=== PATIENT | female | born 1935 | race African-American/Black ===

== ENCOUNTER 2017-06-12 00:05 | Inpatient (IN) | payer OTHER ==
[2017-06-12] MEDS ORDERED: ALBUTEROL SO4 2.5/IPRATROPIUM 0.5 INH SOL 3 ML VIAL.NEB. NEB STA ×2 (00:13→00:42)
[2017-06-12] MEDS ORDERED: NITROGLYCERIN 2% OINTMENT - 1GM PACKET TD ONE ×2 (00:15→00:27)
[2017-06-12] MEDS ORDERED: morphine CARPU-JECT 2 MG/1 ML DISP.SYRIN IVPUSH ONE ×2 (00:15→00:33)
--- NOTE | 2017-06-12 00:16 | PDOC ---
History of Present Illness - General History Source: Patient, Family Exam Limitations: No Limitations - History of Present Illness Initial Comments: 06/12/17 00:42 The patient is an 82 year old female, with history of hypertension and CKD on HD MWF, RUE AV fistula, who presents to the ED with difficulty breathing today. As per patients grandson, she was lying in bed and awoke suddenly feeling short of breath. He does state that she experiences episodes of shortness of breath often but this one is worse than her previous episodes. The patient denies any fever, chills, nausea, vomiting, diarrhea, abdominal pain , or chest pain. <Kanwal Eddy - Last Filed: 06/12/17 00:41> - General History Source: Patient, Family <Feliz Nj - Last Filed: 06/12/17 02:37> - General Stated Complaint: DIFF BREATHING Time Seen by Provider: 06/12/17 00:13 Past History <Kanwal Eddy - Last Filed: 06/12/17 00:41> - Past Medical History Anemia: Yes Asthma: No Cancer: No Cardiac Disorders: No CVA: No COPD: No CHF: No Dementia: No Diabetes: No GI Disorders: No Disorders: Yes (CKD) HTN: Yes Hypercholesterolemia: No Liver Disease: No Seizures: No Thyroid Disease: No - Surgical History Abdominal Surgery: No Appendectomy: No Cardiac Surgery: No Cholecystectomy: No Lung Surgery: No Neurologic Surgery: No Orthopedic Surgery: No - Psycho/Social/Smoking Cessation Hx Suicidal Ideation: No Smoking History: Never smoked Have you smoked in the past 12 months: No Substance Use Type: None Hx Substance Use Treatment: No <Feliz Nj - Last Filed: 06/12/17 02:37> - Past Medical History Allergies/Adverse Reactions: Allergies Allergy/AdvReac Type Severity Reaction Status Date / Time No Known Allergies Allergy Verified 06/12/17 01:12 Home Medications: Ambulatory Orders Cinacalcet HCl [Sensipar] 60 mg PO DAILY 09/27/15 Sevelamer Carbonate [Renvela -] 800 mg PO CM 09/27/15 Lisinopril [Prinivil] 10 mg PO DAILY #30 tablet 10/01/15 Pantoprazole Sodium [Protonix -] 40 mg PO BID #60 tablet.ec 10/01/15 Review of Systems - Review of Systems Comments:: 06/12/17 00:43 CONSTITUTIONAL: Present: diaphoresis Absent: fever, chills, generalized weakness, malaise, loss of appetite HEENT: Absent: rhinorrhea, nasal congestion, throat pain, throat swelling, difficulty swallowing, mouth swelling, ear pain, eye pain, visual Changes CARDIOVASCULAR: Absent: chest pain, syncope, palpitations, irregular heart rate, lightheadedness , peripheral edema RESPIRATORY: Present: shortness of breath Absent: cough, dyspnea with exertion, orthopnea, wheezing, stridor, hemoptysis GASTROINTESTINAL: Absent: abdominal pain, abdominal distension, nausea, vomiting, diarrhea, constipation, melena, hematochezia GENITOURINARY: Absent: dysuria, frequency, urgency, hesitancy, hematuria, flank pain, genital pain MUSCULOSKELETAL: Absent: myalgia, arthralgia, joint swelling SKIN: Absent: rash, itching, pallor HEMATOLOGIC/IMMUNOLOGIC: Absent: easy bleeding, easy bruising, lymphadenopathy, frequent infections ENDOCRINE: Absent: unexplained weight gain, unexplained weight loss, heat intolerance, cold intolerance NEUROLOGIC: Absent: headache, focal weakness or paresthesias, dizziness, unsteady gait, seizure, mental status changes, bladder or bowel incontinence PSYCHIATRIC: Absent: anxiety, depression, suicidal or homicidal ideation, hallucinations. <Kanwal Eddy - Last Filed: 06/12/17 00:41> *Physical Exam - Physical Exam Comments: 06/12/17 00:45 GENERAL: Well developed, well nourished. Awake and alert. +Moderate distress. Appears diaphoretic HEENT: Normocephalic, atraumatic. PERRLA, EOMI. No conjunctival pallor. Sclera are non- icteric. Moist mucous membranes. Oropharynx is clear. NECK: Supple. Full ROM. No JVD. Carotid pulses 2+ and symmetric, without bruits. No thyromegaly. No lymphadenopathy. CARDIOVASCULAR: No murmurs, rubs, or gallops. Distal pulses are 2+ and symmetric. +Tachycardic PULMONARY: +Decreased breath sounds, crackles heard throughout. Tachypneic ABDOMINAL: Soft. Non-tender. Non-distended. No rebound or guarding. No organomegaly. Normoactive bowel sounds. MUSCULOSKELETAL Normal range of motion at all joints. No bony deformities or tenderness. No CVA tenderness. EXTREMITIES: No cyanosis. No clubbing. No edema. No calf tenderness. AV fistula in right upper arm. SKIN: Warm and dry. Normal capillary refill. No rashes. No jaundice. NEUROLOGICAL: Alert, awake, appropriate. PSYCHIATRIC: Cooperative. Good eye contact. Appropriate mood and affect. <Kanwal Eddy - Last Filed: 06/12/17 00:41> Heart Score/ECG Review - ECG Intrepretation Comment:: 06/12/17 00:25 EKG was reviewed by Dr. Nj at 0:15:06 Impression: Sinus tachycardia. Possible Left atrial enlargement. Nonspecific T wave abnormality. Vent. rate: 117 bpm AR interval: 168 ms QTc: 454 ms <Kanwal Eddy - Last Filed: 06/12/17 00:41> ED Treatment Course - LABORATORY CBC & Chemistry Diagram: 06/12/17 00:13 06/12/17 01:54 - RADIOLOGY Radiology Studies Ordered: Category Date Time Status CHEST X-RAY PORTABLE* [RAD] Stat Radiology 06/12/17 00:14 Ordered <Feliz Nj - Last Filed: 06/12/17 02:37> Medical Decision Making - Medical Decision Making 06/12/17 02:17 Dr. Nj: The scribe's documentation has been prepared under my direction and personally reviewed by me in its entirery. I confirm that the note above accurately reflects all work, treatment, procedures, and medical decision making performed by me. 06/12/17 02:36 Pt found ot be in pulmonary edema. Placed on a Nitro drip. Pt to be admitted to ICU. <Feliz Nj - Last Filed: 06/12/17 02:37> *DC/Admit/Observation/Transfer - Attestations Scribe Attestion: 06/12/17 00:27 Documentation prepared by Kanwal Eddy, acting as center medical director for Feliz Nj MD. <Kanwal Eddy - Last Filed: 06/12/17 00:41> - Discharge Dispostion Admit: Yes <Feliz Nj - Last Filed: 06/12/17 02:37> Diagnosis at time of Disposition: ESRD on hemodialysis Pulmonary edema Qualifiers: Chronicity: acute Qualified Code(s): J81.0 - Acute pulmonary edema - Discharge Dispostion Condition at time of disposition: Critical - Referrals Referrals: Yovany Bustamante MD [Primary Care Provider] -
[2017-06-12] MEDS ORDERED: FUROSEMIDE 40 MG/4 ML INJECTABLE VIAL IVPUSH ONE (00:33)
[2017-06-12] MEDS ORDERED: NITROGLYCERIN 25MG/D5W 250ML 250 ML IVPB ONE (00:34)
[2017-06-12] MEDS ORDERED: morphine CARPU-JECT 2 MG/1 ML DISP.SYRIN ONE (00:34)
[2017-06-12] MEDS ORDERED: FUROSEMIDE 40 MG/4 ML INJECTABLE VIAL ONE (00:34)
[2017-06-12 00:43] LABS: BASOPHIL 1.2 % (0-2.0); EOSINOPHIL 3.4 % (0-4.5); MCH 26.7 pg (25.7-33.7); MCHC 31.9 g/dl (32.0-36.0); MEAN CELL VOLUME 83.7 fl (80-96); MEAN PLT VOLUME 8.4 fl (7.5-11.1); NEUTROPHILS 64.5 % (42.8-82.8); PLATELET COUNT 229 K/MM3 (134-434); RDW 19.6 % (11.6-15.6); WHITE BLOOD COUNT 8.7 K/mm3 (4.0-10.0)
[2017-06-12] MEDS: NITROGLYCERIN 25MG/D5W 250ML 250 ML IVPB SCH ×2 (00:53→03:40)
[2017-06-12 01:09] LABS: INR 1.04 (0.82-1.09); PROTHROMBIN TIME (PATIENT) 11.4 SEC (9.98-11.88)
[2017-06-12] MEDS ORDERED: METOCLOPRAMIDE HCL INJECTION 10 MG/2 ML VIAL IVPUSH ONE (01:37)
[2017-06-12 01:55] LABS: URINE APPEARANCE CLEAR; URINE BILIRUBIN NEGATIVE (NEGATIVE); URINE BLOOD NEGATIVE (NEGATIVE); URINE COLOR STRAW; URINE GLUCOSE (UA) 2+ (NEGATIVE); URINE KETONE NEGATIVE (NEGATIVE); URINE LEUK ESTERASE NEGATIVE (NEGATIVE); URINE NITRITE NEGATIVE (NEGATIVE); URINE UROBILINOGEN NEGATIVE mg/dL (0.2-1.0)
[2017-06-12 01:56] LABS: URINE PROTEIN 3+ (NEGATIVE)
[2017-06-12 02:05] LABS: URINE BACTERIA RARE /hpf (NONE SEEN); URINE HYALINE CAST 1 /lpf; URINE RBC 1 /hpf (0-3); URINE WBC 3 /hpf (3-5)
[2017-06-12 02:26] LABS: ALBUMIN 3.4 g/dl (3.4-5.0); ANION GAP 10 (8-16); BILIRUBIN,TOTAL 0.5 mg/dL (0.2-1.0); CALCIUM 8.2 mg/dL (8.5-10.1); CO2 28 mmol/L (21-32); CREATININE 5.9 mg/dL (0.55-1.02); GLUCOSE,RANDOM 153 mg/dL (74-106); SGOT/AST 68 U/L (15-37); SGPT/ALT 54 U/L (12-78); TOT PROT 6.1 g/dl (6.4-8.2)
[2017-06-12 02:28] LABS: ALK PHOS 156 U/L (45-117); TROPONIN I 0.14 ng/ml (0.00-0.05)
--- NOTE | 2017-06-12 02:54 | HP ---
CHIEF COMPLAINT: SOB PCP: Dr. Jayme Hoskins HISTORY OF PRESENT ILLNESS: This is a 82 y/o female with a past medical history of ESRD. Who presents to the ED with her grandson for SOB. Per ED record: As per patients grandson, she was lying in bed and awoke suddenly feeling short of breath. He does state that she experiences episodes of shortness of breath often but this one is worse than her previous episodes. Patient reports having chest pain which is now resolved since being started on the Nitro Drip. Patient reports having lower extremity edema. Patient reports being dialyzed last Thursday. Patient denies fever, chills, cough, dizziness, WEIR, CP, AP, N/V/D, constipation. ER course was notable for: (1) Chest Xray- Acute Pulmonary Edema (2) EKG- Sinus Tachycardia, Nonspecific T wave abnormality (3) Bun 28, Cr 5.9 Recent Travel: None PAST MEDICAL HISTORY: ESRD- HD (MWF) HTN DM2 Anemia GI Bleed PAST SURGICAL HISTORY: AV- Fistula/Graft: Right Arm Social History: Smoking: Former 25 years ago Alcohol: None Drugs: None Lives with family Family History: Non-contributory Allergies No Known Allergies Allergy (Verified 06/12/17 01:12) HOME MEDICATIONS: Home Medications Medication Instructions Recorded Cinacalcet HCl [Sensipar] 60 mg PO DAILY 09/27/15 Sevelamer Carbonate [Renvela -] 800 mg PO CM 09/27/15 Lisinopril [Prinivil] 10 mg PO DAILY #30 tablet 10/01/15 Pantoprazole Sodium [Protonix -] 40 mg PO BID #60 tablet.ec 10/01/15 REVIEW OF SYSTEMS CONSTITUTIONAL: Absent: fever, chills, diaphoresis, generalized weakness, malaise, loss of appetite, weight change HEENT: Absent: rhinorrhea, nasal congestion, throat pain, throat swelling, difficulty swallowing, mouth swelling, ear pain, eye pain, visual changes CARDIOVASCULAR: chest pain, peripheral edema Absent: syncope, palpitations, irregular heart rate, lightheadedness RESPIRATORY: shortness of breath Absent: cough, dyspnea on exertion, orthopnea, wheezing, stridor, hemoptysis GASTROINTESTINAL: Absent: abdominal pain, abdominal distension, nausea, vomiting, diarrhea, constipation, melena, hematochezia GENITOURINARY: Absent: dysuria, frequency, urgency, hesitancy, hematuria, flank pain, genital pain MUSCULOSKELETAL: Absent: myalgia, arthralgia, joint swelling, back pain, neck pain SKIN: Absent: rash, itching, pallor HEMATOLOGIC/IMMUNOLOGIC: Absent: easy bleeding, easy bruising, lymphadenopathy, frequent infections ENDOCRINE: Absent: unexplained weight gain, unexplained weight loss, heat intolerance, cold intolerance NEUROLOGIC: Absent: headache, focal weakness or paresthesias, dizziness, unsteady gait, seizure, mental status changes, bladder or bowel incontinence PSYCHIATRIC: Absent: anxiety, depression, suicidal or homicidal ideation, hallucinations. PHYSICAL EXAMINATION Vital Signs - 24 hr 06/12/17 06/12/17 00:10 02:41 Temperature 96.1 F L Pulse Rate 121 H Pulse Rate [ 68 Right Apical] Respiratory 32 H 14 Rate Blood Pressure 225/103 Blood Pressure 159/58 [Left Arm] O2 Sat by Pulse 86 L 100 Oximetry (%) GENERAL: Asleep, but easily arousable and oriented to name, in no acute distress. HEAD: Normal with no signs of trauma. EYES: Pupils equal, round and reactive to light, extraocular movements intact, sclera anicteric, conjunctiva clear. No lid lag. EARS, NOSE, THROAT: Ears normal, nares patent, oropharynx clear without exudates. Dry mucous membranes. NECK: Normal range of motion, supple without lymphadenopathy, JVD, or masses. LUNGS: Lung dorantes diminished to bases, +crackles. No wheezes. No accessory muscle use. HEART: Regular rate and rhythm, normal S1 and S2, rub or gallop. grade 3/6 murmur over left chest border ABDOMEN: Soft, nontender, not distended, normoactive bowel sounds, no guarding, no rebound, no masses. No hepatomegaly or splenomegaly. MUSCULOSKELETAL: Normal range of motion at all joints. No bony deformities or tenderness. No CVA tenderness. UPPER EXTREMITIES: 2+ pulses, warm, well-perfused. No cyanosis. No clubbing. No peripheral edema. + Right AV Fistula +Bruit/Thrill LOWER EXTREMITIES: 2+ pulses, warm, well-perfused. No calf tenderness. +1 bilateral pitting peripheral edema. NEUROLOGICAL: Cranial nerves II-XII intact. Normal speech. Gait not observed. PSYCHIATRIC: Cooperative. Good eye contact. Appropriate mood and affect. SKIN: Warm, dry, normal turgor, no rashes or lesions noted, normal capillary refill. Laboratory Results - last 24 hr 06/12/17 06/12/17 06/12/17 00:13 00:13 00:33 WBC 8.7 D RBC 4.11 D Hgb 11.0 D Hct 34.3 D MCV 83.7 MCH 26.7 D MCHC 31.9 L RDW 19.6 H Plt Count 229 D MPV 8.4 Neutrophils % 64.5 Lymphocytes % 23.5 D Monocytes % 7.4 Eosinophils % 3.4 Basophils % 1.2 INR 1.04 Sodium Cancelled Potassium Cancelled Chloride Cancelled Carbon Dioxide Cancelled Anion Gap Cancelled BUN Cancelled Creatinine Cancelled Creat Clearance w eGFR Cancelled Random Glucose Cancelled Lactic Acid Calcium Cancelled Magnesium Cancelled Total Bilirubin Cancelled AST Cancelled ALT Cancelled Alkaline Phosphatase Cancelled Creatine Kinase Cancelled Troponin I Cancelled B-Natriuretic Peptide Cancelled Total Protein Cancelled Albumin Cancelled Urine Color Urine Appearance Urine pH Urine Protein Urine Glucose (UA) Urine Ketones Urine Blood Urine Nitrite Urine Bilirubin Urine Urobilinogen Ur Leukocyte Esterase Urine RBC Urine WBC Urine Bacteria Hyaline Casts 06/12/17 06/12/17 06/12/17 00:47 01:40 01:54 WBC RBC Hgb Hct MCV MCH MCHC RDW Plt Count MPV Neutrophils % Lymphocytes % Monocytes % Eosinophils % Basophils % INR Sodium 138 Potassium 4.7 Chloride 100 Carbon Dioxide 28 Anion Gap 10 BUN 28 H D Creatinine 5.9 H D Creat Clearance w eGFR 6.83 Random Glucose 153 H D Lactic Acid 1.1 Calcium 8.2 L Magnesium Total Bilirubin 0.5 AST 68 H D ALT 54 D Alkaline Phosphatase 156 H D Creatine Kinase 98 Troponin I 0.14 H B-Natriuretic Peptide Total Protein 6.1 L D Albumin 3.4 D Urine Color Straw Urine Appearance Clear Urine pH 8.0 Urine Protein 3+ H Urine Glucose (UA) 2+ H Urine Ketones Negative Urine Blood Negative Urine Nitrite Negative Urine Bilirubin Negative Urine Urobilinogen Negative Ur Leukocyte Esterase Negative Urine RBC 1 Urine WBC 3 Urine Bacteria Rare Hyaline Casts 1 ASSESSMENT/PLAN: This is a 82 y/o female with a PMHx of: ESRD- HD (M,W,F), HTN, DM2. Admitted for Acute Pulmonary Edema for further evaluation of their emergent condition. Problems: 1. Acute Pulmonary Edema 2. Uncontrolled HTN 3. ESRD 4. Chest Pain 4. DM2 5. Anemia 6. GI Bleed Plan: 1. Pulm: Acute Pulmonary Edema - Likely secondary to volume overload - ICU- CC monitoring - Chest Xray- image Pulmonary Edema, no focal infiltrates - Started on Nitro Drip, Lasix, Morphine given in ED - Will Continue Nitro Drip Protocol to titrate sys BP 170s - Appreciate Loader Machine Consult - Appreciate Nephrology Consult - Monitor CBC, BMP - INOs - O2 2. Card: Uncontrolled HTN - Likely secondary to volume overload ?missed HD - Continue Nitro Drip titrate to maintain sys BP 170's - Hold home meds for now, review in am - HD today - Monitor BP Chest pain - Patient denies active CP - HEART Score 4 - Serial Enzymes - EKG reviewed - Continue Nitro Drip titrate - Appreciate Cardiology Consult - Hold Asa 2/2 Acute Pulmonary Edema, ESRD, (risks outweigh benefits) will await recommendations per Cardiology 3. Neph: End Stage Renal Disease - Continue HD- Mon, Wed, Fri - Appreciate Nephrology Consult - Continue home meds 4. Endo:Diabetes Mellitus - BGMs - No current meds listed, verify with grandson today - ISS, when meals resumed - HgbA1C in am 5.Heme: Anemia - Stable - Hgb 11, baseline - Will transfuse if Hb < 7.0 6 GI: Gastrointestinal Bleed - Not active - Hgb 11.0 7. FEN - Fluid Restriction - Replete lytes prn - Renal, Low Na Diet 8. DVT Prophylaxis - SCDs - Heparin SQ, monitor closely Code Status: Full Code Dispo: Requires Inpatient Care Problem List - Problem (1) Pulmonary edema Code(s): J81.1 - CHRONIC PULMONARY EDEMA Qualifiers: Chronicity: acute Qualified Code(s): J81.0 - Acute pulmonary edema (2) ESRD on hemodialysis Code(s): N18.6 - END STAGE RENAL DISEASE Z99.2 - DEPENDENCE ON RENAL DIALYSIS (3) Chest pain Code(s): R07.9 - CHEST PAIN, UNSPECIFIED (4) HTN (hypertension) Code(s): I10 - ESSENTIAL (PRIMARY) HYPERTENSION (5) DM (diabetes mellitus) type II controlled with renal manifestation Code(s): E11.29 - TYPE 2 DIABETES MELLITUS W OTH DIABETIC KIDNEY COMPLICATION (6) Anemia Code(s): D64.9 - ANEMIA, UNSPECIFIED (7) Aortic stenosis Code(s): Q25.3 - SUPRAVALVULAR AORTIC STENOSIS (8) DVT prophylaxis Code(s): [id number] - Visit type - Emergency Visit Emergency Visit: Yes ED Registration Date: 06/12/17 Care time: The patient presented to the Emergency Department on the above date and was hospitalized for further evaluation of their emergent condition. - New Patient This patient is new to me today: Yes Date on this admission: 06/12/17 - Critical Care Critical Care patient: Yes Total Critical Care Time (in minutes): 35 Critical Care Statement: The care of this patient involved high complexity decision making to prevent further life threatening deterioration of the patient 's condition and/or to evalute & treat vital organ system(s) failure or risk of failure.
[2017-06-12 03:27] VITALS: BMI 21.3
--- NOTE | 2017-06-12 04:27 | CONSULT ---
Consult - text type - Consultation Consultation Note: Pulm/CCM Pt seen and examined in ICU CC: Shortness of Breath HPI: Briefly Ms Ng is a 82 y/o woman with HTN, ESRD on TIW HD via RUE AVF who now presents to ED with Hypertension and pulmonary edema in setting of missed HD session. Pt apparently missed her HD session on Thu, though she is currently unable to indicate why. She awoke suddenly this evening with dyspnea. Brought to ED by son. Denies Sick prodrome, chest pain, fever/chills, N/V/D. In ED pt was afebrile, hypertensive 225/140, tachycardic, spo2 80s, improved on supplemental o2. Give IV lasix with small amount of output, placed on Nitroglycerin gtt with SPB down to 160-170. CXR showed pulm edema pattern without clear focal infiltrate. Cr 5.9 but K only 4.7. WBC of 8 and UA negative. EKG without ischemic changes. Fio2 was able to be down titrated. Admitted to ICU for further care. In ICU pt sleeping comfortably, BP 170/60, HR 64, without dyspnea, saturating well on nasal cannula 3LPM. Past Medical History Cardio/Vascular HTN Renal/ Renal Failure,Hemodialysis Heme/Onc Anemia Endocrine Diabetes Mellitus Past Surgical History Past Surgical History AV Fistula/Graft Smoking History Smoking history Never smoked Alcohol/Substance Use Hx Alcohol Use No ROS: 10 point review unrevealing except as per HPI> Ambulatory Orders Cinacalcet HCl [Sensipar] 60 mg PO DAILY 09/27/15 Sevelamer Carbonate [Renvela -] 800 mg PO CM 09/27/15 Lisinopril [Prinivil] 10 mg PO DAILY #30 tablet 10/01/15 Pantoprazole Sodium [Protonix -] 40 mg PO BID #60 tablet.ec 10/01/15 Current Medications Chlorhexidine Gluconate (Hibiclens For Decolonization -) 1 applic TP HS DAVID Nitroglycerin/Dextrose (Nitroglycerin 25mg/D5w 250ml) 250 mls @ 6 mls/hr IVPB TITR DAVID PRN Reason: 10 MCG/MIN Last Admin: 06/12/17 03:40 Dose: 15 mls/hr Mupirocin (Bactroban Ointment (For Decolonization) -) 1 applic NS BID DAVID Stop: 06/17/17 09:59 Vital Signs Temp 97.6 F 06/12/17 02:09 Pulse 65 06/12/17 02:55 Resp 11 L 06/12/17 02:55 BP 159/61 06/12/17 02:55 Pulse Ox 100 06/12/17 02:41 Intake & Output 06/11/17 06/11/17 06/12/17 11:59 23:59 11:59 Weight 54.573 kg Other: Voiding Method Indwelling Catheter Height 5 ft 3 in Body Mass Index (BMI) 21.3 Weight Measurement Method Built in [facility] Weight Measurement Method Estimated by Staff CBC, BMP 06/12/17 00:13 06/12/17 01:54 Urine Test Results Urine Color Straw 06/12/17 01:40 Urine Appearance Clear 06/12/17 01:40 Urine pH 8.0 (5.0-8.0) 06/12/17 01:40 Urine Protein 3+ (NEGATIVE) H 06/12/17 01:40 Urine Glucose (UA) 2+ (NEGATIVE) H 06/12/17 01:40 Urine Ketones Negative (NEGATIVE) 06/12/17 01:40 Urine Blood Negative (NEGATIVE) 06/12/17 01:40 Urine Nitrite Negative (NEGATIVE) 06/12/17 01:40 Urine Bilirubin Negative (NEGATIVE) 06/12/17 01:40 Ur Leukocyte Esterase Negative (NEGATIVE) 06/12/17 01:40 Urine RBC 1 /hpf (0-3) 06/12/17 01:40 Urine WBC 3 /hpf (3-5) 06/12/17 01:40 Urine Bacteria Rare /hpf (NONE SEEN) 06/12/17 01:40 PE: Gen: eld woman, sleeping, no distress HEENT: NCAT PULM: diffuse rales, no wheezes, no accessory muscle use CV: RRR, no m/r/g appreciated Abd; soft, NT, +BS ext: RUE AVF with + thrill Neuro: non-focal CXR: reviewed, pulm edema, no pneumothorax EKG: ST, non specific ST changes, normal intervals, no widening or significant spike T A/82y/o woman ESRD on HD p/w pulm edema and hypertensive emergency, improved on NTG gtt P/ -cont ntg gtt with goal SPB 170s -no indication for abx -HD in Am as per Nephrology -restart home meds in am -SQH -no indication for GI alon -kaitlin younger for floor post HD Amadou Hopper ACN [id number] Critical Care Total Critical Care Time (in minutes): 35 Critical Care Statement: The care of this patient involved high complexity decision making to prevent further life threatening deterioration of the patient 's condition and/or to evalute & treat vital organ system(s) failure or risk of failure.
--- NOTE | 2017-06-12 07:48 | CON.NEP ---
Consult Consult Specialty:: nephrology Reason for Consultation:: esrd - History of Present Illness Chief Complaint: sob History of Present Illness: This is a 82 y/o female with a past medical history of ESRD. Who presents to the ED with her grandson for SOB. Per ED record: As per patients grandson, she was lying in bed and awoke suddenly feeling short of breath. He does state that she experiences episodes of shortness of breath often but this one is worse than her previous episodes. Patient reports having chest pain which is now resolved since being started on the Nitro Drip. Patient reports having lower extremity edema. Patient reports being dialyzed last Thursday. Patient denies fever, chills, cough, dizziness, WEIR, CP, AP, N/V/D, constipation. She has been on hemodialysis for about 4 years using a left avg initially and now a right avg. She feels better today. Today is her regular HD day. Says she goes to [place] for hd but does not remember who her asset liability analyst is. - History Source History Provided By: Patient, Medical Record - Past Medical History Cardio/Vascular: Yes: HTN Renal/: Yes: Renal Failure, Hemodialysis Endocrine: Yes: Diabetes Mellitus - Past Surgical History Past Surgical History: Yes: AV Fistula/Graft (rue) - Alcohol/Substance Use Hx Alcohol Use: No - Smoking History Smoking history: Never smoked Have you smoked in the past 12 months: No Home Medications - Allergies Allergies/Adverse Reactions: Allergies Allergy/AdvReac Type Severity Reaction Status Date / Time No Known Allergies Allergy Verified 06/12/17 01:12 - Home Medications Home Medications: Ambulatory Orders Cinacalcet HCl [Sensipar] 60 mg PO DAILY 09/27/15 Sevelamer Carbonate [Renvela -] 800 mg PO CM 09/27/15 Lisinopril [Prinivil] 10 mg PO DAILY #30 tablet 10/01/15 Pantoprazole Sodium [Protonix -] 40 mg PO BID #60 tablet.ec 10/01/15 Family Disease History - Family Disease History Family Disease History: Other: Father (gallstones) Review of Systems - Review of Systems Constitutional: reports: No Symptoms Eyes: reports: No Symptoms HENT: reports: No Symptoms Neck: reports: No Symptoms Cardiovascular: reports: Chest Pain, Shortness of Breath Respiratory: reports: SOB Gastrointestinal: reports: No Symptoms Genitourinary: reports: No Symptoms Breasts: reports: No Symptoms Reported Musculoskeletal: reports: No Symptoms Integumentary: reports: No Symptoms Neurological: reports: No Symptoms Endocrine: reports: No Symptoms Hematology/Lymphatic: reports: No Symptoms Psychiatric: reports: No Symptoms Nephrology Consult - Height Height: 5 ft 3 in - Weight Weight: 120 lb 5 oz - BMI Body Mass Index (BMI): 21.3 - Lab Results Anion Gap: Anion Gap Anion Gap 10 (8-16) 06/12/17 01:54 - Imaging Chest X-ray: Image Reviewed (cardiomegaly, chf) - Physical Examination Vital Signs: Vital Signs Temperature 97.8 F 06/12/17 04:55 Pulse Rate 59 L 06/12/17 06:55 Respiratory Rate 13 06/12/17 06:55 Blood Pressure 156/65 06/12/17 06:55 O2 Sat by Pulse Oximetry (%) 100 06/12/17 02:41 Constitutional: Yes: Well Nourished, No Distress, Thin Eyes: Yes: Conjunctiva Clear HENT: Yes: Atraumatic, Normocephalic Neck: Yes: Supple, Trachea Midline Cardiovascular: Yes: Regular Rate and Rhythm, Murmur (high pitched in apex) Respiratory: Yes: Regular (clear anteriorly) Gastrointestinal: Yes: Normal Bowel Sounds Renal/: Yes: WNL Access for Hemodialysis: AV Graft (rue) Musculoskeletal: Yes: WNL Extremities: Yes: WNL Edema: Yes Edema: LLE: 1+, RLE: 1+ Integumentary: Yes: WNL Neurological: Yes: Alert, Oriented Psychiatric: Yes: Alert, Oriented Assessment/Plan IMPRESSION esrd- s/p missed treatment htn diabetes chf PLAN will make arrangements for hd today. Usually gets 3 hours no RAFI given hgb above 10 can attempt some fluid removal cardiology eval MV
[2017-06-12 08:24] LABS: MAGNESIUM 2.4 mg/dL (1.8-2.4)
[2017-06-12 08:34] LABS: PHOSPHOROUS 5.5 mg/dL (2.5-4.9); TROPONIN I 0.21 ng/ml (0.00-0.05)
--- NOTE | 2017-06-12 09:13 | EKG ---
Test Reason : Blood Pressure : / mmHG Vent. Rate : 117 BPM Atrial Rate : 117 BPM P-R Int : 168 ms QRS Dur : 092 ms QT Int : 326 ms P-R-T Axes : 068 030 088 degrees QTc Int : 454 ms POOR DATA QUALITY, INTERPRETATION MAY BE ADVERSELY AFFECTED SINUS TACHYCARDIA POSSIBLE LEFT ATRIAL ENLARGEMENT NONSPECIFIC T WAVE ABNORMALITY ABNORMAL ECG WHEN COMPARED WITH ECG OF 27-SEP-2015 05:36, NO SIGNIFICANT CHANGE WAS FOUND Confirmed by MARIO ALBERTO ARTIS MD ([id number]) on 06/12/2017 9:13:16 AM Referred By: Confirmed By:MARIO ALBERTO ARTIS MD
--- NOTE | 2017-06-12 10:18 | PN ---
Physical Exam: SUBJECTIVE: Patient seen and examined. Feels better; no longer short of breath. No chest pain. Wants to eat. OBJECTIVE: Vital Signs Period Temp Pulse Resp BP Sys/Bullock Pulse Ox Last 24 Hr 97.8 F 59-68 11-16 155-165/58-77 100-100 GENERAL: The patient is awake, alert, and fully oriented, in no acute distress. HEAD: Normal with no signs of trauma. EYES: PERRL, extraocular movements intact, sclera anicteric, conjunctiva clear. No ptosis. ENT: Ears normal, nares patent, oropharynx clear without exudates, moist mucous membranes. NECK: Trachea midline, full range of motion, supple. LUNGS: Breath sounds equal, clear to auscultation bilaterally, no wheezes, no crackles, no accessory muscle use. HEART: Regular rate and rhythm, S1, S2. 3/6 systolic murmur. ABDOMEN: Soft, nontender, nondistended, normoactive bowel sounds, no guarding, no rebound, no hepatosplenomegaly, no masses. EXTREMITIES: 2+ pulses, warm, well-perfused. 1+ pitting edema bilaterally. NEUROLOGICAL: Cranial nerves II through XII grossly intact. Normal speech, gait not observed. PSYCH: Normal mood, normal affect. SKIN: Warm, dry, normal turgor, no rashes or lesions noted Laboratory Results - last 24 hr 06/12/17 07:40 Phosphorus 5.5 H D Magnesium 2.4 D Creatine Kinase 73 Troponin I 0.21 H Active Medications Generic Name Dose Route Start Last Admin Trade Name Freq PRN Reason Stop Dose Admin Chlorhexidine Gluconate 1 applic 06/12/17 22:00 Hibiclens For Decolonization - TP HS DAVID Heparin Sodium (Porcine) 5,000 unit 06/12/17 10:00 Heparin - SQ BID DAVID Heparin Sodium (Porcine) 1,000 unit 06/12/17 11:00 Heparin - IVPUSH 06/12/17 11:01 ONCE ONE Nitroglycerin/Dextrose 250 mls @ 6 mls/hr 06/12/17 00:30 06/12/17 03:40 Nitroglycerin 25mg/D5w 250ml IVPB 15 mls/hr TITR ADVID Administration 10 MCG/MIN Mupirocin 1 applic 06/12/17 10:00 Bactroban Ointment (For Decolonization) - NS 07/19/17 09:59 BID [facility] ASSESSMENT/PLAN: 82 year old female with a history of ESRD- HD (M,W,F), HTN, DM2 admitted with acute pulmonary edema. 1. Pulm: Acute Pulmonary Edema - Likely secondary to volume overload from missed HD - Improving; satting well, normal work of breathing, no longer feels short of breath - BP in 150s systolic - Wean nitro gtt - For HD today 2. HTN - Resume home Lisinopril - Follow 3. Chest pain (resolved) -Troponin slightly elevated and uptrending (0.21 from 0.14) -Trend trops -Start ASA 81mg daily -Start Metoprolol 12.5mg daily (HRS 50s-60s) -Cardiology evaluation -No AC for now as may be secondary to APE and missed HD rather than true ACS 3. ESRD -For HD today -Resume Renvela/Sensipar 4. DM -FSACHS -ISS -Check A1C -No home meds listed; need to verify with family 5. Heme: Anemia -Likely of chronic disease -Follow 6. F/E/N -Replete lytes as needed -Renal diet 7. DVT Prophylaxis -Sqh -Early ambulation Code Status: Full Code Dispo: Requires inpatient care. Likely can transfer to telemetry. Visit type - Emergency Visit Emergency Visit: Yes ED Registration Date: 06/12/17 Care time: The patient presented to the Emergency Department on the above date and was hospitalized for further evaluation of their emergent condition. - New Patient This patient is new to me today: Yes Date on this admission: 06/14/17 - Critical Care Critical Care patient: Yes Total Critical Care Time (in minutes): 35 Critical Care Statement: The care of this patient involved high complexity decision making to prevent further life threatening deterioration of the patient 's condition and/or to evalute & treat vital organ system(s) failure or risk of failure. - Discharge Referral Referred to [facility] Med P.C.: No
[2017-06-12] MEDS ORDERED: HEPARIN NA (PORCINE) 5,000 UNITS/ML 1ML VIAL IVPUSH ONE (11:00)
--- NOTE | 2017-06-12 12:02 | PN ---
Teaching Attending Note Name of Resident: Jah Bensno ATTENDING PHYSICIAN STATEMENT I saw and evaluated the patient. I reviewed the resident's note and discussed the case with the resident. I agree with the resident's findings and plan as documented. SUBJECTIVE: Patient seen and examined in the ICU. Awake and alert. Remains on IV NTG @ 15 mcg/min. No CP or SOB. No abdominal pain. Currently on HD. Intake & Output 06/09/17 06/10/17 06/11/17 06/12/17 23:59 23:59 23:59 23:59 Intake Total 36 Output Total 50 Balance -14 Weight 120 lb 5 oz Last Vital Signs Temp Pulse Resp BP Pulse Ox 98.2 F 63 18 185/55 97 06/12/17 10:00 06/12/17 11:28 06/12/17 10:50 06/12/17 10:50 06/12/17 11:28 Active Medications Aspirin (Asa -) 81 mg PO DAILY [facility] Chlorhexidine Gluconate (Hibiclens For Decolonization -) 1 applic TP HS [facility] Cinacalcet (Sensipar -) 60 mg PO DAILY [facility] Heparin Sodium (Porcine) (Heparin -) 5,000 unit SQ BID [facility] Nitroglycerin/Dextrose (Nitroglycerin 25mg/D5w 250ml) 250 mls @ 6 mls/hr IVPB TITR DAVID PRN Reason: 10 MCG/MIN Last Admin: 06/12/17 03:40 Dose: 15 mls/hr Lisinopril (Prinivil) 10 mg PO DAILY [facility] Metoprolol Tartrate (Lopressor -) 12.5 mg PO DAILY [facility] Mupirocin (Bactroban Ointment (For Decolonization) -) 1 applic NS BID [facility] Stop: 06/17/17 09:59 Pantoprazole Sodium (Protonix -) 40 mg PO BID [facility] Sevelamer Carbonate (Renvela -) 800 mg PO [facility] OBJECTIVE: GENERAL: The patient is awake, alert, and fully oriented, NAD HEAD: Normal with no signs of trauma. EYES: sclera anicteric, conjunctiva clear. No ptosis. ENT: oropharynx clear without exudates, moist mucous membranes. NECK: Trachea midline, full range of motion, supple. LUNGS: Breath sounds equal, clear to auscultation bilaterally, no wheezes, no crackles, no accessory muscle use. HEART: Regular rate and rhythm, S1, S2. 3/6 systolic murmur. ABDOMEN: Soft, nontender, nondistended, normoactive bowel sounds, no guarding, no rebound, no hepatosplenomegaly, no masses. EXTREMITIES: 2+ pulses, warm, well-perfused. 1+ pitting edema bilaterally. NEUROLOGICAL: Non-focal, normal speech PSYCH: Normal mood, normal affect. SKIN: Warm, dry, normal turgor, no rashes or lesions noted Laboratory Results - last 24 hr 06/12/17 06/12/17 06/12/17 00:13 00:13 00:33 WBC 8.7 D RBC 4.11 D Hgb 11.0 D Hct 34.3 D MCV 83.7 MCH 26.7 D MCHC 31.9 L RDW 19.6 H Plt Count 229 D MPV 8.4 Neutrophils % 64.5 Lymphocytes % 23.5 D Monocytes % 7.4 Eosinophils % 3.4 Basophils % 1.2 INR 1.04 Sodium Cancelled Potassium Cancelled Chloride Cancelled Carbon Dioxide Cancelled Anion Gap Cancelled BUN Cancelled Creatinine Cancelled Creat Clearance w eGFR Cancelled Random Glucose Cancelled Hemoglobin A1c % Lactic Acid Calcium Cancelled Phosphorus Magnesium Cancelled Total Bilirubin Cancelled AST Cancelled ALT Cancelled Alkaline Phosphatase Cancelled Creatine Kinase Cancelled Troponin I Cancelled B-Natriuretic Peptide Cancelled Total Protein Cancelled Albumin Cancelled Urine Color Urine Appearance Urine pH Urine Protein Urine Glucose (UA) Urine Ketones Urine Blood Urine Nitrite Urine Bilirubin Urine Urobilinogen Ur Leukocyte Esterase Urine RBC Urine WBC Urine Bacteria Hyaline Casts 06/12/17 06/12/17 06/12/17 00:47 01:40 01:54 WBC RBC Hgb Hct MCV MCH MCHC RDW Plt Count MPV Neutrophils % Lymphocytes % Monocytes % Eosinophils % Basophils % INR Sodium 138 Potassium 4.7 Chloride 100 Carbon Dioxide 28 Anion Gap 10 BUN 28 H D Creatinine 5.9 H D Creat Clearance w eGFR 6.83 Random Glucose 153 H D Hemoglobin A1c % Lactic Acid 1.1 Calcium 8.2 L Phosphorus Magnesium Total Bilirubin 0.5 AST 68 H D ALT 54 D Alkaline Phosphatase 156 H D Creatine Kinase 98 Troponin I 0.14 H B-Natriuretic Peptide Total Protein 6.1 L D Albumin 3.4 D Urine Color Straw Urine Appearance Clear Urine pH 8.0 Urine Protein 3+ H Urine Glucose (UA) 2+ H Urine Ketones Negative Urine Blood Negative Urine Nitrite Negative Urine Bilirubin Negative Urine Urobilinogen Negative Ur Leukocyte Esterase Negative Urine RBC 1 Urine WBC 3 Urine Bacteria Rare Hyaline Casts 1 06/12/17 06/12/17 07:40 07:40 WBC RBC Hgb Hct MCV MCH MCHC RDW Plt Count MPV Neutrophils % Lymphocytes % Monocytes % Eosinophils % Basophils % INR Sodium Potassium Chloride Carbon Dioxide Anion Gap BUN Creatinine Creat Clearance w eGFR Random Glucose Hemoglobin A1c % 4.0 L Lactic Acid Calcium Phosphorus 5.5 H D Magnesium 2.4 D Total Bilirubin AST ALT Alkaline Phosphatase Creatine Kinase 73 Troponin I 0.21 H B-Natriuretic Peptide Total Protein Albumin Urine Color Urine Appearance Urine pH Urine Protein Urine Glucose (UA) Urine Ketones Urine Blood Urine Nitrite Urine Bilirubin Urine Urobilinogen Ur Leukocyte Esterase Urine RBC Urine WBC Urine Bacteria Hyaline Casts ASSESSMENT/PLAN: Acute Pulmonary Edema ESRD- HD (M,W,F) HTN DM2 Do not suspect PNA Chest pain (+) Troponin Wean and eventually D/C IV NTG O2 as needed HD with volume removal per Renal EKG May need to titrate oral BP meds ASA 81mg daily Metoprolol 12.5mg daily Cardiology evaluation VTE prophylaxis Dr Robbins Critical care time spent in reviewing chart, evaluating patient and formulating plan 35 min
--- NOTE | 2017-06-12 13:15 | PN ---
Physical Exam: SUBJECTIVE: Patient seen and examined at bedside in ICU. Pt feels better today. No longer has SOB and does not c/o chest pain. Pt states she is hungry but otherwise has no other complaints at this time. OBJECTIVE: Vital Signs Temperature 98.2 F 06/12/17 10:00 Pulse Rate 61 06/12/17 12:00 Respiratory Rate 18 06/12/17 12:00 Blood Pressure 142/72 06/12/17 12:00 O2 Sat by Pulse Oximetry (%) 97 06/12/17 11:28 GENERAL: The patient is awake, alert, and fully oriented ENT: Ears normal, nares patent NECK: Trachea midline LUNGS: b/l crackles HEART: Regular rate and rhythm, S1, S2 ABDOMEN: Soft, nontender, normoactive bowel sounds EXTREMITIES: warm, well-perfused, no edema. NEUROLOGICAL: Normal speech, gait not observed. SKIN: Warm, dry CBC, BMP 06/12/17 00:13 06/12/17 01:54 Laboratory Results - last 24 hr 06/12/17 06/12/17 07:40 07:40 Hemoglobin A1c % 4.0 L Phosphorus 5.5 H D Magnesium 2.4 D Creatine Kinase 73 Troponin I 0.21 H Imaging: CXR: Appears to have increased vascular congestion. Active Medications Generic Name Dose Route Start Last Admin Trade Name Foreignq PRN Reason Stop Dose Admin Aspirin 81 mg 06/12/17 11:30 Asa - PO DAILY [facility] Chlorhexidine Gluconate 1 applic 06/12/17 22:00 Hibiclens For Decolonization - TP HS DAVID Cinacalcet 60 mg 06/13/17 10:00 Sensipar - PO DAILY DAVID Heparin Sodium (Porcine) 5,000 unit 06/12/17 10:00 Heparin - SQ BID DAVID Nitroglycerin/Dextrose 250 mls @ 6 mls/hr 06/12/17 00:30 06/12/17 03:40 Nitroglycerin 25mg/D5w 250ml IVPB 15 mls/hr TITR DAVID Administration 10 MCG/MIN Lisinopril 10 mg 06/13/17 10:00 Prinivil PO DAILY DAVID Metoprolol Tartrate 12.5 mg 06/12/17 11:30 Lopressor - PO DAILY DAVID Mupirocin 1 applic 06/12/17 10:00 Bactroban Ointment (For Decolonization) - NS 06/17/17 09:59 BID DAVID Pantoprazole Sodium 40 mg 06/12/17 22:00 Protonix - PO BID DAVID Sevelamer Carbonate 800 mg 06/12/17 12:00 Renvela - PO CM [facility] ASSESSMENT/PLAN: 82 y/o F w/PMH of ESRD presents to ER with SOB and chest pain. Found to have pulm edema likely secondary to hypertensive emergency. Admitted to ICU. -Pulmonary edema secondary to likely hypertensive emergency. -On nitro drip, will give PO HTN meds after dialysis -on lopressor 12.5 mg po qd, lisinopril 10mg po qd -taper nitro drip and wean off -may need change in anti-htnsives to help keep BP under control -may have been due to missed dialysis session -f/u cxr in am -Chest pain -monitor trops, initial trop elevated but pt has ESRD and has hx of elevated trops -no ST segment changes on EKG noted -chest pain is now resolved -ESRD -HD as per nephrology -nephrology on board -CAD -c/w asa 81 mg po qd -DVT ppx -heparin 5000 units sq bid -GI ppx -protonix 40 mg po bid -FEN -no fluids at this time -monitor electrolytes, replete as necessary, on HD -renal diet -Dispo: -If stable after HD can be transferred to tele. Problem List - Problems (1) Chest pain Code(s): R07.9 - CHEST PAIN, UNSPECIFIED (2) DVT prophylaxis Code(s): IPA0341 - (3) ESRD on hemodialysis Code(s): N18.6 - END STAGE RENAL DISEASE Z99.2 - DEPENDENCE ON RENAL DIALYSIS (4) HTN (hypertension) Code(s): I10 - ESSENTIAL (PRIMARY) HYPERTENSION (5) CAD (coronary artery disease) Code(s): I25.10 - ATHSCL HEART DISEASE OF [place] CORONARY ARTERY W/O ANG PCTRS (6) Hypertensive emergency Code(s): I16.1 - HYPERTENSIVE EMERGENCY Visit type - Emergency Visit Emergency Visit: Yes ED Registration Date: 06/12/17 Care time: The patient presented to the Emergency Department on the above date and was hospitalized for further evaluation of their emergent condition. - New Patient This patient is new to me today: Yes Date on this admission: 06/12/17 - Critical Care Critical Care patient: Yes Total Critical Care Time (in minutes): 35 Critical Care Statement: The care of this patient involved high complexity decision making to prevent further life threatening deterioration of the patient 's condition and/or to evalute & treat vital organ system(s) failure or risk of failure.
[2017-06-12 13:29] LABS: TROPONIN I 0.23 ng/ml (0.00-0.05)
[2017-06-12] MEDS: ASPIRIN 81 MG CHEWABLE TABLETS PO SCH (16:11)
[2017-06-12] MEDS: MUPIROCIN 2% TOPICAL OINTMENT FOR DECOLONIZATION NS SCH ×2 (16:12→21:40)
[2017-06-12] MEDS: HEPARIN NA (PORCINE) 5,000 UNITS/ML 1ML VIAL SQ SCH ×2 (16:12→21:40)
[2017-06-12] MEDS: METOPROLOL TARTRATE 25 MG TABLET (FP) PO SCH (16:13)
[2017-06-12] MEDS: SEVELAMER CARBONATE 800 MG TAB (FP) PO SCH ×2 (16:14→18:39)
[2017-06-12 19:56] LABS: TROPONIN I 0.18 ng/ml (0.00-0.05)
[2017-06-12] MEDS: PANTOPRAZOLE 40 MG TABLET (FP) PO SCH (21:43)
[2017-06-12] MEDS ORDERED: CHLORHEXIDINE GLUCONATE 4% CLEANSER FOR DECOLONIZATION TP SCH (22:00)
[2017-06-12] MEDS: INSULIN SLIDING SCALE (NOVOLOG) 1 VIAL SQ SCH (22:14)
[2017-06-13] MEDS: NITROGLYCERIN 25MG/D5W 250ML 250 ML IVPB SCH ×2 (02:53→17:04)
[2017-06-13] MEDS ORDERED: HEMOQUE TEST 1 EACH EACH ONE (05:08)
[2017-06-13 05:56] LABS: EOSINOPHIL 5.1 % (0-4.5); MCH 26.8 pg (25.7-33.7); MCHC 32.1 g/dl (32.0-36.0); MEAN CELL VOLUME 83.7 fl (80-96); MEAN PLT VOLUME 7.9 fl (7.5-11.1); NEUTROPHILS 61.7 % (42.8-82.8); PLATELET COUNT 164 K/MM3 (134-434); RDW 19.9 % (11.6-15.6); WHITE BLOOD COUNT 4.3 K/mm3 (4.0-10.0)
[2017-06-13 06:18] LABS: ALK PHOS 116 U/L (45-117); ANION GAP 6 (8-16); BILIRUBIN,TOTAL 0.5 mg/dL (0.2-1.0); CALCIUM 8.6 mg/dL (8.5-10.1); CO2 36 mmol/L (21-32); CREATININE 4.4 mg/dL (0.55-1.02); GLUCOSE,RANDOM 76 mg/dL (74-106); SGOT/AST 25 U/L (15-37); SGPT/ALT 32 U/L (12-78); TOT PROT 5.4 g/dl (6.4-8.2)
[2017-06-13] MEDS: INSULIN SLIDING SCALE (NOVOLOG) 1 VIAL SQ SCH ×4 (06:30→21:58)
[2017-06-13 06:35] LABS: TROPONIN I 0.16 ng/ml (0.00-0.05)
--- NOTE | 2017-06-13 08:45 | CONSULT ---
Consult - text type - Consultation Consultation Note: Cardiology 82 y/o female with a past medical history of ESRD. Who presents to the ED with her grandson for SOB. Per ED record: As per patients grandson, she was lying in bed and awoke suddenly feeling short of breath. He does state that she experiences episodes of shortness of breath often but this one is worse than her previous episodes. Patient reports having chest pain which is now resolved since being started on the Nitro Drip. Patient reports having lower extremity edema. Patient reports being dialyzed last Thursday. 160/70 NSR JORDAN /6 decreased breath sounds abdomen soft trace leg edema Impression: missed HD CHF borderline troponins very loud murmur Rec: euvolemic Echocardiogram Nuclear stress test if allowed by medical-nephro team Cardiac eval to continue Optimize BP
[2017-06-13] MEDS: SEVELAMER CARBONATE 800 MG TAB (FP) PO SCH ×4 (08:56→17:04)
[2017-06-13] MEDS: PANTOPRAZOLE 40 MG TABLET (FP) PO SCH ×2 (09:10→21:57)
[2017-06-13] MEDS: HEPARIN NA (PORCINE) 5,000 UNITS/ML 1ML VIAL SQ SCH ×2 (09:10→21:57)
[2017-06-13] MEDS: METOPROLOL TARTRATE 25 MG TABLET (FP) PO SCH (09:10)
[2017-06-13] MEDS: ASPIRIN 81 MG CHEWABLE TABLETS PO SCH (09:10)
[2017-06-13] MEDS: MUPIROCIN 2% TOPICAL OINTMENT FOR DECOLONIZATION NS SCH ×2 (09:30→21:57)
[2017-06-13] MEDS ORDERED: LISINOPRIL 10 MG TABLET (FP) PO SCH (10:00)
[2017-06-13] MEDS ORDERED: amLODIPine BESYLATE 5 MG TABLET (FP) PO SCH (10:00)
[2017-06-13] MEDS ORDERED: CINACALCET HCL 30 MG TAB (FP) PO SCH (10:00)
--- NOTE | 2017-06-13 11:06 | PN ---
Progress Note, Physician History of Present Illness: Renal f/u Patient in no distress Had HD yesterday No c/o dyspnea Had some "heart burn" earlier today that was relieved by eating - Current Medication List Current Medications: Active Medications Amlodipine Besylate (Norvasc -) 5 mg PO DAILY [facility] Last Admin: 06/13/17 09:35 Dose: 5 mg Aspirin (Asa -) 81 mg PO DAILY [facility] Last Admin: 06/13/17 09:10 Dose: 81 mg Chlorhexidine Gluconate (Hibiclens For Decolonization -) 1 applic TP HS [facility] Last Admin: 06/12/17 21:40 Dose: 1 applic Cinacalcet (Sensipar -) 60 mg PO DAILY [facility] Last Admin: 06/13/17 09:10 Dose: 60 mg Heparin Sodium (Porcine) (Heparin -) 5,000 unit SQ BID [facility] Last Admin: 06/13/17 09:10 Dose: 5,000 unit Nitroglycerin/Dextrose (Nitroglycerin 25mg/D5w 250ml) 250 mls @ 6 mls/hr IVPB TITR [facility] PRN Reason: 10 MCG/MIN Last Admin: 06/13/17 02:53 Dose: 9 mls/hr Insulin Aspart (Novolog Vial Sliding Scale -) 1 vial SQ ACHS [facility] PRN Reason: Protocol Last Admin: 06/13/17 06:30 Dose: Not Given Lisinopril (Prinivil) 10 mg PO DAILY [facility] Last Admin: 06/13/17 09:10 Dose: 10 mg Metoprolol Tartrate (Lopressor -) 12.5 mg PO DAILY [facility] Last Admin: 06/13/17 09:10 Dose: 25 mg Mupirocin (Bactroban Ointment (For Decolonization) -) 1 applic NS BID [facility] Stop: 06/17/17 09:59 Last Admin: 06/13/17 09:30 Dose: 1 applic Pantoprazole Sodium (Protonix -) 40 mg PO BID [facility] Last Admin: 06/13/17 09:10 Dose: 40 mg Sevelamer Carbonate (Renvela -) 800 mg PO CM [facility] Last Admin: 06/13/17 08:56 Dose: 800 mg - Objective Vital Signs: Vital Signs Temperature 98.4 F 06/13/17 06:00 Pulse Rate 71 06/13/17 06:00 Respiratory Rate 24 06/13/17 06:00 Blood Pressure 177/69 06/13/17 06:00 O2 Sat by Pulse Oximetry (%) 99 06/12/17 21:00 Constitutional: Yes: No Distress Cardiovascular: Yes: Murmur, S1, S2. No: JVD Respiratory: Yes: CTA Bilaterally Gastrointestinal: Yes: Soft. No: Tenderness, Rebound Extremities: Yes: Other (AV Access in RUE with thrill) Edema: No Neurological: Yes: Alert, Oriented Labs: CBC, BMP 06/13/17 05:10 06/13/17 05:10 INR, PTT INR 1.04 (0.82-1.09) 06/12/17 00:13 Laboratory Tests 06/12/17 06/13/17 19:00 05:10 Creatine Kinase 70 68 Troponin I 0.18 H 0.16 H - ....Imaging Chest X-ray: Report Reviewed EKG: Report Reviewed Assessment/Plan IMPRESSION ESRD with fluid overload after missing HD now improved HTN DM CHF with congestion on CXR though pt clinically compensated- Xray lagging behind pt's clinical findings PLAN May need to increase the Amlodipine if systolic BP remains elevated Renal Diet No BP or IV in the RUE Next HD 06/15/17 Discussed with the [facility] Plans Intelligence Officer Chief Dr Torres
[2017-06-13] MEDS ORDERED: amLODIPine BESYLATE 10 MG TABLET (FP) PO SCH (12:43)
--- NOTE | 2017-06-13 12:48 | PN ---
Physical Exam: SUBJECTIVE: Patient seen and examined. No complaints. OBJECTIVE: Vital Signs Period Temp Pulse Resp BP Sys/Bullock Pulse Ox Last 24 Hr 97.8 F-98.6 F 57-76 16-24 146-178/53-81 99-99 GENERAL: The patient is awake, alert, and fully oriented, in no acute distress. HEAD: Normal with no signs of trauma. EYES: PERRL, extraocular movements intact, sclera anicteric, conjunctiva clear. No ptosis. ENT: Ears normal, nares patent, oropharynx clear without exudates, moist mucous membranes. NECK: Trachea midline, full range of motion, supple. LUNGS: Breath sounds equal, clear to auscultation bilaterally, no wheezes, no crackles, no accessory muscle use. HEART: Regular rate and rhythm, S1, S2. 3/6 systolic murmur. ABDOMEN: Soft, nontender, nondistended, normoactive bowel sounds, no guarding, no rebound, no hepatosplenomegaly, no masses. EXTREMITIES: 2+ pulses, warm, well-perfused. RUE AVF. 1+ pitting LE edema bilaterally. NEUROLOGICAL: Cranial nerves II through XII grossly intact. Normal speech, gait not observed. PSYCH: Normal mood, normal affect. SKIN: Warm, dry, normal turgor, no rashes or lesions noted Laboratory Results - last 24 hr 06/12/17 06/12/17 06/12/17 12:20 19:00 22:02 WBC RBC Hgb Hct MCV MCH MCHC RDW Plt Count MPV Neutrophils % Lymphocytes % Monocytes % Eosinophils % Basophils % Sodium Potassium Chloride Carbon Dioxide Anion Gap BUN Creatinine Creat Clearance w eGFR POC Glucometer 157.72875 Random Glucose Calcium Total Bilirubin AST ALT Alkaline Phosphatase Creatine Kinase 69 70 Troponin I 0.23 H 0.18 H Total Protein Albumin 06/13/17 06/13/17 06/13/17 05:10 05:10 05:10 WBC 4.3 D RBC 3.57 L Hgb 9.6 L D Hct 29.9 L MCV 83.7 MCH 26.8 MCHC 32.1 RDW 19.9 H Plt Count 164 D MPV 7.9 Neutrophils % 61.7 Lymphocytes % 23.5 Monocytes % 8.7 Eosinophils % 5.1 H Basophils % 1.0 Sodium 140 Potassium 4.3 Chloride 98 Carbon Dioxide 36 H D Anion Gap 6 L BUN 19 H D Creatinine 4.4 H D Creat Clearance w eGFR 9.58 POC Glucometer Random Glucose 76 D Calcium 8.6 Total Bilirubin 0.5 AST 25 D ALT 32 D Alkaline Phosphatase 116 D Creatine Kinase Troponin I Cancelled Total Protein 5.4 L Albumin 3.0 L 06/13/17 06/13/17 06/13/17 05:10 05:32 11:47 WBC RBC Hgb Hct MCV MCH MCHC RDW Plt Count MPV Neutrophils % Lymphocytes % Monocytes % Eosinophils % Basophils % Sodium Potassium Chloride Carbon Dioxide Anion Gap BUN Creatinine Creat Clearance w eGFR POC Glucometer 88.24437 101.37254 Random Glucose Calcium Total Bilirubin AST ALT Alkaline Phosphatase Creatine Kinase 68 Troponin I 0.16 H Total Protein Albumin Active Medications Generic Name Dose Route Start Last Admin Trade Name Freq PRN Reason Stop Dose Admin Amlodipine Besylate 10 mg 06/14/17 10:00 Norvasc - PO DAILY DAVID Aspirin 81 mg 06/12/17 11:30 06/13/17 09:10 Asa - PO 81 mg DAILY DAVID Administration Chlorhexidine Gluconate 1 applic 06/12/17 22:00 06/12/17 21:40 Hibiclens For Decolonization - TP 1 applic HS DAVID Administration Cinacalcet 60 mg 06/13/17 10:00 06/13/17 09:10 Sensipar - PO 60 mg DAILY DAVID Administration Heparin Sodium (Porcine) 5,000 unit 06/12/17 10:00 06/13/17 09:10 Heparin - SQ 5,000 unit BID DAVID Administration Nitroglycerin/Dextrose 250 mls @ 6 mls/hr 06/12/17 00:30 06/13/17 02:53 Nitroglycerin 25mg/D5w 250ml IVPB 9 mls/hr TITR DAVID Administration 10 MCG/MIN Insulin Aspart 1 vial 06/12/17 22:00 06/13/17 11:50 Novolog Vial Sliding Scale - SQ Not Given ACHS [facility] Protocol Lisinopril 10 mg 06/13/17 10:00 06/13/17 09:10 Prinivil PO 10 mg DAILY DAVID Administration Metoprolol Tartrate 12.5 mg 06/12/17 11:30 06/13/17 09:10 Lopressor - PO 25 mg DAILY DAVID Administration Mupirocin 1 applic 06/12/17 10:00 06/13/17 09:30 Bactroban Ointment (For Decolonization) - NS 06/17/17 09:59 1 applic BID DAVID Administration Pantoprazole Sodium 40 mg 06/12/17 22:00 06/13/17 09:10 Protonix - PO 40 mg BID DAVID Administration Sevelamer Carbonate 800 mg 06/12/17 12:00 06/13/17 12:24 Renvela - PO 800 mg CM DAVID Administration ASSESSMENT/PLAN: 82 year old female with a history of ESRD- HD (M,W,F), HTN, DM2 admitted with acute pulmonary edema. 1. Pulm: Acute Pulmonary Edema - Likely secondary to volume overload from missed HD - Improving; satting well, normal work of breathing, no longer feels short of breath - BP remains elevated 2. HTN - Increase Norvasc to 10mg daily; also room to increase Lisinopril and Metoprolol (introduced yesterday) if needed - Wean nitro gtt as able 3. Chest pain (resolved) -Troponin downtrending; follow -ASA 81mg daily (introduced yesterday) -Continue BB -Stress testing when stable -No AC for now as symptoms and elevated troponin likely secondary to APE and missed HD rather than true ACS -Cardiology following 3. ESRD -Next HD Thursday -Continue Renvela/Sensipar -Nephrology following 4. DM -FSACHS -ISS -Check A1C -No home meds listed; need to verify with family 5. Heme: Anemia -Likely of chronic disease -Follow 6. F/E/N -Replete lytes as needed -Renal diet 7. DVT Prophylaxis -Sqh -Early ambulation - needs to get out of bed today Code Status: Full Code Dispo: Requires inpatient care. Patient is classified as telemetry but boarding in ICU. Visit type - Emergency Visit Emergency Visit: Yes ED Registration Date: 06/12/17 Care time: The patient presented to the Emergency Department on the above date and was hospitalized for further evaluation of their emergent condition. - New Patient This patient is new to me today: No - Critical Care Critical Care patient: No - Discharge Referral Referred to [facility] Med P.C.: No
[2017-06-13] MEDS ORDERED: amLODIPine BESYLATE 5 MG TABLET (FP) PO ONE (13:00)
[2017-06-13] MEDS: CHLORHEXIDINE GLUCONATE 4% CLEANSER FOR DECOLONIZATION TP SCH (21:58)
[2017-06-14] MEDS ORDERED: LISINOPRIL 10 MG TABLET (FP) PO ONE (04:56)
[2017-06-14] MEDS ORDERED: LABETALOL HCL 5 MG/1 ML (100MG/20 ML VIAL) IVPUSH ONE (04:56)
[2017-06-14 06:20] LABS: BASOPHIL 1.1 % (0-2.0); EOSINOPHIL 6.7 % (0-4.5); MCH 26.9 pg (25.7-33.7); MCHC 32.5 g/dl (32.0-36.0); MEAN PLT VOLUME 7.8 fl (7.5-11.1); NEUTROPHILS 60.6 % (42.8-82.8); PLATELET COUNT 193 K/MM3 (134-434); RDW 19.2 % (11.6-15.6)
[2017-06-14] MEDS: INSULIN SLIDING SCALE (NOVOLOG) 1 VIAL SQ SCH ×4 (06:22→21:29)
[2017-06-14 06:40] LABS: ALBUMIN 2.9 g/dl (3.4-5.0); ALK PHOS 109 U/L (45-117); ANION GAP 8 (8-16); BILIRUBIN,TOTAL 0.6 mg/dL (0.2-1.0); CALCIUM 8.6 mg/dL (8.5-10.1); CO2 33 mmol/L (21-32); GLUCOSE,RANDOM 85 mg/dL (74-106); MAGNESIUM 2.4 mg/dL (1.8-2.4); PHOSPHOROUS 4.8 mg/dL (2.5-4.9); SGOT/AST 15 U/L (15-37); SGPT/ALT 25 U/L (12-78); TOT PROT 5.3 g/dl (6.4-8.2)
--- NOTE | 2017-06-14 08:00 | CONSULT ---
Consult - text type - Consultation Consultation Note: Cardiology 160/80 NSR JORDAN 4/6 decreased breath sounds abdomen soft trace leg edema Impression: missed HD CHF borderline troponins very loud murmur Optimize BP Rec: euvolemic Echocardiogram Nuclear stress test if allowed by medical-nephro team Hydralazine 50 mg TID, taper off IV NTG Cardiac eval to continue
[2017-06-14] MEDS: SEVELAMER CARBONATE 800 MG TAB (FP) PO SCH ×3 (08:51→17:08)
[2017-06-14] MEDS ORDERED: hydrALAZINE HCL 50 MG TABLET (FP) PO ONE (09:15)
--- NOTE | 2017-06-14 09:29 | PN ---
Physical Exam: SUBJECTIVE: Patient seen and examined in ICU. Remains SOB but states ease of breathing. She denies bloating. Tolerating breakfast well. OBJECTIVE: Vital Signs 3 Period Temp Pulse Resp BP Sys/Bullock Pulse Ox Last 24 Hr 97.8 F-98.5 F 66-74 16-22 166-205/56-84 99 GENERAL: The patient is awake, alert, and fully oriented, in no acute distress. HEAD: Normal with no signs of trauma. NECK: No JVD present. LUNGS: Breath sounds equal, clear, but diminished to auscultation bilaterally, no wheezes, no crackles, no accessory muscle use. Conversational dyspnea. HEART: Regular rate and rhythm, S1, S2 with 4/6 murmur across precordium. ABDOMEN: Soft, nontender, nondistended, normoactive bowel sounds. EXTREMITIES: 2+ pulses, warm, well-perfused, no edema. NEUROLOGICAL: Cranial nerves II through XII grossly intact. Normal speech, gait not observed. PSYCH: Normal mood, normal affect. SKIN: Warm, dry, normal turgor, no rashes or lesions noted Laboratory Results - last 24 hr 3 06/12/17 06/12/17 06/13/17 08:00 11:00 11:47 WBC RBC Hgb Hct MCV MCH MCHC RDW Plt Count MPV Neutrophils % Lymphocytes % Monocytes % Eosinophils % Basophils % Sodium Potassium Chloride Carbon Dioxide Anion Gap BUN Creatinine Creat Clearance w eGFR POC Glucometer [phone] Random Glucose Calcium Phosphorus Magnesium Total Bilirubin AST ALT Alkaline Phosphatase Total Protein Albumin Hep Bs Antigen Negative Hepatitis C Antibody <0.1 3 06/13/17 06/13/17 06/14/17 17:03 21:48 05:20 WBC 4.0 RBC 3.44 L Hgb 9.3 L Hct 28.5 L MCV 83.0 MCH 26.9 MCHC 32.5 RDW 19.2 H Plt Count 193 MPV 7.8 Neutrophils % 60.6 Lymphocytes % 22.5 Monocytes % 9.1 Eosinophils % 6.7 H Basophils % 1.1 Sodium Potassium Chloride Carbon Dioxide Anion Gap BUN Creatinine Creat Clearance w eGFR POC Glucometer [phone] Random Glucose Calcium Phosphorus Magnesium Total Bilirubin AST ALT Alkaline Phosphatase Total Protein Albumin Hep Bs Antigen Hepatitis C Antibody 3 06/14/17 06/14/17 05:20 05:37 WBC RBC Hgb Hct MCV MCH MCHC RDW Plt Count MPV Neutrophils % Lymphocytes % Monocytes % Eosinophils % Basophils % Sodium 137 Potassium 4.5 Chloride 96 L Carbon Dioxide 33 H Anion Gap 8 BUN 29 H D Creatinine 6.0 H D Creat Clearance w eGFR 6.70 POC Glucometer [phone] Random Glucose 85 Calcium 8.6 Phosphorus 4.8 Magnesium 2.4 Total Bilirubin 0.6 AST 15 D ALT 25 D Alkaline Phosphatase 109 Total Protein 5.3 L Albumin 2.9 L Hep Bs Antigen Hepatitis C Antibody Active Medications 3 Generic Name Dose Route Start Last Admin Trade Name Freq PRN Reason Stop Dose Admin Amlodipine Besylate 10 mg 06/14/17 10:00 Norvasc - PO DAILY [facility] Aspirin 81 mg 06/14/17 10:00 Asa - PO DAILY [facility] Chlorhexidine Gluconate 1 applic 06/13/17 22:00 06/13/17 21:58 Hibiclens For Decolonization - TP 1 applic HS [facility] Administration Cinacalcet 60 mg 06/14/17 10:00 Sensipar - PO DAILY [facility] Heparin Sodium (Porcine) 5,000 unit 06/13/17 22:00 06/13/17 21:57 Heparin - SQ 5,000 unit BID [facility] Administration Hydralazine HCl 50 mg 06/14/17 14:00 Apresoline - PO TID [facility] Nitroglycerin/Dextrose 250 mls @ 6 mls/hr 06/13/17 12:49 06/13/17 17:04 Nitroglycerin 25mg/D5w 250ml IVPB Not Given TITR [facility] 10 MCG/MIN Insulin Aspart 1 vial 06/13/17 16:30 06/14/17 06:22 Novolog Vial Sliding Scale - SQ Not Given ACHS [facility] Protocol Lisinopril 10 mg 06/14/17 10:00 Prinivil PO DAILY [facility] Metoprolol Tartrate 12.5 mg 06/14/17 10:00 Lopressor - PO DAILY [facility] Mupirocin 1 applic 06/13/17 22:00 06/13/17 21:57 Bactroban Ointment (For Decolonization) - NS 06/17/17 09:59 1 applic BID [facility] Administration Pantoprazole Sodium 40 mg 06/13/17 22:00 06/13/17 21:57 Protonix - PO 40 mg BID [facility] Administration Sevelamer Carbonate 800 mg 06/13/17 12:49 06/14/17 08:51 Renvela - PO 800 mg CM [facility] Administration ASSESSMENT/PLAN: A: 82 year old female with a history of ESRD- HD (M,W,F), HTN, DM2 admitted with acute pulmonary edema. P: 1. Acute Pulmonary Edema - Likely secondary to volume overload from missed HD - Maintaining SpO2>94% on 4L, normal work of breathing - BP remains elevated - echo - wean NTG gtt 2. HTN - Increase Norvasc to 10mg daily; - Will increase Lisinopril - Metoprolol increased to 25mg bid - metoprolol 5mg IVP x1 - Wean NTG gtt 3. Chest pain - resolved presently - Troponin downtrending; will follow, likely demand ischemia - ASA 81mg daily (introduced 06/12) - Increased metoprolol to 25 bid - echo - Stress when stable - No AC for now as symptoms not likely ACS - Cardiology following 3. ESRD - Next HD tomorrow 06/15 - Continue Renvela/Sensipar - Nephrology following 4. DM - FSACHS - ISS - Check A1C - No home meds listed; need to verify with family 5. Anemia - Likely of chronic disease - trend cbc 6. F/E/N - Replete lytes as needed - Renal diet 7. DVT Prophylaxis - Sqh - OOB Code Status: Full Code Dispo: Requires inpatient care. Patient is classified as telemetry but boarding in ICU. Visit type - Emergency Visit Emergency Visit: Yes ED Registration Date: 06/12/17 Care time: The patient presented to the Emergency Department on the above date and was hospitalized for further evaluation of their emergent condition. - New Patient This patient is new to me today: Yes Date on this admission: 06/14/17 - Critical Care Critical Care patient: Yes Total Critical Care Time (in minutes): 25
[2017-06-14] MEDS: HEPARIN NA (PORCINE) 5,000 UNITS/ML 1ML VIAL SQ SCH ×2 (09:31→21:34)
[2017-06-14] MEDS: PANTOPRAZOLE 40 MG TABLET (FP) PO SCH ×2 (09:32→21:32)
[2017-06-14] MEDS: MUPIROCIN 2% TOPICAL OINTMENT FOR DECOLONIZATION NS SCH ×2 (09:32→21:28)
--- NOTE | 2017-06-14 09:54 | PN ---
Progress Note, Physician History of Present Illness: Renal f/u Patient in no distress while OOB in chair NTG at 50 mcg/min Having Chest pain on and off She denies any Chest pain or dyspnea at this time Seen by cardiology and stress recommended - Current Medication List Current Medications: Active Medications Amlodipine Besylate (Norvasc -) 10 mg PO DAILY [facility] Last Admin: 06/14/17 09:32 Dose: 10 mg Aspirin (Asa -) 81 mg PO DAILY [facility] Last Admin: 06/14/17 09:32 Dose: 81 mg Chlorhexidine Gluconate (Hibiclens For Decolonization -) 1 applic TP HS [facility] Last Admin: 06/13/17 21:58 Dose: 1 applic Cinacalcet (Sensipar -) 60 mg PO DAILY [facility] Last Admin: 06/14/17 09:31 Dose: 60 mg Heparin Sodium (Porcine) (Heparin -) 5,000 unit SQ BID [facility] Last Admin: 06/14/17 09:31 Dose: 5,000 unit Hydralazine HCl (Apresoline -) 50 mg PO TID [facility] Nitroglycerin/Dextrose (Nitroglycerin 25mg/D5w 250ml) 250 mls @ 6 mls/hr IVPB TITR [facility] PRN Reason: 10 MCG/MIN Last Admin: 06/13/17 17:04 Dose: Not Given Insulin Aspart (Novolog Vial Sliding Scale -) 1 vial SQ ACHS [facility] PRN Reason: Protocol Last Admin: 06/14/17 06:22 Dose: Not Given Lisinopril (Prinivil) 10 mg PO DAILY [facility] Last Admin: 06/14/17 09:32 Dose: 10 mg Metoprolol Tartrate (Lopressor -) 12.5 mg PO DAILY [facility] Last Admin: 06/14/17 09:31 Dose: 12.5 mg Mupirocin (Bactroban Ointment (For Decolonization) -) 1 applic NS BID [facility] Stop: 06/17/17 09:59 Last Admin: 06/14/17 09:32 Dose: 1 applic Pantoprazole Sodium (Protonix -) 40 mg PO BID [facility] Last Admin: 06/14/17 09:32 Dose: 40 mg Sevelamer Carbonate (Renvela -) 800 mg PO CM [facility] Last Admin: 06/14/17 08:51 Dose: 800 mg - Objective Vital Signs: Vital Signs Temperature 98.3 F 06/14/17 05:00 Pulse Rate 66 06/14/17 05:00 Respiratory Rate 19 06/14/17 05:00 Blood Pressure 167/63 06/14/17 05:00 O2 Sat by Pulse Oximetry (%) 99 06/13/17 20:03 Constitutional: Yes: No Distress Cardiovascular: Yes: Murmur, S1, S2 Respiratory: Yes: CTA Bilaterally, Other (Slightly decreased BS at bases) Gastrointestinal: Yes: Soft, Tenderness, Epigastrium. No: Tenderness, Rebound Extremities: Yes: Other (AVG in RUE with thrill) Edema: No Labs: CBC, BMP 06/14/17 05:20 06/14/17 05:20 INR, PTT INR 1.04 (0.82-1.09) 06/12/17 00:13 Laboratory Tests 06/14/17 05:20 Calcium 8.6 Phosphorus 4.8 Magnesium 2.4 Total Bilirubin 0.6 AST 15 D ALT 25 D Alkaline Phosphatase 109 Total Protein 5.3 L Albumin 2.9 L Assessment/Plan IMPRESSION ESRD with fluid overload improved Left sided chest pains on and off HTN that needs better control DM CHF PLAN Repeat EKG Naorvasc was increased and hydralazine started for t e BP Taper off NTG as tolerated Next HD tomorrow if pt remains stable Discussed with the Chemistry Faculty Member Dr Torres
[2017-06-14] MEDS ORDERED: amLODIPine BESYLATE 10 MG TABLET (FP) PO SCH (10:00)
[2017-06-14] MEDS ORDERED: CINACALCET HCL 30 MG TAB (FP) PO SCH (10:00)
[2017-06-14] MEDS ORDERED: LISINOPRIL 10 MG TABLET (FP) PO SCH (10:00)
[2017-06-14] MEDS ORDERED: ASPIRIN 81 MG CHEWABLE TABLETS PO SCH (10:00)
[2017-06-14] MEDS ORDERED: METOPROLOL TARTRATE 25 MG TABLET (FP) PO SCH ×2 (10:00→12:30)
[2017-06-14] MEDS ORDERED: EPOETIN ALFA 2,000 UNITS/1 ML VIAL IVPUSH ONE (10:45)
[2017-06-14] MEDS ORDERED: METOPROLOL TARTRATE 5 MG/5 ML VIAL IVPUSH ONE (12:29)
[2017-06-14] MEDS: NITROGLYCERIN 25MG/D5W 250ML 250 ML IVPB SCH (12:54)
--- NOTE | 2017-06-14 13:30 | EKG ---
Test Reason : Blood Pressure : / mmHG Vent. Rate : 063 BPM Atrial Rate : 063 BPM P-R Int : 180 ms QRS Dur : 092 ms QT Int : 444 ms P-R-T Axes : 056 001 250 degrees QTc Int : 454 ms NORMAL SINUS RHYTHM POSSIBLE LEFT ATRIAL ENLARGEMENT T WAVE ABNORMALITY, CONSIDER ANTEROLATERAL ISCHEMIA ABNORMAL ECG WHEN COMPARED WITH ECG OF 12-JUN-2017 00:15, VENT. RATE HAS DECREASED BY 54 BPM NON-SPECIFIC CHANGE IN ST SEGMENT IN ANTERIOR LEADS NONSPECIFIC T WAVE ABNORMALITY NOW EVIDENT IN INFERIOR LEADS T WAVE INVERSION NOW EVIDENT IN ANTEROLATERAL LEADS Confirmed by GOLDY ROLON, ONEIDA ([id number]) on 06/14/2017 1:30:27 PM Referred By: GALEN AMADO Confirmed By:ONEIDA WINSLOW MD
[2017-06-14] MEDS: hydrALAZINE HCL 50 MG TABLET (FP) PO SCH ×2 (15:19→21:32)
[2017-06-14] MEDS: CHLORHEXIDINE GLUCONATE 4% CLEANSER FOR DECOLONIZATION TP SCH (21:29)
[2017-06-15] MEDS ORDERED: NITROGLYCERIN SUBLINGUAL 1/150 0.4 MG TAB ONE (03:58)
[2017-06-15] MEDS ORDERED: FUROSEMIDE 100 MG/10 ML INJECTABLE VIAL ONE (04:00)
[2017-06-15] MEDS ORDERED: morphine CARPU-JECT 2 MG/1 ML DISP.SYRIN IVPUSH ONE (04:12)
[2017-06-15] MEDS ORDERED: hydrALAZINE HCL 20 MG/ML VIAL IVPUSH ONE (04:19)
[2017-06-15] MEDS ORDERED: LORAZEPAM CARPU-JECT 2 MG/ML DISP.SYRIN IVPUSH ONE (04:26)
[2017-06-15 04:34] LABS: VENOUS BLOOD GAS HCO3 29.6 meq/L (19-25); VENOUS PH 7.26 (7.32-7.42)
--- NOTE | 2017-06-15 05:09 | HOSP ---
Physical Examination Vital Signs: Vital Signs Temperature 97.2 F L 06/15/17 02:00 Pulse Rate 72 06/15/17 02:00 Respiratory Rate 18 06/15/17 02:00 Blood Pressure 180/70 06/15/17 02:00 O2 Sat by Pulse Oximetry (%) 99 06/14/17 20:48 Labs: CBC, BMP 06/14/17 05:20 06/14/17 05:20 Hospitalist Encounter Assessment: Patient is an 82 y/o female with a PMHx of: ESRD- HD (M,W,F), HTN, DMII who presented for Dyspnea and was admitted for Acute Pulmonary Edema. Notified by RN that patient was short of breath and diaphoretic. Patient was found to be saturating in the 80's and on exam was found to have crackles throughout lung bases bilaterally. Patient was using accessory muscles and in severe respiratory distress. Patient was also found to have HTN urgency with a SBP reading 216. PHYSICAL EXAM GENERAL: Dyspneic, unable to speak and in severe respiratory distress HEART: Tachycardic LUNGS: Crackles throughout lung bases bilaterally, accessory muscle use ASSESSMENT AND PLAN Pulmonary Edema Hypertensive Urgency -SL Nitroglycerin x3 given and on Nitroglycerin drip -Lasix 100mg IV given -Hydralazine 10mg IV given -Morphine 2mg and Ativan 1mg -VBC -EKG -TROPONIN -Transder to ICU Visit type - Emergency Visit Emergency Visit: Yes ED Registration Date: 06/12/17 Care time: The patient presented to the Emergency Department on the above date and was hospitalized for further evaluation of their emergent condition. - New Patient This patient is new to me today: Yes Date on this admission: 06/16/17 - Critical Care Critical Care patient: Yes Total Critical Care Time (in minutes): 45 Critical Care Statement: The care of this patient involved high complexity decision making to prevent further life threatening deterioration of the patient 's condition and/or to evalute & treat vital organ system(s) failure or risk of failure.
--- NOTE | 2017-06-15 05:27 | PN ---
Progress Note (short form) - Note Progress Note: PULM/CCM Pt seen and examined in ICU Event Note: called to bedside for Ms Ng recently transferred from ICU to tele unit. RN found her to be acutely SOB, diaphoretic. On exam pt in severe flash pulm edema. Has rales to clavicles, accessory muscle use with BP 220/110. Given SL Ntg x 3, 100 lasix, increase ntg gtt, hydralazine 20 and NIVPPV with significant improvement. VBG from REJ with clear mixing from AVF ( ) after above interventions. Is to be dialyzed in AM. Active Medications Amlodipine Besylate (Norvasc -) 10 mg PO DAILY [facility] Last Admin: 06/14/17 09:32 Dose: 10 mg Aspirin (Asa -) 81 mg PO DAILY [facility] Last Admin: 06/14/17 09:32 Dose: 81 mg Chlorhexidine Gluconate (Hibiclens For Decolonization -) 1 applic TP HS [facility] Last Admin: 06/14/17 21:29 Dose: 1 applic Chlorhexidine Gluconate (Hibiclens For Decolonization -) 1 applic TP HS [facility] Cinacalcet (Sensipar -) 60 mg PO DAILY [facility] Last Admin: 06/14/17 09:31 Dose: 60 mg Epoetin Dheeraj (Epogen -) 2,000 units IVPUSH ONCE ONE Stop: 06/14/17 10:46 Heparin Sodium (Porcine) (Heparin -) 5,000 unit SQ BID [facility] Last Admin: 06/14/17 21:34 Dose: 5,000 unit Heparin Sodium (Porcine) (Heparin -) 1,000 unit IVPUSH ONCE ONE Stop: 06/15/17 06:01 Hydralazine HCl (Apresoline -) 50 mg PO TID [facility] Last Admin: 06/14/17 21:32 Dose: 50 mg Hydralazine HCl (Apresoline Injection -) 10 mg IVPUSH ONCE ONE Stop: 06/15/17 04:20 Last Admin: 06/15/17 04:56 Dose: 10 mg Nitroglycerin/Dextrose (Nitroglycerin 25mg/D5w 250ml) 250 mls @ 6 mls/hr IVPB TITR [facility] PRN Reason: 10 MCG/MIN Last Admin: 06/14/17 12:54 Dose: 30 mls/hr Insulin Aspart (Novolog Vial Sliding Scale -) 1 vial SQ ACHS [facility] PRN Reason: Protocol Last Admin: 06/14/17 21:29 Dose: Not Given Lisinopril (Prinivil) 10 mg PO DAILY [facility] Last Admin: 06/14/17 09:32 Dose: 10 mg Lorazepam (Ativan Injection -) 1 mg IVPUSH ONCE ONE Stop: 06/15/17 04:27 Last Admin: 06/15/17 04:56 Dose: 1 mg Metoprolol Tartrate (Lopressor -) 25 mg PO DAILY [facility] Last Admin: 06/14/17 12:53 Dose: 25 mg Morphine Sulfate (Morphine Injection -) 2 mg IVPUSH ONCE ONE Stop: 06/15/17 04:13 Last Admin: 06/15/17 04:55 Dose: 2 mg Mupirocin (Bactroban Ointment (For Decolonization) -) 1 applic NS BID [facility] Stop: 06/17/17 09:59 Last Admin: 06/14/17 21:28 Dose: 1 applic Mupirocin (Bactroban Ointment (For Decolonization) -) 1 applic NS BID [facility] Stop: 06/20/17 09:59 Pantoprazole Sodium (Protonix -) 40 mg PO BID [facility] Last Admin: 06/14/17 21:32 Dose: 40 mg Sevelamer Carbonate (Renvela -) 800 mg PO CM [facility] Last Admin: 06/14/17 17:08 Dose: 800 mg CBC, BMP 06/14/17 05:20 06/14/17 05:20 Microbiology 06/12/17 00:42 Blood - Peripheral Venous Blood Culture - Preliminary NO GROWTH OBTAINED AFTER 72 HOURS, INCUBATION TO CONTINUE FOR 2 DAYS. 06/12/17 00:42 Blood - Peripheral Venous Blood Culture - Preliminary NO GROWTH OBTAINED AFTER 72 HOURS, INCUBATION TO CONTINUE FOR 2 DAYS. 06/12/17 01:40 Urine - Urine Osorio Urine Culture - Final NO GROWTH OBTAINED CXR with pulm vasc conjestion, no focal infiltrate GENERAL: Awake, severe---> moderate resp distress HEAD:NCAT EYES: sclera anicteric, conjunctiva clear. No ptosis. ENT: oropharynx clear without exudates, moist mucous membranes NECK: Trachea midline, full range of motion, supple, JVD LUNGS: rales bilaterally HEART: Regular rate and rhythm, S1, S2. 3/6 systolic murmur. ABDOMEN: Soft, nontender, nondistended, normoactive bowel sounds, no guarding, no rebound, no hepatosplenomegaly, no masses. EXTREMITIES: 2+ pulses, warm, well-perfused. 1+ pitting edema bilaterally., RAVF with thrill NEUROLOGICAL: Non-focal, normal speech PSYCH: Normal mood, normal affect. SKIN: grossly intact ASSESSMENT/PLAN: Acute Pulmonary Edema ESRD- HD (M,W,F) HTN DM2 Do not suspect PNA Chest pain (+) Troponin transfer to ICU service HD sachi with volume removal NIV until HD this morning cont to up titrate meds, has tachyphylaxis to NTG gtt ASA 81mg daily Cards following VTE prophylaxis Amadou Pike ACNP [id number] 35min CCT
[2017-06-15] MEDS ORDERED: HEPARIN NA (PORCINE) 5,000 UNITS/ML 1ML VIAL IVPUSH ONE ×2 (06:00→16:00)
[2017-06-15] MEDS ORDERED: EPOETIN ALFA 2,000 UNITS/1 ML VIAL IVPUSH ONE ×3 (06:00→16:30)
[2017-06-15 06:31] LABS: BASOPHIL 0.7 % (0-2.0); EOSINOPHIL 2.2 % (0-4.5); MCH 26.8 pg (25.7-33.7); MCHC 32.4 g/dl (32.0-36.0); MEAN CELL VOLUME 82.8 fl (80-96); MEAN PLT VOLUME 7.7 fl (7.5-11.1); NEUTROPHILS 82.9 % (42.8-82.8); PLATELET COUNT 194 K/MM3 (134-434); RDW 19.2 % (11.6-15.6); WHITE BLOOD COUNT 7.6 K/mm3 (4.0-10.0)
[2017-06-15] MEDS: INSULIN SLIDING SCALE (NOVOLOG) 1 VIAL SQ SCH ×3 (06:40→18:18)
[2017-06-15 06:55] LABS: ALBUMIN 2.9 g/dl (3.4-5.0); ANION GAP 6 (8-16); CALCIUM 8.2 mg/dL (8.5-10.1); CO2 32 mmol/L (21-32); GLUCOSE,RANDOM 90 mg/dL (74-106); SGOT/AST 21 U/L (15-37); SGPT/ALT 26 U/L (12-78)
[2017-06-15] MEDS: NITROGLYCERIN 25MG/D5W 250ML 250 ML IVPB SCH ×2 (06:57→11:00)
[2017-06-15 06:59] LABS: ALK PHOS 118 U/L (45-117); BILIRUBIN,TOTAL 0.4 mg/dL (0.2-1.0); CREATININE 7.3 mg/dL (0.55-1.02); TOT PROT 5.5 g/dl (6.4-8.2); TROPONIN I 0.06 ng/ml (0.00-0.05)
--- NOTE | 2017-06-15 08:24 | PN ---
Progress Note (short form) - Note Progress Note: RENAL Pt went into pulmonary edema and is on non invasive ventilation also on nitroglycerin drip she is unable to give a history Last Vital Signs Temp Pulse Resp BP Pulse Ox 97 F L 65 13 117/36 100 06/15/17 06:00 06/15/17 06:00 06/15/17 06:00 06/15/17 06:00 06/15/17 06:41 lungs clear anteriorly cvs s1s2 rr loud murmur abd soft ext no edema neuro appears sedated Current Medications Generic Name Dose Route Start Last Admin Trade Name Freq PRN Reason Stop Dose Admin Amlodipine Besylate 10 mg 06/15/17 10:00 Norvasc - PO DAILY [facility] Aspirin 81 mg 06/15/17 10:00 Asa - PO DAILY [facility] Chlorhexidine Gluconate 1 applic 06/15/17 22:00 Hibiclens For Decolonization - TP HS [facility] Cinacalcet 60 mg 06/15/17 10:00 Sensipar - PO DAILY [facility] Epoetin Dheeraj 2,000 units 06/15/17 06:41 Epogen - IVPUSH 06/15/17 06:42 ONCE ONE Heparin Sodium (Porcine) 1,000 unit 06/15/17 06:41 Heparin - IVPUSH 06/15/17 06:42 ONCE ONE Heparin Sodium (Porcine) 5,000 unit 06/15/17 10:00 Heparin - SQ BID [facility] Hydralazine HCl 50 mg 06/15/17 14:00 Apresoline - PO TID [facility] Nitroglycerin/Dextrose 250 mls @ 6 mls/hr 06/15/17 06:41 06/15/17 06:57 Nitroglycerin 25mg/D5w 250ml IVPB Not Given TITR [facility] 10 MCG/MIN Insulin Aspart 1 vial 06/15/17 07:00 06/15/17 06:57 Novolog Vial Sliding Scale - SQ Not Given ACHS [facility] Protocol Lisinopril 10 mg 06/15/17 10:00 Prinivil PO DAILY [facility] Metoprolol Tartrate 25 mg 06/15/17 10:00 Lopressor - PO DAILY [facility] Mupirocin 1 applic 06/15/17 10:00 Bactroban Ointment (For Decolonization) - NS 06/20/17 09:59 BID [facility] Pantoprazole Sodium 40 mg 07/17/17 10:00 Protonix - PO BID [facility] Sevelamer Carbonate 800 mg 06/15/17 08:00 Renvela - PO CM [facility] CBC, BMP 06/15/17 05:15 06/15/17 05:15 IMPRESSION esrd htn dementia pulmonary edema PLAN pt will be dialyzed this morning would not give epogen given pulmonary edema would maximize medical therapy prefer to use carvedilol over metoprolol due to the lower dialyzability of carvedilol If she urinates, lasix daily would be helpful MV
[2017-06-15] MEDS: SEVELAMER CARBONATE 800 MG TAB (FP) PO SCH ×3 (08:26→18:17)
[2017-06-15] MEDS ORDERED: MUPIROCIN 2% TOPICAL OINTMENT FOR DECOLONIZATION NS SCH (10:00)
[2017-06-15] MEDS ORDERED: METOPROLOL TARTRATE 25 MG TABLET (FP) PO SCH (10:00)
[2017-06-15] MEDS: MUPIROCIN 2% TOPICAL OINTMENT FOR DECOLONIZATION NS SCH ×2 (10:00→21:30)
[2017-06-15] MEDS: ASPIRIN 81 MG CHEWABLE TABLETS PO SCH (11:00)
[2017-06-15] MEDS: CINACALCET HCL 30 MG TAB (FP) PO SCH (11:00)
[2017-06-15] MEDS: amLODIPine BESYLATE 10 MG TABLET (FP) PO SCH (11:00)
[2017-06-15] MEDS: HEPARIN NA (PORCINE) 5,000 UNITS/ML 1ML VIAL SQ SCH ×2 (11:00→21:30)
[2017-06-15] MEDS: LISINOPRIL 10 MG TABLET (FP) PO SCH (11:00)
[2017-06-15] MEDS: PANTOPRAZOLE 40 MG TABLET (FP) PO SCH ×2 (12:00→21:28)
--- NOTE | 2017-06-15 12:39 | PN ---
Teaching Attending Note Name of Resident: Mark Joiner ATTENDING PHYSICIAN STATEMENT I saw and evaluated the patient. I reviewed the resident's note and discussed the case with the resident. I agree with the resident's findings and plan as documented. SUBJECTIVE: Patient seen and examined in the ICU. Events noted. Currently on NIPPV, 60% FiO2. VBG noted. Awake and responsive. Currently off IV NTG (? reaction) CXR: Some mild improvement in APE GENERAL: Awake, Mildly tachypneic on NIPPV HEAD:NCAT EYES: sclera anicteric, conjunctiva clear. No ptosis. ENT: oropharynx clear without exudates, moist mucous membranes NECK: Trachea midline, full range of motion, supple, JVD LUNGS: rales bilaterally HEART: Regular rate and rhythm, S1, S2. 3/6 systolic murmur. ABDOMEN: Soft, nontender, nondistended, normoactive bowel sounds, no guarding, no rebound, no hepatosplenomegaly, no masses. EXTREMITIES: 2+ pulses, warm, well-perfused. 1+ pitting edema bilaterally., RAVF with thrill NEUROLOGICAL: Non-focal, normal speech PSYCH: Normal mood, normal affect. SKIN: grossly intact Laboratory Results - last 24 hr 06/15/17 06/15/17 06/15/17 03:47 04:25 05:15 WBC 7.6 D RBC 3.61 Hgb 9.7 L Hct 29.9 L MCV 82.8 MCH 26.8 MCHC 32.4 RDW 19.2 H Plt Count 194 MPV 7.7 Neutrophils % 82.9 H D Lymphocytes % 7.5 L D Monocytes % 6.7 Eosinophils % 2.2 Basophils % 0.7 VBG pH 7.26 L POC VBG pCO2 68.5 H* POC VBG pO2 119.0 H Mixed VBG HCO3 29.6 H Sodium Potassium Chloride Carbon Dioxide Anion Gap BUN Creatinine Creat Clearance w eGFR POC Glucometer 141.81048 Random Glucose Calcium Total Bilirubin AST ALT Alkaline Phosphatase Troponin I Total Protein Albumin 06/15/17 05:15 WBC RBC Hgb Hct MCV MCH MCHC RDW Plt Count MPV Neutrophils % Lymphocytes % Monocytes % Eosinophils % Basophils % VBG pH POC VBG pCO2 POC VBG pO2 Mixed VBG HCO3 Sodium 134 L Potassium 5.1 Chloride 96 L Carbon Dioxide 32 Anion Gap 6 L BUN 36 H D Creatinine 7.3 H D Creat Clearance w eGFR 5.34 POC Glucometer Random Glucose 90 Calcium 8.2 L Total Bilirubin 0.4 D AST 21 D ALT 26 Alkaline Phosphatase 118 H Troponin I 0.06 H Total Protein 5.5 L Albumin 2.9 L ASSESSMENT/PLAN: Acute Pulmonary Edema ESRD- HD (M,W,F) HTN DM2 Do not suspect PNA Chest pain (+) Troponin Trial of VM O2. NIPPV as needed Daily weight Titrate BP Meds HD per Renal ASA 81mg daily VTE prophylaxis ICU Monitoring Dr Robbins CCTime 40"
[2017-06-15 14:11] LABS: HEP B SURFACE AB Reactive (.)
--- NOTE | 2017-06-15 14:30 | PN ---
Physical Exam: SUBJECTIVE: 82 year old female with a pmh of ESRD HD (MWF), HTN, DM in ICU for acute pulmonary edema. Pt feels better today, scheduled for HD in ICU. OBJECTIVE: Vital Signs Period Temp Pulse Resp BP Sys/Bullock Pulse Ox Last 24 Hr 97 F-98.3 F 64-108 13-21 117-210/36-98 98-100 GENERAL: The patient is awake, alert, and fully oriented, in no acute distress. HEAD: Normal with no signs of trauma. EYES: PERRL, extraocular movements intact, sclera anicteric, conjunctiva clear. No ptosis. ENT: Ears normal, nares patent, oropharynx clear without exudates, moist mucous membranes. NECK: Trachea midline, full range of motion, supple. LUNGS: Breath sounds equal, clear to auscultation bilaterally, no wheezes, no crackles, no accessory muscle use. HEART: Regular rate and rhythm, S1, S2 without murmur, rub or gallop. ABDOMEN: Soft, nontender, nondistended, normoactive bowel sounds, no guarding, no rebound, no hepatosplenomegaly, no masses. EXTREMITIES: 2+ pulses, warm, well-perfused, no edema. NEUROLOGICAL: Cranial nerves II through XII grossly intact. Normal speech, gait not observed. PSYCH: Normal mood, normal affect. SKIN: Warm, dry, normal turgor, no rashes or lesions noted CBC, BMP 06/15/17 05:15 06/15/17 05:15 Active Medications Generic Name Dose Route Start Last Admin Trade Name Freq PRN Reason Stop Dose Admin Amlodipine Besylate 10 mg 06/15/17 10:00 06/15/17 11:00 Norvasc - PO 10 mg DAILY DAVID Administration Aspirin 81 mg 06/15/17 10:00 06/15/17 11:00 Asa - PO 81 mg DAILY DAVID Administration Chlorhexidine Gluconate 1 applic 06/15/17 22:00 Hibiclens For Decolonization - TP HS DAVID Cinacalcet 60 mg 06/15/17 10:00 06/15/17 11:00 Sensipar - PO 60 mg DAILY DAVID Administration Heparin Sodium (Porcine) 1,000 unit 06/15/17 06:41 Heparin - IVPUSH 06/15/17 06:42 ONCE ONE Heparin Sodium (Porcine) 5,000 unit 06/15/17 10:00 06/15/17 11:00 Heparin - SQ 5,000 unit BID DAVID Administration Hydralazine HCl 50 mg 06/15/17 14:00 Apresoline - PO TID DAVID Nitroglycerin/Dextrose 250 mls @ 6 mls/hr 06/15/17 06:41 06/15/17 06:57 Nitroglycerin 25mg/D5w 250ml IVPB Not Given TITR DAVID 10 MCG/MIN Insulin Aspart 1 vial 06/15/17 07:00 06/15/17 06:57 Novolog Vial Sliding Scale - SQ Not Given ACHS [facility] Protocol Lisinopril 10 mg 06/15/17 10:00 06/15/17 11:00 Prinivil PO 10 mg DAILY DAVID Administration Metoprolol Tartrate 25 mg 06/15/17 10:00 06/15/17 11:00 Lopressor - PO 25 mg DAILY DAVID Administration Mupirocin 1 applic 06/15/17 10:00 06/15/17 10:00 Bactroban Ointment (For Decolonization) - NS 06/20/17 09:59 1 applic BID DAVID Administration Pantoprazole Sodium 40 mg 06/15/17 10:00 06/15/17 12:00 Protonix - PO 40 mg BID DAVID Administration Sevelamer Carbonate 800 mg 06/15/17 08:00 06/15/17 12:35 Renvela - PO 800 mg CM DAVID Administration Imaging: CXR(06/15): no pneumothorax seen -resolving vascular congestion -cardiomegaly -L retrocardiac consolidation -possible pericardial effusion ASSESSMENT/PLAN: 82 year old female w/ pmh of ESRD HD (MWF), HTN, DM in ICU for acute pulmonary edema, improving clinically. Pulmonary: pulmonary edema improving -place on ventimask for O2 -monitor O2 sats -non-invasive positive pressure ventilation as needed -AM CXR Cardiac: pt still hypertensive -titrate BP meds -begin aspirin 81mg QD -pt placed on nitro drip before HD -monitor BP, HR Renal: requires HD MWF -cont scheduled HD -monitor BUN/Cre -diabetes meds as scheduled FEN: -Daily weight Proph: -VTE prophylaxis Dispo: Continue ICU Monitoring Problem List - Problems (1) CAD (coronary artery disease) Code(s): I25.10 - ATHSCL HEART DISEASE OF [place] CORONARY ARTERY W/O ANG PCTRS (2) DM (diabetes mellitus) type II controlled with renal manifestation Code(s): E11.29 - TYPE 2 DIABETES MELLITUS W OTH DIABETIC KIDNEY COMPLICATION (3) Pulmonary edema Code(s): J81.1 - CHRONIC PULMONARY EDEMA Qualifiers: Chronicity: acute Qualified Code(s): J81.0 - Acute pulmonary edema Visit type - Emergency Visit Emergency Visit: No - New Patient This patient is new to me today: Yes Date on this admission: 06/15/17 - Critical Care Critical Care patient: Yes Total Critical Care Time (in minutes): 45 Critical Care Statement: The care of this patient involved high complexity decision making to prevent further life threatening deterioration of the patient 's condition and/or to evalute & treat vital organ system(s) failure or risk of failure.
--- NOTE | 2017-06-15 16:55 | PN ---
Physical Exam: SUBJECTIVE: Patient seen and examined in ICU. Bipap restarted, pt very lethargic , received ativan this AM and morphine OBJECTIVE: Vital Signs Period Temp Pulse Resp BP Sys/Bullock Pulse Ox Last 24 Hr 97 F-98.4 F 62-108 13-21 117-210/36-98 98-100 PE Neuro: arousable, cn 2-12intact Pulm: diminished, + bipap CV: s1 s2 rrr no mrg Abd: s nt nd +bs Ext: RUE fistula + thrill CBCD WBC 7.6 K/mm3 (4.0-10.0) D 06/15/17 05:15 RBC 3.61 M/mm3 (3.60-5.2) 06/15/17 05:15 Hgb 9.7 GM/dL (10.7-15.3) L 06/15/17 05:15 Hct 29.9 % (32.4-45.2) L 06/15/17 05:15 MCV 82.8 fl (80-96) 06/15/17 05:15 MCHC 32.4 g/dl (32.0-36.0) 06/15/17 05:15 RDW 19.2 % (11.6-15.6) H 06/15/17 05:15 Plt Count 194 K/MM3 (134-434) 06/15/17 05:15 MPV 7.7 fl (7.5-11.1) 06/15/17 05:15 CMP Sodium 134 mmol/L (136-145) L 06/15/17 05:15 Potassium 5.1 mmol/L (3.5-5.1) 06/15/17 05:15 Chloride 96 mmol/L (98-107) L 06/15/17 05:15 Carbon Dioxide 32 mmol/L (21-32) 06/15/17 05:15 Anion Gap 6 (8-16) L 06/15/17 05:15 BUN 36 mg/dL (7-18) H D 06/15/17 05:15 Creatinine 7.3 mg/dL (0.55-1.02) H D 06/15/17 05:15 Creat Clearance w eGFR 5.34 (>60) 06/15/17 05:15 Calcium 8.2 mg/dL (8.5-10.1) L 06/15/17 05:15 Total Bilirubin 0.4 mg/dL (0.2-1.0) D 06/15/17 05:15 AST 21 U/L (15-37) D 06/15/17 05:15 ALT 26 U/L (12-78) 06/15/17 05:15 Alkaline Phosphatase 118 U/L (45-117) H 06/15/17 05:15 Total Protein 5.5 g/dl (6.4-8.2) L 06/15/17 05:15 Albumin 2.9 g/dl (3.4-5.0) L 06/15/17 05:15 09/27/15 09/27/15 06/12/17 03:14 12:05 11:00 Stool Occult Blood Positive Hepatitis A IgM Ab Negative Hep A IgM Ab Confirm Negative Hepatitis A Ab Total Positive H Hep Bs Antigen Negative Hep Bs Antibody Reactive Hep B Core Total Ab Negative Hepatitis C Antibody <0.1 Active Medications Generic Name Dose Route Start Last Admin Trade Name Fernando PRN Reason Stop Dose Admin Amlodipine Besylate 10 mg 06/15/17 10:00 06/15/17 11:00 Norvasc - PO 10 mg DAILY DAVID Administration Aspirin 81 mg 06/15/17 10:00 06/15/17 11:00 Asa - PO 81 mg DAILY DAVID Administration Chlorhexidine Gluconate 1 applic 06/15/17 22:00 Hibiclens For Decolonization - TP HS COUNT INCLUDES [facility] Cinacalcet 60 mg 06/15/17 10:00 06/15/17 11:00 Sensipar - PO 60 mg DAILY DAVID Administration Heparin Sodium (Porcine) 5,000 unit 06/15/17 10:00 06/15/17 11:00 Heparin - SQ 5,000 unit BID DAVID Administration Hydralazine HCl 50 mg 06/15/17 14:00 Apresoline - PO TID COUNT INCLUDES [facility] Nitroglycerin/Dextrose 250 mls @ 6 mls/hr 06/15/17 06:41 06/15/17 06:57 Nitroglycerin 25mg/D5w 250ml IVPB Not Given TITR DAVID 10 MCG/MIN Insulin Aspart 1 vial 06/15/17 07:00 06/15/17 06:57 Novolog Vial Sliding Scale - SQ Not Given ACHS COUNT INCLUDES [facility] Protocol Lisinopril 10 mg 06/15/17 10:00 07/17/17 11:00 Prinivil PO 10 mg DAILY DAVID Administration Metoprolol Tartrate 25 mg 06/15/17 10:00 06/15/17 11:00 Lopressor - PO 25 mg DAILY DAVID Administration Mupirocin 1 applic 06/15/17 10:00 06/15/17 10:00 Bactroban Ointment (For Decolonization) - NS 06/20/17 09:59 1 applic BID DAVID Administration Pantoprazole Sodium 40 mg 06/15/17 10:00 06/15/17 12:00 Protonix - PO 40 mg BID DAVID Administration Sevelamer Carbonate 800 mg 06/15/17 08:00 06/15/17 12:35 Renvela - PO 800 mg CM DAVID Administration Assessment: 82 year old female with a history of ESRD- HD (M,W,F), HTN, anemia, admitted with acute pulmonary edema and resp failure. Plan: 1. Acute Respiratory failure d/t pulmonary edema - Requiring Bipap today, decreased fio2 100->40% - HD today to remove excess volume - Wean to VM as tolerated 2. HTN Urgency - Elevated today - Change lopressor to coreg 6.25mg BID - Norvasc to 10mg daily - Lisinopril 10mg daily - Hydralazine 50mg TID - Nitro gtt re started, will wean off gtt tonight pending BP 3. Chest pain - Resolved, less likely ACS - Stress when stable - ECHO 06/15: Normal LVSF,size, severe LV concentric hypertrophy, RVSP 40-50mmjg , mod pul HTN, Severe aortic stenosis - ASA 81mg qd - Will likely need valve replacement 3. ESRD - HD today - Continue Renvela/Sensipar - Hold Epogen - D/w Renal 4. DM II - Does not have diabetes, a1c 4 - Stop BMG Visit type - Emergency Visit Emergency Visit: Yes ED Registration Date: 06/12/17 Care time: The patient presented to the Emergency Department on the above date and was hospitalized for further evaluation of their emergent condition. - New Patient This patient is new to me today: Yes Date on this admission: 06/15/17 - Critical Care Critical Care patient: No
[2017-06-15] MEDS: hydrALAZINE HCL 50 MG TABLET (FP) PO SCH ×2 (18:17→21:28)
[2017-06-15] MEDS ORDERED: CHLORHEXIDINE GLUCONATE 4% CLEANSER FOR DECOLONIZATION TP SCH ×2 (22:00)
[2017-06-16 05:59] LABS: MCH 26.8 pg (25.7-33.7); MCHC 32.3 g/dl (32.0-36.0); MEAN CELL VOLUME 82.8 fl (80-96); MEAN PLT VOLUME 7.4 fl (7.5-11.1); PLATELET COUNT 149 K/MM3 (134-434); WHITE BLOOD COUNT 3.8 K/mm3 (4.0-10.0)
[2017-06-16 06:16] LABS: ANION GAP 5 (8-16); CALCIUM 8.4 mg/dL (8.5-10.1); CO2 34 mmol/L (21-32); CREATININE 4.5 mg/dL (0.55-1.02); GLUCOSE,RANDOM 87 mg/dL (74-106)
[2017-06-16] MEDS: hydrALAZINE HCL 50 MG TABLET (FP) PO SCH ×3 (06:48→21:46)
[2017-06-16] MEDS: NITROGLYCERIN 25MG/D5W 250ML 250 ML IVPB SCH (06:49)
--- NOTE | 2017-06-16 08:02 | PN ---
Progress Note (short form) - Note Progress Note: RENAL Awake and alert feels better Last Vital Signs Temp Pulse Resp BP Pulse Ox 98 F 72 18 173/76 98 06/16/17 06:00 06/16/17 06:00 06/16/17 06:00 06/16/17 06:00 06/15/17 16:00 lungs clear anteriorly cvs s1s2 rr loud murmur abd soft ext no edema neuro awake and alert Current Medications Generic Name Dose Route Start Last Admin Trade Name Fernando PRN Reason Stop Dose Admin Amlodipine Besylate 10 mg 06/15/17 10:00 06/15/17 11:00 Norvasc - PO 10 mg DAILY DAVID Administration Aspirin 81 mg 06/15/17 10:00 06/15/17 11:00 Asa - PO 81 mg DAILY DAVID Administration Carvedilol 6.25 mg 06/16/17 10:00 Coreg - PO BID DAVID Chlorhexidine Gluconate 1 applic 06/15/17 22:00 06/15/17 21:30 Hibiclens For Decolonization - TP 1 applic HS DAVID Administration Cinacalcet 60 mg 06/15/17 10:00 06/15/17 11:00 Sensipar - PO 60 mg DAILY DAVID Administration Heparin Sodium (Porcine) 5,000 unit 06/15/17 10:00 06/15/17 21:30 Heparin - SQ 5,000 unit BID DAVID Administration Hydralazine HCl 50 mg 06/15/17 14:00 06/16/17 06:48 Apresoline - PO 50 mg TID DAVID Administration Nitroglycerin/Dextrose 250 mls @ 6 mls/hr 06/15/17 06:41 06/16/17 06:49 Nitroglycerin 25mg/D5w 250ml IVPB Not Given TITR DAVID 10 MCG/MIN Lisinopril 10 mg 06/15/17 10:00 06/15/17 11:00 Prinivil PO 10 mg DAILY DAVID Administration Mupirocin 1 applic 06/15/17 10:00 06/15/17 21:30 Bactroban Ointment (For Decolonization) - NS 06/20/17 09:59 1 applic BID DAVID Administration Pantoprazole Sodium 40 mg 06/15/17 10:00 06/15/17 21:28 Protonix - PO 40 mg BID DAVID Administration Sevelamer Carbonate 800 mg 06/15/17 08:00 06/15/17 18:17 Renvela - PO 800 mg CM DAVID Administration CBC, BMP 06/16/17 05:10 06/16/17 05:10 IMPRESSION esrd htn dementia pulmonary edema severe aortic stenosis with area of 0.7 cm PLAN redialyze tomorrow would not give epogen given pulmonary edema would maximize medical therapy prefer to use carvedilol over metoprolol due to the lower dialyzability of carvedilol If she urinates, lasix daily would be helpful cardiology follow up, will need surgery MV
[2017-06-16] MEDS: SEVELAMER CARBONATE 800 MG TAB (FP) PO SCH ×3 (08:32→17:56)
[2017-06-16] MEDS ORDERED: CARVEDILOL 6.25 MG TABLET (FP) PO SCH (10:00)
[2017-06-16] MEDS: amLODIPine BESYLATE 10 MG TABLET (FP) PO SCH (10:55)
[2017-06-16] MEDS: ASPIRIN 81 MG CHEWABLE TABLETS PO SCH (10:55)
[2017-06-16] MEDS: LISINOPRIL 10 MG TABLET (FP) PO SCH (10:55)
[2017-06-16] MEDS: PANTOPRAZOLE 40 MG TABLET (FP) PO SCH ×2 (10:56→21:47)
[2017-06-16] MEDS: HEPARIN NA (PORCINE) 5,000 UNITS/ML 1ML VIAL SQ SCH ×2 (10:57→21:47)
[2017-06-16] MEDS: MUPIROCIN 2% TOPICAL OINTMENT FOR DECOLONIZATION NS SCH ×2 (10:58→21:48)
[2017-06-16] MEDS: CINACALCET HCL 30 MG TAB (FP) PO SCH (11:01)
--- NOTE | 2017-06-16 13:16 | PN ---
Teaching Attending Note Name of Resident: Mark Joiner ATTENDING PHYSICIAN STATEMENT I saw and evaluated the patient. I reviewed the resident's note and discussed the case with the resident. I agree with the resident's findings and plan as documented. SUBJECTIVE: Patient seen and examined in the ICU. Currently on NC O2. Awake and responsive. Remains on IV NTG for hypertension. Denies CP. SOB is improving. Intake & Output 06/13/17 06/14/17 06/15/17 06/16/17 23:59 23:59 23:59 23:59 Intake Total 426 1270 907 320 Output Total 100 400 Balance 326 870 907 320 Weight 117 lb 1.6 oz 116 lb 11.2 oz 118 lb 9 oz 111 lb 1.6 oz Last Vital Signs Temp Pulse Resp BP Pulse Ox 98.2 F 68 16 177/80 94 L 06/16/17 08:00 06/16/17 12:00 06/16/17 12:00 06/16/17 12:00 06/16/17 11:44 Active Medications Amlodipine Besylate (Norvasc -) 10 mg PO DAILY [facility] Last Admin: 06/16/17 10:55 Dose: 10 mg Aspirin (Asa -) 81 mg PO DAILY [facility] Last Admin: 06/16/17 10:55 Dose: 81 mg Carvedilol (Coreg -) 6.25 mg PO BID [facility] Last Admin: 06/16/17 10:55 Dose: 6.25 mg Chlorhexidine Gluconate (Hibiclens For Decolonization -) 1 applic TP HS [facility] Last Admin: 06/15/17 21:30 Dose: 1 applic Cinacalcet (Sensipar -) 60 mg PO DAILY [facility] Last Admin: 06/16/17 11:01 Dose: 60 mg Heparin Sodium (Porcine) (Heparin -) 5,000 unit SQ BID [facility] Last Admin: 06/16/17 10:57 Dose: 5,000 unit Hydralazine HCl (Apresoline -) 50 mg PO TID [facility] Last Admin: 06/16/17 06:48 Dose: 50 mg Lisinopril (Prinivil) 10 mg PO DAILY [facility] Last Admin: 06/16/17 10:55 Dose: 10 mg Mupirocin (Bactroban Ointment (For Decolonization) -) 1 applic NS BID [facility] Stop: 06/20/17 09:59 Last Admin: 06/16/17 10:58 Dose: 1 applic Pantoprazole Sodium (Protonix -) 40 mg PO BID [facility] Last Admin: 06/16/17 10:56 Dose: 40 mg Sevelamer Carbonate (Renvela -) 800 mg PO CM [facility] Last Admin: 06/16/17 08:32 Dose: 800 mg GENERAL: Awake and alert, NAD HEAD:NCAT EYES: sclera anicteric, conjunctiva clear. No ptosis. ENT: oropharynx clear without exudates, moist mucous membranes NECK: Trachea midline, full range of motion, supple, JVD LUNGS: Bibasilar rales HEART: Regular rate and rhythm, S1, S2. 3/6 systolic murmur. ABDOMEN: Soft, nontender, nondistended, normoactive bowel sounds, no guarding, no rebound, no hepatosplenomegaly, no masses. EXTREMITIES: 2+ pulses, warm, well-perfused. 1+ pitting edema bilaterally., RAVF with thrill NEUROLOGICAL: Non-focal, normal speech PSYCH: Normal mood, normal affect. SKIN: grossly intact Laboratory Results - last 24 hr 06/12/17 06/15/17 06/15/17 11:00 06:36 16:28 WBC RBC Hgb Hct MCV MCH MCHC RDW Plt Count MPV Sodium Potassium Chloride Carbon Dioxide Anion Gap BUN Creatinine POC Glucometer 109.37601 172.36039 Random Glucose Calcium Hep A IgM Ab Confirm Negative Hepatitis A Ab Total Positive H Hep Bs Antigen Negative Hep Bs Antibody Reactive Hep B Core Total Ab Negative Hepatitis C Antibody <0.1 06/15/17 06/16/17 06/16/17 21:25 05:10 05:10 WBC 3.8 L D RBC 3.39 L Hgb 9.1 L Hct 28.1 L MCV 82.8 MCH 26.8 MCHC 32.3 RDW 19.0 H Plt Count 149 D MPV 7.4 L Sodium 138 Potassium 4.3 Chloride 99 Carbon Dioxide 34 H Anion Gap 5 L BUN 23 H D Creatinine 4.5 H D POC Glucometer 133.92005 Random Glucose 87 Calcium 8.4 L Hep A IgM Ab Confirm Hepatitis A Ab Total Hep Bs Antigen Hep Bs Antibody Hep B Core Total Ab Hepatitis C Antibody 06/16/17 06:14 WBC RBC Hgb Hct MCV MCH MCHC RDW Plt Count MPV Sodium Potassium Chloride Carbon Dioxide Anion Gap BUN Creatinine POC Glucometer 110.49578 Random Glucose Calcium Hep A IgM Ab Confirm Hepatitis A Ab Total Hep Bs Antigen Hep Bs Antibody Hep B Core Total Ab Hepatitis C Antibody ASSESSMENT/PLAN: Acute Pulmonary Edema ESRD- HD (M,W,F) HTN DM2 Do not suspect PNA Chest pain (+) Troponin O2 as needed NIPPV as needed Daily weight Titrate BP Meds HD per Renal ASA 81mg daily VTE prophylaxis Taper and D/C IV NTG Dr Robbins CCTime 40"
--- NOTE | 2017-06-16 13:32 | PN ---
Physical Exam: SUBJECTIVE: 82 year old female with a pmh of ESRD HD (MWF), HTN, DM in ICU for acute pulmonary edema. Pt feels better today, denies any chest pain, SOB, fever, chills. OBJECTIVE: Vital Signs Period Temp Pulse Resp BP Sys/Bullock Pulse Ox Last 24 Hr 97.8 F-98.4 F 59-80 14-23 119-188/49-86 94-98 GENERAL: The patient is awake, alert, and fully oriented, in no acute distress. HEAD: Normal with no signs of trauma. EYES: PERRL, extraocular movements intact, sclera anicteric, conjunctiva clear. No ptosis. ENT: Ears normal, nares patent, oropharynx clear without exudates, moist mucous membranes. NECK: Trachea midline, full range of motion, supple. LUNGS: Breath sounds equal, clear to auscultation bilaterally, no wheezes, no crackles, no accessory muscle use. HEART: Regular rate and rhythm, S1, S2 w/ harsh, blowing systolic murmur, no rubs or gallops. ABDOMEN: Soft, nontender, nondistended, normoactive bowel sounds, no guarding, no rebound, no hepatosplenomegaly, no masses. EXTREMITIES: 2+ pulses, warm, well-perfused, no edema. NEUROLOGICAL: Cranial nerves II through XII grossly intact. Normal speech, gait not observed. PSYCH: Normal mood, normal affect. SKIN: Warm, dry, normal turgor, no rashes or lesions noted Laboratory Results - last 24 hr 06/12/17 06/15/17 06/15/17 11:00 06:36 16:28 WBC RBC Hgb Hct MCV MCH MCHC RDW Plt Count MPV Sodium Potassium Chloride Carbon Dioxide Anion Gap BUN Creatinine POC Glucometer 109.89873 172.72127 Random Glucose Calcium Hep A IgM Ab Confirm Negative Hepatitis A Ab Total Positive H Hep Bs Antigen Negative Hep Bs Antibody Reactive Hep B Core Total Ab Negative Hepatitis C Antibody <0.1 06/15/17 06/16/17 06/16/17 21:25 05:10 05:10 WBC 3.8 L D RBC 3.39 L Hgb 9.1 L Hct 28.1 L MCV 82.8 MCH 26.8 MCHC 32.3 RDW 19.0 H Plt Count 149 D MPV 7.4 L Sodium 138 Potassium 4.3 Chloride 99 Carbon Dioxide 34 H Anion Gap 5 L BUN 23 H D Creatinine 4.5 H D POC Glucometer 133.90693 Random Glucose 87 Calcium 8.4 L Hep A IgM Ab Confirm Hepatitis A Ab Total Hep Bs Antigen Hep Bs Antibody Hep B Core Total Ab Hepatitis C Antibody 06/16/17 06:14 WBC RBC Hgb Hct MCV MCH MCHC RDW Plt Count MPV Sodium Potassium Chloride Carbon Dioxide Anion Gap BUN Creatinine POC Glucometer 110.19022 Random Glucose Calcium Hep A IgM Ab Confirm Hepatitis A Ab Total Hep Bs Antigen Hep Bs Antibody Hep B Core Total Ab Hepatitis C Antibody Active Medications Generic Name Dose Route Start Last Admin Trade Name Freq PRN Reason Stop Dose Admin Amlodipine Besylate 10 mg 06/15/17 10:00 06/16/17 10:55 Norvasc - PO 10 mg DAILY DAVID Administration Aspirin 81 mg 06/15/17 10:00 06/16/17 10:55 Asa - PO 81 mg DAILY DAVID Administration Carvedilol 6.25 mg 06/16/17 10:00 06/16/17 10:55 Coreg - PO 6.25 mg BID DAVID Administration Chlorhexidine Gluconate 1 applic 06/15/17 22:00 06/15/17 21:30 Hibiclens For Decolonization - TP 1 applic HS DAVID Administration Cinacalcet 60 mg 06/15/17 10:00 06/16/17 11:01 Sensipar - PO 60 mg DAILY DAVID Administration Heparin Sodium (Porcine) 5,000 unit 06/15/17 10:00 06/16/17 10:57 Heparin - SQ 5,000 unit BID DAVID Administration Hydralazine HCl 50 mg 06/15/17 14:00 06/16/17 06:48 Apresoline - PO 50 mg TID DAVID Administration Lisinopril 10 mg 06/15/17 10:00 06/16/17 10:55 Prinivil PO 10 mg DAILY DAVID Administration Mupirocin 1 applic 06/15/17 10:00 06/16/17 10:58 Bactroban Ointment (For Decolonization) - NS 06/20/17 09:59 1 applic BID DAVID Administration Pantoprazole Sodium 40 mg 06/15/17 10:00 06/16/17 10:56 Protonix - PO 40 mg BID DAVID Administration Sevelamer Carbonate 800 mg 06/15/17 08:00 06/16/17 13:18 Renvela - PO 800 mg CM DAVID Administration Imaging: CXR(06/15): no pneumothorax seen -resolving vascular congestion -cardiomegaly -L retrocardiac consolidation -possible pericardial effusion Echo (06/15)L ASSESSMENT/PLAN: 82 year old female w/ pmh of ESRD HD (MWF), HTN, DM in ICU for acute pulmonary edema, improving clinically. Pulmonary: pulmonary edema resolving -patient satting >90% on NC -monitor O2 sats -non-invasive positive pressure ventilation as needed -AM CXR Cardiac: pt still hypertensive -titrate BP meds -continue aspirin 81mg QD -d/c nitro -monitor BP, HR Renal: requires HD MWF -cont scheduled HD -monitor BUN/Cre -diabetes meds as scheduled FEN: -Daily weight Proph: -VTE prophylaxis Dispo: -transfer to tele Problem List - Problems (1) CAD (coronary artery disease) Code(s): I25.10 - ATHSCL HEART DISEASE OF [place] CORONARY ARTERY W/O ANG PCTRS (2) DM (diabetes mellitus) type II controlled with renal manifestation Code(s): E11.29 - TYPE 2 DIABETES MELLITUS W OTH DIABETIC KIDNEY COMPLICATION (3) Pulmonary edema Code(s): J81.1 - CHRONIC PULMONARY EDEMA Qualifiers: Chronicity: acute Qualified Code(s): J81.0 - Acute pulmonary edema Visit type - Emergency Visit Emergency Visit: No - New Patient This patient is new to me today: No - Critical Care Critical Care patient: Yes Total Critical Care Time (in minutes): 45 Critical Care Statement: The care of this patient involved high complexity decision making to prevent further life threatening deterioration of the patient 's condition and/or to evalute & treat vital organ system(s) failure or risk of failure.
--- NOTE | 2017-06-16 16:40 | PN ---
Physical Exam: SUBJECTIVE: Patient seen and examined in ICU. She feels better today, she sat in chair yesterday OBJECTIVE: Vital Signs Period Temp Pulse Resp BP Sys/Bullock Pulse Ox Last 24 Hr 97.8 F-98.2 F 59-80 14-23 119-191/49-86 94-94 PE Neuro: alert, awake, cn 2-12intact HEENT: R EJ Pulm: scattered basilar crackles CV: s1 s2 rrr + loud holi systolic murmur Abd: s nt nd +bs Ext: RUE fistula + thrill Laboratory Results - last 24 hr 06/16/17 06/16/17 06/16/17 05:10 05:10 06:14 WBC 3.8 L D RBC 3.39 L Hgb 9.1 L Hct 28.1 L MCV 82.8 MCH 26.8 MCHC 32.3 RDW 19.0 H Plt Count 149 D MPV 7.4 L Sodium 138 Potassium 4.3 Chloride 99 Carbon Dioxide 34 H Anion Gap 5 L BUN 23 H D Creatinine 4.5 H D POC Glucometer 110.37967 Random Glucose 87 Calcium 8.4 L Active Medications Generic Name Dose Route Start Last Admin Trade Name Freq PRN Reason Stop Dose Admin Amlodipine Besylate 10 mg 06/15/17 10:00 06/16/17 10:55 Norvasc - PO 10 mg DAILY DAVID Administration Aspirin 81 mg 06/15/17 10:00 06/16/17 10:55 Asa - PO 81 mg DAILY DAVID Administration Carvedilol 6.25 mg 06/16/17 10:00 06/16/17 10:55 Coreg - PO 6.25 mg BID DAVID Administration Chlorhexidine Gluconate 1 applic 06/15/17 22:00 06/15/17 21:30 Hibiclens For Decolonization - TP 1 applic HS DAVID Administration Cinacalcet 60 mg 06/15/17 10:00 06/16/17 11:01 Sensipar - PO 60 mg DAILY DAVID Administration Heparin Sodium (Porcine) 5,000 unit 06/15/17 10:00 06/16/17 10:57 Heparin - SQ 5,000 unit BID DAVID Administration Hydralazine HCl 50 mg 06/15/17 14:00 06/16/17 15:44 Apresoline - PO 50 mg TID DAVID Administration Lisinopril 10 mg 06/15/17 10:00 06/16/17 10:55 Prinivil PO 10 mg DAILY DAVID Administration Mupirocin 1 applic 06/15/17 10:00 06/16/17 10:58 Bactroban Ointment (For Decolonization) - NS 06/20/17 09:59 1 applic BID DAVID Administration Pantoprazole Sodium 40 mg 06/15/17 10:00 06/16/17 10:56 Protonix - PO 40 mg BID DAVID Administration Sevelamer Carbonate 800 mg 06/15/17 08:00 06/16/17 13:18 Renvela - PO 800 mg CM DAVID Administration Assessment: 82 year old female with a history of ESRD- HD (M,W,F), HTN, anemia, admitted with acute pulmonary edema and resp failure. Plan: 1. Acute Respiratory failure d/t pulmonary edema - Stable on RA - HD yesterday 2. HTN Urgency - Elevated - Increase coreg 12.5mg BID - Increase Hydralazine 100mg TID - Norvasc to 10mg daily - Stop Lisinopril d/t - Nitro gtt re started, will wean off gtt tonight pending BP 3. Chest pain - Resolved, less likely ACS - Stress when stable - ECHO 06/15: Normal LVSF,size, severe LV concentric hypertrophy, RVSP 40-50mmjg , mod pul HTN, Severe aortic stenosis - ASA 81mg qd - Will likely need valve replacement 3. ESRD - HD today - Continue Renvela/Sensipar - Hold Epogen - D/w Renal 4. DM II - Does not have diabetes, a1c 4 - Stop BMG Visit type - Emergency Visit Emergency Visit: Yes ED Registration Date: 06/12/17 Care time: The patient presented to the Emergency Department on the above date and was hospitalized for further evaluation of their emergent condition. - New Patient This patient is new to me today: No - Critical Care Critical Care patient: No
[2017-06-16] MEDS: CHLORHEXIDINE GLUCONATE 4% CLEANSER FOR DECOLONIZATION TP SCH (21:47)
[2017-06-16] MEDS: CARVEDILOL 6.25 MG TABLET (FP) PO SCH (21:47)
[2017-06-17] MEDS: hydrALAZINE HCL 50 MG TABLET (FP) PO SCH ×3 (06:21→21:39)
--- NOTE | 2017-06-17 08:07 | PN ---
Progress Note (short form) - Note Progress Note: RENAL Awake and alert feelswell says her BP is always high wants to go home Last Vital Signs Temp Pulse Resp BP Pulse Ox 98.2 F 68 18 190/60 94 L 06/17/17 06:55 06/17/17 07:00 06/17/17 07:00 06/17/17 07:00 06/16/17 21:00 lungs clear anteriorly cvs s1s2 rr loud murmur abd soft ext no edema neuro awake and alert Current Medications Generic Name Dose Route Start Last Admin Trade Name Fernando PRN Reason Stop Dose Admin Amlodipine Besylate 10 mg 06/17/17 10:00 Norvasc - PO DAILY DAVID Aspirin 81 mg 06/17/17 10:00 Asa - PO DAILY DAVID Carvedilol 12.5 mg 06/16/17 16:48 06/16/17 21:47 Coreg - PO 12.5 mg BID DAVID Administration Chlorhexidine Gluconate 1 applic 06/16/17 22:00 06/16/17 21:47 Hibiclens For Decolonization - TP 1 applic HS DAVID Administration Cinacalcet 60 mg 06/17/17 10:00 Sensipar - PO DAILY DAVID Epoetin Dheeraj 2,000 units 06/17/17 09:00 Epogen - IVPUSH 06/17/17 09:01 ONCE ONE Heparin Sodium (Porcine) 1,000 unit 06/17/17 09:00 Heparin - IVPUSH 06/17/17 09:01 ONCE ONE Heparin Sodium (Porcine) 5,000 unit 06/16/17 22:00 06/16/17 21:47 Heparin - SQ 5,000 unit BID DAVID Administration Hydralazine HCl 100 mg 06/16/17 16:43 06/17/17 06:21 Apresoline - PO 100 mg TID DAVID Administration Mupirocin 1 applic 06/16/17 22:00 06/16/17 21:48 Bactroban Ointment (For Decolonization) - NS 06/20/17 09:59 1 applic BID DAVID Administration Pantoprazole Sodium 40 mg 06/16/17 22:00 06/16/17 21:47 Protonix - PO 40 mg BID DAVID Administration Sevelamer Carbonate 800 mg 06/16/17 19:21 Renvela - PO CM [facility] CBC, BMP 06/16/17 05:10 06/16/17 05:10 IMPRESSION esrd htn chronic- diastolic BP is 60 so would not increase bp meds dementia pulmonary edema severe aortic stenosis with area of 0.7 cm PLAN being redialyzed would not give epogen given pulmonary edema given aortic stenosis would defer management of htn to cardiology will needsurgery MV
[2017-06-17] MEDS ORDERED: HEPARIN NA (PORCINE) 5,000 UNITS/ML 1ML VIAL IVPUSH ONE (09:00)
[2017-06-17] MEDS ORDERED: EPOETIN ALFA 2,000 UNITS/1 ML VIAL IVPUSH ONE (09:00)
--- NOTE | 2017-06-17 11:25 | PN ---
Progress Note (short form) - Note Progress Note: PULMONARY s/p HD this AM with removal of 3L. States breathing continues to improve. No chest pain or cough. Last Vital Signs Temp Pulse Resp BP Pulse Ox 98.2 F 75 18 175/81 94 L 06/17/17 06:55 06/17/17 11:00 06/17/17 11:00 06/17/17 11:00 06/16/17 21:00 Intake & Output 06/14/17 06/15/17 06/16/17 06/17/17 23:59 23:59 23:59 23:59 Intake Total 6865 123 7579 200 Output Total 400 100 0 Balance 648 028 2388 200 Weight 116 lb 11.2 oz 118 lb 9 oz 111 lb 1.6 oz 113 lb 6 oz Gen: NAD at rest Heart: RRR, +3/6 systolic murmur RUSB Lung: scattered rales Abd: soft, nontender Ext: no edema CBC, BMP 06/16/17 05:10 06/16/17 05:10 Active Medications Amlodipine Besylate (Norvasc -) 10 mg PO DAILY [facility] Aspirin (Asa -) 81 mg PO DAILY [facility] Carvedilol (Coreg -) 12.5 mg PO BID [facility] Last Admin: 06/16/17 21:47 Dose: 12.5 mg Chlorhexidine Gluconate (Hibiclens For Decolonization -) 1 applic TP HS [facility] Last Admin: 06/16/17 21:47 Dose: 1 applic Cinacalcet (Sensipar -) 60 mg PO DAILY [facility] Heparin Sodium (Porcine) (Heparin -) 5,000 unit SQ BID [facility] Last Admin: 06/16/17 21:47 Dose: 5,000 unit Hydralazine HCl (Apresoline -) 100 mg PO TID [facility] Last Admin: 06/17/17 06:21 Dose: 100 mg Mupirocin (Bactroban Ointment (For Decolonization) -) 1 applic NS BID [facility] Stop: 06/20/17 09:59 Last Admin: 06/16/17 21:48 Dose: 1 applic Pantoprazole Sodium (Protonix -) 40 mg PO BID [facility] Last Admin: 06/16/17 21:47 Dose: 40 mg Sevelamer Carbonate (Renvela -) 800 mg PO CM [facility] A/P Acute Hypoxic Respiratory Failure improving Acute Pulmonary Edema resolving Acute on Chronic LV Diastolic Heart Failure Severe Aortic Stenosis Mod-Severe Mitral Regurgitation Pulmonary HTN ESRD on HD HTN DM - HD per renal with ultrafiltration - beta kalyn - BP control - O2 to keep SpO2 >90% - monitor lytes - PO as tolerated - DVT prophylaxis
[2017-06-17] MEDS: CARVEDILOL 6.25 MG TABLET (FP) PO SCH ×2 (11:34→21:39)
[2017-06-17] MEDS: ASPIRIN 81 MG CHEWABLE TABLETS PO SCH (11:34)
[2017-06-17] MEDS: amLODIPine BESYLATE 10 MG TABLET (FP) PO SCH (11:35)
[2017-06-17] MEDS: PANTOPRAZOLE 40 MG TABLET (FP) PO SCH ×2 (11:36→21:38)
[2017-06-17] MEDS: CINACALCET HCL 30 MG TAB (FP) PO SCH (11:36)
[2017-06-17] MEDS: SEVELAMER CARBONATE 800 MG TAB (FP) PO SCH ×4 (11:36→18:04)
[2017-06-17] MEDS: HEPARIN NA (PORCINE) 5,000 UNITS/ML 1ML VIAL SQ SCH ×2 (11:37→21:39)
[2017-06-17] MEDS: MUPIROCIN 2% TOPICAL OINTMENT FOR DECOLONIZATION NS SCH ×2 (11:38→21:42)
[2017-06-17] MEDS ORDERED: POLYETHYLENE GLYCOL 3350 119 GM BTL PO ONE (12:55)
--- NOTE | 2017-06-17 13:00 | PN ---
Physical Exam: SUBJECTIVE: Patient seen and examined at bedside. Breathing improved s/p HD today. OBJECTIVE: Vital Signs 3 Period Temp Pulse Resp BP Sys/Bullock Pulse Ox Last 24 Hr 98.1 F-98.4 F 64-75 15-18 135-207/52-81 94-94 GENERAL: The patient is awake, alert, and fully oriented, in no acute distress. HEAD: Normal with no signs of trauma. EYES: PERRL, extraocular movements intact, sclera anicteric, conjunctiva clear. NECK: Trachea midline, full range of motion, supple. LUNGS: Breath sounds equal, clear to auscultation bilaterally, no wheezes, no crackles, no accessory muscle use. HEART: Regular rate and rhythm, S1, S2 with 4/6 systolic murmur across precordium into left carotid. ABDOMEN: Soft, nontender, nondistended, normoactive bowel sounds. NEUROLOGICAL: Cranial nerves II through XII grossly intact. Normal speech, gait not observed. PSYCH: Normal mood, normal affect. SKIN: Warm, dry, normal turgor, no rashes or lesions noted. RUE A-V fistula dressing c/d/i. Laboratory Results - last 24 hr 3 06/14/17 06/14/17 06/14/17 11:07 16:59 21:26 POC Glucometer [phone] 140.19625 Active Medications 3 Generic Name Dose Route Start Last Admin Trade Name Freq PRN Reason Stop Dose Admin Amlodipine Besylate 10 mg 06/17/17 10:00 06/17/17 11:35 Norvasc - PO 10 mg DAILY DAVID Administration Aspirin 81 mg 06/17/17 10:00 06/17/17 11:34 Asa - PO 81 mg DAILY DAVID Administration Carvedilol 12.5 mg 06/16/17 16:48 06/17/17 11:34 Coreg - PO 12.5 mg BID DAVID Administration Chlorhexidine Gluconate 1 applic 06/16/17 22:00 06/16/17 21:47 Hibiclens For Decolonization - TP 1 applic HS DAVID Administration Cinacalcet 60 mg 06/17/17 10:00 06/17/17 11:36 Sensipar - PO 60 mg DAILY DAVID Administration Heparin Sodium (Porcine) 5,000 unit 06/16/17 22:00 06/17/17 11:37 Heparin - SQ 5,000 unit BID DAVID Administration Hydralazine HCl 100 mg 06/16/17 16:43 06/17/17 06:21 Apresoline - PO 100 mg TID DAVID Administration Mupirocin 1 applic 06/16/17 22:00 06/17/17 11:38 Bactroban Ointment (For Decolonization) - NS 06/20/17 09:59 1 applic BID DAVID Administration Pantoprazole Sodium 40 mg 06/16/17 22:00 06/17/17 11:36 Protonix - PO 40 mg BID DAVID Administration Polyethylene Glycol 17 gm 06/17/17 12:55 Miralax (For Daily Use) - PO 06/17/17 12:56 ONCE ONE Sevelamer Carbonate 800 mg 06/16/17 19:21 06/17/17 11:36 Renvela - PO 800 mg CM DAVID Administration ASSESSMENT/PLAN: A: 82 yo woman with PMH ESRD on HD mwf and HTN with hypertensive urgency in the setting of missed dialysis P: 1. Hypertensive urgency - poorly controlled - Hydralazine 100mg tid - Coreg 12.5mg bid - Norvasc 10mg - meds delayed today 2/2 HD treatment 2. Acute pulmonary edema - resolved - NIPPV prn if breathing worsens 3. Chest pain - resolved - less likely ACS - stress when stable - Echo with severe - will likely need valvular repair 4. ESRD - HD MWF - Sevelamer 800mg PO 5. h/o hyperparathyroidism - Sensipar 60mg daily 6. F/E/N - renal diet - replete prn 7. PPX - OOB Dispo- requires continued inpatient care of acute medical conditions Visit type - Emergency Visit Emergency Visit: Yes ED Registration Date: 06/12/17 Care time: The patient presented to the Emergency Department on the above date and was hospitalized for further evaluation of their emergent condition. - New Patient This patient is new to me today: No - Critical Care Critical Care patient: No
[2017-06-17] MEDS: CHLORHEXIDINE GLUCONATE 4% CLEANSER FOR DECOLONIZATION TP SCH (21:42)
[2017-06-18 06:07] LABS: BASOPHIL 1.1 % (0-2.0); EOSINOPHIL 6.3 % (0-4.5); MCH 26.7 pg (25.7-33.7); MEAN CELL VOLUME 83.4 fl (80-96); MEAN PLT VOLUME 7.2 fl (7.5-11.1); NEUTROPHILS 51.1 % (42.8-82.8); PLATELET COUNT 137 K/MM3 (134-434); RDW 19.5 % (11.6-15.6); WHITE BLOOD COUNT 3.9 K/mm3 (4.0-10.0)
[2017-06-18] MEDS: hydrALAZINE HCL 50 MG TABLET (FP) PO SCH (06:51)
[2017-06-18 06:57] LABS: ANION GAP 5 (8-16); CALCIUM 8.7 mg/dL (8.5-10.1); CO2 36 mmol/L (21-32); CREATININE 4.1 mg/dL (0.55-1.02); GLUCOSE,RANDOM 77 mg/dL (74-106); PHOSPHOROUS 3.3 mg/dL (2.5-4.9)
[2017-06-18] MEDS: SEVELAMER CARBONATE 800 MG TAB (FP) PO SCH ×2 (08:34→12:00)
[2017-06-18] MEDS: CINACALCET HCL 30 MG TAB (FP) PO SCH (09:01)
[2017-06-18] MEDS: CARVEDILOL 6.25 MG TABLET (FP) PO SCH (09:02)
[2017-06-18] MEDS: PANTOPRAZOLE 40 MG TABLET (FP) PO SCH (09:02)
[2017-06-18] MEDS: ASPIRIN 81 MG CHEWABLE TABLETS PO SCH (09:02)
[2017-06-18] MEDS: amLODIPine BESYLATE 10 MG TABLET (FP) PO SCH (09:02)
[2017-06-18] MEDS: MUPIROCIN 2% TOPICAL OINTMENT FOR DECOLONIZATION NS SCH (09:03)
[2017-06-18] MEDS: HEPARIN NA (PORCINE) 5,000 UNITS/ML 1ML VIAL SQ SCH (09:22)
--- NOTE | 2017-06-18 09:56 | PN ---
Progress Note (short form) - Note Progress Note: RENAL Awake and alert feels well says her BP is always high wants to go home Last Vital Signs Temp Pulse Resp BP Pulse Ox 97.4 F L 68 16 110/41 98 06/18/17 10:00 06/18/17 11:39 06/18/17 10:00 06/18/17 10:00 06/18/17 11:39 lungs clear anteriorly cvs s1s2 rr loud murmur abd soft ext no edema neuro awake and alert Current Medications Generic Name Dose Route Start Last Admin Trade Name Freq PRN Reason Stop Dose Admin Amlodipine Besylate 10 mg 06/17/17 10:00 06/18/17 09:02 Norvasc - PO 10 mg DAILY DAVID Administration Aspirin 81 mg 06/17/17 10:00 06/18/17 09:02 Asa - PO 81 mg DAILY DAVID Administration Carvedilol 12.5 mg 06/16/17 16:48 06/18/17 09:02 Coreg - PO 12.5 mg BID DAVID Administration Chlorhexidine Gluconate 1 applic 06/16/17 22:00 06/17/17 21:42 Hibiclens For Decolonization - TP 1 applic HS DAVID Administration Cinacalcet 60 mg 06/17/17 10:00 06/18/17 09:01 Sensipar - PO 60 mg DAILY DAVID Administration Heparin Sodium (Porcine) 5,000 unit 06/16/17 22:00 06/18/17 09:22 Heparin - SQ 5,000 unit BID DAVID Administration Hydralazine HCl 100 mg 06/16/17 16:43 06/18/17 06:51 Apresoline - PO 100 mg TID DVAID Administration Mupirocin 1 applic 06/16/17 22:00 06/18/17 09:03 Bactroban Ointment (For Decolonization) - NS 06/20/17 09:59 1 applic BID DAVID Administration Pantoprazole Sodium 40 mg 06/16/17 22:00 06/18/17 09:02 Protonix - PO 40 mg BID DAVID Administration Sevelamer Carbonate 800 mg 06/16/17 19:21 06/18/17 08:34 Renvela - PO 800 mg CM DAVID Administration CBC, BMP 06/18/17 05:05 06/18/17 05:05 IMPRESSION esrd htn chronic- diastolic BP is 60 so would not increase bp meds dementia pulmonary edema severe aortic stenosis with area of 0.7 cm PLAN No objection to discharge would redialyze tomorrow if still in hospital MV
--- NOTE | 2017-06-18 11:26 | DS ---
Physical Exam: SUBJECTIVE: Patient seen and examined OBJECTIVE: Vital Signs Period Temp Pulse Resp BP Sys/Bullock Pulse Ox Last 24 Hr 97.3 F-98.6 F 72-102 16-22 110-177/41-100 95-99 PHYSICAL EXAM GENERAL: The patient is awake, alert, and fully oriented, in no acute distress. HEAD: Normal with no signs of trauma. EYES: PERRL, extraocular movements intact, sclera anicteric, conjunctiva clear. ENT: Ears normal, nares patent, oropharynx clear without exudates, moist mucous membranes. NECK: Trachea midline, full range of motion, supple. LUNGS: Breath sounds equal, clear to auscultation bilaterally, no wheezes, no crackles, no accessory muscle use. HEART: Regular rate and rhythm, S1, S2, rub or gallop systolic heart murmur ABDOMEN: Soft, nontender, nondistended, normoactive bowel sounds, no guarding, no rebound, no hepatosplenomegaly, no masses. EXTREMITIES: 2+ pulses, warm, well-perfused, no edema. NEUROLOGICAL: Cranial nerves II through XII grossly intact. Normal speech, gait not observed. PSYCH: Normal mood, normal affect. SKIN: Warm, dry, normal turgor, no rashes or lesions noted-AVG- [facility] Laboratory Results - last 24 hr 06/18/17 06/18/17 05:05 05:05 WBC 3.9 L RBC 3.63 Hgb 9.7 L Hct 30.3 L MCV 83.4 MCH 26.7 MCHC 32.0 RDW 19.5 H Plt Count 137 MPV 7.2 L Neutrophils % 51.1 D Lymphocytes % 28.8 D Monocytes % 12.7 H D Eosinophils % 6.3 H D Basophils % 1.1 Sodium 140 Potassium 3.9 Chloride 99 Carbon Dioxide 36 H Anion Gap 5 L BUN 25 H Creatinine 4.1 H Random Glucose 77 Calcium 8.7 Phosphorus 3.3 D HOSPITAL COURSE: Date of Admission:06/12/17 Date of Discharge: 06/18/17 Minutes to complete discharge: 40 Discharge Summary Reason For Visit: CHEST PAIN Current Active Problems Acute blood loss anemia (Acute) Anemia (Acute) Aortic stenosis (Acute) Bright red blood per rectum (Acute) CAD (coronary artery disease) (Acute) Chest pain (Acute) 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 Patient denies fever,chills, cough, dizziness, WEIR,CP, abdominal pain,N/V/D, constipation or urinary symptoms. In ER Chest Xray showed Acute Pulmonary Edema. EKG- Sinus Tachycardia, Nonspecific T wave abnormality. Pt was admitted to ICU with hypertensive urgency and pulmonary edema. For Hypertensive urgency, initially, treated with Nitro drip now on Hydralazine 100mg tid, Coreg 12.5mg bid and Norvasc 10mg daily with improvement. Will hold off on Lisinopril due to . *Acute Pulmonary Edema: Likely secondary to volume overload from missed HD, pt received dialysis,respiratory status remains stable on RA. Echo done showed , recommend out pt follow up. *Chest pain: Found to have mildly abnormal Troponins levels. EKG- Sinus Tachycardia, Nonspecific T wave abnormality.Pt was evaluated by staff consultant , recommend out patient stress test, will continue on ASA, and BB. * ESRD: Will continue on Renvela/Sensipar,pt received dialysis during the hospital stay, recommend to continue on dialysis as scheduled by the Stock Control Clerk.. *Anemia of chronic disease, CBC close to stable., no acute bleeding noted. * Hx of hyperparathyroidism,will continue on Sensipar 60mg daily Condition: Stable - Instructions Diet, Activity, Other Instructions: Renal diet. Monitor Blood pressure at home , Hold medications if Blood pressure <100. cardiology followup with Dr. Miles for out patient stress test. Referrals: Varinder Miles MD [Staff Physician] - 1 Week Yovany Bustamante MD [Primary Care Provider] - 2 Weeks () Alek Serrano MD [Staff Physician] - (tomorrow as scheduled ) Disposition: HOME - Home Medications Comprehensive Discharge Medication List: Ambulatory Orders Cinacalcet HCl [Sensipar] 60 mg PO DAILY 09/27/15 Sevelamer Carbonate [Renvela -] 800 mg PO CM 09/27/15 Pantoprazole Sodium [Protonix -] 40 mg PO BID #60 tablet.ec 10/01/15 Amlodipine Besylate [Norvasc -] 10 mg PO DAILY #30 tablet 06/18/17 Aspirin [ASA -] 81 mg PO DAILY #30 tab.chew 06/18/17 Carvedilol [Coreg -] 12.5 mg PO BID #60 tablet 06/18/17 Hydralazine HCl [Apresoline -] 100 mg PO TID #90 tablet 06/18/17 Mupirocin Ointment [Bactroban Ointment (For Decolonization) -] 1 applic NS BID # 1 applic 06/18/17 This patient is new to me today: Yes Date on this admission: 06/18/17 Emergency Visit: Yes ED Registration Date: 06/12/17 Care time: The patient presented to the Emergency Department on the above date and was hospitalized for further evaluation of their emergent condition. Critical Care patient: Yes Total Critical Care Time (in minutes): 40 Critical Care Statement: The care of this patient involved high complexity decision making to prevent further life threatening deterioration of the patient 's condition and/or to evalute & treat vital organ system(s) failure or risk of failure. - Discharge Referral Referred to [facility] No
[2017-06-18 12:07] VITALS: BP 170/60; PULSE 72; TEMP 97.5
--- NOTE | 2017-06-18 15:26 | PN ---
Progress Note (short form) - Note Progress Note: No acute events overnight. Overall feels better. Intake & Output 06/15/17 06/16/17 06/17/17 06/18/17 23:59 23:59 23:59 23:59 Intake Total 907 1120 320 90 Output Total 100 0 Balance 907 1020 320 90 Weight 118 lb 9 oz 111 lb 1.6 oz 113 lb 6 oz 113 lb 1 oz Last Vital Signs Temp Pulse Resp BP Pulse Ox 97.5 F L 72 18 170/60 98 06/18/17 12:00 06/18/17 12:00 06/18/17 12:00 06/18/17 12:00 06/18/17 11:39 Active Medications Amlodipine Besylate (Norvasc -) 10 mg PO DAILY [facility] Last Admin: 06/18/17 09:02 Dose: 10 mg Aspirin (Asa -) 81 mg PO DAILY [facility] Last Admin: 06/18/17 09:02 Dose: 81 mg Carvedilol (Coreg -) 12.5 mg PO BID [facility] Last Admin: 06/18/17 09:02 Dose: 12.5 mg Chlorhexidine Gluconate (Hibiclens For Decolonization -) 1 applic TP HS [facility] Last Admin: 06/17/17 21:42 Dose: 1 applic Cinacalcet (Sensipar -) 60 mg PO DAILY [facility] Last Admin: 06/18/17 09:01 Dose: 60 mg Heparin Sodium (Porcine) (Heparin -) 5,000 unit SQ BID [facility] Last Admin: 06/18/17 09:22 Dose: 5,000 unit Hydralazine HCl (Apresoline -) 100 mg PO TID [facility] Last Admin: 06/18/17 06:51 Dose: 100 mg Mupirocin (Bactroban Ointment (For Decolonization) -) 1 applic NS BID [facility] Stop: 06/20/17 09:59 Last Admin: 06/18/17 09:03 Dose: 1 applic Pantoprazole Sodium (Protonix -) 40 mg PO BID [facility] Last Admin: 06/18/17 09:02 Dose: 40 mg Sevelamer Carbonate (Renvela -) 800 mg PO CM [facility] Last Admin: 06/18/17 12:00 Dose: 800 mg Gen: NAD at rest Heart: RRR, +3/6 systolic murmur RUSB Lung: few basilar rales Abd: soft, nontender Ext: no edema Laboratory Results - last 24 hr 06/18/17 06/18/17 05:05 05:05 WBC 3.9 L RBC 3.63 Hgb 9.7 L Hct 30.3 L MCV 83.4 MCH 26.7 MCHC 32.0 RDW 19.5 H Plt Count 137 MPV 7.2 L Neutrophils % 51.1 D Lymphocytes % 28.8 D Monocytes % 12.7 H D Eosinophils % 6.3 H D Basophils % 1.1 Sodium 140 Potassium 3.9 Chloride 99 Carbon Dioxide 36 H Anion Gap 5 L BUN 25 H Creatinine 4.1 H Random Glucose 77 Calcium 8.7 Phosphorus 3.3 D A/P Acute Hypoxic Respiratory Failure improving Acute Pulmonary Edema resolving Acute on Chronic LV Diastolic Heart Failure Severe Aortic Stenosis Mod-Severe Mitral Regurgitation Pulmonary HTN ESRD on HD HTN DM - HD per renal - beta kalyn - BP control - O2 to keep SpO2 >90% - monitor lytes - PO as tolerated - DVT prophylaxis - D/C planning Dr Robbins
== END 2017-06-18 16:54 | disposition home or self-care (01) | DRG 189 ==
LOC: JER 00:05 → JERBED 02:09 → UNDOADMOB 02:09 → INTOOBSV 02:09 → OBSVTOIN 02:09 → JERBED 02:35 → OBSVTOIN 02:35 → JICU 02:59 → JERBED 02:59 → J2W 06-13 06:37 → JICU 06-15 10:54 → J2W 06-16 20:33
PROVIDERS: ADMIT Internal Medicine; ATTEND Nurse Practitioner Family
PROC: 5A1D60Z (ICD-10-PCS; principal; 2017-06-12)
PROC: 5A0935Z Assistance with Respiratory Ventilation, Less than 24 Consecutive Hours (ICD-10-PCS; 2017-06-15)
DX: J81.0 Acute pulmonary edema (principal); N18.6 End stage renal disease; J96.00 Acute respiratory failure, unspecified whether with hypoxia or hypercapnia; I16.1 Hypertensive emergency; I13.2 Hypertensive heart and chronic kidney disease with heart failure and with stage 5 chronic kidney disease, or end stage renal disease; Z99.2 Dependence on renal dialysis; E87.70 Fluid overload, unspecified; D64.9 Anemia, unspecified; R74.8 Abnormal levels of other serum enzymes; R01.1 Cardiac murmur, unspecified; F03.90 Unspecified dementia, unspecified severity, without behavioral disturbance, psychotic disturbance, mood disturbance, and anxiety; I50.33 Acute on chronic diastolic (congestive) heart failure; R07.9 Chest pain, unspecified
CPT/HCPCS: 36415; 71010-TC; 80048; 80053; 81003; 81015; 82550; 82803; 83036; 83605; 83735; 84100; 84484; 85025; 85027; 85610; 86704; 86706; 86708; 86803; 87040; 87086; 87340; 93005; 93010; 93306-TC; 94660; 99284-25; J0885; J1644

== ENCOUNTER 2018-09-27 22:36 | Inpatient (IN) | payer OTHER ==
--- NOTE | 2018-09-27 22:48 | PDOC ---
History of Present Illness - General Stated Complaint: GI BLEED Time Seen by Provider: 09/27/18 22:48 - History of Present Illness Initial Comments: Julissa Ng is an 83yo woman with a PMH of ESRD on HD, HTN, previous GI bleed (2014), CHF, on ASA and plavix who presents with several episodes of melena and now BRBPR at home today. Her daughter is present to provide the history. Ms Ng was was feeling well until about 6pm today when she had an episode of black, tarry stool. She had a second episode about an hour or so later. Then, about 10pm, her daughter went to check on her and noticed that her diaper was soaked with blood. They called an ambulance immediately. The daughter does not know her full medical history but does note that she is currently non-ambulatory and has a bed sore. Past History - Past Medical History Allergies/Adverse Reactions: Allergies Allergy/AdvReac Type Severity Reaction Status Date / Time No Known Allergies Allergy Verified 06/12/17 01:12 Home Medications: Ambulatory Orders Cinacalcet HCl [Sensipar] 60 mg PO DAILY 09/27/15 Sevelamer Carbonate [Renvela -] 800 mg PO CM 09/27/15 Pantoprazole Sodium [Protonix -] 40 mg PO BID #60 tablet.ec 10/01/15 Amlodipine Besylate [Norvasc -] 10 mg PO DAILY #30 tablet 06/18/17 Aspirin [ASA -] 81 mg PO DAILY #30 tab.chew 06/18/17 Carvedilol [Coreg -] 12.5 mg PO BID #60 tablet 06/18/17 Mupirocin Ointment [Bactroban Ointment (For Decolonization) -] 1 applic NS BID # 1 applic 06/18/17 hydrALAZINE HCL [Apresoline -] 100 mg PO TID #90 tablet 06/18/17 Anemia: Yes Asthma: No Cancer: No Cardiac Disorders: No CVA: No COPD: No CHF: No Dementia: No Diabetes: No Dialysis: Yes GI Disorders: No Disorders: Yes (CKD) HTN: Yes Hypercholesterolemia: No Liver Disease: No Seizures: No Thyroid Disease: No - Surgical History Abdominal Surgery: No Appendectomy: No Cardiac Surgery: No Cholecystectomy: No Lung Surgery: No Neurologic Surgery: No Orthopedic Surgery: No - Immunization History Immunization Up to Date: No - Suicide/Smoking/Psychosocial Hx Smoking History: Never smoked Have you smoked in the past 12 months: No Hx Alcohol Use: No Drug/Substance Use Hx: No Substance Use Type: None Hx Substance Use Treatment: No Review of Systems - Review of Systems Comments:: Could not obtain. Patient's daughter provided the history. *Physical Exam - Physical Exam Comments: General: Frail, uncomfortable HEENT: PERRL, EOMI, MMM Cards: Tachycardic, regular Pulm: Comfortable on room air Abd: Soft, nontender, nondistended Rectal: Cristina blood with small amount of liquid stool soaking diaper. No bleeding wounds noted but exam limited due to blood/stool Ext: Atraumatic. No LE edema. Moves all extremities Vasc: Extremities WWP. Neuro: Awake. Did not speak. CN grossly intact, motor grossly intact and symmetric Psych: Could not be evaluated ED Treatment Course - LABORATORY CBC & Chemistry Diagram: 09/27/18 23:19 09/27/18 23:19 Medical Decision Making - Medical Decision Making 09/27/18 23:27 Julissa Ng is an 86yo woman with a PMH of ESRD on HD, chronic anemia, HTN, CHF, previous GI bleed in 2015 secondary to duodenal ulcers who presents with two episodes of melena and then cristina blood per rectum this evening. - Tachycardic to 100, mildly hypotensive at SBP 100 (h/o hypotension). 1L fluid bolus ordered - CBC, CMP, coags, type and screen ordered - EKG, CXR for acute abnormalities, r/o demand ischemia, and for likely admission - Expect to need transfusion - Pantoprazole drip with 40mg IV push given for GI bleed and h/o duodenal ulcers - Will obtain consent for transfusion for patient/daughter 09/28/18 00:31 - Hgb 8.7. Given active bleeding, will transfuse 2u RBCs - Dr Sunita finch - Hospitalist team contacted for admission - ICU paged for evaluation. Patient endorsed to Dr Bauer for remainder of ED care. Seen and discussed with Dr Rubio. Ilana Hill PGY1 *DC/Admit/Observation/Transfer Diagnosis at time of Disposition: GI bleeding, Bright red blood per rectum - Discharge Dispostion Condition at time of disposition: Fair Decision to Admit order: Yes - Referrals Referrals: Lolis Joyce MD [Primary Care Provider] - - Patient Instructions - Post Discharge Activity
--- NOTE | 2018-09-27 23:19 | PDOC ---
Attending Attestation - HPI HPI: 09/27/18 23:31 The patient is a 83 year old female, with a significant past medical history of ESRD on HD (MWF), GI bleed (last documented on our EHR 2014), CHF, on ASA and plavix, who presents to the emergency department via ems with family for evaluation of bright red rectal bleeding and several dark stools today. The patient denies chest pain, shortness of breath, headache and dizziness. The patient denies fever, chills, nausea, vomit, diarrhea and constipation. The patient denies dysuria, frequency, urgency and hematuria. Allergies: NKDA Social history: Denies toxic habits PCP - Dr. Joyce - Physicial Exam PE: 09/27/18 23:31 GENERAL: (+) Frail appearing. No apparent distress. HEENT: Normocephalic, atraumatic. PERRL, EOM intact. CARDIOVASCULAR: Normal S1, S2. Regular rate and rhythm. PULMONARY: Clear to auscultation bilaterally. ABDOMEN: Soft, non-distended, non-tender. RECTAL: (+) diaper soaked with bright red blood. EXTREMITIES: (+) Shiley on the right. Graft to her left forearm. Normal ROM in all four extremities. No gross deformities. SKIN: Warm, dry. No rash NEUROLOGICAL: No focal neurological deficits. - Medical Decision Making 09/27/18 23:32 Documentation prepared by La Nena Alford, acting as medical videographer for Tala Rubio MD 09/28/18 00:14 Dr. Andrew Dorsey was paged via phone answering service at this time. 09/28/18 00:15 ICU was paged. <La Nena Alford - Last Filed: 09/28/18 00:14> - Resident Resident Name: Ilana Hill - ED Attending Attestation I have performed the following: I have examined & evaluated the patient, The case was reviewed & discussed with the resident, I agree w/resident's findings & plan, Exceptions are as noted - Medical Decision Making 09/28/18 18:50 pt with GI bleed admitted,Protonix ggt, blood transfusions, reassess <Tala Rubio - Last Filed: 09/28/18 18:53>
[2018-09-27] MEDS ORDERED: SODIUM CHLORIDE 0.9% 500 ML INFUS.BAG IV ONE (23:30)
[2018-09-27 23:35] LABS: BASO % 1.1 % (0-2.0); EOS % 0.5 % (0-4.5); HEMATOCRIT 27.3 % (32.4-45.2); HEMOGLOBIN 8.7 GM/dL (10.7-15.3); LYMPH % 15.6 % (8-40); MCH 26.7 pg (25.7-33.7); MCHC 31.7 g/dl (32.0-36.0); MEAN CELL VOLUME 84.1 fl (80-96); MEAN PLT VOLUME 7.5 fl (7.5-11.1); MONO % 11.8 % (3.8-10.2); PLATELET COUNT 248 K/MM3 (134-434); RBC 3.25 M/mm3 (3.60-5.2); RDW 19.6 % (11.6-15.6); RETICULOCYTES 2.41 % (0.5-1.5); WHITE BLOOD COUNT 6.3 K/mm3 (4.0-10.0)
[2018-09-27] MEDS ORDERED: PANTOPRAZOLE SODIUM 40 MG VIAL IVPUSH ONE (23:49)
[2018-09-27] MEDS ORDERED: PANTOPRAZOLE SODIUM 40 MG VIAL ONE (23:50)
[2018-09-27] MEDS ORDERED: PANTOPRAZOLE SODIUM 40 MG/100 ML BAG IVPB ONE (23:50)
[2018-09-27 23:53] LABS: INR 1.34 (0.83-1.09); PROTHROMBIN TIME (PATIENT) 15.8 SEC (9.7-13.0)
[2018-09-27 23:56] LABS: ACTIVATED PTT 30.3 SECONDS (25.2-36.5)
[2018-09-27] MEDS: PANTOPRAZOLE SODIUM 80 MG in SODIUM CHLORIDE 100 ML IVPB SCH (23:58)
[2018-09-27 23:59] LABS: ALBUMIN 2.4 g/dl (3.4-5.0); ALK PHOS 129 U/L (45-117); ANION GAP 7 MMOL/L (8-16); BILIRUBIN,TOTAL 0.5 mg/dL (0.2-1); BLOOD UREA NITROGEN 35 mg/dL (7-18); CHLORIDE 102 mmol/L (98-107); CO2 30 mmol/L (21-32); CREATININE 3.2 mg/dL (0.55-1.3); GLUCOSE,RANDOM 77 mg/dL (74-106); POTASSIUM 3.6 mmol/L (3.5-5.1); SGOT/AST 25 U/L (15-37); SGPT/ALT 15 U/L (13-61); SODIUM 139 mmol/L (136-145); TOT PROT 4.9 g/dl (6.4-8.2)
[2018-09-28] LABS: CALCIUM 6.9 mg/dL (8.5-10.1)
[2018-09-28 01:09] LABS: ANISOCYTOSIS 1+
--- NOTE | 2018-09-28 02:21 | HP ---
CHIEF COMPLAINT: bright red blood per rectum PCP: HISTORY OF PRESENT ILLNESS: Patient is an 83 year old female with history of upper GI bleed in 2014, ESRD on hemodialysis Thu, Thu, Thu, congestive heart failure, coronary artery disease s/p 1X stent in 2017 on aspirin and plavix, hypertension, presents with one episode of painless bright red blood per rectum. She endorses two loosely formed, melanotic bowel movements this evening, followed by a third melanotic bowel movement with episode of cristina red blood noted by the daughter. She denies abdominal pain, nausea, vomiting, hematemesis. She does not endorse prior episode of GI bleeding, however she has been admitted to [facility] in 2014 for episode of upper GI bleed. EGD at that admission was significant for duodenal bulb ulcers as likely source of bleeding (showing stogmata of recent hemorrhage) , large hiatal hernia, and non-obstructing schatzki ring. Ulcers were cauterized , and bleeding resolved. She denies history of prior colonoscopy. She admits diminished appetite today, and did not eat any meals today. She denies lightheadedness, changes in vision, dizziness, fevers, chills, shortness of breath, chest pain, palpitations, falls, loss of consciousness. ER course was notable for: (1) IV normal saline 1L bolus, 2 units PRBCs transfusion initiated. (2) Stool positive for occult blood (3) Protonix drip initiated Recent Travel: denies PAST MEDICAL HISTORY: ESRD, congestive heart failure, coronary artery disease, hypertension, schatzki ring, hiatal hernia, duodenal bulb ulcers (cauterized) PAST SURGICAL HISTORY: A-V fistula right arm, cholecystectomy (2008), Social History: Smoking: former smoker, unable to quantify pack-year history. Alcohol: admits socially drinking one glass of liquor with family Drugs: denies illicit drug use Lives: in [place] with son, daughter, nephew, grandson, granddaughter who support and care for her. Family History: Mother: breast cancer, diabetes mellitus, hypertension Father: cholelithiasis, stomach ulcer without history of bleeeding, hypertension Allergies: Denies allergies to food or medications. No Known Allergies Allergy (Verified 06/12/17 01:12) HOME MEDICATIONS: Home Medications Medication Instructions Recorded Cinacalcet HCl [Sensipar] 60 mg PO DAILY 10/29/15 Sevelamer Carbonate [Renvela -] 800 mg PO CM 09/27/15 Pantoprazole Sodium [Protonix -] 40 mg PO BID #60 tablet.ec 10/01/15 Amlodipine Besylate [Norvasc -] 10 mg PO DAILY #30 tablet 06/18/17 Aspirin [ASA -] 81 mg PO DAILY #30 tab.chew 06/18/17 Carvedilol [Coreg -] 12.5 mg PO BID #60 tablet 06/18/17 Mupirocin Ointment [Bactroban 1 applic NS BID #1 applic 06/18/17 Ointment (For Decolonization) -] hydrALAZINE HCL [Apresoline -] 100 mg PO TID #90 tablet 06/18/17 REVIEW OF SYSTEMS CONSTITUTIONAL: Admits: generalized weakness, loss of appetite. Absent: fever, chills, diaphoresis, malaise, loss of appetite, weight change HEENT: Absent: rhinorrhea, nasal congestion, throat pain, throat swelling, difficulty swallowing, mouth swelling, ear pain, eye pain, visual changes CARDIOVASCULAR: Absent: chest pain, syncope, palpitations, irregular heart rate, lightheadedness , peripheral edema RESPIRATORY: Absent: cough, shortness of breath, dyspnea with exertion, orthopnea, wheezing, stridor, hemoptysis GASTROINTESTINAL: Admits: hematochezia, melanotic stools. Absent: abdominal pain, abdominal distension, nausea, vomiting, diarrhea, constipation, GENITOURINARY: Absent: dysuria, frequency, urgency, hesitancy, hematuria, flank pain, genital pain MUSCULOSKELETAL: Absent: myalgia, arthralgia, joint swelling, back pain, neck pain SKIN: Absent: rash, itching, pallor HEMATOLOGIC/IMMUNOLOGIC: Absent: easy bleeding, easy bruising, lymphadenopathy, frequent infections ENDOCRINE: Absent: unexplained weight gain, unexplained weight loss, heat intolerance, cold intolerance NEUROLOGIC: Absent: headache, focal weakness or paresthesias, dizziness, unsteady gait, seizure, mental status changes, bladder or bowel incontinence PSYCHIATRIC: Absent: anxiety, depression, suicidal or homicidal ideation, hallucinations. PHYSICAL EXAMINATION Vital Signs - 24 hr 09/27/18 09/28/18 22:40 01:34 Temperature 96.6 F L 97.7 F Pulse Rate 100 H Pulse Rate [ 74 Apical] Respiratory 16 17 Rate Blood Pressure 100/62 Blood Pressure 104/46 L [Left Arm] O2 Sat by Pulse 98 98 Oximetry (%) GENERAL: Thin, -bangladeshi female. Awake, alert, and fully oriented, resting comfortably in exam bed. No acute distress. HEAD: Normocaphalic, atraumatic EYES: Pupils equal, round and reactive to light, extraocular movements intact without nystagmus. Sclera anicteric, conjunctiva clear b/l. EARS, NOSE, THROAT: Oropharynx clear without exudates. Dry mucous membranes. NECK: Normal range of motion, supple without lymphadenopathy. LUNGS: Good inspiratory effort, and air entry b/l. Breath sounds equal, clear to auscultation bilaterally. No wheezes, and no crackles. No accessory muscle use. HEART: Regular rate and rhythm, normal S1 and S2 without murmur, rub or gallop. ABDOMEN: Soft, nontender to light and deep palpation X4 quadrants. Normoactive bowel sounds X4 quadrants. No guarding, no rebound tenderness. No hepatomegaly palpated or percussed. RECTAL: External hemorrhoids noted at 10 and 12 o'clock. Good anal sphincter tone, with hard stool within rectal vault. Manually disimpacted numerous 2-4cm clumps of hard dark brown stool, with blood clots. No internal hemorrhoids appreciated. Cristina red blood noted upon gloved finger. MUSCULOSKELETAL: Normal range of motion at all joints. No bony deformities or tenderness. UPPER EXTREMITIES: 2+ radial pulses, warm, well-perfused. Right arm AV fistula palpated and auscultated bruit. Left arm AV fistula without bruit. LOWER EXTREMITIES: 2+ dorsalis pedis pulses b/l. Warm, well-perfused. No calf tenderness. No peripheral edema b/l. NEUROLOGICAL: Cranial nerves II-XII intact. Normal speech. Normal gait. PSYCHIATRIC: Cooperative. Appropriate mood and affect. SKIN: 3cm x3cm unstageable sacral ulcer noted midline. Laboratory Results - last 24 hr 09/27/18 09/27/18 09/27/18 23:19 23:19 23:19 WBC 6.3 RBC 3.25 L Hgb 8.7 L Hct 27.3 L MCV 84.1 MCH 26.7 MCHC 31.7 L RDW 19.6 H Plt Count 248 D MPV 7.5 Absolute Neuts (auto) 4.5 Total Counted 100 Neutrophils % 71.0 D Neutrophils % (Manual) 70.0 Band Neutrophils % 3.0 Lymphocytes % 15.6 D Lymphocytes % (Manual) 15.0 Monocytes % 11.8 H Monocytes % (Manual) 11 H Eosinophils % 0.5 D Eosinophils % (Manual) 1.0 Basophils % 1.1 Nucleated RBC % 0 Anisocytosis 1+ Retic Count 2.41 H PT with INR 15.80 H INR 1.34 H PTT (Actin FS) 30.3 Sodium 139 Potassium 3.6 Chloride 102 Carbon Dioxide 30 Anion Gap 7 L BUN 35 H Creatinine 3.2 H Creat Clearance w eGFR 13.80 Random Glucose 77 Calcium 6.9 L* Total Bilirubin 0.5 AST 25 ALT 15 Alkaline Phosphatase 129 H Total Protein 4.9 L Albumin 2.4 L Blood Type Antibody Screen Crossmatch ASSESSMENT/PLAN: Patient is an 83 year old female with history of upper GI bleed in 2014, ESRD on hemodialysis Mon, Wed, Thu, congestive heart failure, coronary artery disease on aspirin, plavix, hypertension, presents with one episode of painless bright red blood per rectum. GI bleeding, likely upper -Two episodes of melanotic stools today, one episode of cristina red blood per rectum. -History of upper GI bleed secondary to duodenal bulb ulcers in 2014, diagnosed with EGD. -NPO -Protonix drip at 8mg/hour -GI consult (Dr. Bocanegra) appreciated. Will discuss with hematology regarding platelets. Discuss with cardiology regarding Aspirin and Plavix recommendations. Consult general surgery. Acute blood loss anemia -Hb 8.7/ Hct (Hb 9.1 on prior admission) -Transfuse 2 units packed red blood cells STAT -F/U CBC 1 hour after transfusion completed -Monitor vital signs closely -F/U hematology consult (Dr. Pringle). Coronary artery disease -History of one coronary stent in 2017 at [facility] per patient's daughter. -Will hold Aspirin and Plavix in light of acute bleeding. -F/U cardiology consult (Dr. Flores), and GI consult for recommendation in reinstating anticoagulation End stage renal disease -Patient last received hemodialysis 09/27/2018 -F/U nephrology consult (Dr. Sexton) Hypertension -Currently holding home antihypertensives in light of low blood pressures, and acute bleeding. -Follow vital signs closely. Diabetes mellitus -Hold home oral medications -Insulin sliding scale ACHS -Blood glucose fingerstick monitoring ACHS Sacral decubitus ulcer -Stage IV sacral ulcer 3cm x 3cm noted upon exam. -F/U wound care consult (Dr. Benson) -Frequent turning, repositioning Q2H FEN -Patient receiving 2 units PRBCs -Follow CMP -NPO for now, pending GI consult Prophylaxis -Will hold chemical anticoagulaiton, due to acute bleeding. -SCDs, and TEDs b/l lower extremities -Protonix drip 8mg/ hour Disposition -Admit to ICU for care and monitoring Visit type - Emergency Visit Emergency Visit: Yes ED Registration Date: 09/28/18 Care time: The patient presented to the Emergency Department on the above date and was hospitalized for further evaluation of their emergent condition. - New Patient This patient is new to me today: Yes Date on this admission: 09/28/18 - Critical Care Critical Care patient: Yes Total Critical Care Time (in minutes): 45 Critical Care Statement: The care of this patient involved high complexity decision making to prevent further life threatening deterioration of the patient 's condition and/or to evaluate & treat vital organ system(s) failure or risk of failure.
--- NOTE | 2018-09-28 02:31 | PN ---
Teaching Attending Note Name of Resident: Julia Kaufman ATTENDING PHYSICIAN STATEMENT I saw and evaluated the patient. I reviewed the resident's note and discussed the case with the resident. I agree with the resident's findings and plan as documented. SUBJECTIVE: Patient seen and examined with resident; please refer to their note for additional history. In summation this is an 83 y/o female who is mostly bedbound who presents to the ER with a CC of blood in her diaper; it was discovered today. She is a difficult historian. She had some bright red blood per rectum along with dark stools. she had an additional melanotic BM while in the ER accompnaied by a drop in pressure. Not tachycardic. Hb baseline appears to be ~9 and she is near this but slightly low. No h/o cirrhosis. Plts wnl. Known duodenal bulb ulcer (seen by Dr. Dorsey 2014, now on PO protonix). Unknown if she ever had a colonoscopy; obtaining old records from [facility] (she prefers to visit with them). OBJECTIVE: VSS, old echo reviewed, images reviewed, labs reviewed NAD, resting in bed, AAOx2 RRR s1/2 no mgr NT ND +BS; melena evident in diaper; external hemorrhoids appreciated Lungs CTAB with sym expansion Trachea midline with no JVD Normal muscle tone, RUE AVF with palpable thrill ASSESSMENT AND PLAN: Mrs. Ng is an 83 y/o AAF presenting with a GIB (likely upper predominately with posisble lower contribution). She was hemodynamically stable on presentation but did have further melanotic stools and a marginal BP which prompted ICU admission. She has a known history of duodenal bulb ulcer (2014, Dr. Dorsey). 1) GI Bleed -Presents with Hb near baseline with melanotic stool and some hematochezia seen on examinaiton. She has a known duodenal bulb ulcer and external hemorrhoids. No labs to lend to a presumption of cirrhosis. -Monitor CBC q6h, monitor BP and HR, Protonix IV, strict NPO, consult GI -Admit to ICU -Will likely require procedure -Giving 1 unit PRBC now from the ER; can give additional blood/crystaloid if warranted but carefully given ESRD 2) ESRD on HD -MWF via AVF; unknown dry weight, dialyzed today -Monitor BMP, consult nephrology, careful fluid management 3) Known Severe -seen on prior echo with valve area 0.7 -Followup outpatient; avoid drops in BP. 4) Dementia -May need family to consent for procedures 5) HTN -Hold antihypertensives Full Code Consultants: LAKISHA
--- NOTE | 2018-09-28 03:09 | CONSULT ---
Consultation: REQUESTING PROVIDER: Dr. Rubio CONSULT REQUEST: We have been asked to medically evaluate this patient for Melena. HISTORY OF PRESENT ILLNESS: Unable to obtain information from patient due to medical condition Patient is an 83 year old female with a PMHx of ESRD on HD (mon,thu,thu), diastolic CHF, CAD on ASA an plavix, HTN, Hx of upper GI bleed due to duodenal ulcer who was BIBEMS with family after an episode of BRBPR witnessed by her family. When patient reached the ED she was found to have episodes of dark, melanotic bowel movements, filling her diaper. However, patient and family deny any nausea, vomiting, abdominal pain, chest pain, palpitations, shortness of breath, hematemesis, hematuria, loss of consciousness. Patient denies having a colonoscopy Denies any OTC NSAID use but is taking Plavix and ASA Patient in 2014 was admitted for GI bleed and on EGD was found to have duodenal bulb ulcer with non obstructing schatzki ring and hiatal hernia. The ulcers were cautarized with resolution of bleeding In the ED patient was found to be hypotensive with another episode of melena. Upon my arrival for evaluation, patient was found to have a diaper filled with dark, maroon-colored blood. Patient was hypotensive in the 90's/70's supine and tachycardic between high 90's to 100. PMHx: ESRD on Dialysis (m,w,f), Diastolic CHF, CAD, HTN, Hx of GI bleed due to duodenal bulb ulcer, Schatzki ring, hiatal hernia PSHx: AV fistula of right arm, Cholecystecomy Social Hx: Smoking: former smoker Alcohol: admits socially drinking one glass of liquor with family Drugs: denies illicit drug use Lives: in [place] with son, daughter, nephew, grandson, granddaughter who support and care for her. Family HX: Mother: breast cancer, diabetes mellitus, hypertension Father HTN REVIEW OF SYSTEMS: Unable to obtain PHYSICAL EXAMINATION Vital Signs - 24 hr 09/27/18 09/28/18 22:40 01:34 Temperature 96.6 F L 97.7 F Pulse Rate 100 H Pulse Rate [ 74 Apical] Respiratory 16 17 Rate Blood Pressure 100/62 Blood Pressure 104/46 L [Left Arm] O2 Sat by Pulse 98 98 Oximetry (%) GENERAL: Awake, drowsy, oriented to person, in no acute distress HEAD: Normal with no signs of trauma. EYES: Pupils equal, round and reactive to light, sclera anicteric, conjunctiva clear. ENT: Moist mucous membranes. NECK: (-) lymphadenopathy, JVD, or masses. LUNGS: Breath sounds equal, clear to auscultation bilaterally. No wheezes, and no crackles. No accessory muscle use. HEART:Tachycardic with regular rhythm, normal S1 and S2 without murmur, rub or gallop. ABDOMEN: Soft, nontender, not distended, normoactive bowel sounds, no guarding, no rebound, no masses. RECTAL: Dark blood from rectum and noted on glove. External hemorrhoids felt around the 12 o clock, hard stool in the rectal vault. MUSCULOSKELETAL: No CVA tenderness. UPPER EXTREMITIES: No peripheral edema. LOWER EXTREMITIES: No peripheral edema. NEUROLOGICAL: Patient uncooperative. SKIN: 3-4cm unstageable sacral ulcer with no drainage. Laboratory Results - last 24 hr 09/27/18 09/27/18 09/27/18 23:19 23:19 23:19 WBC 6.3 RBC 3.25 L Hgb 8.7 L Hct 27.3 L MCV 84.1 MCH 26.7 MCHC 31.7 L RDW 19.6 H Plt Count 248 D MPV 7.5 Absolute Neuts (auto) 4.5 Total Counted 100 Neutrophils % 71.0 D Neutrophils % (Manual) 70.0 Band Neutrophils % 3.0 Lymphocytes % 15.6 D Lymphocytes % (Manual) 15.0 Monocytes % 11.8 H Monocytes % (Manual) 11 H Eosinophils % 0.5 D Eosinophils % (Manual) 1.0 Basophils % 1.1 Nucleated RBC % 0 Anisocytosis 1+ Retic Count 2.41 H PT with INR 15.80 H INR 1.34 H PTT (Actin FS) 30.3 Sodium 139 Potassium 3.6 Chloride 102 Carbon Dioxide 30 Anion Gap 7 L BUN 35 H Creatinine 3.2 H Creat Clearance w eGFR 13.80 Random Glucose 77 Calcium 6.9 L* Total Bilirubin 0.5 AST 25 ALT 15 Alkaline Phosphatase 129 H Total Protein 4.9 L Albumin 2.4 L Blood Type Antibody Screen Crossmatch Active Medications Generic Name Dose Route Start Last Admin Trade Name Freq PRN Reason Stop Dose Admin Chlorhexidine Gluconate 1 applic 09/28/18 22:00 Hibiclens For Decolonization - TP HS DAVID Pantoprazole Sodium 80 mg/ 100 mls @ 10 mls/hr 09/27/18 23:15 09/27/18 23:58 Sodium Chloride IVPB 10 mls/hr Q10H [facility] Administration 8 MG/HR Insulin Aspart 0 vial 09/28/18 07:00 Novolog Vial Sliding Scale - SQ ACHS [facility] Protocol Mupirocin 1 applic 09/28/18 10:00 Bactroban Ointment (For Decolonization) - NS 10/03/18 09:59 BID [facility] ASSESSMENT/PLAN: Patient is an 83 year old female who was BIBEMS for an episode of BRBPR and was found to have hypotension, tachycardia with active GI bleeding. Patient admitted to ICU for further monitoring and management. GASTROENTEROLOGY #GI Bleed -Likely Upper GI as patient had previous GI bleeding due to duodenal bulb ulcer. Patient initially had BRBPR and now having maroon-colored stools. -Two 18 gauge or larger IV catheters or large bore -Fluid resuscitation- gentle hydration with IV NS but will need to monitor volume status as she is an ESRD patient -Protonix drip started. -NPO -Hold ASA and plavix -Currently being transfused with two units of PRBC's. Patient is high risk and will need to maintain Hgb around 9 -Will likely need procedure tomorrow to evaluate for source of bleeding -GI consult -Continue to monitor vitals HEMATOLOGY #Acute Blood Loss Anemia -Hemoglobin down to 8.7 -Transfuse 2 units of PRBC's and repeat Hgb -Continue to monitor daily CBC NEPHROLOGY #ESRD on HD -Dialysis mondays, wednesdays, thursday -Consult Nephrology for dialysis to be set on Thursday -Continue daily BMP's CARDIOLOGY #CAD -Currently on ASA and Plavix but will hold due to GI bleed -Cardiology consult placed #HTN -Currently hypotensive -Hold anti-htn medications -Continue to monitor BP #Diastolic CHF -Will hold BB due to hypotension -Continue cardiac monitoring in ICU ENDOCRINOLOGY #NIDDMII -BGM and ISS DERMATOLOGY #Pressure Injury -Unstageable -Wound care consult F/E/N -Currently receiving 2 units PRBC's -Electrolytes wnl -NPO Prophylaxis -Hold AC due to active GI bleeding. SCDs and MARCOS's -Protonix drip for GI Disposition -Full code -Admit to ICU for care and monitoring Leonila Martinez [id number] Visit type - Emergency Visit Emergency Visit: Yes ED Registration Date: 09/28/18 Care time: The patient presented to the Emergency Department on the above date and was hospitalized for further evaluation of their emergent condition. - New Patient This patient is new to me today: Yes Date on this admission: 09/28/18 - Critical Care Critical Care patient: Yes Total Critical Care Time (in minutes): 45 Critical Care Statement: The care of this patient involved high complexity decision making to prevent further life threatening deterioration of the patient 's condition and/or to evaluate & treat vital organ system(s) failure or risk of failure.
[2018-09-28] MEDS ORDERED: SODIUM CHLORIDE 1,000 ML IV SCH (06:15)
[2018-09-28 07:03] LABS: ALBUMIN 1.6 g/dl (3.4-5.0); ANION GAP 9 MMOL/L (8-16); BILIRUBIN,TOTAL 0.4 mg/dL (0.2-1); BLOOD UREA NITROGEN 32 mg/dL (7-18); CHLORIDE 118 mmol/L (98-107); CO2 20 mmol/L (21-32); CREATININE 2.2 mg/dL (0.55-1.3); GLUCOSE,RANDOM 63 mg/dL (74-106); MAGNESIUM 1.2 mg/dL (1.8-2.4); PHOSPHOROUS 1.3 mg/dL (2.5-4.9); POTASSIUM 3.1 mmol/L (3.5-5.1); SGOT/AST 14 U/L (15-37); SGPT/ALT 9 U/L (13-61); SODIUM 147 mmol/L (136-145); TOT PROT 3.2 g/dl (6.4-8.2)
[2018-09-28 07:36] LABS: HEMATOCRIT 19.3 % (32.4-45.2); MCH 27.1 pg (25.7-33.7); MCHC 30.8 g/dl (32.0-36.0); MEAN PLT VOLUME 7.6 fl (7.5-11.1); PLATELET COUNT 148 K/MM3 (134-434); RDW 18.1 % (11.6-15.6); WHITE BLOOD COUNT 6.2 K/mm3 (4.0-10.0)
[2018-09-28 08:04] LABS: ALK PHOS 81 U/L (45-117)
[2018-09-28 08:09] LABS: CALCIUM 5.1 mg/dL (8.5-10.1)
[2018-09-28] MEDS ORDERED: SODIUM CHLORIDE 1,000 ML IV STA (08:30)
--- NOTE | 2018-09-28 09:22 | CON.GI ---
Consult Consult Specialty:: GI Referred by:: Hospitalist service Reason for Consultation:: GI bleeding - History of Present Illness Chief Complaint: rectal bleeding: patient poor historian. history obtained from daughter History of Present Illness: 83F admitted for evaluation of rectal bleeding. Her daughter Virginia explains that Ms. Ng developed rectal bleeding yesterday. It was red and mixed with clots. Bleeding persisted so she was taken to the ER. Initial Hgb at 11:30pm was 8.7 with P: 100 BP: 100/62. She received 2U PRBC overnight with Hgb of 6. She had a cardiac sten placed either in 2015 or 2016 per the daughter and she believes that Ms. Ng is maintained on ASA/Plavix as well as protonix. She denies abdominal pain. She had a GI bleed in 2014. Upper endoscopy performed by Dr. Gale Ferguson revealed a deep duodenal bulb ulcer with visible vessel. She treated the ulcer with epinephrine injection and endoclip x 3. She denies OTC NSAID use. There was continued bleeding ("Brick red blood per rectum and clots"). She remains hypotensive. She has a [address] She was started on PPI drip. It is unclear if she ever had a colonoscopy. - History Source History Provided By: Patient, Family Member - Past Medical History Cardio/Vascular: Yes: CAD (s/p cardiac stent), HTN, Hyperlipdemia Gastrointestinal: Yes: Peptic Ulcer Disease (Duodenal bulb ulcer 2014) Renal/: Yes: Renal Failure, Hemodialysis Endocrine: Yes: Diabetes Mellitus - Past Surgical History Past Surgical History: Yes: AV Fistula/Graft (rue) - Alcohol/Substance Use Hx Alcohol Use: No History of Substance Use: reports: None - Smoking History Smoking history: Never smoked Have you smoked in the past 12 months: No - Social History Usual Living Arrangement: With Child (Lives with daughter Virginia) Place of : [facility] History of Recent Travel: No Home Medications - Allergies Allergies/Adverse Reactions: Allergies Allergy/AdvReac Type Severity Reaction Status Date / Time No Known Allergies Allergy Verified 06/12/17 01:12 - Home Medications Home Medications: Ambulatory Orders Cinacalcet HCl [Sensipar] 60 mg PO DAILY 09/27/15 Sevelamer Carbonate [Renvela -] 800 mg PO CM 09/27/15 Pantoprazole Sodium [Protonix -] 40 mg PO BID #60 tablet.ec 10/01/15 Amlodipine Besylate [Norvasc -] 10 mg PO DAILY #30 tablet 06/18/17 Aspirin [ASA -] 81 mg PO DAILY #30 tab.chew 06/18/17 Carvedilol [Coreg -] 12.5 mg PO BID #60 tablet 06/18/17 Mupirocin Ointment [Bactroban Ointment (For Decolonization) -] 1 applic NS BID # 1 applic 06/18/17 hydrALAZINE HCL [Apresoline -] 100 mg PO TID #90 tablet 06/18/17 Family Disease History - Family Disease History Family Disease History: Other: Father (gallstones), Daughter Other Family History: No family history of colorectal cancer. 13 children, 2 daughter : 1 from liver cancer (alcoholic), 1 from throat cancer Review of Systems - Review of Systems Constitutional: denies: Chills Cardiovascular: denies: Chest Pain Respiratory: denies: Cough Gastrointestinal: reports: Rectal Bleeding. denies: Abdominal Pain, Diarrhea, Dysphagia, Vomiting, Vomiting Blood Physical Exam-GI Vital Signs: Vital Signs Temperature 97.9 F 09/28/18 08:35 Pulse Rate 100 H 09/28/18 08:35 Respiratory Rate 20 09/28/18 08:35 Blood Pressure 80/68 L 09/28/18 08:35 O2 Sat by Pulse Oximetry (%) 98 09/28/18 07:56 Constitutional: Yes: Calm Eyes: No: Sclera Icterus Cardiovascular: Yes: Regular Rate and Rhythm. No: Murmur Respiratory: Yes: CTA Bilaterally Gastrointestinal Inspection: No: Distention, Scars ...Auscultate: Yes: Normoactive Bowel Sounds ...Palpate: No: Hepatomegaly, Splenomegaly, Tenderness ...Rectal Exam: Yes: Other (No external lesions no masses, ball of formed stool in the rectal vault, some tinge of blood to brown stool) Edema: No (No LE veronica) Neurological: Yes: Alert Labs: CBC, BMP 09/28/18 05:20 09/28/18 05:20 INR, PTT INR 1.34 (0.83-1.09) H 09/27/18 23:19 Hepatic Panel Total Bilirubin 0.4 mg/dL (0.2-1) 09/28/18 05:20 AST 14 U/L (15-37) L 09/28/18 05:20 ALT 9 U/L (13-61) L 09/28/18 05:20 Alkaline Phosphatase 81 U/L (45-117) 09/28/18 05:20 Albumin 1.6 g/dl (3.4-5.0) L 09/28/18 05:20 Problem List - Problems (1) GI bleeding Assessment/Plan: Significant anemia noted despite PRBC transfusion with continued bleeding. Differential would include brisk UGIB as well as lower GI bleed in setting of dual antiplatelet therapy compounded by qualitative platelet dysfunction secondary to her chronic kidney disease. Advise: Adequate IV access, NPO except meds Continued resuscitation with fluids / PRBC Surgical consult CTA to help localize bleeding in setting of brisk bleeding Platelet transfusion / hematology evaluation Cardiology evaluation I did discuss the plan for upper endoscopy when stable enough with Virginia Ng, the patient's daughter. I am concerned regarding attempt at bowel prep at this time for colonoscopy given hypotension and continued bleeding. We discussed potential risks of the procedure like but not limited to bleeding, perforation requiring surgery to repair, infection and sedation medication effects all of which could be potentially life threatening. She has agreed to the procedure. Other recommendations pending the above Code(s): K92.2 - GASTROINTESTINAL HEMORRHAGE, UNSPECIFIED
[2018-09-28] MEDS: PANTOPRAZOLE SODIUM 80 MG in SODIUM CHLORIDE 100 ML IVPB SCH ×2 (09:33→20:46)
[2018-09-28] MEDS: MUPIROCIN 2% TOPICAL OINTMENT FOR DECOLONIZATION NS SCH ×2 (09:34→22:10)
[2018-09-28] MEDS ORDERED: MAGNESIUM SULF 50% (8.12 MEQ/2 ML-1 GM VIAL) IVPB ONE (10:00)
[2018-09-28] MEDS ORDERED: POTASSIUM PHOSPHATE 15 MM in DEXTROSE 5%-WATER - 250 ML IVPB ONE (10:15)
[2018-09-28] MEDS ORDERED: MIDAZOLAM HCL 2 MG/2 ML SINGLE DOSE VIAL IVPUSH ONE (10:47)
[2018-09-28] MEDS ORDERED: MIDAZOLAM HCL 2 MG/2 ML SINGLE DOSE VIAL ONE (10:50)
--- NOTE | 2018-09-28 11:26 | CONSULT ---
Consultation: CONSULT REQUEST: Nephrology Resident Consult HISTORY OF PRESENT ILLNESS: 83yo F with history of ESRD (M/W/F), CHF, CAD, HTN, and prior duodenal bulb bleed who presents to the hospital due to recent BRBPR reported to have started about 1-2 days ago. We were called due to her ESRD and dialysis needs. Pt has been given 2UPRBC at this point and rpt labs showing further decrease in Hgb. Pt currently talking minimally and HPI mostly obtained through medical records. Of note, pt reports receiving her dialysis yesterday to full completion (3hrs) and reports being anuric. Pt has previously had a LUE AV graft, however was taken down due to fistula age and RUE AV graft was created. PMHx: ESRD (HD M/W/F; [facility]; 3 hrs typically) CHF CAD HTN Prior duodenal bulb ulcer with bleed (s/p epinephrine injection, clips, cautery) PSHx: L fistula creation R fistula creation Cholcystectomy SoHx: Tobacco: Alc: Drugs: Baseline: Allergies: NKDA REVIEW OF SYSTEMS: Unable to truly obtain due to clinical status. Pt endorse malaise denies shortness of breath and pain PHYSICAL EXAMINATION Vital Signs - 24 hr 09/27/18 09/28/18 09/28/18 22:40 01:34 02:00 Temperature 96.6 F L 97.7 F 98.0 F Pulse Rate 100 H Pulse Rate [ 74 74 Apical] Respiratory 16 17 17 Rate Blood Pressure 100/62 Blood Pressure 104/46 L 94/38 L [Left Arm] O2 Sat by Pulse 98 98 97 Oximetry (%) 09/28/18 09/28/18 09/28/18 02:15 04:42 05:40 Temperature 97.9 F 98.3 F 98.3 F Pulse Rate Pulse Rate [ 80 94 H 100 H Apical] Respiratory 17 17 18 Rate Blood Pressure Blood Pressure 91/36 L 100/57 L 101/70 [Left Arm] O2 Sat by Pulse 97 98 99 Oximetry (%) 09/28/18 09/28/18 09/28/18 06:06 07:41 07:56 Temperature 98.1 F 97.8 F 97.8 F Pulse Rate Pulse Rate [ 93 H 93 H 98 H Apical] Respiratory 18 18 18 Rate Blood Pressure Blood Pressure 92/30 L 97/54 L 105/66 [Left Arm] O2 Sat by Pulse 99 99 98 Oximetry (%) 09/28/18 09/28/18 08:35 10:00 Temperature 97.9 F 97.9 F Pulse Rate 100 H 87 Pulse Rate [ Apical] Respiratory 20 19 Rate Blood Pressure 80/68 L 91/42 L Blood Pressure [Left Arm] O2 Sat by Pulse Oximetry (%) GENERAL: NAD, laying in bed, awake, alert to verbal stimuli, minimally talkative HEENT: GEMINI, sclera anicteric, [id number] MM NECK: R IJ central line and bandage newly placed; C/D/I LUNGS: CTA b/l no wheezes or rhonchi. Spo2 94% on RA HEART: Tachycardic with regular rhythm. No murmurs appreciated ABDOMEN: Soft, NT/ND, tympanitic, normoactive BS, no guarding. No masses appreciated EXTREMITIES: No edema peripherally. RUE AV fistula palpable thrill appreciated. No thrill appreciated on L AV fistula site SKIN: No rashes or lesions appreciated Laboratory Results - last 24 hr 09/28/18 09/28/18 05:20 05:20 WBC 6.2 RBC 2.20 L Hgb 6.0 L* Hct 19.3 L D MCV 88.0 MCH 27.1 MCHC 30.8 L RDW 18.1 H Plt Count 148 D MPV 7.6 Absolute Neuts (auto) Total Counted Neutrophils % Neutrophils % (Manual) Band Neutrophils % Lymphocytes % Lymphocytes % (Manual) Monocytes % Monocytes % (Manual) Eosinophils % Eosinophils % (Manual) Basophils % Nucleated RBC % Anisocytosis Retic Count PT with INR INR PTT (Actin FS) Sodium 147 H Potassium 3.1 L Chloride 118 H Carbon Dioxide 20 L Anion Gap 9 BUN 32 H Creatinine 2.2 H Creat Clearance w eGFR 21.26 Random Glucose 63 L Calcium 5.1 L* Phosphorus 1.3 L Magnesium 1.2 L Total Bilirubin 0.4 AST 14 L ALT 9 L Alkaline Phosphatase 81 Total Protein 3.2 L Albumin 1.6 L Blood Type Antibody Screen Crossmatch Active Medications Generic Name Dose Route Start Last Admin Trade Name Freq PRN Reason Stop Dose Admin Chlorhexidine Gluconate 1 applic 09/28/18 22:00 Hibiclens For Decolonization - TP HS DAVID Pantoprazole Sodium 80 mg/ 100 mls @ 10 mls/hr 09/27/18 23:15 09/28/18 09:33 Sodium Chloride IVPB 10 mls/hr Q10H DAVID Administration 8 MG/HR Sodium Chloride 1,000 mls @ 50 mls/hr 09/28/18 06:15 Normal Saline - IV 09/29/18 06:07 ASDIR DAVID Potassium Phosphate 15 mm/ 255 mls @ 62.5 mls/hr 09/28/18 10:15 Dextrose IVPB 09/28/18 14:19 ONCE ONE Insulin Aspart 1 vial 09/28/18 07:00 Novolog Vial Sliding Scale - SQ ACHS [facility] Protocol Mupirocin 1 applic 09/28/18 10:00 09/28/18 09:34 Bactroban Ointment (For Decolonization) - NS 10/03/18 09:59 1 applic BID DAVID Administration ASSESSMENT/PLAN: Acute blood loss anemia 2/2 to GI bleed ESRD on HD HTN HLD NIDDM CHF --Transfuse PRBC and plts --Replete electrolytes --GI on board --CTA to ascertain source of bleed --Will arrange for HD tomorrow --No imminent need for emergent dialysis (no volume overload signs or symptoms, electrolyte abnormalities not currently severe enough, no uremia) --Maintain MAP >60 --Rest per ICU mgmt Dispo: Continue ICU level of care. Thank your for this consultative opportunity Case discussed with Dr. Darshan JIMÉNEZ Time: 40 minutes Mark Quezada, DO - IM PGY-2 Visit type - Emergency Visit Emergency Visit: Yes ED Registration Date: 09/28/18 Care time: The patient presented to the Emergency Department on the above date and was hospitalized for further evaluation of their emergent condition. - New Patient This patient is new to me today: Yes Date on this admission: 09/28/18 - Critical Care Critical Care patient: Yes Total Critical Care Time (in minutes): 40 Critical Care Statement: The care of this patient involved high complexity decision making to prevent further life threatening deterioration of the patient 's condition and/or to evaluate & treat vital organ system(s) failure or risk of failure.
[2018-09-28] MEDS ORDERED: DEXTROSE 50%-WATER - 25 GM/50 ML VIAL ONE (11:42)
[2018-09-28] MEDS ORDERED: SODIUM CHLORIDE 500 ML IV STA ×2 (12:00→21:33)
--- NOTE | 2018-09-28 12:07 | CONSULT ---
Consult Consult Specialty:: Heme/Onc Referred by:: Hospitalist Reason for Consultation:: GI bleed on aspirin/Plavix - History of Present Illness Chief Complaint: bright red blood per rectum History of Present Illness: 83F with multiple medical problems including ESRD on HD CHF CAD s/p stent on aspirin and plavix presents to the hospital for GI bleed. patient started with melanotic stools which progressed to 2 episodes of BRBPR. Hematology consulted to evaluate the need for platelets in a patient who is on aspirin and plavicized. Patient continues to have bloody stools requiring multiple blood transfusions. Patient's medications were confirmed by ICU team and patient is on both aspirin and plavix. She denies nausea vomiting fever chills chest pain or SOB. Patient dialyzed yesterday. - History Source History Provided By: Patient, Medical Record Limitations to Obtaining History: Clinical Condition - Past Medical History Cardio/Vascular: Yes: CAD (s/p cardiac stent), HTN, Hyperlipdemia Gastrointestinal: Yes: Peptic Ulcer Disease (Duodenal bulb ulcer 2014) Renal/: Yes: Renal Failure, Hemodialysis Endocrine: Yes: Diabetes Mellitus - Past Surgical History Past Surgical History: Yes: AV Fistula/Graft (rue), Cholecystectomy - Alcohol/Substance Use Hx Alcohol Use: No History of Substance Use: reports: None - Smoking History Smoking history: Never smoked Have you smoked in the past 12 months: No - Social History Usual Living Arrangement: With Child (Lives with daughter Virginia) History of Recent Travel: No Home Medications - Allergies Allergies/Adverse Reactions: Allergies Allergy/AdvReac Type Severity Reaction Status Date / Time No Known Allergies Allergy Verified 06/12/17 01:12 - Home Medications Home Medications: Ambulatory Orders Cinacalcet HCl [Sensipar] 60 mg PO DAILY 09/27/15 Sevelamer Carbonate [Renvela -] 800 mg PO CM 09/27/15 Pantoprazole Sodium [Protonix -] 40 mg PO BID #60 tablet.ec 10/01/15 Amlodipine Besylate [Norvasc -] 10 mg PO DAILY #30 tablet 06/18/17 Aspirin [ASA -] 81 mg PO DAILY #30 tab.chew 06/18/17 Carvedilol [Coreg -] 12.5 mg PO BID #60 tablet 06/18/17 Mupirocin Ointment [Bactroban Ointment (For Decolonization) -] 1 applic NS BID # 1 applic 07/20/17 hydrALAZINE HCL [Apresoline -] 100 mg PO TID #90 tablet 06/18/17 Carvedilol 12.5 mg PO BID 09/28/18 Carvedilol [Coreg -] 25 mg PO DAILY 09/28/18 Folic Acid 1 mg PO DAILY 09/28/18 Isosorbide Mononitrate [Isosorbide Mononitrate ER] 60 mg PO DAILY 09/28/18 Lisinopril [Prinivil -] 40 mg PO DAILY 09/28/18 Rosuvastatin Calcium [Crestor] 5 mg PO DAILY 09/28/18 Family Disease History - Family Disease History Family Disease History: Diabetes: Mother (breast Ca HTN), CA: Mother, Other: Father (gallstones HTN), Daughter Other Family History: No family history of colorectal cancer. 13 children, 2 daughter : 1 from liver cancer (alcoholic), 1 from throat cancer Review of Systems - Review of Systems Constitutional: reports: Lethargy, Loss of Appetite, Weakness Eyes: reports: No Symptoms HENT: reports: No Symptoms Neck: reports: No Symptoms Cardiovascular: reports: No Symptoms Respiratory: reports: No Symptoms Gastrointestinal: reports: Rectal Bleeding Genitourinary: reports: No Symptoms Hematology/Lymphatic: reports: No Symptoms Physical Exam Vital Signs: Vital Signs Temperature 97.9 F 09/28/18 10:00 Pulse Rate 87 09/28/18 10:00 Respiratory Rate 19 09/28/18 10:00 Blood Pressure 91/42 L 09/28/18 10:00 O2 Sat by Pulse Oximetry (%) 98 09/28/18 07:56 Constitutional: Yes: No Distress, Other (tired appearing) Eyes: Yes: EOM Intact, Other (conjunctival pallor) HENT: Yes: Atraumatic, Normocephalic Neck: Yes: Supple, Trachea Midline. No: Lymphadenopathy Cardiovascular: Yes: Regular Rate and Rhythm, S1, S2 Respiratory: Yes: CTA Bilaterally Gastrointestinal: Yes: Soft, Other (dark blood clots in diaper). No: Tenderness ...Rectal Exam: Yes: Other (patient refused) Edema: No Neurological: Yes: Alert Labs: CBC, BMP 09/28/18 05:20 09/28/18 05:20 Imaging - Results Chest X-ray: Report Reviewed, Image Reviewed Assessment/Plan 83F with multiple medical problems presents to the hospital with bright red blood per rectum. Problem List: Acute blood loss anemia in the setting of bright red blood per rectum platelets dysfunction due to aspirin and plavix ESRD on HD HTN HLD DM history of peptic ulcer disease CHF Plan: Agree with transfusing patient PRBCs would give enough blood to get patient's HCT to 30 or as close as possible given her medical history of dialysis and heart disease Agree with platelet transfusion will be getting 2 units of platelets Patient may need a few runs of platelets over the next few days as platelets will be affected for the next week Patient got dialyzed yesterday which will help with platelet function Can consider cryoprecipitate or DDAVP Patient for CTA of the abdomen renal on board Will follow
--- NOTE | 2018-09-28 12:15 | PN ---
Physical Exam: SUBJECTIVE: Patient seen and examined at bedside. she was lethargic but arousable when asked questions. She denied having any pain or trouble breathing. Patient has so far received 2 units of PRBCS, 1L bolus - she will be receiving 1 more unit of PRBCS and 2 units of platelets. OBJECTIVE: Vital Signs Period Temp Pulse Resp BP Sys/Bullock Pulse Ox Last 24 Hr 96.6 F-98.3 F 74-100 16-20 80-105/30-70 97-99 GENERAL: The patient is awake, slightly lethargic, but arousable. EYES: no scleral icterus. NECK: no JVD or lympphadenopathy. L IJ central line LUNGS:CTA b/l; no rales, rhonchi ro wheezing. HEART: Regular rate and rhythm, S1, S2 without murmur, rub or gallop. ABDOMEN: Soft, nontender, nondistended, normoactive bowel sounds, no guarding, no rebound, no hepatosplenomegaly, no masses.- diaper filled with bright red blood mixed with some clots EXTREMITIES: 2+ pulses, warm, well-perfused, no edema. PSYCH: Normal mood, normal affect. SKIN: Warm, dry, normal turgor, no rashes or lesions noted Laboratory Results - last 24 hr 09/27/18 09/27/18 09/27/18 23:19 23:19 23:19 WBC 6.3 RBC 3.25 L Hgb 8.7 L Hct 27.3 L MCV 84.1 MCH 26.7 MCHC 31.7 L RDW 19.6 H Plt Count 248 D MPV 7.5 Absolute Neuts (auto) 4.5 Total Counted 100 Neutrophils % 71.0 D Neutrophils % (Manual) 70.0 Band Neutrophils % 3.0 Lymphocytes % 15.6 D Lymphocytes % (Manual) 15.0 Monocytes % 11.8 H Monocytes % (Manual) 11 H Eosinophils % 0.5 D Eosinophils % (Manual) 1.0 Basophils % 1.1 Nucleated RBC % 0 Anisocytosis 1+ Retic Count 2.41 H PT with INR 15.80 H INR 1.34 H PTT (Actin FS) 30.3 Sodium 139 Potassium 3.6 Chloride 102 Carbon Dioxide 30 Anion Gap 7 L BUN 35 H Creatinine 3.2 H Creat Clearance w eGFR 13.80 Random Glucose 77 Calcium 6.9 L* Phosphorus Magnesium Total Bilirubin 0.5 AST 25 ALT 15 Alkaline Phosphatase 129 H Total Protein 4.9 L Albumin 2.4 L Blood Type Antibody Screen Crossmatch 09/27/18 09/28/18 09/28/18 23:19 05:20 05:20 WBC 6.2 RBC 2.20 L Hgb 6.0 L* Hct 19.3 L D MCV 88.0 MCH 27.1 MCHC 30.8 L RDW 18.1 H Plt Count 148 D MPV 7.6 Absolute Neuts (auto) Total Counted Neutrophils % Neutrophils % (Manual) Band Neutrophils % Lymphocytes % Lymphocytes % (Manual) Monocytes % Monocytes % (Manual) Eosinophils % Eosinophils % (Manual) Basophils % Nucleated RBC % Anisocytosis Retic Count PT with INR INR PTT (Actin FS) Sodium 147 H Potassium 3.1 L Chloride 118 H Carbon Dioxide 20 L Anion Gap 9 BUN 32 H Creatinine 2.2 H Creat Clearance w eGFR 21.26 Random Glucose 63 L Calcium 5.1 L* Phosphorus 1.3 L Magnesium 1.2 L Total Bilirubin 0.4 AST 14 L ALT 9 L Alkaline Phosphatase 81 Total Protein 3.2 L Albumin 1.6 L Blood Type B POSITIVE Antibody Screen Negative Crossmatch See Detail Active Medications Generic Name Dose Route Start Last Admin Trade Name Freq PRN Reason Stop Dose Admin Chlorhexidine Gluconate 1 applic 09/28/18 22:00 Hibiclens For Decolonization - TP HS DAVID Pantoprazole Sodium 80 mg/ 100 mls @ 10 mls/hr 09/27/18 23:15 09/28/18 09:33 Sodium Chloride IVPB 10 mls/hr Q10H DAVID Administration 8 MG/HR Sodium Chloride 1,000 mls @ 50 mls/hr 09/28/18 06:15 Normal Saline - IV 09/29/18 06:07 ASDIR DAVID Potassium Phosphate 15 mm/ 255 mls @ 62.5 mls/hr 09/28/18 10:15 Dextrose IVPB 09/28/18 14:19 ONCE ONE Insulin Aspart 1 vial 09/28/18 07:00 Novolog Vial Sliding Scale - SQ ACHS DAVID Protocol Mupirocin 1 applic 09/28/18 10:00 09/28/18 09:34 Bactroban Ointment (For Decolonization) - NS 10/03/18 09:59 1 applic BID DAVID Administration ASSESSMENT/PLAN: 83 y.o female with PMH of CHF, CAD (s/p stents on aspirin,plavix), ESRD (m/w/f dialysis), previous GI bleed, presents to the ED after having multiple episodes of melanotic stool and episodes of cristina bright red blood per rectum. #) GI Bleed -patient currently received 2units of PRBCs- one more is ordered in addition to 2 units of platelets (cleared by cardio) -on protonix drip 10mls/hr -repeat CBC after transfusion -GI on board- appreciate recs; EGD today -cardio consulted- f/u recs -monitor hemodynamics and vital signs -NPO right now for possible scope- CTA ordered to locate bleed -surgery consulted #) ESRD (m/w/f) patient received dialysis yesterday -nephro on board -monitor electrolytes -monitor fluid status/hemodynamics #) CAD -holding patients aspirin and plavix currently -will resume once bleeding stops and GI gives OK #) HTN -holding home meds F/E/N NS @50mls/hr replete electrolytes NPO except PO meds Visit type - Emergency Visit Emergency Visit: Yes ED Registration Date: 09/28/18 Care time: The patient presented to the Emergency Department on the above date and was hospitalized for further evaluation of their emergent condition. - New Patient This patient is new to me today: Yes Date on this admission: 09/28/18 - Critical Care Critical Care patient: No
[2018-09-28] MEDS: INSULIN SLIDING SCALE (NOVOLOG) 1 VIAL SQ SCH ×3 (13:09→22:05)
--- NOTE | 2018-09-28 13:31 | PN ---
Teaching Attending Note Name of Resident: Casimiro Cobos ATTENDING PHYSICIAN STATEMENT I saw and evaluated the patient. I reviewed the resident's note and discussed the case with the resident. I agree with the resident's findings and plan as documented. SUBJECTIVE: Pt seen and examined in the ICU. Continues to have active bleeding with melena. Blood pressures borderline hypotensive. LIJ central line placed. OBJECTIVE: Vital Signs Period Temp Pulse Resp BP Sys/Bullock Pulse Ox Last 24 Hr 96.6 F-98.3 F 74-100 16-20 80-105/30-70 97-99 Intake & Output 09/25/18 09/26/18 09/27/18 09/28/18 23:59 23:59 23:59 23:59 Weight 45.359 kg Gen: lethargic Heart: RRR Lung: decreased breath sounds at the bases Abd: soft, nontender Ext: no edema CBC, BMP 09/28/18 05:20 09/28/18 05:20 Active Medications Chlorhexidine Gluconate (Hibiclens For Decolonization -) 1 applic TP HS DAVID Pantoprazole Sodium 80 mg/ (Sodium Chloride) 100 mls @ 10 mls/hr IVPB Q10H DAVID Last Admin: 09/28/18 09:33 Dose: 10 mls/hr Sodium Chloride (Normal Saline -) 1,000 mls @ 50 mls/hr IV ASDIR DAVID Stop: 09/29/18 06:07 Potassium Phosphate 15 mm/ (Dextrose) 255 mls @ 62.5 mls/hr IVPB ONCE ONE Stop: 09/28/18 14:19 Last Admin: 09/28/18 13:14 Dose: 62.5 mls/hr Sodium Chloride (Normal Saline -) 500 mls @ 500 mls/hr IV ASDIR STA Stop: 09/28/18 12:59 Last Admin: 09/28/18 11:00 Dose: 500 mls/hr Insulin Aspart (Novolog Vial Sliding Scale -) 1 vial SQ ACHS [facility]; Protocol Last Admin: 09/28/18 13:09 Dose: Not Given Mupirocin (Bactroban Ointment (For Decolonization) -) 1 applic NS BID DAVID Stop: 10/03/18 09:59 Last Admin: 09/28/18 09:34 Dose: 1 applic ASSESSMENT AND PLAN: GI Bleed likely upper Acute Blood Loss Anemia ESRD on HD CAD LV Diastolic Dysfunction HTN DM - f/u CTA A/P - will need EGD - protonix gtt - monitor CBC, coags - transfuse as needed - IVF boluses for hypotension - HD per renal - holding ASA, plavix - replete lytes - NPO - DVT prophylaxis - continue ICU monitoring critical care time spent in reviewing chart, evaluating patient and formulating plan 35 min
--- NOTE | 2018-09-28 13:46 | CON.CARD ---
Consult Consult Specialty:: Cardiology Referred by:: Hospitalist Reason for Consultation:: cardiac evaluation - History of Present Illness Chief Complaint: GI bleed History of Present Illness: Patient is an 83 year old female with underlying history of HTN, history of CHF , ESRD on HD and CAD s/p PCI/stent (states in October of 2017 at [facility]) who presents with GI bleed with melena and red blood. She also has had upper GI bleed in the past and has history of duodenal ulcer. She was in her usual state of health until last night when she developed the bleed. Hgb/ Hct was 8.7/27.8 which reduced to 6.0/19. She has been transfused PRBC. GI was consulted and awaits further evaluation. Cardiology was consulted because of her cardiac history. Currently, she denies chest pain or SOB. She denies paroxysmal nocturnal dyspnea or orthopnea. She denies fever or chills. She denies headache or lightheadedness. - History Source History Provided By: Patient, Family Member, Medical Record Limitations to Obtaining History: Clinical Condition - Past Medical History Cardio/Vascular: Yes: CAD (s/p cardiac stent), HTN, Hyperlipdemia Gastrointestinal: Yes: Peptic Ulcer Disease (Duodenal bulb ulcer 2014) Renal/: Yes: Renal Failure, Hemodialysis Endocrine: Yes: Diabetes Mellitus - Past Surgical History Past Surgical History: Yes: AV Fistula/Graft (rue), Cholecystectomy, Stent - Alcohol/Substance Use Hx Alcohol Use: No History of Substance Use: reports: None - Smoking History Smoking history: Never smoked Have you smoked in the past 12 months: No - Social History Usual Living Arrangement: With Child (Lives with daughter Virginia) History of Recent Travel: No Home Medications - Allergies Allergies/Adverse Reactions: Allergies Allergy/AdvReac Type Severity Reaction Status Date / Time No Known Allergies Allergy Verified 06/12/17 01:12 - Home Medications Home Medications: Ambulatory Orders Cinacalcet HCl [Sensipar] 60 mg PO DAILY 09/27/15 Sevelamer Carbonate [Renvela -] 800 mg PO CM 09/27/15 Pantoprazole Sodium [Protonix -] 40 mg PO BID #60 tablet.ec 10/01/15 Amlodipine Besylate [Norvasc -] 10 mg PO DAILY #30 tablet 06/18/17 Aspirin [ASA -] 81 mg PO DAILY #30 tab.chew 06/18/17 Carvedilol [Coreg -] 12.5 mg PO BID #60 tablet 06/18/17 Mupirocin Ointment [Bactroban Ointment (For Decolonization) -] 1 applic NS BID # 1 applic 06/18/17 hydrALAZINE HCL [Apresoline -] 100 mg PO TID #90 tablet 06/18/17 Carvedilol 12.5 mg PO BID 09/28/18 Carvedilol [Coreg -] 25 mg PO DAILY 09/28/18 Folic Acid 1 mg PO DAILY 09/28/18 Isosorbide Mononitrate [Isosorbide Mononitrate ER] 60 mg PO DAILY 09/28/18 Lisinopril [Prinivil -] 40 mg PO DAILY 09/28/18 Rosuvastatin Calcium [Crestor] 5 mg PO DAILY 09/28/18 Family Disease History - Family Disease History Family Disease History: Diabetes: Mother (breast Ca HTN), CA: Mother, Other: Father (gallstones HTN), Daughter Other Family History: No family history of colorectal cancer. 13 children, 2 daughter : 1 from liver cancer (alcoholic), 1 from throat cancer Review of Systems - Review of Systems Constitutional: denies: Chills, Fever Cardiovascular: denies: Chest Pain, Palpitations, Shortness of Breath Respiratory: denies: Cough, Hemoptysis, Orthopnea, PND, SOB, SOB on Exertion Gastrointestinal: reports: Melena, Rectal Bleeding. denies: Nausea, Vomiting Neurological: denies: Dizziness, Headache, Seizure, Syncope Vital Signs: Vital Signs Temperature 97.7 F 09/28/18 12:00 Pulse Rate 97 H 09/28/18 12:00 Respiratory Rate 16 09/28/18 12:00 Blood Pressure 104/50 L 09/28/18 12:00 O2 Sat by Pulse Oximetry (%) 98 09/28/18 07:56 Neck: Yes: Supple Respiratory: Yes: Diminished Gastrointestinal: Yes: Normal Bowel Sounds, Soft, Rectal Bleeding. No: Tenderness Cardiovascular: Yes: Regular Rate and Rhythm JVD: No PMI: Non-Displaced Heart Sounds: Yes: S1, S2. 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 Acute GI bleed, etiology to be determined underlying history of duodenal ulcer 2. CAD s/p PCI/stent, angina 3. HTN 4. Hypercholesterolemia 5. ESRD on HD via AV fistula 6. History of CHF PLAN: 1. GI input noted. No absolute contraindication for urgent GI work up with nature of current problem and in view of absence of ischemic symptoms, decompensated congestive heart failure or malignant arrhythmia. Post procedural ECG and cardiac enzyme 2. ASA and Plavix have been held until further instruction 3. Echocardiography to assess LV/RV and valvular function (physical examination reveals systolic heart murmur suggest aortic valve stenosis) 4. Records to be obtained from her cigarette inspector in [place] ([facility]: Jimenez Monroe MD) 5. Transfuse PRBC as needed to support Hgb/Hct 6. HD as per Renal service Guarded Pito Flores MD
--- NOTE | 2018-09-28 14:13 | CONSULT ---
- Consultation REQUESTING PROVIDER: CONSULT REQUEST: We have been asked to surgically evaluate this patient for stage IV sacral ulcer. PCP:Noni Wild HISTORY OF PRESENT ILLNESS: 83 y/o female with PMHx HTN, CHF, ESRD on HD (MWF), h/o UGIB, CAD s/p PCI/stent ([facility], 11/15) now a/w melena. Limited history obtained as pt is currently receiving emergent transfusion prior to EGD. Vascular consulted for sacral ulcer. Pt states she has had the ulcer for a while, >6months. Unsure of what medication/treatment is used for the ulcer. States her ambulation is minimal at home, with the use of a walker. Per pts sisters (came to visit at end of evaluation), pt lives home with daughter who is primary operator engineer, per pts sisters daughter is PRODUCTION WEIGHER. PMHx: ESRD, congestive heart failure, coronary artery disease, hypertension, schatzki ring, hiatal hernia, duodenal bulb ulcers (cauterized) PAST SURGICAL HISTORY: A-V fistula right arm, cholecystectomy (2008), Home Medications Medication Instructions Recorded Cinacalcet HCl [Sensipar] 60 mg PO DAILY 09/27/15 Sevelamer Carbonate [Renvela -] 800 mg PO CM 09/27/15 Pantoprazole Sodium [Protonix -] 40 mg PO BID #60 tablet.ec 10/01/15 Amlodipine Besylate [Norvasc -] 10 mg PO DAILY #30 tablet 06/18/17 Aspirin [ASA -] 81 mg PO DAILY #30 tab.chew 06/18/17 Carvedilol [Coreg -] 12.5 mg PO BID #60 tablet 06/18/17 Mupirocin Ointment [Bactroban 1 applic NS BID #1 applic 06/18/17 Ointment (For Decolonization) -] hydrALAZINE HCL [Apresoline -] 100 mg PO TID #90 tablet 06/18/17 Carvedilol 12.5 mg PO BID 09/28/18 Carvedilol [Coreg -] 25 mg PO DAILY 09/28/18 Folic Acid 1 mg PO DAILY 09/28/18 Isosorbide Mononitrate [Isosorbide 60 mg PO DAILY 09/28/18 Mononitrate ER] Lisinopril [Prinivil -] 40 mg PO DAILY 09/28/18 Rosuvastatin Calcium [Crestor] 5 mg PO DAILY 09/28/18 Allergies Allergy/AdvReac Type Severity Reaction Status Date / Time No Known Allergies Allergy Verified 06/12/17 01:12 REVIEW OF SYSTEMS: CONSTITUTIONAL: Absent: fever, chills CARDIOVASCULAR: Absent: chest pain RESPIRATORY: Absent: cough, shortness of breath PHYSICAL EXAM: GENERAL: Awake, alert, laying in bed with obvious discomfort to abdomen. HEAD: Normal with no signs of trauma. Back: 3x3cm stage IV sacral decubitus ulcer with approximately 1cm of undermining. Minimal necrotic tissue, +bone exposed. Adjacent eschar proximally , approx 1x1cm. Prior well healed sacral ulcers over b/l buttocks. LOWER EXTREMITIES: no heel ulcers noted. Vital Signs Temperature 97.7 F 09/28/18 12:00 Pulse Rate 97 H 09/28/18 12:00 Respiratory Rate 16 09/28/18 12:00 Blood Pressure 104/50 L 09/28/18 12:00 O2 Sat by Pulse Oximetry (%) 98 09/28/18 07:56 Lab Results WBC 6.2 K/mm3 (4.0-10.0) 09/28/18 05:20 RBC 2.20 M/mm3 (3.60-5.2) L 09/28/18 05:20 Hgb 6.0 GM/dL (10.7-15.3) L* 09/28/18 05:20 Hct 19.3 % (32.4-45.2) L D 09/28/18 05:20 MCV 88.0 fl (80-96) 09/28/18 05:20 MCHC 30.8 g/dl (32.0-36.0) L 09/28/18 05:20 RDW 18.1 % (11.6-15.6) H 09/28/18 05:20 Plt Count 148 K/MM3 (134-434) D 09/28/18 05:20 Sodium 147 mmol/L (136-145) H 09/28/18 05:20 Potassium 3.1 mmol/L (3.5-5.1) L 09/28/18 05:20 Chloride 118 mmol/L (98-107) H 09/28/18 05:20 Carbon Dioxide 20 mmol/L (21-32) L 09/28/18 05:20 Anion Gap 9 MMOL/L (8-16) 09/28/18 05:20 BUN 32 mg/dL (7-18) H 09/28/18 05:20 Creatinine 2.2 mg/dL (0.55-1.3) H 09/28/18 05:20 Random Glucose 63 mg/dL (74-106) L 09/28/18 05:20 Calcium 5.1 mg/dL (8.5-10.1) L* 09/28/18 05:20 Blood Type B POSITIVE 09/27/18 23:19 Antibody Screen Negative 09/27/18 23:19 INR 1.34 (0.83-1.09) H 09/27/18 23:19 A/P: 83 y/o female with PMHx HTN, CHF, ESRD on HD (MWF), h/o UGIB, CAD s/p PCI/ stent ([facility], 11/15) now a/w melena. Limited history obtained as pt is currently receiving emergent transfusion prior to EGD. Vascular consulted for stage IV sacral ulcer. Pt currently receiving emergent transfusion prior to EGD. Stage IV sacral ulcer-clinically does not appear infected though bone exposed with likely osteo. -Reposition every two hours while in bed -Air mattress recommended -Use drawsheets and Trendelenburg when repositioning to reduce friction and shear -Manageincontinence via timely cleansing, use of appropriate incontinence disposables and use of barrier ointment to intact skin -Ensure adequate hydration/nutrition, supplementation per primary team -Ensure off-loading to all bony areas (heels, ankles, hips and tailbone) with Allevyn/Optifoam -Clean open wounds with normal saline and apply wet to dry dressings QD above d/w attending Dr Benson
--- NOTE | 2018-09-28 14:18 | PN ---
Teaching Attending Note Name of Resident: Mark Quezada (Nephrology) ATTENDING PHYSICIAN STATEMENT I saw and evaluated the patient. I reviewed the resident's note and discussed the case with the resident. I agree with the resident's findings and plan as documented. Renal Pt is an 83 year old female with pmhx of ESRD, HTN, CHF, and GI bleed who presents to the ER with severla episodes of Melena. She was last dialyzed yesterday. SHe is admitted to the ICU for treatment. PT was found to be anemic. pmhx esrd cad gi bleed htn chf pshx avg nkda Laboratory Tests 09/27/18 09/28/18 09/28/18 23:19 05:20 05:20 Hgb 8.7 L 6.0 L* Sodium 147 H Potassium 3.1 L Carbon Dioxide 20 L Anion Gap 9 BUN 32 H Creatinine 2.2 H Random Glucose 63 L Current Medications Generic Name Dose Route Start Last Admin Trade Name Freq PRN Reason Stop Dose Admin Chlorhexidine Gluconate 1 applic 09/28/18 22:00 Hibiclens For Decolonization - TP HS DAVID Pantoprazole Sodium 80 mg/ 100 mls @ 10 mls/hr 09/27/18 23:15 09/28/18 09:33 Sodium Chloride IVPB 10 mls/hr Q10H DAVID Administration 8 MG/HR Sodium Chloride 1,000 mls @ 50 mls/hr 09/28/18 06:15 Normal Saline - IV 09/29/18 06:07 ASDIR DAVID Potassium Phosphate 15 mm/ 255 mls @ 62.5 mls/hr 09/28/18 10:15 09/28/18 13: 14 Dextrose IVPB 09/28/18 14:19 62.5 mls/hr ONCE ONE Administration Insulin Aspart 1 vial 09/28/18 07:00 09/28/18 13:09 Novolog Vial Sliding Scale - SQ Not Given ACHS DAVID Protocol Mupirocin 1 applic 09/28/18 10:00 09/28/18 09:34 Bactroban Ointment (For Decolonization) - NS 10/03/18 09:59 1 applic BID DAVID Administration Last Vital Signs Temp Pulse Resp BP Pulse Ox 97.7 F 97 H 16 104/50 L 98 09/28/18 12:00 09/28/18 12:00 09/28/18 12:00 09/28/18 12:00 09/28/18 07:56 cardio s1s2 pulm clear GI soft, active melena ext neg edema neuro lethargy skin neg rash Impression 1. ESRD 2. DM 3. GI bleed 4. anemia 5. HTN Plan - transfuse PRBC - GI eval - monitor hg - HD tomorrow - can proceed with CTA - pt goes to HD in [place] [phone] - 3 hrs, 16 gauge needs, 350 abf, no heparin, epogen 7200 units, right AVF - will follow Dr Sexton
--- NOTE | 2018-09-28 14:40 | PN ---
Progress Note (short form) - Note Progress Note: Had d/w Dr. Huynh. CTA reveals active bleeding in the 2nd portion of duodenum. Given heavily calcified vasculature, embolization not an option per Dr. Huynh. Patient just received 1st unit platelets. To receive 2nd unit as well as PRBC's. Family was present at bedside. I had discussion with them regarding the gravity of the situation given Ms. Ng' age, multiple comorbidities and dual antiplatelet therapy. I explained that if control of bleeding was unable to be achieved endoscopically, surgery would be the next option and that she is considered a high surgical risk. Echocardiogram being performed now to assess cardiology's suspicion for Aortic Stenosis. Problem List - Problems (1) GI bleeding Code(s): K92.2 - GASTROINTESTINAL HEMORRHAGE, UNSPECIFIED
[2018-09-28] MEDS ORDERED: DESMOPRESSIN ACETATE 4 MCG/ML AMP IVPB ONE (14:41)
[2018-09-28] MEDS ORDERED: CALCIUM GLUCONATE 10% - 1,000 MG/10 ML VIAL IVPUSH ONE (14:47)
--- NOTE | 2018-09-28 14:57 | PN ---
Teaching Attending Note Name of Resident: Teresa Leach ATTENDING PHYSICIAN STATEMENT I saw and evaluated the patient. I reviewed the resident's note and discussed the case with the resident. I agree with the resident's findings and plan as documented. SUBJECTIVE:currently not in pain. as per RN has had 2 large BRBPR BM since this AM. denies CP, SOb,fever, chills, N/V/C/D OBJECTIVE: Last Vital Signs Temp Pulse Resp BP Pulse Ox 97.7 F 97 H 16 104/50 L 98 09/28/18 12:00 09/28/18 12:00 09/28/18 12:00 09/28/18 12:00 09/28/18 07:56 Intake & Output 09/25/18 09/26/18 09/27/18 09/28/18 23:59 23:59 23:59 23:59 Weight 100 lb General NAD CV S1 S2 + +6/6 holosystolic murmur Lungs CTA B/L poor inspiratory effort Abdomen soft NT/ND Extremities trace edema ASSESSMENT AND PLAN: 83yo F wtih PMH ESRD on HD, PUD with previous duodenal ulcer bleeding, Severe , dementia, HTN presented to the ER wtih BRBPR and melena and continues to have active bleeding 1. Upper GI bleed- CT Scan just reported active bleeding in the duodenal ulcer. not a candidate for embolization due to heavily calcified vessels. plan is to go for emergent EGD today. family counselled by GI about risks/benefits. may need to proceed with surgery if not able to stop bleeding endoscopy. on PPI ggt. hold asa/plavix. 2. Acute blood loss anemia- continues to have active bleeding. has received 2 units PRBC. starting 2nd unit of platelets now. will give DDAVP. plan to give 2 units PRBC after platelet transfusion due to persistent bleeding. spoke with RN To give blood quickly in order to stabilize better and improve hemodynamics for EGD. hematology consulted 3. hypokalemia- KCl IV 4. Hypophopahtemia- Kphos 5. Hypocalcemia- Corrected ca 7. give ca gluc to stabilize myocardium 6. ESRD on HD- did receive HD yesterday per normal schedule. no need for emergent HD. can resume per normal schedule 7. Severe - monitor fluid status closely. echo being performed bedside 8. dementia 9. HTN- hold oral agents. currently hypotensive due to bleeding 10. CAD s/p stent 2017- hold asa/plavix. cardio consulted. 11. DVT ppx- SCD 12. MICU. prognosis guarded. The care of this patient involved high complexity decision making to prevent further life threatening deterioration of the patient's condition and/or to evaluate & treat vital organ system(s) failure or risk of failure. 45 mins
[2018-09-28] MEDS ORDERED: SODIUM CHLORIDE IVPB ONE (15:00)
[2018-09-28] MEDS ORDERED: DESMOPRESSIN ACETATE IVPB ONE (15:00)
--- NOTE | 2018-09-28 15:57 | ECHO ---
Name: FINN CHAMBERLAIN Exam:Adult Echocardiogram Study Date: 09/28/2018 02:32 PM Age: 83 yrs Reason For Study: Aortic Stenosis Height: 62 in Weight: 100 lb BSA: 1.4 m2 MMode/2D Measurements & Calculations IVSd: 1.6 cm Ao root diam: 2.9 cm LVIDd: 4.1 cm LA dimension: 4.4 cm LVIDs: 2.8 cm ACS: 0.90 cm LVPWd: 1.7 cm EDV(Teich): 73.0 ml LVOT diam: 2.0 cm ESV(Tevickie): 29.8 ml RV S Teddy: 12.8 cm/sec Doppler Measurements & Calculations MV E max teddy: 114.0 cm/sec MVA(VTI): 1.8 cm2 MV A max teddy: 167.1 cm/sec MV V2 max: 172.1 cm/sec MV E/A: 0.68 MV max P.8 mmHg MV V2 mean: 112.0 cm/sec MV mean P.6 mmHg MV V2 VTI: 39.0 cm Ao V2 max: 422.9 cm/sec LV V1 max P.7 mmHg Ao max P.6 mmHg LV V1 mean P.6 mmHg Ao V2 mean: 317.6 cm/sec LV V1 max: 82.0 cm/sec Ao mean P.2 mmHg LV V1 mean: 58.4 cm/sec Ao V2 VTI: 102.2 cm LV V1 VTI: 22.0 cm MARCIA(I,D): 0.67 cm2 MARCIA(V,D): 0.61 cm2 SV(LVOT): 68.9 ml TR max teddy: 285.0 cm/sec TR max P.5 mmHg Lat Peak E' Teddy: 5.0 cm/sec Lat E/e': 22.8 Left Ventricle The left ventricle is normal in size. There is severe concentric left ventricular hypertrophy. Diasto lic dysfunction, Grade III (restrictive pattern), consistent with markedly increased left atrial pressure . Mid to distal anterior wall, distal inferior wall, distal septum and large apical akinesis. Other talamantes cont ract normally. LV systolic function is moderately decreased. LVEF = 35%. Right Ventricle The right ventricle is normal in size and function. Atria The left atrium is moderately dilated. Right atrial size is normal. Mitral Valve There is moderate to severe mitral annular calcification. There is moderate mitral valve thickening. Tricuspid Valve There is mild to moderate tricuspid valve thickening. There is mild tricuspid regurgitation. There is mild pulmonary hypertension. Right ventricular systolic pressure is elevated at 43 mmhg. Aortic Valve There is severe aortic sclerosis.;. Severe valvular aortic stenosis. The calculated aortic valve area using the continuity equation is 0.67 cm2. Aortic max pressure gradient= 71.6 mmHg. Aortic mean pressure gr adient= 44.2 mmHg. Pulmonic Valve The pulmonic valve is not well visualized. Great Vessels The aortic root is normal size. Pericardium/Pleura Trivial pericardial effusion not hemodynamically significant. Interpretation Summary The left ventricle is normal in size. There is severe concentric left ventricular hypertrophy. Mid to distal anterior wall, distal inferior wall, distal septum and large apical akinesis. Other wal ls contract normally. LV systolic function is moderately decreased. LVEF = 35%. The right ventricle is normal in size and function. The left atrium is moderately dilated. Right atrial size is normal. There is severe aortic sclerosis. Severe valvular aortic stenosis. The calculated aortic valve area using the continuity equation is 0.67 cm2. Aortic max pressure gradi ent= 71.6 mmHg. Aortic mean pressure gradient= 44.2 mmHg. There is moderate to severe mitral annular calcification. There is moderate mitral valve thickening. Trivial pericardial effusion not hemodynamically significant MD Hanh Campbell 09/28/2018 03:56 PM
--- NOTE | 2018-09-28 16:03 | PROC ---
Central Line Insertion Indication: CVP Monitoring, Poor Venous Access Risks and Benefits Explained: Yes Consent on Chart: Yes Central Line: Triple Lumen Catheter Anesthesia: 1% Lidocaine Sterile Technique: Yes Ultrasound Guided Assistance: Yes Position: Left Internal Jugular Post Insertion: Yes: Chest X-Ray Ordered Sterile Dressing Applied: Yes
--- NOTE | 2018-09-28 16:15 | EKG ---
Test Reason : Blood Pressure : / mmHG Vent. Rate : 098 BPM Atrial Rate : 098 BPM P-R Int : 146 ms QRS Dur : 092 ms QT Int : 402 ms P-R-T Axes : 062 -22 097 degrees QTc Int : 513 ms SINUS RHYTHM WITH MARKED SINUS ARRHYTHMIA WITH OCCASIONAL PREMATURE VENTRICULAR COMPLEXES POSSIBLE LEFT ATRIAL ENLARGEMENT ANTEROSEPTAL INFARCT , AGE UNDETERMINED T WAVE ABNORMALITY, CONSIDER LATERAL ISCHEMIA PROLONGED QT ABNORMAL ECG WHEN COMPARED WITH ECG OF 14-JUN-2017 11:01, SIGNIFICANT CHANGES HAVE OCCURRED Confirmed by MD LUIS ALBERTO, SARA ([id number]) on 09/28/2018 4:14:49 PM Referred By: Confirmed By:SARA SAHU MD
--- NOTE | 2018-09-28 16:20 | PN ---
Teaching Attending Note Name of Resident: Anirudh Vann ATTENDING PHYSICIAN STATEMENT I saw and evaluated the patient. I reviewed the resident's note and discussed the case with the resident. I agree with the resident's findings and plan as documented. SUBJECTIVE: Patient seen and examined Somewhat lethargic , but communicative Melanotic stools, and blood per rectum Last Vital Signs Temp Pulse Resp BP Pulse Ox 97.5 F L 104 H 20 111/82 98 09/28/18 14:00 09/28/18 14:00 09/28/18 14:00 09/28/18 14:00 09/28/18 07:56 HEENT: DEIDRE, EOM Intact Oropharynx: edentulous Cor: systolic murmur Lungs: diminished breath sounds Abd: Soft, Normal bowel sounds, CBC, BMP 09/28/18 05:20 09/28/18 05:20 Current Medications Generic Name Dose Route Start Last Admin Trade Name Freq PRN Reason Stop Dose Admin Chlorhexidine Gluconate 1 applic 09/28/18 22:00 Hibiclens For Decolonization - TP HS DAVID Epoetin Dheeraj 10,000 unit 09/29/18 14:23 Epogen - IVPUSH 09/29/18 14:24 ONCE ONE Pantoprazole Sodium 80 mg/ 100 mls @ 10 mls/hr 09/27/18 23:15 09/28/18 09:33 Sodium Chloride IVPB 10 mls/hr Q10H DAVID Administration 8 MG/HR Sodium Chloride 1,000 mls @ 50 mls/hr 09/28/18 06:15 Normal Saline - IV 09/29/18 06:07 ASDIR DAVID Sodium Chloride 250 mls @ 3,000 mls/hr 09/28/18 14:23 Normal Saline - IV 09/29/18 14:23 PRN PRN Hypotension during Dialysis Insulin Aspart 1 vial 09/28/18 07:00 09/28/18 13:09 Novolog Vial Sliding Scale - SQ Not Given ACHS [facility] Protocol Mupirocin 1 applic 09/28/18 10:00 09/28/18 09:34 Bactroban Ointment (For Decolonization) - NS 10/03/18 09:59 1 applic BID DAVID Administration Impression; GI bleed H.D./ESRD CAD/s/p stents ASA/Plavix Agree with plans for transfusion therapy To discuss . OBJECTIVE: ASSESSMENT AND PLAN:
--- NOTE | 2018-09-28 16:20 | CONSULT ---
Consult Consult Specialty:: General Surgery Referred by:: Dr. Dorsey Reason for Consultation:: GI bleeding - History of Present Illness Chief Complaint: bright red blood per rectum History of Present Illness: History from GI consult and HPI: 83yo frail F with multiple medical problems including ESRD on HD MWF via RUE fistula, HTN, HLD, DM, CAD s/p stent, PUD with h/o UGIB, s/p cholecystectomy, admitted to MICU for rectal bleeding. Per her daughter Virginia, pt developed rectal bleeding yesterday. It was red and mixed with clots. Bleeding persisted so she was taken to the ER. Initial Hgb at 11:30pm was 8.7 with P: 100 BP: 100/62. She received 2U PRBC overnight with Hgb of 6 and continued bloody BMs. She had a cardiac stent placed 11/15 and is maintained on ASA/ Plavix as well as protonix. She denied abdominal pain. She had a GI bleed in 2014. Upper endoscopy performed by Dr. Gale Ferguson revealed a deep duodenal bulb ulcer with visible vessel. She treated the ulcer with epinephrine injection and endoclip x 3. She was dialyzed last yesterday. She has received more blood today and platelets. She had CTA showing active bleeding in second portion of duodenum and heavily calcified vessels. Per IR, embolization would not be an option in this patient. She also has severe aortic stenosis, confirmed by echo today, and EF 35%. GI took her for endoscopy, which revealed active bleeding in duodenal bulb with visible vessel present in likely ulcer site. Epinephrine injection was done, and four endoclips placed on the vessel with cessation of bleeding. Surgery was asked to assess, in case of rebleeding, as surgery may be her only option for bleeding control at that point. She is seen and examined in ICU bed, just back from endoscopy, pedro Mancilla and gwendolyn Tobias at bedside. The patient was initially somewhat alert, trying to reposition herself in bed, and indicated that her back(side) hurt. She is known to have a stage 4 sacral decubitus. She then fell asleep, and was unable to offer any history herself. HR is now in low 90s and coming down to 80s. BP is improved from previous, 120s systolic, last measured at 150/101 while at bedside. Hematology, cardiology and nephrology have also seen pt. - History Source History Provided By: Medical Record, Caregiver Limitations to Obtaining History: Clinical Condition - Past Medical History Cardio/Vascular: Yes: Aortic Stenosis, CAD (s/p cardiac stent 11/15), CHF ( diastolic grade 3), HTN, Hyperlipdemia, Murmur Gastrointestinal: Yes: GI Bleed, Hiatal Hernia, Peptic Ulcer Disease (Duodenal bulb ulcer 2015 cauterized) Renal/: Yes: Renal Failure, Hemodialysis Reproductive: Yes: Postmenopausal Endocrine: Yes: Diabetes Mellitus - Past Surgical History Past Surgical History: Yes: AV Fistula/Graft (right arm fistula), Cholecystectomy (2008), Stent (cardiac 11/15), Upper Endoscopy - Alcohol/Substance Use Hx Alcohol Use: Yes (occasional) History of Substance Use: reports: None - Smoking History Smoking history: Former smoker Have you smoked in the past 12 months: No - Social History Usual Living Arrangement: With Child (Lives with daughter Virginia) History of Recent Travel: No Home Medications - Allergies Allergies/Adverse Reactions: Allergies Allergy/AdvReac Type Severity Reaction Status Date / Time No Known Allergies Allergy Verified 06/12/17 01:12 - Home Medications Home Medications: Ambulatory Orders Cinacalcet HCl [Sensipar] 60 mg PO DAILY 09/27/15 Sevelamer Carbonate [Renvela -] 800 mg PO CM 09/27/15 Pantoprazole Sodium [Protonix -] 40 mg PO BID #60 tablet.ec 10/01/15 Amlodipine Besylate [Norvasc -] 10 mg PO DAILY #30 tablet 06/18/17 Aspirin [ASA -] 81 mg PO DAILY #30 tab.chew 06/18/17 Carvedilol [Coreg -] 12.5 mg PO BID #60 tablet 06/18/17 Mupirocin Ointment [Bactroban Ointment (For Decolonization) -] 1 applic NS BID # 1 applic 06/18/17 hydrALAZINE HCL [Apresoline -] 100 mg PO TID #90 tablet 06/18/17 Carvedilol 12.5 mg PO BID 09/28/18 Carvedilol [Coreg -] 25 mg PO DAILY 09/28/18 Folic Acid 1 mg PO DAILY 09/28/18 Isosorbide Mononitrate [Isosorbide Mononitrate ER] 60 mg PO DAILY 09/28/18 Lisinopril [Prinivil -] 40 mg PO DAILY 09/28/18 Rosuvastatin Calcium [Crestor] 5 mg PO DAILY 09/28/18 Home Medications (free text): on aspirin and plavix at home, list not updated Family Disease History - Family Disease History Family Disease History: Diabetes: Mother (breast Ca, HTN), CA: Mother, Other: Father (gallstones, HTN), Daughter Other Family History: No family history of colorectal cancer. 13 children, 2 daughter : 1 from liver cancer (alcoholic), 1 from throat cancer Review of Systems Unable to obtain ROS, reason: pt cannot offer - Review of Systems Gastrointestinal: reports: Rectal Bleeding. denies: Abdominal Pain, Vomiting Genitourinary: reports: Other (oliguric/dialysis patient) Musculoskeletal: reports: Back Pain (and backside) Integumentary: reports: Wound (sacral decub). denies: Change in Color Hematology/Lymphatic: reports: Excessive Bleeding (rectal with hpi) Physical Exam Vital Signs: Vital Signs Temperature 97.5 F L 09/28/18 14:00 Pulse Rate 104 H 09/28/18 14:00 Respiratory Rate 20 09/28/18 14:00 Blood Pressure 111/82 09/28/18 14:00 O2 Sat by Pulse Oximetry (%) 98 09/28/18 07:56 Vital Signs Period Temp Pulse Resp BP Sys/Bullock Pulse Ox Last 24 Hr 96.6 F-98.3 F 74-104 16-20 80-127/30-82 97-99 Constitutional: Yes: No Distress, Calm, Thin Eyes: Yes: Conjunctiva Clear, EOM Intact HENT: Yes: Atraumatic, Normocephalic Neck: Yes: Trachea Midline, Other (contracted some) Cardiovascular: Yes: Tachycardia, Murmur (loud systolic). No: Pulse Irregular Respiratory: Yes: Regular, On Nasal O2, Rhonchi (bilaterally), Tachypnea Gastrointestinal: Yes: Soft, Distention (tympany, post EGD), Hypoactive Bowel Sounds. No: Tenderness ...Rectal Exam: Yes: Deferred, Other (+ bloody BMs per nursing) Renal/: Yes: Oliguria (HD pt). No: Osorio Present Musculoskeletal: Yes: Back Pain (sacrum not examined). No: Joint Swelling Extremities: Yes: Other (right upper arm AV fistula with thrill). No: Cool, Cyanosis Integumentary: Yes: Pressure Ulcer (sacral decub by report stage 4). No: Jaundice, Rash Neurological: Yes: Alert (but sleepy), Lethargy, Other (not very responsive) Labs: CBC, BMP 09/28/18 05:20 09/28/18 05:20 CMP Sodium 147 mmol/L (136-145) H 09/28/18 05:20 Potassium 3.1 mmol/L (3.5-5.1) L 09/28/18 05:20 Chloride 118 mmol/L (98-107) H 09/28/18 05:20 Carbon Dioxide 20 mmol/L (21-32) L 09/28/18 05:20 Anion Gap 9 MMOL/L (8-16) 09/28/18 05:20 BUN 32 mg/dL (7-18) H 09/28/18 05:20 Creatinine 2.2 mg/dL (0.55-1.3) H 09/28/18 05:20 Creat Clearance w eGFR 21.26 (>60) 09/28/18 05:20 POC Glucometer < 50 UNITS (80-120) 09/28/18 11:39 Random Glucose 63 mg/dL (74-106) L 09/28/18 05:20 Calcium 5.1 mg/dL (8.5-10.1) L* 09/28/18 05:20 Phosphorus 1.3 mg/dL (2.5-4.9) L 09/28/18 05:20 Magnesium 1.2 mg/dL (1.8-2.4) L 09/28/18 05:20 Total Bilirubin 0.4 mg/dL (0.2-1) 09/28/18 05:20 AST 14 U/L (15-37) L 09/28/18 05:20 ALT 9 U/L (13-61) L 09/28/18 05:20 Alkaline Phosphatase 81 U/L (45-117) 09/28/18 05:20 Total Protein 3.2 g/dl (6.4-8.2) L 09/28/18 05:20 Albumin 1.6 g/dl (3.4-5.0) L 09/28/18 05:20 INR, PTT INR 1.34 (0.83-1.09) H 09/27/18 23:19 Abnormal Lab Results 09/27/18 09/27/18 09/27/18 23:19 23:19 23:19 RBC 3.25 L Hgb 8.7 L Hct 27.3 L MCHC 31.7 L RDW 19.6 H Monocytes % 11.8 H Monocytes % (Manual) 11 H Retic Count 2.41 H PT with INR 15.80 H INR 1.34 H Sodium Potassium Chloride Carbon Dioxide Anion Gap 7 L BUN 35 H Creatinine 3.2 H Random Glucose Calcium 6.9 L* Phosphorus Magnesium AST ALT Alkaline Phosphatase 129 H Total Protein 4.9 L Albumin 2.4 L Crossmatch 09/27/18 09/28/18 09/28/18 23:19 05:20 05:20 RBC 2.20 L Hgb 6.0 L* Hct 19.3 L D MCHC 30.8 L RDW 18.1 H Monocytes % Monocytes % (Manual) Retic Count PT with INR INR Sodium 147 H Potassium 3.1 L Chloride 118 H Carbon Dioxide 20 L Anion Gap BUN 32 H Creatinine 2.2 H Random Glucose 63 L Calcium 5.1 L* Phosphorus 1.3 L Magnesium 1.2 L AST 14 L ALT 9 L Alkaline Phosphatase Total Protein 3.2 L Albumin 1.6 L Crossmatch See Detail repeat CBC pending now Imaging - Results Cat Scan: Report Reviewed, Image Reviewed (CTA reviewed - blood present in duodenum, heavily calcified vessels) Other: Report Reviewed (echo noted - severe , EF 35%, pulmonary hypertension, other findings as noted) Problem List - Problems (1) Acute duodenal ulcer with hemorrhage Assessment/Plan: UGIB in elderly female with ESRD on HD, severe aortic stenosis, CAD s/p stent on ASA/Plavix (currently held) duodenal bulb ulcer with visible vessel controlled endoscopically anticipate bloody BMs until remaining blood is evacuated from GI tract NPO/IVF trend H/H, labs transfuse blood and/or platelets as indicated supportive ICU care had CTA today HD anticipated tomorrow, could receive more blood with HD if needed Pt seen and discussed with Dr. Dorsey Discussed with ICU team Spoke with daughter Virginia (HCP) on phone - she understands that operative intervention would involve laparotomy and opening duodenum to oversew bleeding vessel, NGT for at least 5 days postop, possible abdominal drain. She is very clear that her mother did not want "to be cut on," and also does not want to be resuscitated (CPR) or intubated long-term, if she is in extremis. Given that surgery would be very high risk with the patient's age and comorbidities, and that if she rebleeds, surgery may be the only option for hemostasis, I agree that it would be reasonable not to pursue an operation, but to make the patient as comfortable as possible. Virginia will be here later tonight , and ICU team will likely formalize a DNR/DNI order at that time, in accordance with their wishes. Highest risk for rebleeding is in first 24-72 hours. Keep NPO until cleared by GI for diet resumption. Hold ASA/plavix. Monitor stool output to see when BMs turn nonbloody/brown. If she does not rebleed, but recovers from this episode, family, cardiology and hematology may also have to consider risk/benefit ratio of resuming antiplatelet therapy. Code(s): K26.0 - ACUTE DUODENAL ULCER WITH HEMORRHAGE (2) Acute blood loss anemia Code(s): D62 - ACUTE POSTHEMORRHAGIC ANEMIA (3) Bright red blood per rectum Code(s): K62.5 - HEMORRHAGE OF ANUS AND RECTUM (4) Aortic stenosis Code(s): Q25.3 - SUPRAVALVULAR AORTIC STENOSIS (5) CAD (coronary artery disease) Code(s): I25.10 - ATHSCL HEART DISEASE OF [place] CORONARY ARTERY W/O ANG PCTRS Qualifiers: Coronary Disease-Associated Artery/Lesion type: [place] artery [place] vs. transplanted heart: [place] heart Associated angina: without angina Qualified Code(s): I25.10 - Atherosclerotic heart disease of [place] coronary artery without angina pectoris (6) DM (diabetes mellitus) type II controlled with renal manifestation Code(s): E11.29 - TYPE 2 DIABETES MELLITUS W OTH DIABETIC KIDNEY COMPLICATION Qualifiers: Diabetes mellitus care home insulin use: without joint terminal attack controller use Diabetes mellitus complication detail: with chronic kidney disease Chronic kidney disease stage: on chronic dialysis Qualified Code(s): E11.22 - Type 2 diabetes mellitus with diabetic chronic kidney disease; N18.6 - End stage renal disease; Z99.2 - Dependence on renal dialysis (7) HTN (hypertension) Code(s): I10 - ESSENTIAL (PRIMARY) HYPERTENSION Qualifiers: Hypertension type: essential hypertension Qualified Code(s): I10 - Essential (primary) hypertension Assessment/Plan This patient is critically ill. Time spent reviewing chart, examining patient, talking with providers and/or family and documentation is 60 minutes. Thank you for the opportunity to participate in the care of this patient.
[2018-09-28] MEDS ORDERED: EPINEPHrine 1:10,000 (P-F SYR) 1 MG/10 ML DISP.SYRIN IVPUSH ONE (17:00)
--- NOTE | 2018-09-28 17:44 | PN ---
Progress Note (short form) - Note Progress Note: EGD report placed in procedural section of physical chart and to be scanned into [employer] Problem List - Problems (1) GI bleeding Code(s): K92.2 - GASTROINTESTINAL HEMORRHAGE, UNSPECIFIED
--- NOTE | 2018-09-28 17:56 | PN ---
Physical Exam: SUBJECTIVE: Patient seen and examined at Bedside. When I evaluated her she was lethargic and arousable. She was able to answer questions but appeared confused. She states that she has a history of abdominal bleeds. She had a low Hb level of 6. When I evaluated her she only had one 22 gauge IV line in the L AC. I placed a triple lumen in her Left IJ. OBJECTIVE: Vital Signs Period Temp Pulse Resp BP Sys/Bullock Pulse Ox Last 24 Hr 96.6 F-98.3 F 74-104 16-20 80-111/30-82 97-99 GENERAL: The patient is awake, somnolent, arousable. HEAD: Normal with no signs of trauma. EYES: PERRL, sclera anicteric, conjunctiva clear. No ptosis. ENT: Ears normal, nares patent, oropharynx clear without exudates, moist mucous membranes. NECK: Trachea midline. No adenopathy. Left sided IJ line in place. LUNGS: Decreased breath sounds on the right side. CTA on the left. HEART: tachycardic rate and regular rhythm. Holosystolic murmer. ABDOMEN: Minimal epigastric discomfort. Otherwise abdomen is soft, nontender, nondistended, normoactive bowel sounds, no guarding, no rebound, no hepatosplenomegaly, no masses. EXTREMITIES: 2+ pulses, cold, well-perfused, no edema. There is a Fistula in the Right arm. Left arm has an old fistula which is no longer working or in use. PSYCH: Normal mood, normal affect. SKIN: Cold, dry, normal turgor. Laboratory Results - last 24 hr 09/27/18 09/27/18 09/27/18 23:19 23:19 23:19 WBC 6.3 RBC 3.25 L Hgb 8.7 L Hct 27.3 L MCV 84.1 MCH 26.7 MCHC 31.7 L RDW 19.6 H Plt Count 248 D MPV 7.5 Absolute Neuts (auto) 4.5 Total Counted 100 Neutrophils % 71.0 D Neutrophils % (Manual) 70.0 Band Neutrophils % 3.0 Lymphocytes % 15.6 D Lymphocytes % (Manual) 15.0 Monocytes % 11.8 H Monocytes % (Manual) 11 H Eosinophils % 0.5 D Eosinophils % (Manual) 1.0 Basophils % 1.1 Nucleated RBC % 0 Anisocytosis 1+ Retic Count 2.41 H PT with INR 15.80 H INR 1.34 H PTT (Actin FS) 30.3 Sodium 139 Potassium 3.6 Chloride 102 Carbon Dioxide 30 Anion Gap 7 L BUN 35 H Creatinine 3.2 H Creat Clearance w eGFR 13.80 POC Glucometer Random Glucose 77 Calcium 6.9 L* Phosphorus Magnesium Total Bilirubin 0.5 AST 25 ALT 15 Alkaline Phosphatase 129 H Total Protein 4.9 L Albumin 2.4 L Blood Type Antibody Screen Crossmatch 09/27/18 09/28/18 09/28/18 23:19 05:20 05:20 WBC 6.2 RBC 2.20 L Hgb 6.0 L* Hct 19.3 L D MCV 88.0 MCH 27.1 MCHC 30.8 L RDW 18.1 H Plt Count 148 D MPV 7.6 Absolute Neuts (auto) Total Counted Neutrophils % Neutrophils % (Manual) Band Neutrophils % Lymphocytes % Lymphocytes % (Manual) Monocytes % Monocytes % (Manual) Eosinophils % Eosinophils % (Manual) Basophils % Nucleated RBC % Anisocytosis Retic Count PT with INR INR PTT (Actin FS) Sodium 147 H Potassium 3.1 L Chloride 118 H Carbon Dioxide 20 L Anion Gap 9 BUN 32 H Creatinine 2.2 H Creat Clearance w eGFR 21.26 POC Glucometer Random Glucose 63 L Calcium 5.1 L* Phosphorus 1.3 L Magnesium 1.2 L Total Bilirubin 0.4 AST 14 L ALT 9 L Alkaline Phosphatase 81 Total Protein 3.2 L Albumin 1.6 L Blood Type B POSITIVE Antibody Screen Negative Crossmatch See Detail 09/28/18 11:39 WBC RBC Hgb Hct MCV MCH MCHC RDW Plt Count MPV Absolute Neuts (auto) Total Counted Neutrophils % Neutrophils % (Manual) Band Neutrophils % Lymphocytes % Lymphocytes % (Manual) Monocytes % Monocytes % (Manual) Eosinophils % Eosinophils % (Manual) Basophils % Nucleated RBC % Anisocytosis Retic Count PT with INR INR PTT (Actin FS) Sodium Potassium Chloride Carbon Dioxide Anion Gap BUN Creatinine Creat Clearance w eGFR POC Glucometer < 50 Random Glucose Calcium Phosphorus Magnesium Total Bilirubin AST ALT Alkaline Phosphatase Total Protein Albumin Blood Type Antibody Screen Crossmatch Active Medications Generic Name Dose Route Start Last Admin Trade Name Freq PRN Reason Stop Dose Admin Chlorhexidine Gluconate 1 applic 09/28/18 22:00 Hibiclens For Decolonization - TP HS DAVID Epoetin Dheeraj 10,000 unit 10/31/18 14:23 Epogen - IVPUSH 09/29/18 14:24 ONCE ONE Pantoprazole Sodium 80 mg/ 100 mls @ 10 mls/hr 09/27/18 23:15 09/28/18 09:33 Sodium Chloride IVPB 10 mls/hr Q10H DAVID Administration 8 MG/HR Sodium Chloride 1,000 mls @ 50 mls/hr 09/28/18 06:15 Normal Saline - IV 09/29/18 06:07 ASDIR DAVID Sodium Chloride 250 mls @ 3,000 mls/hr 09/28/18 14:23 Normal Saline - IV 09/29/18 14:23 PRN PRN Hypotension during Dialysis Insulin Aspart 1 vial 09/28/18 07:00 09/28/18 13:09 Novolog Vial Sliding Scale - SQ Not Given ACHS [facility] Protocol Mupirocin 1 applic 09/28/18 10:00 09/28/18 09:34 Bactroban Ointment (For Decolonization) - NS 10/03/18 09:59 1 applic BID DAVID Administration ASSESSMENT/PLAN: Assessment: Julissa is an 83 yo F with a sig pmh of ESRD (M/W/F - dialyzed yesterday, set to get dialysis again tomorrow), diastolic CHF dysfunction, severe CAD, HTN, and prior duodenal ulcer bleed who presents to the ICU with a low HB. She had a CTA which showed active upper GI bleeding from the duodenum. Patient is currently receiving endoscopic therapy for the bleed. After the EGD treatment we will continue to transfuse to get Hb greater than 7. We will continue protonix for GI prophylaxis. Plan: GI: - CTA localized active duodenal bleed - EGD therapy to stop bleed - Protonix for prophylaxis Cardio: - Patient is hypotensive due to blood loss. - IV hydration - PRBC + platelet transfusion - Measure CVP to assess volume status: 8-12 - Patient received echo: Severe left concentric LVH, Significant akinesis, LVEF = 35%, LA dilatation, Severe aortic sclerosis + Aortic stenosis, mitral valve thickening. - Holding Aspirin and plavix Heme: - Anemia secondary to acute blood loss and ESRD. Will transfuse PRBC as needed to keep Hb greater than 7. Renal: - Patient received dialysis yesterday. Renal on board and Dr. Sexton said we can go ahead with CTA bc patient will get dialysis tomorrow. - transfusing platelets Derm: - Pressure ulcer: unstageable - Wound care consulted: Dr. Marcelino Landaverde: - Will monitor glucose levels and give sliding scale. Neuro: - No focal problems ID: - No problems at present Prophylaxis: -Hold AC due to active GI bleeding. SCDs and MARCOS's -Protonix drip for GI F/E/N: - Will give IV hydration NS @50mls/hr, platelets, RBC, DDAVP, +/- FFP. - Mag, calcium, potassium, phosphate repleted. Will continue to replete electrolytes PRN. - NPO Code Status: - Full Code Dispo: -Patient will continue to receive ICU level care. Visit type - Emergency Visit Emergency Visit: Yes ED Registration Date: 09/28/18 Care time: The patient presented to the Emergency Department on the above date and was hospitalized for further evaluation of their emergent condition. - New Patient This patient is new to me today: Yes Date on this admission: 09/28/18 - Critical Care Critical Care patient: Yes Total Critical Care Time (in minutes): 35 Critical Care Statement: The care of this patient involved high complexity decision making to prevent further life threatening deterioration of the patient 's condition and/or to evaluate & treat vital organ system(s) failure or risk of failure.
[2018-09-28] MEDS ORDERED: DEXTROSE 50%-WATER - 25 GM/50 ML VIAL IVPUSH ONE (19:15)
[2018-09-28 19:16] LABS: HEMOGLOBIN 9.8 GM/dL (10.7-15.3); MCH 27.9 pg (25.7-33.7); MCHC 32.7 g/dl (32.0-36.0); MEAN CELL VOLUME 85.3 fl (80-96); MEAN PLT VOLUME 7.7 fl (7.5-11.1); PLATELET COUNT 281 K/MM3 (134-434); RBC 3.52 M/mm3 (3.60-5.2); RDW 16.2 % (11.6-15.6); WHITE BLOOD COUNT 12.3 K/mm3 (4.0-10.0)
[2018-09-28] MEDS ORDERED: DEXTROSE 50%-WATER 25 GM/50 ML DISP.SYRIN ONE (19:22)
--- NOTE | 2018-09-28 21:01 | PN ---
Progress Note (short form) - Note Progress Note: Spoke to patient, patients daughter, Virginia, and grandson at bedside. Patient stated that she would like to change her mind and become full code. I explained to her what would be done if her heart was to stop or if she is unable to breath. Patient states she would want to be intubated and resuscitated. Patient's daughter, Virginia, who is also her HCP, and her grandson witnessed the conversation and asked us to fulfill the patients wishes. Patient is Awake, Alert, Oriented to person, place, and time. She was able to tell me which hospital she is in, which city she lives in, her full name, address, how many kids she has, and correctly named everyone in the room. FULL CODE status placed with all aggressive measures to be done. Leonila Martinez [id number]
[2018-09-28] MEDS: CHLORHEXIDINE GLUCONATE 4% CLEANSER FOR DECOLONIZATION TP SCH (22:10)
[2018-09-29] MEDS ORDERED: SODIUM CHLORIDE 250 ML IV STA ×2 (04:35→06:07)
[2018-09-29 06:14] LABS: BASO % 0.5 % (0-2.0); EOS % 2.1 % (0-4.5); HEMATOCRIT 25.6 % (32.4-45.2); HEMOGLOBIN 8.7 GM/dL (10.7-15.3); LYMPH % 7.2 % (8-40); MCH 28.2 pg (25.7-33.7); MCHC 33.8 g/dl (32.0-36.0); MEAN CELL VOLUME 83.5 fl (80-96); MEAN PLT VOLUME 7.5 fl (7.5-11.1); MONO % 6.4 % (3.8-10.2); NEUT % 83.8 % (42.8-82.8); PLATELET COUNT 234 K/MM3 (134-434); RBC 3.07 M/mm3 (3.60-5.2); RDW 16.1 % (11.6-15.6)
[2018-09-29] MEDS: PANTOPRAZOLE SODIUM 80 MG in SODIUM CHLORIDE 100 ML IVPB SCH (06:17)
[2018-09-29 06:47] LABS: ALBUMIN 2.1 g/dl (3.4-5.0); ALK PHOS 108 U/L (45-117); ANION GAP 11 MMOL/L (8-16); BILIRUBIN,TOTAL 1.2 mg/dL (0.2-1); BLOOD UREA NITROGEN 52 mg/dL (7-18); CHLORIDE 110 mmol/L (98-107); CO2 22 mmol/L (21-32); CREATININE 3.6 mg/dL (0.55-1.3); GLUCOSE,RANDOM 71 mg/dL (74-106); MAGNESIUM 1.8 mg/dL (1.8-2.4); PHOSPHOROUS 3.2 mg/dL (2.5-4.9); POTASSIUM 4.1 mmol/L (3.5-5.1); SGOT/AST 11 U/L (15-37); SGPT/ALT 11 U/L (13-61); SODIUM 143 mmol/L (136-145); TOT PROT 4.3 g/dl (6.4-8.2)
[2018-09-29 07:16] LABS: CALCIUM 6.8 mg/dL (8.5-10.1)
[2018-09-29] MEDS: INSULIN SLIDING SCALE (NOVOLOG) 1 VIAL SQ SCH ×2 (07:21→11:22)
--- NOTE | 2018-09-29 08:17 | PN ---
Physical Exam: SUBJECTIVE: Patient seen and examined at bedside. Patient lethargic yet arousable. Patient had her EGD done yesterday which showed a bleeding ulcer in the duodenal bulb and her post EGD CBC was 9.8. This am her Hgb was 8.7. She was hypotensive overnight with her BPS ranging from (92-104) systolic and (39-58 ) diastolic requiring boluses overnight (received almost 2.5 L in over 24 hours ) She did not receive any blood overnight- she has gotten so far 2 units of platelets and 4 units PRBCS since admission. She did have one black bowel movement overnight. She denies any pain, shortness of breath or chest pain. She is going for dialysis today. OBJECTIVE: Vital Signs Period Temp Pulse Resp BP Sys/Bullock Pulse Ox Last 24 Hr 97.5 F-98.5 F 85-104 13-24 80-127/42-82 98 GENERAL: The patient is lethargic yet arousable EYES: no scleral icterus. NECK: no JVD appreciated, no lymphadenopathy LUNGS: CTA B/L; no rales, rhonchi or wheezing HEART: Regular rate and rhythm, S1, S2 without murmur, rub or gallop. ABDOMEN: Soft, nontender, nondistended, normoactive bowel sounds, no guarding, no rebound, no hepatosplenomegaly, no masses. EXTREMITIES: 2+ pulses, warm, well-perfused, no edema. PSYCH: Normal mood, normal affect. SKIN: Warm, dry, normal turgor, no rashes or lesions noted Laboratory Results - last 24 hr 09/27/18 09/28/18 09/28/18 23:19 11:39 18:30 WBC Cancelled Corrected WBC (auto) Cancelled RBC Cancelled Hgb Cancelled Hct Cancelled MCV Cancelled MCH Cancelled MCHC Cancelled RDW Cancelled Plt Count Cancelled MPV Cancelled Absolute Neuts (auto) Neutrophils % Lymphocytes % Monocytes % Eosinophils % Basophils % Nucleated RBC % Manual Slide Review Cancelled Platelet Comment Cancelled Sodium Potassium Chloride Carbon Dioxide Anion Gap BUN Creatinine Creat Clearance w eGFR POC Glucometer < 50 Random Glucose Hemoglobin A1c % Calcium Phosphorus Magnesium Total Bilirubin AST ALT Alkaline Phosphatase Total Protein Albumin Blood Type B POSITIVE Antibody Screen Negative Crossmatch See Detail 09/28/18 09/28/18 09/28/18 18:50 19:14 22:03 WBC 12.3 H Corrected WBC (auto) RBC 3.52 L Hgb 9.8 L Hct 30.0 L D MCV 85.3 MCH 27.9 MCHC 32.7 RDW 16.2 H Plt Count 281 D MPV 7.7 Absolute Neuts (auto) Neutrophils % Lymphocytes % Monocytes % Eosinophils % Basophils % Nucleated RBC % Manual Slide Review Platelet Comment Sodium Potassium Chloride Carbon Dioxide Anion Gap BUN Creatinine Creat Clearance w eGFR POC Glucometer < 50 [phone] Random Glucose Hemoglobin A1c % Calcium Phosphorus Magnesium Total Bilirubin AST ALT Alkaline Phosphatase Total Protein Albumin Blood Type Antibody Screen Crossmatch 09/29/18 09/29/18 09/29/18 05:30 05:30 05:30 WBC 12.0 H Corrected WBC (auto) RBC 3.07 L Hgb 8.7 L Hct 25.6 L MCV 83.5 MCH 28.2 MCHC 33.8 RDW 16.1 H Plt Count 234 MPV 7.5 Absolute Neuts (auto) 10.0 H Neutrophils % 83.8 H Lymphocytes % 7.2 L D Monocytes % 6.4 Eosinophils % 2.1 D Basophils % 0.5 Nucleated RBC % 0 Manual Slide Review Platelet Comment Sodium 143 Potassium 4.1 Chloride 110 H Carbon Dioxide 22 Anion Gap 11 BUN 52 H Creatinine 3.6 H Creat Clearance w eGFR 12.05 POC Glucometer Random Glucose 71 L Hemoglobin A1c % 4.9 Calcium 6.8 L* Phosphorus 3.2 Magnesium 1.8 Total Bilirubin 1.2 H AST 11 L ALT 11 L Alkaline Phosphatase 108 Total Protein 4.3 L Albumin 2.1 L Blood Type Antibody Screen Crossmatch 09/29/18 06:02 WBC Corrected WBC (auto) RBC Hgb Hct MCV MCH MCHC RDW Plt Count MPV Absolute Neuts (auto) Neutrophils % Lymphocytes % Monocytes % Eosinophils % Basophils % Nucleated RBC % Manual Slide Review Platelet Comment Sodium Potassium Chloride Carbon Dioxide Anion Gap BUN Creatinine Creat Clearance w eGFR POC Glucometer [phone] Random Glucose Hemoglobin A1c % Calcium Phosphorus Magnesium Total Bilirubin AST ALT Alkaline Phosphatase Total Protein Albumin Blood Type Antibody Screen Crossmatch Active Medications Generic Name Dose Route Start Last Admin Trade Name Freq PRN Reason Stop Dose Admin Chlorhexidine Gluconate 1 applic 09/28/18 22:00 09/28/18 22:10 Hibiclens For Decolonization - TP 1 applic HS DAVID Administration Epoetin Dheeraj 10,000 unit 09/29/18 14:23 Epogen - IVPUSH 09/29/18 14:24 ONCE ONE Pantoprazole Sodium 80 mg/ 100 mls @ 10 mls/hr 09/27/18 23:15 09/29/18 06:17 Sodium Chloride IVPB 10 mls/hr Q10H DAVID Administration 8 MG/HR Sodium Chloride 250 mls @ 3,000 mls/hr 09/28/18 14:23 Normal Saline - IV 09/29/18 14:23 PRN PRN Hypotension during Dialysis Insulin Aspart 1 vial 09/28/18 07:00 09/29/18 07:21 Novolog Vial Sliding Scale - SQ Not Given ACHS [facility] Protocol Mupirocin 1 applic 09/28/18 10:00 09/28/18 22:10 Bactroban Ointment (For Decolonization) - NS 10/03/18 09:59 1 applic BID DAVID Administration ASSESSMENT/PLAN: 83 y.o female with PMH of CHF, CAD (s/p stents on aspirin,plavix), ESRD (m/w/f dialysis), previous GI bleed, presents to the ED after having multiple episodes of melanotic stool and episodes of cristina bright red blood per rectum, now s/p EGD. #) GI Bleed patient has so far received 4 units of PRBCS and 2 units of platelets -also received DDAVP -on protonix drip 10mls/hr -GI on board- appreciate recs; EGD done yesterday showing ulcer in duodenal bulb -cardio consulted- f/u recs -monitor hemodynamics and vital signs -monitor for active signs of bleeding -surgery consulted -repeat CBC at noon #) ESRD (m/w/f) patient going for HD today -nephro on board-appreciate recs -monitor electrolytes -monitor fluid status/hemodynamics #) CAD -holding patients aspirin and plavix currently -will resume once bleeding stops and GI gives OK #) HTN -holding home meds #)DM -ISS -BGMS ACHS F/E/N NS @50mls/hr replete electrolytes NPO except PO meds Problem List - Problems (1) Acute duodenal ulcer with hemorrhage Code(s): K26.0 - ACUTE DUODENAL ULCER WITH HEMORRHAGE (2) Bright red blood per rectum Code(s): K62.5 - HEMORRHAGE OF ANUS AND RECTUM (3) GI bleeding Code(s): K92.2 - GASTROINTESTINAL HEMORRHAGE, UNSPECIFIED (4) Anemia Code(s): D64.9 - ANEMIA, UNSPECIFIED (5) Aortic stenosis Code(s): Q25.3 - SUPRAVALVULAR AORTIC STENOSIS Visit type - Emergency Visit Emergency Visit: Yes ED Registration Date: 09/28/18 Care time: The patient presented to the Emergency Department on the above date and was hospitalized for further evaluation of their emergent condition. - New Patient This patient is new to me today: No - Critical Care Critical Care patient: No
--- NOTE | 2018-09-29 09:28 | PN ---
GI Progress Note Subjective: Black BM noted overnight by nurse Patient awake, denies any focal complaints - Objective Vital Signs: Vital Signs Temperature 98.5 F 09/29/18 06:00 Pulse Rate 100 H 09/29/18 08:00 Respiratory Rate 18 09/29/18 08:00 Blood Pressure 97/46 L 09/29/18 08:00 O2 Sat by Pulse Oximetry (%) 98 09/28/18 21:00 Constitutional: Calm Eyes: No: Sclera Icterus Cardiovascular: Yes: Regular Rate and Rhythm Respiratory: Yes: Diminished (at bases b/l, poor insp effort) Gastrointestinal Inspection: No: Distention ...Auscultate: Yes: Normoactive Bowel Sounds ...Palpate: No: Tenderness ...Rectal Exam: Yes: Other (Maroon smear in diaper, liquid black/brown stool in rectal vault) Edema: No (No LE edema) Neurological: Yes: Alert Labs: CBC, BMP 09/29/18 05:30 09/29/18 05:30 INR, PTT INR 1.34 (0.83-1.09) H 09/27/18 23:19 Hepatic Panel Total Bilirubin 1.2 mg/dL (0.2-1) H 09/29/18 05:30 AST 11 U/L (15-37) L 09/29/18 05:30 ALT 11 U/L (13-61) L 09/29/18 05:30 Alkaline Phosphatase 108 U/L (45-117) 09/29/18 05:30 Albumin 2.1 g/dl (3.4-5.0) L 09/29/18 05:30 Problem List - Problems (1) GI bleeding Assessment/Plan: UGIB secondary to ulcer with bleeding visible vessel in the duodenal bulb: S/P epinephrine injection and endoclip therapy in setting of having dual antiplatelet therapy on board NPO Continue PPI drip Monitor H/H and for signs of ongoing bleeding. If rebleeding is suspected, second look upper endoscopy can be performed with surgical backup. Ordered CBC for noon Code(s): K92.2 - GASTROINTESTINAL HEMORRHAGE, UNSPECIFIED
--- NOTE | 2018-09-29 12:06 | PN ---
Progress Note (short form) - Note Progress Note: Patient seen and examined at bedside feels "lousy" but doesnt know why EGD done and found bleeding visible vessel in duodenal bulb which was clipped and injected with epinephrine had small black BM today Vital Signs Temp 98.3 F 09/29/18 10:00 Pulse 120 H 09/29/18 10:00 Resp 20 09/29/18 10:00 BP 92/40 L 09/29/18 10:00 Pulse Ox 98 09/28/18 21:00 Intake & Output 09/28/18 09/29/18 09/29/18 23:59 11:59 23:59 Intake Total 3584 320 Output Total 200 Balance 3384 320 Weight 50.893 kg Intake: IV 2000 250 Normal Saline - 1,000 ml 1000 @ 1000 mls/hr IV ASDIR STA Rx#:[id number] Normal Saline - 250 ml @ 250 250 mls/hr IV ASDIR STA Rx#:[id number] Normal Saline - 500 ml @ 500 500 mls/hr IV ASDIR STA Rx#:[id number] IVPB 390 70 Blood Product 100 Packed Cells 700 Platelets 394 Output: Urine 200 Osorio 200 Other: Voiding Method Incontinent # Unmeasured Voids Osorio 1 1 Bowel Movement Yes Yes # Bowel Movements 3 1 Weight Measurement Method Built in Bedscale Constitutional: Yes: No Distress, Other (tired appearing) Eyes: Yes: EOM Intact, Other (conjunctival pallor) HENT: Yes: Atraumatic, Normocephalic Neck: Yes: Supple, Trachea Midline. No: Lymphadenopathy Cardiovascular: Yes: Regular Rate and Rhythm, S1, S2 loud 4/6 systolic murmur Respiratory: Yes: CTA Bilaterally Gastrointestinal: Yes: Soft not tender active bowel sounds Edema: No Neurological: Yes: Alert 09/27/18 09/28/18 09/28/18 23:19 18:30 18:50 WBC Cancelled 12.3 H Corrected WBC (auto) Cancelled RBC Cancelled 3.52 L Hgb Cancelled 9.8 L Hct Cancelled 30.0 L D MCV Cancelled 85.3 MCHC Cancelled 32.7 RDW Cancelled 16.2 H Plt Count Cancelled 281 D Neutrophils % Lymphocytes % Monocytes % Eosinophils % Basophils % Sodium Potassium Chloride Carbon Dioxide Anion Gap BUN Creatinine Blood Type B POSITIVE Antibody Screen Negative 09/29/18 09/29/18 05:30 05:30 WBC 12.0 H Corrected WBC (auto) RBC 3.07 L Hgb 8.7 L Hct 25.6 L MCV 83.5 MCHC 33.8 RDW 16.1 H Plt Count 234 Neutrophils % 83.8 H Lymphocytes % 7.2 L D Monocytes % 6.4 Eosinophils % 2.1 D Basophils % 0.5 Sodium 143 Potassium 4.1 Chloride 110 H Carbon Dioxide 22 Anion Gap 11 BUN 52 H Creatinine 3.6 H Blood Type Antibody Screen 83F with multiple medical problems presents to the hospital with bright red blood per rectum. Problem List: Acute blood loss anemia in the setting of bright red blood per rectum secondary to bleeding duodenal bulb ulcer platelets dysfunction due to aspirin and plavix ESRD on HD HTN HLD DM history of peptic ulcer disease CHF Plan: Trend CBC Check CBC at noon and continue to trend transfuse as needed Patient may need a few runs of platelets over the next few days as platelets will be affected for the next week Plan for dialysis today renal on board continue to monitor for episodes of bleeding Hematolgy team available to help in management of this patients bleeding in the setting of platelets under the influence of constanza Will follow
--- NOTE | 2018-09-29 12:13 | PN ---
Progress Note, Physician History of Present Illness: No further melena. - Current Medication List Current Medications: Active Medications Chlorhexidine Gluconate (Hibiclens For Decolonization -) 1 applic TP HS [facility] Last Admin: 09/28/18 22:10 Dose: 1 applic Epoetin Dheeraj (Epogen -) 10,000 unit IVPUSH ONCE ONE Stop: 09/29/18 14:24 Pantoprazole Sodium 80 mg/ (Sodium Chloride) 100 mls @ 10 mls/hr IVPB Q10H [facility] Last Admin: 09/29/18 06:17 Dose: 10 mls/hr Sodium Chloride (Normal Saline -) 250 mls @ 3,000 mls/hr IV PRN PRN PRN Reason: Hypotension during Dialysis Stop: 09/29/18 14:23 Insulin Aspart (Novolog Vial Sliding Scale -) 1 vial SQ ACHS [facility]; Protocol Last Admin: 09/29/18 11:22 Dose: Not Given Metoprolol Tartrate (Lopressor -) 25 mg PO BID [facility] Mupirocin (Bactroban Ointment (For Decolonization) -) 1 applic NS BID [facility] Stop: 10/03/18 09:59 Last Admin: 09/28/18 22:10 Dose: 1 applic - Objective Vital Signs: Vital Signs Temperature 98.3 F 09/29/18 10:00 Pulse Rate 120 H 09/29/18 10:00 Respiratory Rate 20 09/29/18 10:00 Blood Pressure 92/40 L 09/29/18 10:00 O2 Sat by Pulse Oximetry (%) 98 09/28/18 21:00 Constitutional: Yes: No Distress, Calm Neck: Yes: Supple Cardiovascular: Yes: Tachycardia, Murmur (2/6 SM) Respiratory: Yes: Regular, Diminished, On Nasal O2 Gastrointestinal: Yes: Soft, Hypoactive Bowel Sounds, Melena Edema: No Labs: CBC, BMP 09/29/18 05:30 09/29/18 05:30 INR, PTT INR 1.34 (0.83-1.09) H 09/27/18 23:19 - ....Imaging EKG: Report Reviewed (Tele: ST @ 110s) Problem List - Problems (1) Old myocardial infarction Code(s): I25.2 - OLD MYOCARDIAL INFARCTION (2) Systolic dysfunction without heart failure Code(s): I51.89 - OTHER ILL-DEFINED HEART DISEASES (3) Acute duodenal ulcer with hemorrhage Code(s): K26.0 - ACUTE DUODENAL ULCER WITH HEMORRHAGE (4) Acute blood loss anemia Code(s): D62 - ACUTE POSTHEMORRHAGIC ANEMIA (5) Aortic stenosis Code(s): Q25.3 - SUPRAVALVULAR AORTIC STENOSIS (6) CAD (coronary artery disease) Code(s): I25.10 - ATHSCL HEART DISEASE OF [place] CORONARY ARTERY W/O ANG PCTRS Qualifiers: Coronary Disease-Associated Artery/Lesion type: [place] artery [place] vs. 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 Code(s): E11.29 - TYPE 2 DIABETES MELLITUS W OTH DIABETIC KIDNEY COMPLICATION Qualifiers: Diabetes mellitus firewall engineer insulin use: without firewall engineer use Diabetes mellitus complication detail: with chronic kidney disease Chronic kidney disease stage: on chronic dialysis Qualified Code(s): E11.22 - Type 2 diabetes mellitus with diabetic chronic kidney disease; N18.6 - End stage renal disease; Z99.2 - Dependence on renal dialysis (8) ESRD on hemodialysis Code(s): N18.6 - END STAGE RENAL DISEASE; Z99.2 - DEPENDENCE ON RENAL DIALYSIS Assessment/Plan 09/28/2018 Echo: Normal LV size with severe cLVH, distal anterior, inferior, septal and apical AK, mod decreased LVEF 35%, normal RV size and fxn, mod LAE, severe MARCIA 0.67 cm^2 MG 44 mmHg, trivial pericardial effusion 1. UGI bleed secondary to ulcer with bleeding visible vessel in the duodenal bulb S/P epinephrine injection and endoclip therapy in setting of having dual antiplatelet therapy on board 2. CAD post TN, s/p PCI/stent, angina 3. LV systolic dysfunction 4. Severe aortic valve stenosis 5. HTN 6. Hypercholesterolemia 7. ESRD on HD via AV fistula PLAN: 1. PPI gtt with monitor Hgb and transfuse PRBC as needed 2. ASA and Plavix have been held until hemostasis assured 3. Resume Lopressor 25 bid as hemodynamics tolerate 4. Records to be obtained from her bakery sales clerk in [place] ([facility]: Jimenez Monroe MD) 5. HD as per Renal service
[2018-09-29 12:31] LABS: HEMATOCRIT 26.7 % (32.4-45.2); HEMOGLOBIN 8.7 GM/dL (10.7-15.3); MCH 27.6 pg (25.7-33.7); MCHC 32.6 g/dl (32.0-36.0); MEAN CELL VOLUME 84.6 fl (80-96); MEAN PLT VOLUME 7.2 fl (7.5-11.1); PLATELET COUNT 272 K/MM3 (134-434); RBC 3.15 M/mm3 (3.60-5.2); RDW 16.8 % (11.6-15.6); WHITE BLOOD COUNT 13.5 K/mm3 (4.0-10.0)
--- NOTE | 2018-09-29 12:44 | PN ---
Teaching Attending Note Name of Resident: Casimiro Cobos ATTENDING PHYSICIAN STATEMENT I saw and evaluated the patient. I reviewed the resident's note and discussed the case with the resident. I agree with the resident's findings and plan as documented. SUBJECTIVE: Pt seen and examined in the ICU. s/p EGD showing duodenal ulcer with visible vessel s/p epinephrine injection and endoclips. More awake today but with increased shortness of breath and tachycardic. OBJECTIVE: Vital Signs Period Temp Pulse Resp BP Sys/Bullock Pulse Ox Last 24 Hr 97.5 F-98.5 F 85-120 13-25 92-127/40-82 98 Intake & Output 09/26/18 09/27/18 09/28/18 09/29/18 23:59 23:59 23:59 23:59 Intake Total 3584 320 Output Total 200 Balance 3384 320 Weight 45.359 kg 50.893 kg Gen: tachypneic at rest Heart: tachycardic, regular Lung: scattered rhonchi Abd: soft, nontender Ext: no edema CBC, BMP 09/29/18 12:20 09/29/18 05:30 CXR: increased congestion Active Medications Chlorhexidine Gluconate (Hibiclens For Decolonization -) 1 applic TP HS DAVID Last Admin: 09/28/18 22:10 Dose: 1 applic Epoetin Dheeraj (Epogen -) 10,000 unit IVPUSH ONCE ONE Stop: 09/29/18 14:24 Pantoprazole Sodium 80 mg/ (Sodium Chloride) 100 mls @ 10 mls/hr IVPB Q10H DAVID Last Admin: 09/29/18 06:17 Dose: 10 mls/hr Sodium Chloride (Normal Saline -) 250 mls @ 3,000 mls/hr IV PRN PRN PRN Reason: Hypotension during Dialysis Stop: 09/29/18 14:23 Insulin Aspart (Novolog Vial Sliding Scale -) 1 vial SQ ACHS DAVID; Protocol Last Admin: 09/29/18 11:22 Dose: Not Given Metoprolol Tartrate (Lopressor -) 25 mg PO BID DAVID Mupirocin (Bactroban Ointment (For Decolonization) -) 1 applic NS BID DAVID Stop: 10/03/18 09:59 Last Admin: 09/28/18 22:10 Dose: 1 applic ASSESSMENT AND PLAN: GI Bleed likely upper Acute Blood Loss Anemia ESRD on HD CAD LV Diastolic Dysfunction Severe Aortic Stenosis HTN DM - resume beta kalyn - HD per renal with ultrafiltration - continue protonix gtt - monitor CBC, coags - transfuse as needed - holding ASA, plavix - replete lytes - NPO - O2 to keep SpO2 >90% - DVT prophylaxis - continue ICU monitoring critical care time spent in reviewing chart, evaluating patient and formulating plan 35 min
--- NOTE | 2018-09-29 13:20 | PN ---
Teaching Attending Note Name of Resident: Teresa Leach ATTENDING PHYSICIAN STATEMENT I saw and evaluated the patient. I reviewed the resident's note and discussed the case with the resident. I agree with the resident's findings and plan as documented. SUBJECTIVE:c/o feeling weak. denies Cp, SOB, fever, chills, N/V/C/D OBJECTIVE: Last Vital Signs Temp Pulse Resp BP Pulse Ox 98.3 F 118 H 25 H 97/49 L 98 09/29/18 10:00 09/29/18 12:00 09/29/18 12:00 09/29/18 12:00 09/29/18 09:00 General NAD CV S1 S2 + +6/6 holosystolic murmur Lungs CTA B/L poor inspiratory effort Abdomen soft NT/ND Extremities trace edema ASSESSMENT AND PLAN: 83yo F wtih PMH ESRD on HD, PUD with previous duodenal ulcer bleeding, Severe , dementia, HTN presented to the ER wtih BRBPR and melena and continues to have active bleeding 1. Upper GI bleed- s/p EGD yesterday with bleeding duodenal ulcer with vissible vessel. s/p epinephrine and clipping. as per RN brown stool last night mixed with melena but no BRBPR. will cont PPI ggt for 72H with MICU monitoring. if re- bleeding will need emergent repeat EGD with surgery standby, however as per surgery family unsure if they want surgery at this time. cont NPO and IVF. hold asa/plavix. 2. Acute blood loss anemia- s/p 4 units PRBC, 2 units platelets. no active bleeding seen. high risk of re-bleed at this time. trend Hgb q8h. hematology on board 3. hypokalemia-resilved 4. Hypophopahtemia- resolved 5. Hypocalcemia- Corrected ca 8. can start supplements once diet is advanced 6. ESRD on HD- no need for emergent HD. can resume per normal schedule 7. Severe - monitor fluid status closely. 8. dementia- 9. HTN- hold oral agents. currently hypotensive 10. CAD s/p stent 2016- hold asa/plavix. cardio consulted. 11. DVT ppx- SCD 12. MICU. prognosis guarded. 13. spoke with sister present at bedside. all questions answered. informed her she will liekly require STR due to anticipated hospital stay. Sister indicates only interested in [facility] or facility in [place]. she is not HCP, however states she believes this is the wishes of the family. notified SW. The care of this patient involved high complexity decision making to prevent further life threatening deterioration of the patient's condition and/or to evaluate & treat vital organ system(s) failure or risk of failure. 40 mins
[2018-09-29] MEDS: METOPROLOL TARTRATE 25 MG TABLET (FP) PO SCH ×2 (13:45→22:00)
[2018-09-29] MEDS: MUPIROCIN 2% TOPICAL OINTMENT FOR DECOLONIZATION NS SCH (13:48)
[2018-09-29] MEDS ORDERED: SODIUM CHLORIDE 250 ML IV PRN (14:12)
[2018-09-29] MEDS ORDERED: EPOETIN ALFA 10,000 UNIT/1 ML VIAL IVPUSH ONE (14:15)
[2018-09-29] MEDS ORDERED: NOREPINEPHRINE BITARTRATE 4 MG/4 ML ML IV ONE ×3 (14:53→20:40)
[2018-09-29] MEDS ORDERED: NOREPINEPHRINE BITARTRATE 4,000 MCG in DEXTROSE 5%-WATER - 496 ML IV SCH (15:00)
--- NOTE | 2018-09-29 15:29 | PN ---
Physical Exam: SUBJECTIVE: Patient seen and examined at bedside. She stated she would like to become full code over night. Patient responds to commands. She is aware of where she is yet still lethargic. She had an EGD performed yesterday with clips placed and epi injected to stop her duodenal ulcer bleeding. No blood transfusions were given overnight. This morning her Hb/Hct was 8.7/26.7. Today in the ED she experienced a hypotensive episode with diastolic pressure dropping into the 30's. Pressors was given for BP support. She is receivign dialysis today. OBJECTIVE: Vital Signs Period Temp Pulse Resp BP Sys/Bullock Pulse Ox Last 24 Hr 97.8 F-98.5 F 85-120 13-25 77-127/40-61 98-98 GENERAL: The patient is awake, lethargic, and arousable. She is in no acute distress, but states she is not comfortable. HEAD: Normal with no signs of trauma. EYES: PERRL, sclera anicteric, conjunctiva clear. No ptosis. ENT: Ears normal, nares patent, oropharynx clear without exudates. NECK: Trachea midline. No adenopathy. Left sided IJ line in place. LUNGS: Decreased breath sounds on the right side. CTA on the left. HEART: regular rate and regular rhythm. systolic murmer. ABDOMEN: Minimal epigastric discomfort. Otherwise abdomen is soft, nontender, nondistended, normoactive bowel sounds, no guarding, no rebound, no hepatosplenomegaly, no masses. EXTREMITIES: 2+ pulses, cold, well-perfused, no edema. There is a Fistula in the Right arm. Left arm has an old fistula which is no longer working or in use. PSYCH: Normal mood, normal affect. SKIN: Warm, dry, normal turgor. Laboratory Results - last 24 hr 09/27/18 09/28/18 09/28/18 23:19 11:39 18:30 WBC Cancelled Corrected WBC (auto) Cancelled RBC Cancelled Hgb Cancelled Hct Cancelled MCV Cancelled MCH Cancelled MCHC Cancelled RDW Cancelled Plt Count Cancelled MPV Cancelled Absolute Neuts (auto) Neutrophils % Lymphocytes % Monocytes % Eosinophils % Basophils % Nucleated RBC % Manual Slide Review Cancelled Platelet Comment Cancelled Sodium Potassium Chloride Carbon Dioxide Anion Gap BUN Creatinine Creat Clearance w eGFR POC Glucometer < 50 Random Glucose Hemoglobin A1c % Calcium Phosphorus Magnesium Total Bilirubin AST ALT Alkaline Phosphatase Total Protein Albumin Blood Type B POSITIVE Antibody Screen Negative Crossmatch See Detail 09/28/18 09/28/18 09/28/18 18:50 19:14 22:03 WBC 12.3 H Corrected WBC (auto) RBC 3.52 L Hgb 9.8 L Hct 30.0 L D MCV 85.3 MCH 27.9 MCHC 32.7 RDW 16.2 H Plt Count 281 D MPV 7.7 Absolute Neuts (auto) Neutrophils % Lymphocytes % Monocytes % Eosinophils % Basophils % Nucleated RBC % Manual Slide Review Platelet Comment Sodium Potassium Chloride Carbon Dioxide Anion Gap BUN Creatinine Creat Clearance w eGFR POC Glucometer < 50 [phone] Random Glucose Hemoglobin A1c % Calcium Phosphorus Magnesium Total Bilirubin AST ALT Alkaline Phosphatase Total Protein Albumin Blood Type Antibody Screen Crossmatch 09/29/18 09/29/18 09/29/18 05:30 05:30 05:30 WBC 12.0 H Corrected WBC (auto) RBC 3.07 L Hgb 8.7 L Hct 25.6 L MCV 83.5 MCH 28.2 MCHC 33.8 RDW 16.1 H Plt Count 234 MPV 7.5 Absolute Neuts (auto) 10.0 H Neutrophils % 83.8 H Lymphocytes % 7.2 L D Monocytes % 6.4 Eosinophils % 2.1 D Basophils % 0.5 Nucleated RBC % 0 Manual Slide Review Platelet Comment Sodium 143 Potassium 4.1 Chloride 110 H Carbon Dioxide 22 Anion Gap 11 BUN 52 H Creatinine 3.6 H Creat Clearance w eGFR 12.05 POC Glucometer Random Glucose 71 L Hemoglobin A1c % 4.9 Calcium 6.8 L* Phosphorus 3.2 Magnesium 1.8 Total Bilirubin 1.2 H AST 11 L ALT 11 L Alkaline Phosphatase 108 Total Protein 4.3 L Albumin 2.1 L Blood Type Antibody Screen Crossmatch 09/29/18 09/29/18 09/29/18 06:02 11:20 12:20 WBC 13.5 H Corrected WBC (auto) RBC 3.15 L Hgb 8.7 L Hct 26.7 L MCV 84.6 MCH 27.6 MCHC 32.6 RDW 16.8 H Plt Count 272 MPV 7.2 L Absolute Neuts (auto) Neutrophils % Lymphocytes % Monocytes % Eosinophils % Basophils % Nucleated RBC % Manual Slide Review Platelet Comment Sodium Potassium Chloride Carbon Dioxide Anion Gap BUN Creatinine Creat Clearance w eGFR POC Glucometer 100.19355 130.37197 Random Glucose Hemoglobin A1c % Calcium Phosphorus Magnesium Total Bilirubin AST ALT Alkaline Phosphatase Total Protein Albumin Blood Type Antibody Screen Crossmatch Active Medications Generic Name Dose Route Start Last Admin Trade Name Fernando PRN Reason Stop Dose Admin Chlorhexidine Gluconate 1 applic 09/28/18 22:00 09/28/18 22:10 Hibiclens For Decolonization - TP 1 applic HS DAVID Administration Pantoprazole Sodium 80 mg/ 100 mls @ 10 mls/hr 09/27/18 23:15 09/29/18 06:17 Sodium Chloride IVPB 10 mls/hr Q10H DAVID Administration 8 MG/HR Norepinephrine Bitartrate 4, 500 mls @ 37.5 mls/hr 09/29/18 15:00 09/29/18 15 :01 000 mcg/ Dextrose IV 5 mcg/min TITR DAVID 37.5 mls/hr Administration Protocol 5 MCG/MIN Insulin Aspart 1 vial 09/28/18 07:00 09/29/18 11:22 Novolog Vial Sliding Scale - SQ Not Given ACHS DAVID Protocol Metoprolol Tartrate 25 mg 09/29/18 12:15 09/29/18 13:45 Lopressor - PO 25 mg BID DAVID Administration Mupirocin 1 applic 09/28/18 10:00 09/29/18 13:48 Bactroban Ointment (For Decolonization) - NS 10/03/18 09:59 1 applic BID DAVID Administration ASSESSMENT/PLAN: Assessment: Julissa is an 83 yo F with a sig pmh of ESRD (M/W/F - dialyzed today ), diastolic CHF dysfunction, severe CAD, HTN, and prior duodenal ulcer bleed who presented to the ICU with a low HB and had a duodenal ulcer identified by CTA as the bleeding source. She received endoscopic therapy with clips and epinephrine to stop the bleeding. Her Hb increased this morning to 8.7. Plan is to continue to monitor for fluid loss, rectal bleeds, hypotension, tachycardia or other signs of continued bleeding. As per Dr. Dorsey's note patient can receive a secondary endoscopic procedure if bleeding continues. We will continue to trend the CBC and transfuse PRBC, platelets, DDAVP as needed. Corrected calcium: 8.7 Magnesium repleted. Norepi for BP support Given patient's hypotensive episode will perform bedside FAST after dialysis is complete to assess for continued bleeding. Plan: GI: - CTA localized active duodenal bleed - EGD clips and epi stopped bleed - Repeat EGD if continuous bleeding - Protonix for prophylaxis Cardio: - Patient is hypotensive. Did not respond to fluid bolus. Starting Norepinephrine for BP support. - IV hydration - PRBC + platelet transfusion + DDAVP - Measure CVP to assess volume status: 8-12 - Patient received echo: Severe left concentric LVH, Significant akinesis, LVEF = 35%, LA dilatation, Severe aortic sclerosis + Aortic stenosis, mitral valve thickening. - Holding Aspirin and plavix Heme: - Anemia secondary to acute blood loss and ESRD. Will transfuse PRBC as needed to keep Hb greater than 7. Renal: - Patient received dialysis today. Renal on board and Dr. Sexton said we can go ahead with CTA bc patient will get dialysis tomorrow. - transfusing platelets - Patient receiving erythropoiten as per renal Derm: - Pressure ulcer: unstageable - Wound care consulted: Dr. Benson Endo: - Will monitor glucose levels and give sliding scale. Neuro: - No focal problems ID: - No problems at present Prophylaxis: -Hold AC due to active GI bleeding. SCDs and MARCOS's -Protonix drip for GI F/E/N: - Will give IV hydration NS @50mls/hr, platelets, RBC, DDAVP, +/- FFP. - Mag repleted. Will continue to replete electrolytes PRN. - NPO Code Status: - Full Code Dispo: -Patient will continue to receive ICU level care. Visit type - Emergency Visit Emergency Visit: Yes ED Registration Date: 09/28/18 Care time: The patient presented to the Emergency Department on the above date and was hospitalized for further evaluation of their emergent condition. - New Patient This patient is new to me today: No - Critical Care Critical Care patient: Yes Total Critical Care Time (in minutes): 36 Critical Care Statement: The care of this patient involved high complexity decision making to prevent further life threatening deterioration of the patient 's condition and/or to evaluate & treat vital organ system(s) failure or risk of failure.
--- NOTE | 2018-09-29 15:37 | EKG ---
Test Reason : Blood Pressure : / mmHG Vent. Rate : 106 BPM Atrial Rate : 106 BPM P-R Int : 186 ms QRS Dur : 098 ms QT Int : 356 ms P-R-T Axes : 049 -18 180 degrees QTc Int : 472 ms POOR DATA QUALITY, INTERPRETATION MAY BE ADVERSELY AFFECTED SINUS TACHYCARDIA POSSIBLE LEFT ATRIAL ENLARGEMENT ANTEROSEPTAL INFARCT (CITED ON OR BEFORE 27-SEP-2018) ABNORMAL ECG WHEN COMPARED WITH ECG OF 27-SEP-2018 23:59, PREMATURE VENTRICULAR COMPLEXES ARE NO LONGER PRESENT SERIAL CHANGES OF EVOLVING ANTEROSEPTAL INFARCT PRESENT Confirmed by GOLDY ROLON, ONEIDA ([id number]) on 09/29/2018 3:37:13 PM Referred By: Confirmed By:ONEIDA WINSLOW MD
--- NOTE | 2018-09-29 16:35 | PN ---
Progress Note (short form) - Note Progress Note: covering dr del rio Problems 1. ESRD 2. DM 3. GI bleed 4. anemia 5. HTN Current Medications Chlorhexidine Gluconate (Hibiclens For Decolonization -) 1 applic TP HS [facility] Last Admin: 09/28/18 22:10 Dose: 1 applic Pantoprazole Sodium 80 mg/ (Sodium Chloride) 100 mls @ 10 mls/hr IVPB Q10H DAVID Last Admin: 09/29/18 06:17 Dose: 10 mls/hr Norepinephrine Bitartrate 4, (000 mcg/ Dextrose) 500 mls @ 37.5 mls/hr IV TITR DAVID; Protocol Last Admin: 09/29/18 15:01 Dose: 5 mcg/min, 37.5 mls/hr Insulin Aspart (Novolog Vial Sliding Scale -) 1 vial SQ ACHS [facility]; Protocol Last Admin: 09/29/18 11:22 Dose: Not Given Metoprolol Tartrate (Lopressor -) 25 mg PO BID [facility] Last Admin: 09/29/18 13:45 Dose: 25 mg Mupirocin (Bactroban Ointment (For Decolonization) -) 1 applic NS BID [facility] Stop: 10/03/18 09:59 Last Admin: 09/29/18 13:48 Dose: 1 applic Last Vital Signs Temp Pulse Resp BP Pulse Ox 98.2 F 97 H 20 77/41 L 98 09/29/18 14:00 09/29/18 15:01 09/29/18 14:00 09/29/18 15:01 09/29/18 09:00 hypotensive started on pressors for dialysis BP 95/54 during HD [place] CBC, BMP 09/29/18 12:20 09/29/18 05:30 ESRD Hypotensive tolerating HD well so far Plan - pt goes to HD in [place] [phone] - 3 hrs, 16 gauge needs, 350 abf, no heparin, epogen 7200 units, right AVF
--- NOTE | 2018-09-29 18:59 | PN ---
Progress Note, Physician History of Present Illness: Pt with duodenal bulb bleeding ulcer with visible vessel, s/p endoscopic injection and clipping yesterday. H/H has been stable since last transfusion. Per nurse, had black/dark BM overnight, but nothing since 7am. Pt is seen and examined in ICU bed, currently completing hemodialysis. On pressor for BP support during dialysis, had her usual metoprolol 25mg just before 2pm. She is sleeping, and does not respond to questions, though she did move a bit in response to being touched. - Current Medication List Current Medications: Active Medications Chlorhexidine Gluconate (Hibiclens For Decolonization -) 1 applic TP HS DAVID Last Admin: 09/28/18 22:10 Dose: 1 applic Pantoprazole Sodium 80 mg/ (Sodium Chloride) 100 mls @ 10 mls/hr IVPB Q10H DAVID Last Admin: 09/29/18 06:17 Dose: 10 mls/hr Norepinephrine Bitartrate 4, (000 mcg/ Dextrose) 500 mls @ 37.5 mls/hr IV TITR DAVID; Protocol Last Admin: 09/29/18 15:01 Dose: 5 mcg/min, 37.5 mls/hr Insulin Aspart (Novolog Vial Sliding Scale -) 1 vial SQ ACHS [facility]; Protocol Last Admin: 09/29/18 11:22 Dose: Not Given Metoprolol Tartrate (Lopressor -) 25 mg PO BID [facility] Last Admin: 09/29/18 13:45 Dose: 25 mg Mupirocin (Bactroban Ointment (For Decolonization) -) 1 applic NS BID [facility] Stop: 10/03/18 09:59 Last Admin: 09/29/18 13:48 Dose: 1 applic - Objective Vital Signs: Vital Signs Temperature 98.8 F 09/29/18 15:55 Pulse Rate 101 H 09/29/18 18:00 Respiratory Rate 24 H 09/29/18 18:00 Blood Pressure 114/56 L 09/29/18 18:00 O2 Sat by Pulse Oximetry (%) 98 09/29/18 09:00 Vital Signs Period Temp Pulse Resp BP Sys/Bullock Pulse Ox Last 24 Hr 97.8 F-98.8 F 85-122 14-28 77-121/40-59 98-100 Constitutional: Yes: No Distress, Calm, Thin Eyes: Yes: Conjunctiva Clear. No: Sclera Icterus HENT: Yes: Atraumatic, Normocephalic Cardiovascular: Yes: Tachycardia. No: Pulse Irregular Respiratory: Yes: Regular, On Nasal O2, Tachypnea Gastrointestinal: Yes: Soft, Distention (mild). No: Tenderness (none apparent) ...Rectal Exam: Yes: Deferred, Other (nothing noted in diaper on brief look) Extremities: Yes: Other (right upper arm fistula in use). No: Cool, Cyanosis Integumentary: No: Jaundice, Rash Neurological: Yes: Lethargy (resting). No: Alert Labs: CBC, BMP 09/29/18 12:20 09/29/18 05:30 CMP Sodium 143 mmol/L (136-145) 09/29/18 05:30 Potassium 4.1 mmol/L (3.5-5.1) 09/29/18 05:30 Chloride 110 mmol/L (98-107) H 09/29/18 05:30 Carbon Dioxide 22 mmol/L (21-32) 09/29/18 05:30 Anion Gap 11 MMOL/L (8-16) 09/29/18 05:30 BUN 52 mg/dL (7-18) H 09/29/18 05:30 Creatinine 3.6 mg/dL (0.55-1.3) H 09/29/18 05:30 Creat Clearance w eGFR 12.05 (>60) 09/29/18 05:30 POC Glucometer 105.36935 UNITS (80-120) 09/29/18 20:30 Random Glucose 71 mg/dL (74-106) L 09/29/18 05:30 Hemoglobin A1c % 4.9 % (4.2-6.3) 09/29/18 05:30 Calcium 6.8 mg/dL (8.5-10.1) L* 09/29/18 05:30 Phosphorus 3.2 mg/dL (2.5-4.9) 09/29/18 05:30 Magnesium 1.8 mg/dL (1.8-2.4) 09/29/18 05:30 Total Bilirubin 1.2 mg/dL (0.2-1) H 09/29/18 05:30 AST 11 U/L (15-37) L 09/29/18 05:30 ALT 11 U/L (13-61) L 09/29/18 05:30 Alkaline Phosphatase 108 U/L (45-117) 09/29/18 05:30 Total Protein 4.3 g/dl (6.4-8.2) L 09/29/18 05:30 Albumin 2.1 g/dl (3.4-5.0) L 09/29/18 05:30 Problem List - Problems (1) Acute duodenal ulcer with hemorrhage Assessment/Plan: UGIB in elderly female with ESRD on HD, severe aortic stenosis, CAD s/p stent on ASA/Plavix (currently held) duodenal bulb ulcer with visible vessel controlled endoscopically dark BM overnight, but nothing since suggests no ongoing active bleeding NPO/IVF trend H/H, labs transfuse blood and/or platelets as indicated - per hematology, would keep Hct close to 30 supportive ICU care HD in progress; low pressure may be related to beta blockade, though she is tachy as well may need more fluids or blood to stay off pressors discussed with ICU team members Highest risk for rebleeding is in first 24-72 hours. Keep NPO until cleared by GI for diet resumption. Hold ASA/plavix. Monitor stool output to see when BMs turn nonbloody/brown. If she does not rebleed, but recovers from this episode, family, cardiology and hematology may also have to consider risk/benefit ratio of resuming antiplatelet therapy. Code(s): K26.0 - ACUTE DUODENAL ULCER WITH HEMORRHAGE (2) Acute blood loss anemia Code(s): D62 - ACUTE POSTHEMORRHAGIC ANEMIA (3) Bright red blood per rectum Code(s): K62.5 - HEMORRHAGE OF ANUS AND RECTUM (4) Aortic stenosis Code(s): Q25.3 - SUPRAVALVULAR AORTIC STENOSIS (5) CAD (coronary artery disease) Code(s): I25.10 - ATHSCL HEART DISEASE OF [place] CORONARY ARTERY W/O ANG PCTRS Qualifiers: Coronary Disease-Associated Artery/Lesion type: [place] artery [place] vs. 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 Code(s): E11.29 - TYPE 2 DIABETES MELLITUS W OTH DIABETIC KIDNEY COMPLICATION Qualifiers: Diabetes mellitus intermediate insulin use: without intermediate use Diabetes mellitus complication detail: with chronic kidney disease Chronic kidney disease stage: on chronic dialysis Qualified Code(s): E11.22 - Type 2 diabetes mellitus with diabetic chronic kidney disease; N18.6 - End stage renal disease; Z99.2 - Dependence on renal dialysis (7) HTN (hypertension) Code(s): I10 - ESSENTIAL (PRIMARY) HYPERTENSION Qualifiers: Hypertension type: essential hypertension Qualified Code(s): I10 - Essential (primary) hypertension
--- NOTE | 2018-09-29 19:55 | PN ---
Teaching Attending Note Name of Resident: Anirudh Vann ATTENDING PHYSICIAN STATEMENT I saw and evaluated the patient. I reviewed the resident's note and discussed the case with the resident. I agree with the resident's findings and plan as documented. SUBJECTIVE: Results of EGD noted with active ulcer clipped and injected with epinephrine. Currently no active bleeding Lethargic Last Vital Signs Temp Pulse Resp BP Pulse Ox 98.8 F 120 H 21 H 96/53 L 98 09/29/18 15:55 09/29/18 19:05 09/29/18 19:05 09/29/18 19:05 09/29/18 09:00 HEENT: DEIDRE, EOM Intact Oropharynx: No thrush, No mucositis Cor: RSR, loud systolic murmur heard throughout precordium Lungs: diminished breath sounds Abd: Soft, Normal bowel sounds, Ext:No significant edema Skin: No rashes, Integument intact INR, PTT INR 1.34 (0.83-1.09) H 09/27/18 23:19 CBC, BMP 09/29/18 12:20 09/29/18 05:30 Current Medications Generic Name Dose Route Start Last Admin Trade Name Foreignq PRN Reason Stop Dose Admin Chlorhexidine Gluconate 1 applic 09/28/18 22:00 09/28/18 22:10 Hibiclens For Decolonization - TP 1 applic HS DAVID Administration Pantoprazole Sodium 80 mg/ 100 mls @ 10 mls/hr 09/27/18 23:15 09/29/18 06:17 Sodium Chloride IVPB 10 mls/hr Q10H DAVID Administration 8 MG/HR Norepinephrine Bitartrate 4, 500 mls @ 37.5 mls/hr 09/29/18 15:00 09/29/18 15 :01 000 mcg/ Dextrose IV 5 mcg/min TITR DAVID 37.5 mls/hr Administration Protocol 5 MCG/MIN Insulin Aspart 1 vial 09/28/18 07:00 09/29/18 11:22 Novolog Vial Sliding Scale - SQ Not Given ACHS DAVID Protocol Metoprolol Tartrate 25 mg 09/29/18 12:15 09/29/18 13:45 Lopressor - PO 25 mg BID DAVID Administration Mupirocin 1 applic 09/28/18 10:00 09/29/18 13:48 Bactroban Ointment (For Decolonization) - NS 10/03/18 09:59 1 applic BID DAVID Administration Impression: Active ulcer bleed sp. endoclip and epinephrine injection ESRD/HD Pressor support Continue to monitor off a/c Maintain Hct if possible close to 30%/ Hb-10 gm Blood bank support prn bleeding OBJECTIVE: ASSESSMENT AND PLAN:
[2018-09-29] MEDS ORDERED: ATROPINE SULFATE 1 MG/10 ML DISP.SYRIN ONE (20:23)
[2018-09-29] MEDS ORDERED: SODIUM BICARBONATE 8.4% 50 MEQ/50 ML VIAL ONE (20:30)
[2018-09-29] MEDS ORDERED: DEXTROSE 50%-WATER 25 GM/50 ML DISP.SYRIN ONE (20:30)
[2018-09-29] MEDS ORDERED: EPINEPHrine 1:1,000 1 MG/1 ML - 30ML VIAL (INJECTION) IV SCH (20:41)
[2018-09-29] MEDS ORDERED: EPINEPHrine 1:1,000 1 MG/1 ML - 30ML VIAL (INJECTION) IV ONE ×4 (20:43→20:45)
[2018-09-29] MEDS ORDERED: SODIUM BICARBONATE 8.4% 50 MEQ/50 ML DISP.SYRIN IVPUSH ONE (21:00)
--- NOTE | 2018-09-29 21:03 | HOSP ---
Subjective - Review of Symptoms Events since last encounter: Code 99 called at 8:24 pm ACLS protocol begun, patient intubated Breath sounds heard bilaterally ROSC obtained after 15 minutes Please see code sheet for further details Physical Examination Vital Signs: Vital Signs Temperature 98.8 F 09/29/18 15:55 Pulse Rate 119 H 09/29/18 20:53 Respiratory Rate 14 09/29/18 20:50 Blood Pressure 96/53 L 09/29/18 19:05 O2 Sat by Pulse Oximetry (%) 100 09/29/18 20:53
[2018-09-29] MEDS ORDERED: SODIUM CHLORIDE 1,000 ML IV STA (21:04)
[2018-09-29 21:06] LABS: BASO % 0.1 % (0-2.0); HEMATOCRIT 26.8 % (32.4-45.2); HEMOGLOBIN 8.6 GM/dL (10.7-15.3); LYMPH % 18.4 % (8-40); MCH 27.2 pg (25.7-33.7); MEAN CELL VOLUME 85.1 fl (80-96); MEAN PLT VOLUME 7.2 fl (7.5-11.1); MONO % 3.8 % (3.8-10.2); NEUT % 77.7 % (42.8-82.8); PLATELET COUNT 275 K/MM3 (134-434); RBC 3.15 M/mm3 (3.60-5.2); RDW 16.8 % (11.6-15.6); WHITE BLOOD COUNT 12.1 K/mm3 (4.0-10.0)
[2018-09-29] MEDS ORDERED: MIDAZOLAM 100 MG/100 ML MG IVPB ONE (21:15)
[2018-09-29] MEDS: MIDAZOLAM 100 MG in SODIUM CHLORIDE 100 ML IVPB SCH (21:25)
[2018-09-29 21:40] LABS: ALK PHOS 121 U/L (45-117); ANION GAP 11 MMOL/L (8-16); BILIRUBIN,TOTAL 0.6 mg/dL (0.2-1); BLOOD UREA NITROGEN 21 mg/dL (7-18); CHLORIDE 107 mmol/L (98-107); CO2 30 mmol/L (21-32); GLUCOSE,RANDOM 118 mg/dL (74-106); MAGNESIUM 1.9 mg/dL (1.8-2.4); POTASSIUM 3.7 mmol/L (3.5-5.1); SGOT/AST 59 U/L (15-37); SGPT/ALT 24 U/L (13-61); SODIUM 148 mmol/L (136-145); TOT PROT 4.1 g/dl (6.4-8.2)
[2018-09-29] MEDS ORDERED: EPINEPHrine 1:10,000 (P-F SYR) 1 MG/10 ML DISP.SYRIN IVPUSH SCH (21:45)
--- NOTE | 2018-09-29 21:53 | PN ---
Progress Note (short form) - Note Progress Note: CODE 99 called at 2023 w/ ROSC at 2037 See code sheet for details Cause of code unknown at this time Two hours prior, patient completed Hemodialysis with 1.5 liters of volume removed Patient was hypotensive causing hypoperfusion possibly from GI bleed Levophed at 25 mcg VERSED drip started Patient intubated 1.5 L of NS given Labwork done and revealed H/H of 8.6/26.8 Checked her diaper around 22:45 and patient had large dark colored bloody BM Will give PRBC's Repeat CBC afterwards Continue to maintain MAP >65 Spoke to family at length on goals of care as well as code status. Patient's HCP, Virginia Ng, spoke to the family and all agreed to make patient DNR, as she previously wanted that. They do no want more IV access lines such as central lines and A-Lines. They want us to continue treatment such as antibiotics and blood products. Spoke to them about comfort measures and are still discussing with the family. Virginia Ng stated they would like to make that decision tomorrow. Will consult Yvette for discussion with family on comfort measures
--- NOTE | 2018-09-29 22:04 | PN ---
Teaching Attending Note Name of Resident: Leonila Martinez ATTENDING PHYSICIAN STATEMENT/CODE NOTE/PROCEDURE NOTE I saw and evaluated the patient. I reviewed the resident's note and discussed the case with the resident. I agree with the resident's findings and plan as documented. Code 99 called overhead; came to the patient's room in ICU and she aparently had ileana'd down and lost pulse, entering PEA. Compressions started; remained in PEA throughout the code. 5 round epi, one round bicarb; please see code sheet for further details. Coded for ~15 mins until we got pulses back by doppler. Family called during code who confirmed they wanted everything done. She did have pulses back by femoral doppler. Cause of code is unknown at this time with labs being obtained, but given the hypotension and known marked I suspect hypotension could have precipitated this combined with the valvular abnormality. Glucose was normal. At risk for elyte abnormalities given ESRD. Furthermore, there is no bright red or black blood out during the code but we will reexamine for bleed and recheck H/H; GI will be updated by resident. Overall, plan to keep MAP >65 and replace the fluid taken off with HD. Doing well on the ventiallator with initial settings 450/14/5/100% and will titrate per the protocol, following ABGs. Will discuss with family regarding placing an art line. Procedure: Due to emergency nature of procedure was done in code setting Using a MAC#4 I visualized the larynx. Minimal non-bloody secretions suctioned. 7.0 tube placed due to anterior airway and small space between cords. Lip line 24 at first but may have been moved after; BS heard on both sides with sym expansion. Bagged and did get to 100%. Complications: none Induction drugs: none Results: Satisfactory emergency ET tube placement, awaiting confirmation with CXR
[2018-09-29 23:08] LABS: ARTERIAL BLD GAS O2 SATURATION 95.6 % (90-98.9); ARTERIAL BLOOD GAS PCO2 40.6 mmHg (35-45); ARTERIAL BLOOD GAS pH 7.44 (7.35-7.45)
[2018-09-29 23:09] LABS: ALLENS TEST POSITIVE
[2018-09-30] MEDS ORDERED: VANCOMYCIN 1 GRAM (PRE-DOCKED) 1,000 MG/250 ML BAG IVPB ONE (00:15)
[2018-09-30 01:00] LABS: BASO % 0.6 % (0-2.0); EOS % 0.1 % (0-4.5); HEMATOCRIT 32.9 % (32.4-45.2); LYMPH % 15.1 % (8-40); MCH 28.3 pg (25.7-33.7); MCHC 33.3 g/dl (32.0-36.0); MEAN CELL VOLUME 84.9 fl (80-96); MEAN PLT VOLUME 7.3 fl (7.5-11.1); MONO % 5.5 % (3.8-10.2); NEUT % 78.7 % (42.8-82.8); PLATELET COUNT 222 K/MM3 (134-434); RBC 3.87 M/mm3 (3.60-5.2); RDW 16.3 % (11.6-15.6); WHITE BLOOD COUNT 2.5 K/mm3 (4.0-10.0)
[2018-09-30] MEDS ORDERED: PIPERACILLIN/TAZOB 2.25 GM 2.25 GM in DEXTROSE 5%-WATER - 50 ML IVPB SCH (02:00)
[2018-09-30] MEDS: INSULIN SLIDING SCALE (NOVOLOG) 1 VIAL SQ SCH ×5 (02:15→22:05)
[2018-09-30] MEDS ORDERED: DEXTROSE 5%-WATER - 50 ML IVPB ONE ×3 (02:17→17:05)
[2018-09-30] MEDS ORDERED: PIPERACILLIN/TAZOBACTAM 2.25 GM VIAL IVPB ONE ×3 (02:17→17:05)
[2018-09-30] MEDS: CHLORHEXIDINE GLUCONATE 4% CLEANSER FOR DECOLONIZATION TP SCH ×2 (02:27→23:25)
[2018-09-30] MEDS: MUPIROCIN 2% TOPICAL OINTMENT FOR DECOLONIZATION NS SCH ×3 (02:27→23:25)
[2018-09-30] MEDS: PANTOPRAZOLE SODIUM 80 MG in SODIUM CHLORIDE 100 ML IVPB SCH ×4 (02:27→22:36)
[2018-09-30] MEDS ORDERED: NOREPINEPHRINE BITARTRATE 4 MG/4 ML ML IV ONE ×3 (04:27→14:54)
[2018-09-30 05:52] LABS: HEMATOCRIT 32.8 % (32.4-45.2); MCH 28.1 pg (25.7-33.7); MCHC 33.5 g/dl (32.0-36.0); MEAN CELL VOLUME 84.1 fl (80-96); MEAN PLT VOLUME 7.6 fl (7.5-11.1); PLATELET COUNT 224 K/MM3 (134-434); RBC 3.91 M/mm3 (3.60-5.2); RDW 16.4 % (11.6-15.6); WHITE BLOOD COUNT 2.4 K/mm3 (4.0-10.0)
[2018-09-30 05:57] LABS: OSMOLALITY,SERUM 302 mosm/kg (278-305)
[2018-09-30] MEDS ORDERED: ACETAMINOPHEN 1000 MG/100 ML VIAL (NON FORMULARY) IVPB ONE ×2 (05:59→14:14)
[2018-09-30 06:43] LABS: ARTERIAL BLD GAS O2 SATURATION 98.5 % (90-98.9); ARTERIAL BLOOD GAS BASE EXCESS 3.3 meq/l (-2-2); ARTERIAL BLOOD GAS PCO2 35.2 mmHg (35-45); ARTERIAL BLOOD GAS pH 7.49 (7.35-7.45)
[2018-09-30 06:47] LABS: ALBUMIN 1.9 g/dl (3.4-5.0); ALK PHOS 122 U/L (45-117); ANION GAP 8 MMOL/L (8-16); BLOOD UREA NITROGEN 26 mg/dL (7-18); CALCIUM 7.2 mg/dL (8.5-10.1); CHLORIDE 105 mmol/L (98-107); CO2 28 mmol/L (21-32); CREATININE 2.2 mg/dL (0.55-1.3); GLUCOSE,RANDOM 135 mg/dL (74-106); MAGNESIUM 1.7 mg/dL (1.8-2.4); PHOSPHOROUS 1.9 mg/dL (2.5-4.9); POTASSIUM 3.5 mmol/L (3.5-5.1); SGOT/AST 76 U/L (15-37); SGPT/ALT 27 U/L (13-61); SODIUM 142 mmol/L (136-145); TOT PROT 4.2 g/dl (6.4-8.2)
[2018-09-30 07:15] LABS: ALLENS TEST POSITIVE
[2018-09-30] MEDS ORDERED: MAGNESIUM SULF 50% (8.12 MEQ/2 ML-1 GM VIAL) IVPB ONE ×2 (07:41→12:00)
[2018-09-30] MEDS: NOREPINEPHRINE BITARTRATE 8,000 MCG in DEXTROSE 5%-WATER - 492 ML IV SCH ×2 (07:43→15:00)
[2018-09-30] MEDS ORDERED: VASOPRESSIN 50 UNITS in SODIUM CHLORIDE 97.5 ML IVPB SCH (07:45)
[2018-09-30] MEDS: VASOPRESSIN 50 UNITS in SODIUM CHLORIDE 97.5 ML IVPB SCH ×2 (08:02→19:27)
[2018-09-30] MEDS ORDERED: POTASSIUM PHOSPHATE 15 MM in SODIUM CHLORIDE 250 ML IVPB ONE (09:30)
--- NOTE | 2018-09-30 09:47 | PN ---
GI Progress Note Subjective: Oldest daughter at bedside Overnight events noted. Patient became bradycardic with desaturation A black BM reported overnight No active overt bleeding noted Received 1 U PRBC - Objective Vital Signs: Vital Signs Temperature 100.2 F H 09/30/18 06:00 Pulse Rate 88 09/30/18 08:54 Respiratory Rate 23 H 09/30/18 08:54 Blood Pressure 59/37 L 09/30/18 08:03 O2 Sat by Pulse Oximetry (%) 98 09/30/18 08:54 Constitutional: Calm Eyes: No: Sclera Icterus Cardiovascular: Yes: Regular Rate and Rhythm Respiratory: Yes: Diminished (at bases bilaterally) Gastrointestinal Inspection: No: Distention ...Auscultate: Yes: Normoactive Bowel Sounds ...Palpate: No: Hepatomegaly, Splenomegaly, Tenderness (No grimacing upon palpation) Edema: No (No LE edema) Neurological: Yes: Other (Intubated, sedated) Labs: CBC, BMP 09/30/18 05:30 09/30/18 05:30 INR, PTT INR 1.34 (0.83-1.09) H 09/27/18 23:19 Problem List - Problems (1) GI bleeding Assessment/Plan: No overt bleeding reported with stable H/H Continue PPI drip for total 72 hours Per chart family opting for no further invasive testing and comfort measures are being discussed Continue supportive measures Patient critically ill Code(s): K92.2 - GASTROINTESTINAL HEMORRHAGE, UNSPECIFIED
[2018-09-30] MEDS ORDERED: PT OWN MED DRAWER 7, Y5N ONE ×2 (11:45→23:28)
[2018-09-30] MEDS: METOPROLOL TARTRATE 25 MG TABLET (FP) PO SCH ×2 (12:10→21:02)
--- NOTE | 2018-09-30 12:14 | PN ---
Teaching Attending Note Name of Resident: Casimiro Cobos ATTENDING PHYSICIAN STATEMENT I saw and evaluated the patient. I reviewed the resident's note and discussed the case with the resident. I agree with the resident's findings and plan as documented. SUBJECTIVE: Pt seen and examined in the ICU. Events overnight noted. Pt now intubated, sedated on levophed gtt. CXR with large RLL consolidation suggestive of aspiration. OBJECTIVE: Vital Signs Period Temp Pulse Resp BP Sys/Bullock Pulse Ox Last 24 Hr 98.2 F-101.6 F 88-122 9-28 59-118/36-75 98-100 Intake & Output 09/27/18 09/28/18 09/29/18 09/30/18 23:59 23:59 23:59 23:59 Intake Total 3584 1824 1057 Output Total 200 Balance 3384 1824 1057 Weight 45.359 kg 50.893 kg 53.705 kg Gen: intubated, sedated Heart: tachycardic, regular Lung: bilateral rhonchi Abd: soft, nontender Ext: no edema CBC, BMP 09/30/18 05:30 09/30/18 05:30 Active Medications Chlorhexidine Gluconate (Hibiclens For Decolonization -) 1 applic TP HS DAVID Last Admin: 09/30/18 02:27 Dose: 1 applic Pantoprazole Sodium 80 mg/ (Sodium Chloride) 100 mls @ 10 mls/hr IVPB Q10H DAVID Last Admin: 09/30/18 02:27 Dose: 10 mls/hr Midazolam HCl 100 mg/ Sodium (Chloride) 100 mls @ 1 mls/hr IVPB TITR DAVID; Protocol Last Admin: 09/29/18 21:25 Dose: 1 mg/hr, 1 mls/hr Norepinephrine Bitartrate 8, (000 mcg/ Dextrose) 500 mls @ 18.75 mls/hr IV TITR DAVID; Protocol Last Titration: 09/30/18 12:07 Dose: 18 mcg/min, 67.5 mls/hr Potassium Phosphate 15 mm/ (Sodium Chloride) 255 mls @ 62.5 mls/hr IVPB ONCE ONE Stop: 09/30/18 13:34 Vasopressin 50 units/ Sodium (Chloride) 100 mls @ 4 mls/hr IVPB ASDIR DAVID; Protocol Last Titration: 09/30/18 08:03 Dose: 4 units/hr, 8 mls/hr Piperacillin Sod/Tazobactam (Sod 2.25 gm/ Dextrose) 50 mls @ 100 mls/hr IVPB Q8H-IV DAVID; Protocol Insulin Aspart (Novolog Vial Sliding Scale -) 1 vial SQ ACHS DAVID; Protocol Last Admin: 09/30/18 11:54 Dose: 4 units Metoprolol Tartrate (Lopressor -) 25 mg PO BID [facility] Last Admin: 09/30/18 12:10 Dose: Not Given Mupirocin (Bactroban Ointment (For Decolonization) -) 1 applic NS BID [facility] Stop: 10/03/18 09:59 Last Admin: 09/30/18 11:45 Dose: 1 applic ASSESSMENT AND PLAN: Acute Hypoxic Respiratory Failure s/p Bradycardic Cardiac Arrest Pneumonia likely Aspiration Septic Shock GI Bleed likely upper Acute Blood Loss Anemia ESRD on HD CAD LV Diastolic Dysfunction Severe Aortic Stenosis HTN DM - continue antibiotics - f/u cultures - titrate pressors to maintain MAP >65 - HD per renal - continue protonix gtt - monitor CBC, coags - transfuse as needed - holding ASA, plavix - replete lytes - NPO - O2 to keep SpO2 >90% - DVT prophylaxis - continue ICU monitoring critical care time spent in reviewing chart, evaluating patient and formulating plan 35 min
--- NOTE | 2018-09-30 12:22 | PN ---
Progress Note, Physician History of Present Illness: Post bradycardic/PEA arrest. Pt now intubated, sedated on levophed gtt. CXR with large RLL consolidation suggestive of aspiration. - Current Medication List Current Medications: Active Medications Chlorhexidine Gluconate (Hibiclens For Decolonization -) 1 applic TP HS DAVID Last Admin: 09/30/18 02:27 Dose: 1 applic Pantoprazole Sodium 80 mg/ (Sodium Chloride) 100 mls @ 10 mls/hr IVPB Q10H DAVID Last Admin: 09/30/18 02:27 Dose: 10 mls/hr Midazolam HCl 100 mg/ Sodium (Chloride) 100 mls @ 1 mls/hr IVPB TITR DAVID; Protocol Last Admin: 09/29/18 21:25 Dose: 1 mg/hr, 1 mls/hr Norepinephrine Bitartrate 8, (000 mcg/ Dextrose) 500 mls @ 18.75 mls/hr IV TITR DAVID; Protocol Last Titration: 09/30/18 12:07 Dose: 18 mcg/min, 67.5 mls/hr Potassium Phosphate 15 mm/ (Sodium Chloride) 255 mls @ 62.5 mls/hr IVPB ONCE ONE Stop: 09/30/18 13:34 Vasopressin 50 units/ Sodium (Chloride) 100 mls @ 4 mls/hr IVPB ASDIR DAVID; Protocol Last Titration: 09/30/18 08:03 Dose: 4 units/hr, 8 mls/hr Piperacillin Sod/Tazobactam (Sod 2.25 gm/ Dextrose) 50 mls @ 100 mls/hr IVPB Q8H-IV DAVID; Protocol Insulin Aspart (Novolog Vial Sliding Scale -) 1 vial SQ ACHS [facility]; Protocol Last Admin: 09/30/18 11:54 Dose: 4 units Metoprolol Tartrate (Lopressor -) 25 mg PO BID DAVID Last Admin: 09/30/18 12:10 Dose: Not Given Mupirocin (Bactroban Ointment (For Decolonization) -) 1 applic NS BID DAVID Stop: 10/03/18 09:59 Last Admin: 09/30/18 11:45 Dose: 1 applic - Objective Vital Signs: Vital Signs Temperature 101.6 F H 09/30/18 10:00 Pulse Rate 94 H 09/30/18 12:07 Respiratory Rate 9 L 09/30/18 10:00 Blood Pressure 98/50 L 09/30/18 12:07 O2 Sat by Pulse Oximetry (%) 98 09/30/18 08:54 Labs: CBC, BMP 09/30/18 05:30 09/30/18 05:30 INR, PTT INR 1.34 (0.83-1.09) H 09/27/18 23:19 - ....Imaging Chest X-ray: Report Reviewed (Right lung infiltrate) Problem List - Problems (1) Old myocardial infarction Code(s): I25.2 - OLD MYOCARDIAL INFARCTION (2) Systolic dysfunction without heart failure Code(s): I51.89 - OTHER ILL-DEFINED HEART DISEASES (3) Acute duodenal ulcer with hemorrhage Code(s): K26.0 - ACUTE DUODENAL ULCER WITH HEMORRHAGE (4) Acute blood loss anemia Code(s): D62 - ACUTE POSTHEMORRHAGIC ANEMIA (5) Aortic stenosis Code(s): Q25.3 - SUPRAVALVULAR AORTIC STENOSIS (6) CAD (coronary artery disease) Code(s): I25.10 - ATHSCL HEART DISEASE OF [place] CORONARY ARTERY W/O ANG PCTRS Qualifiers: Coronary Disease-Associated Artery/Lesion type: [place] artery [place] vs. transplanted heart: [place] heart Associated angina: without angina Qualified Code(s): I25.10 - Atherosclerotic heart disease of [place] coronary artery without angina pectoris (7) DM (diabetes mellitus) type II controlled with renal manifestation Code(s): E11.29 - TYPE 2 DIABETES MELLITUS W OTH DIABETIC KIDNEY COMPLICATION Qualifiers: Diabetes mellitus shelter insulin use: without shelter use Diabetes mellitus complication detail: with chronic kidney disease Chronic kidney disease stage: on chronic dialysis Qualified Code(s): E11.22 - Type 2 diabetes mellitus with diabetic chronic kidney disease; N18.6 - End stage renal disease; Z99.2 - Dependence on renal dialysis (8) ESRD on hemodialysis Code(s): N18.6 - END STAGE RENAL DISEASE; Z99.2 - DEPENDENCE ON RENAL DIALYSIS Assessment/Plan 09/28/2018 Echo: Normal LV size with severe cLVH, distal anterior, inferior, septal and apical AK, mod decreased LVEF 35%, normal RV size and fxn, mod LAE, severe MARCIA 0.67 cm^2 MG 44 mmHg, trivial pericardial effusion 1. Acute Hypoxic Respiratory Failure s/p Bradycardic Cardiac Arrest 2. Pneumonia likely Aspiration 3. Septic Shock 4. UGI bleed secondary to ulcer with bleeding visible vessel in the duodenal bulb S/P epinephrine injection and endoclip therapy in setting of having dual antiplatelet therapy on board 5. CAD post NV, s/p PCI/stent, angina 6. LV systolic dysfunction 7. Severe aortic valve stenosis 8. Hypercholesterolemia 9. ESRD on HD via AV fistula 10. H/o HTN PLAN: 1. PPI gtt with monitor Hgb and transfuse PRBC as needed 2. ASA and Plavix have been held until hemostasis assured 3. Wean pressors to maintain MAP >65, hold Lopressor 25 bid pending hemodynamics stability 4. Records to be obtained from her hose builder in [place] ([facility]: Jimenez Monroe MD) 5. HD as per Renal service 6. Empiric abx f/u C&S
--- NOTE | 2018-09-30 12:33 | PN ---
Physical Exam: SUBJECTIVE: Patient seen and examined at bedside. Last night patient had a cardiac arrest, patient was bradycardic and then went into PEA- ROSC was achieved in 15 mins. patient now intubated, sedated on a levophed drip. was noted to have a large bloody bowel movement after the arrest and received 1 unit PRBCS. Patients care was discussed with family and she is now DNR- further goals of care discussion to take place with family today. Chest XRAY done shwoing RLL infiltrate- patient started on vacn and zosyn for possible aspiration pneumonia. OBJECTIVE: Vital Signs Period Temp Pulse Resp BP Sys/Bullock Pulse Ox Last 24 Hr 98.2 F-101.6 F 88-122 9-28 59-118/36-75 98-100 GENERAL: patient is intubated, sedated, on pressors EYES: no scleral icterus NECK: no JVD, no lymphadenopathy appreciated LUNGS: rhonchi appreciated B/L HEART: 6/6 holosystolic murmur ABDOMEN: Soft, nontender, nondistended, normoactive bowel sounds, no guarding, no rebound, no hepatosplenomegaly, no masses. EXTREMITIES: 2+ pulses, warm, well-perfused, no edema. NEUROLOGICAL: sedated PSYCH: Normal mood, normal affect. SKIN: Warm, dry, normal turgor, no rashes or lesions noted Laboratory Results - last 24 hr 09/27/18 09/29/18 09/29/18 23:19 12:20 16:11 WBC 13.5 H RBC 3.15 L Hgb 8.7 L Hct 26.7 L MCV 84.6 MCH 27.6 MCHC 32.6 RDW 16.8 H Plt Count 272 MPV 7.2 L Absolute Neuts (auto) Neutrophils % Lymphocytes % Monocytes % Eosinophils % Basophils % Nucleated RBC % Puncture Site ABG pH ABG pCO2 at Pt Temp ABG pO2 at Pt Temp ABG HCO3 ABG O2 Sat (Measured) ABG O2 Content ABG Base Excess Moy Test O2 Delivery Device Oxygen Flow Rate Vent Mode Vent Rate Mechanical Rate PEEP Pressure Support Vent Sodium Potassium Chloride Carbon Dioxide Anion Gap BUN Creatinine Creat Clearance w eGFR POC Glucometer 129.63300 Random Glucose Serum Osmolality Lactic Acid Calcium Phosphorus Magnesium Total Bilirubin AST ALT Alkaline Phosphatase Creatine Kinase Creatine Kinase Index CK-MB (CK-2) Troponin I Total Protein Albumin Blood Type B POSITIVE Antibody Screen Negative Crossmatch See Detail 09/29/18 09/29/18 09/29/18 20:30 20:50 20:50 WBC 12.1 H RBC 3.15 L Hgb 8.6 L Hct 26.8 L MCV 85.1 MCH 27.2 MCHC 32.0 RDW 16.8 H Plt Count 275 MPV 7.2 L Absolute Neuts (auto) 9.4 H Neutrophils % 77.7 Lymphocytes % 18.4 D Monocytes % 3.8 Eosinophils % 0.0 D Basophils % 0.1 Nucleated RBC % 0 Puncture Site ABG pH ABG pCO2 at Pt Temp ABG pO2 at Pt Temp ABG HCO3 ABG O2 Sat (Measured) ABG O2 Content ABG Base Excess Moy Test O2 Delivery Device Oxygen Flow Rate Vent Mode Vent Rate Mechanical Rate PEEP Pressure Support Vent Sodium 148 H Potassium 3.7 Chloride 107 Carbon Dioxide 30 Anion Gap 11 BUN 21 H Creatinine 2.0 H Creat Clearance w eGFR 23.74 POC Glucometer 105.06496 Random Glucose 118 H Serum Osmolality 302 Lactic Acid Calcium 7.0 L Phosphorus 5.0 H Magnesium 1.9 Total Bilirubin 0.6 AST 59 H ALT 24 Alkaline Phosphatase 121 H Creatine Kinase 165 Creatine Kinase Index 11.7 H* CK-MB (CK-2) 19.4 H Troponin I 4.75 H* Total Protein 4.1 L Albumin 2.0 L Blood Type Antibody Screen Crossmatch 09/29/18 09/29/18 09/30/18 20:50 23:05 00:40 WBC 2.5 L RBC 3.87 Hgb 11.0 Hct 32.9 D MCV 84.9 MCH 28.3 MCHC 33.3 RDW 16.3 H Plt Count 222 MPV 7.3 L Absolute Neuts (auto) 2.0 Neutrophils % 78.7 Lymphocytes % 15.1 Monocytes % 5.5 Eosinophils % 0.1 D Basophils % 0.6 D Nucleated RBC % 0 Puncture Site Left radial ABG pH 7.44 ABG pCO2 at Pt Temp 40.6 ABG pO2 at Pt Temp 71.0 ABG HCO3 26.9 H ABG O2 Sat (Measured) 95.6 ABG O2 Content 12.3 L ABG Base Excess 3.0 H Moy Test Positive O2 Delivery Device Mech vent Oxygen Flow Rate 100% Vent Mode A/c Vent Rate 14 Mechanical Rate Yes PEEP 5.0 Pressure Support Vent 450 Sodium Potassium Chloride Carbon Dioxide Anion Gap BUN Creatinine Creat Clearance w eGFR POC Glucometer Random Glucose Serum Osmolality Lactic Acid 4.4 H* Calcium Phosphorus Magnesium Total Bilirubin AST ALT Alkaline Phosphatase Creatine Kinase Creatine Kinase Index CK-MB (CK-2) Troponin I Total Protein Albumin Blood Type Antibody Screen Crossmatch 09/30/18 09/30/18 09/30/18 05:30 05:30 06:10 WBC 2.4 L RBC 3.91 Hgb 11.0 Hct 32.8 MCV 84.1 MCH 28.1 MCHC 33.5 RDW 16.4 H Plt Count 224 MPV 7.6 Absolute Neuts (auto) Neutrophils % Lymphocytes % Monocytes % Eosinophils % Basophils % Nucleated RBC % Puncture Site Left radial ABG pH 7.49 H ABG pCO2 at Pt Temp 35.2 ABG pO2 at Pt Temp 100.0 D ABG HCO3 26.3 H ABG O2 Sat (Measured) 98.5 ABG O2 Content 14.2 L ABG Base Excess 3.3 H Moy Test Positive O2 Delivery Device Mech vent Oxygen Flow Rate 85% Vent Mode A/c Vent Rate 14 Mechanical Rate Yes PEEP 5.0 Pressure Support Vent 400 Sodium 142 Potassium 3.5 Chloride 105 Carbon Dioxide 28 Anion Gap 8 BUN 26 H Creatinine 2.2 H Creat Clearance w eGFR 21.26 POC Glucometer Random Glucose 135 H Serum Osmolality Lactic Acid Calcium 7.2 L Phosphorus 1.9 L Magnesium 1.7 L Total Bilirubin 1.0 AST 76 H ALT 27 Alkaline Phosphatase 122 H Creatine Kinase 213 H Creatine Kinase Index 11.6 H* CK-MB (CK-2) 24.8 H Troponin I 12.40 H* Total Protein 4.2 L Albumin 1.9 L Blood Type Antibody Screen Crossmatch 09/30/18 09/30/18 06:20 10:50 WBC RBC Hgb Hct MCV MCH MCHC RDW Plt Count MPV Absolute Neuts (auto) Neutrophils % Lymphocytes % Monocytes % Eosinophils % Basophils % Nucleated RBC % Puncture Site ABG pH ABG pCO2 at Pt Temp ABG pO2 at Pt Temp ABG HCO3 ABG O2 Sat (Measured) ABG O2 Content ABG Base Excess Moy Test O2 Delivery Device Oxygen Flow Rate Vent Mode Vent Rate Mechanical Rate PEEP Pressure Support Vent Sodium Potassium Chloride Carbon Dioxide Anion Gap BUN Creatinine Creat Clearance w eGFR POC Glucometer Random Glucose Serum Osmolality Lactic Acid 2.0 Calcium Phosphorus Magnesium Total Bilirubin AST ALT Alkaline Phosphatase Creatine Kinase 160 Creatine Kinase Index CK-MB (CK-2) 12.1 H Troponin I 12.00 H* Total Protein Albumin Blood Type Antibody Screen Crossmatch Active Medications Generic Name Dose Route Start Last Admin Trade Name Foreignq PRN Reason Stop Dose Admin Chlorhexidine Gluconate 1 applic 09/28/18 22:00 09/30/18 02:27 Hibiclens For Decolonization - TP 1 applic HS DAVID Administration Pantoprazole Sodium 80 mg/ 100 mls @ 10 mls/hr 09/27/18 23:15 09/30/18 02:27 Sodium Chloride IVPB 10 mls/hr Q10H DAVID Administration 8 MG/HR Midazolam HCl 100 mg/ Sodium 100 mls @ 1 mls/hr 09/29/18 21:15 09/29/18 21:25 Chloride IVPB 1 mg/hr TITR DAVID 1 mls/hr Administration Protocol 1 MG/HR Norepinephrine Bitartrate 8, 500 mls @ 18.75 mls/hr 09/30/18 07:45 09/30/18 12:07 000 mcg/ Dextrose IV 18 mcg/min TITR DAVID 67.5 mls/hr Titration Protocol 5 MCG/MIN Potassium Phosphate 15 mm/ 255 mls @ 62.5 mls/hr 09/30/18 09:30 Sodium Chloride IVPB 09/30/18 13:34 ONCE ONE Vasopressin 50 units/ Sodium 100 mls @ 4 mls/hr 09/30/18 08:15 09/30/18 08:03 Chloride IVPB 4 units/hr ASDIR DAVID 8 mls/hr Titration Protocol 2 UNITS/HR Piperacillin Sod/Tazobactam 50 mls @ 100 mls/hr 09/30/18 10:00 Sod 2.25 gm/ Dextrose IVPB Q8H-IV DAVID Protocol Insulin Aspart 1 vial 09/28/18 07:00 09/30/18 11:54 Novolog Vial Sliding Scale - SQ 4 units ACHS DAVID Administration Protocol Metoprolol Tartrate 25 mg 09/29/18 12:15 09/30/18 12:10 Lopressor - PO Not Given BID DAVID Mupirocin 1 applic 09/28/18 10:00 09/30/18 11:45 Bactroban Ointment (For Decolonization) - NS 10/03/18 09:59 1 applic BID DAVID Administration ASSESSMENT/PLAN: 83 y.o female with PMH of CHF, CAD (s/p stents on aspirin,plavix), ESRD (m/w/f dialysis), previous GI bleed, presents to the ED after having multiple episodes of melanotic stool and episodes of cristina bright red blood per rectum, now s/p EGD . #) Acute Hypoxic Respiratory failure patient now intubated/sedated on pressors s/p cardiac arrest last night -RLL infiltrate likely 2/2 aspiration pneumonia -started on vanc/zosyn for broad spectrum coverage -f/u pneumonia antigen labs -f/u cx #) GI Bleed patient has so far received 5 units of PRBCS and 2 units of platelets -on protonix drip 10mls/hr needs to be on for total 72 hours -GI on board- appreciate recs -cardio consulted- f/u recs -monitor hemodynamics and vital signs -transfuse as needed #) ESRD (m/w/f) patient had HD yesterday -nephro on board-appreciate recs -monitor electrolytes -monitor fluid status/hemodynamics #) CAD -holding patients aspirin and plavix currently -will resume once bleeding stops and GI gives OK #) HTN -holding home meds #)DM -ISS -BGMS ACHS F/E/N NS @50mls/hr replete electrolytes NPO Problem List - Problems (1) Acute duodenal ulcer with hemorrhage Code(s): K26.0 - ACUTE DUODENAL ULCER WITH HEMORRHAGE (2) Bright red blood per rectum Code(s): K62.5 - HEMORRHAGE OF ANUS AND RECTUM (3) GI bleeding Code(s): K92.2 - GASTROINTESTINAL HEMORRHAGE, UNSPECIFIED (4) Anemia Code(s): D64.9 - ANEMIA, UNSPECIFIED (5) Aortic stenosis Code(s): Q25.3 - SUPRAVALVULAR AORTIC STENOSIS Visit type - Emergency Visit Emergency Visit: Yes ED Registration Date: 09/28/18 Care time: The patient presented to the Emergency Department on the above date and was hospitalized for further evaluation of their emergent condition. - New Patient This patient is new to me today: No - Critical Care Critical Care patient: No
[2018-09-30] MEDS: PIPERACILLIN/TAZOB 2.25 GM 2.25 GM in DEXTROSE 5%-WATER - 50 ML IVPB SCH ×2 (13:20→17:34)
--- NOTE | 2018-09-30 13:54 | PN ---
Progress Note, Physician History of Present Illness: Pt seen and examined at bedside. Events were noted and discussed with ICU team. Pt had a cardiac arrest yesterday. She is now mechanically ventilated. Her family are at bedside and care was discussed with the. - Current Medication List Current Medications: Active Medications Chlorhexidine Gluconate (Hibiclens For Decolonization -) 1 applic TP HS DAVID Last Admin: 09/30/18 02:27 Dose: 1 applic Pantoprazole Sodium 80 mg/ (Sodium Chloride) 100 mls @ 10 mls/hr IVPB Q10H DAVID Last Admin: 09/30/18 13:17 Dose: Not Given Midazolam HCl 100 mg/ Sodium (Chloride) 100 mls @ 1 mls/hr IVPB TITR DAVID; Protocol Last Admin: 09/29/18 21:25 Dose: 1 mg/hr, 1 mls/hr Norepinephrine Bitartrate 8, (000 mcg/ Dextrose) 500 mls @ 18.75 mls/hr IV TITR DAVID; Protocol Last Titration: 09/30/18 12:07 Dose: 18 mcg/min, 67.5 mls/hr Vasopressin 50 units/ Sodium (Chloride) 100 mls @ 4 mls/hr IVPB ASDIR DAVID; Protocol Last Titration: 09/30/18 08:03 Dose: 4 units/hr, 8 mls/hr Piperacillin Sod/Tazobactam (Sod 2.25 gm/ Dextrose) 50 mls @ 100 mls/hr IVPB Q8H-IV DAVID; Protocol Last Admin: 09/30/18 13:20 Dose: 100 mls/hr Insulin Aspart (Novolog Vial Sliding Scale -) 1 vial SQ ACHS DAVID; Protocol Last Admin: 09/30/18 11:54 Dose: 4 units Metoprolol Tartrate (Lopressor -) 25 mg PO BID DAVID Last Admin: 09/30/18 12:10 Dose: Not Given Mupirocin (Bactroban Ointment (For Decolonization) -) 1 applic NS BID DAVID Stop: 10/03/18 09:59 Last Admin: 09/30/18 11:45 Dose: 1 applic - Objective Vital Signs: Vital Signs Temperature 101.6 F H 09/30/18 10:00 Pulse Rate 94 H 09/30/18 12:07 Respiratory Rate 23 H 09/30/18 12:00 Blood Pressure 98/50 L 09/30/18 12:07 O2 Sat by Pulse Oximetry (%) 100 09/30/18 09:00 Constitutional: Yes: Calm Eyes: Yes: Conjunctiva Clear Cardiovascular: Yes: S1, S2 Respiratory: Yes: Mechanically Ventilated Gastrointestinal: Yes: Soft Genitourinary: Yes: Incontinence Musculoskeletal: Yes: Muscle Weakness Edema: No Integumentary: Yes: WNL Neurological: Yes: Lethargy Labs: CBC, BMP 09/30/18 05:30 09/30/18 05:30 INR, PTT INR 1.34 (0.83-1.09) H 09/27/18 23:19 - ....Imaging Chest X-ray: Report Reviewed Problem List - Problems (1) Cardiac arrest Code(s): I46.9 - CARDIAC ARREST, CAUSE UNSPECIFIED (2) Bright red blood per rectum Code(s): K62.5 - HEMORRHAGE OF ANUS AND RECTUM (3) GI bleeding Code(s): K92.2 - GASTROINTESTINAL HEMORRHAGE, UNSPECIFIED (4) CAD (coronary artery disease) Code(s): I25.10 - ATHSCL HEART DISEASE OF [place] CORONARY ARTERY W/O ANG PCTRS Qualifiers: Coronary Disease-Associated Artery/Lesion type: [place] artery [place] vs. 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 Code(s): E11.29 - TYPE 2 DIABETES MELLITUS W OTH DIABETIC KIDNEY COMPLICATION Qualifiers: Diabetes mellitus intermission coordinator insulin use: without longterm use Diabetes mellitus complication detail: with chronic kidney disease Chronic kidney disease stage: on chronic dialysis Qualified Code(s): E11.22 - Type 2 diabetes mellitus with diabetic chronic kidney disease; N18.6 - End stage renal disease; Z99.2 - Dependence on renal dialysis (6) ESRD on hemodialysis Code(s): N18.6 - END STAGE RENAL DISEASE; Z99.2 - DEPENDENCE ON RENAL DIALYSIS Assessment/Plan Current Medications Generic Name Dose Route Start Last Admin Trade Name Freq PRN Reason Stop Dose Admin Chlorhexidine Gluconate 1 applic 09/28/18 22:00 09/30/18 02:27 Hibiclens For Decolonization - TP 1 applic HS DAVID Administration Pantoprazole Sodium 80 mg/ 100 mls @ 10 mls/hr 09/27/18 23:15 09/30/18 13:17 Sodium Chloride IVPB Not Given Q10H DAVID 8 MG/HR Midazolam HCl 100 mg/ Sodium 100 mls @ 1 mls/hr 09/29/18 21:15 09/29/18 21:25 Chloride IVPB 1 mg/hr TITR DAVID 1 mls/hr Administration Protocol 1 MG/HR Norepinephrine Bitartrate 8, 500 mls @ 18.75 mls/hr 09/30/18 07:45 09/30/18 12:07 000 mcg/ Dextrose IV 18 mcg/min TITR DAVID 67.5 mls/hr Titration Protocol 5 MCG/MIN Vasopressin 50 units/ Sodium 100 mls @ 4 mls/hr 09/30/18 08:15 09/30/18 08:03 Chloride IVPB 4 units/hr ASDIR DAVID 8 mls/hr Titration Protocol 2 UNITS/HR Piperacillin Sod/Tazobactam 50 mls @ 100 mls/hr 09/30/18 10:00 09/30/18 13:20 Sod 2.25 gm/ Dextrose IVPB 100 mls/hr Q8H-IV DAVID Administration Protocol Insulin Aspart 1 vial 09/28/18 07:00 09/30/18 11:54 Novolog Vial Sliding Scale - SQ 4 units ACHS DAVID Administration Protocol Metoprolol Tartrate 25 mg 09/29/18 12:15 09/30/18 12:10 Lopressor - PO Not Given BID DAVID Mupirocin 1 applic 09/28/18 10:00 09/30/18 11:45 Bactroban Ointment (For Decolonization) - NS 10/03/18 09:59 1 applic BID DAVID Administration Impression 1. ESRD 2. DM 3. GI bleed 4. anemia 5. HTN 6. cardiac arrest 7. resp failure requiring intubated Plan - pt last dialyzed yesterday - pressors to a map of 65 - vent support - will evaluate for HD tomorrow - discussed with family - discussed with ICU team - cardiology follow up - keep pt in ICU - monitor hg and transfuse as needed - pt goes to HD in [place] [phone] - 3 hrs, 16 gauge needs, 350 abf, no heparin, epogen 7200 units, right AVF - will follow
--- NOTE | 2018-09-30 14:18 | PN ---
Physical Exam: SUBJECTIVE: Patient seen and examined at bedside. She is intubated and sedated. She coded last night and had PEA for 17 minutes before receiving ROSC. This morning she became hypotensive and required vasopressin in addition to levophed for BP support. Today she is febrile to 101. I spoke with the family today and they stated they would like no more invasive measures to be performed other than bedside procedures. They wish for her to receive comfort care. OBJECTIVE: Vital Signs Period Temp Pulse Resp BP Sys/Bullock Pulse Ox Last 24 Hr 98.4 F-101.6 F 88-122 9-28 59-118/36-75 98-100 GENERAL: The patient is Intubated and sedated. HEAD: Normal with no signs of trauma. EYES: PERRL, sclera anicteric, conjunctiva clear. ENT: Ears normal, nares patent, oropharynx clear without exudates. NECK: Trachea midline. LUNGS: Crackles on the right. Intubated breath sounds. HEART: tachycardic rate and regular rhythm, systolic murmer. ABDOMEN: Soft, no hepatosplenomegaly, no masses. EXTREMITIES: 2+ pulses, cold, well-perfused, no edema. There is a Fistula in the Right arm. Left arm has an old fistula which is no longer working or in use. SKIN: Cold, dry, normal turgor. Laboratory Results - last 24 hr 09/27/18 09/29/18 09/29/18 23:19 16:11 20:30 WBC RBC Hgb Hct MCV MCH MCHC RDW Plt Count MPV Absolute Neuts (auto) Neutrophils % Lymphocytes % Monocytes % Eosinophils % Basophils % Nucleated RBC % Puncture Site ABG pH ABG pCO2 at Pt Temp ABG pO2 at Pt Temp ABG HCO3 ABG O2 Sat (Measured) ABG O2 Content ABG Base Excess Moy Test O2 Delivery Device Oxygen Flow Rate Vent Mode Vent Rate Mechanical Rate PEEP Pressure Support Vent Sodium Potassium Chloride Carbon Dioxide Anion Gap BUN Creatinine Creat Clearance w eGFR POC Glucometer 129.37269 105.58415 Random Glucose Serum Osmolality Lactic Acid Calcium Phosphorus Magnesium Total Bilirubin AST ALT Alkaline Phosphatase Creatine Kinase Creatine Kinase Index CK-MB (CK-2) Troponin I Total Protein Albumin Blood Type B POSITIVE Antibody Screen Negative Crossmatch See Detail 09/29/18 09/29/18 09/29/18 20:50 20:50 20:50 WBC 12.1 H RBC 3.15 L Hgb 8.6 L Hct 26.8 L MCV 85.1 MCH 27.2 MCHC 32.0 RDW 16.8 H Plt Count 275 MPV 7.2 L Absolute Neuts (auto) 9.4 H Neutrophils % 77.7 Lymphocytes % 18.4 D Monocytes % 3.8 Eosinophils % 0.0 D Basophils % 0.1 Nucleated RBC % 0 Puncture Site ABG pH ABG pCO2 at Pt Temp ABG pO2 at Pt Temp ABG HCO3 ABG O2 Sat (Measured) ABG O2 Content ABG Base Excess Moy Test O2 Delivery Device Oxygen Flow Rate Vent Mode Vent Rate Mechanical Rate PEEP Pressure Support Vent Sodium 148 H Potassium 3.7 Chloride 107 Carbon Dioxide 30 Anion Gap 11 BUN 21 H Creatinine 2.0 H Creat Clearance w eGFR 23.74 POC Glucometer Random Glucose 118 H Serum Osmolality 302 Lactic Acid 4.4 H* Calcium 7.0 L Phosphorus 5.0 H Magnesium 1.9 Total Bilirubin 0.6 AST 59 H ALT 24 Alkaline Phosphatase 121 H Creatine Kinase 165 Creatine Kinase Index 11.7 H* CK-MB (CK-2) 19.4 H Troponin I 4.75 H* Total Protein 4.1 L Albumin 2.0 L Blood Type Antibody Screen Crossmatch 09/29/18 09/30/18 09/30/18 23:05 00:40 05:30 WBC 2.5 L 2.4 L RBC 3.87 3.91 Hgb 11.0 11.0 Hct 32.9 D 32.8 MCV 84.9 84.1 MCH 28.3 28.1 MCHC 33.3 33.5 RDW 16.3 H 16.4 H Plt Count 222 224 MPV 7.3 L 7.6 Absolute Neuts (auto) 2.0 Neutrophils % 78.7 Lymphocytes % 15.1 Monocytes % 5.5 Eosinophils % 0.1 D Basophils % 0.6 D Nucleated RBC % 0 Puncture Site Left radial ABG pH 7.44 ABG pCO2 at Pt Temp 40.6 ABG pO2 at Pt Temp 71.0 ABG HCO3 26.9 H ABG O2 Sat (Measured) 95.6 ABG O2 Content 12.3 L ABG Base Excess 3.0 H Moy Test Positive O2 Delivery Device Mech vent Oxygen Flow Rate 100% Vent Mode A/c Vent Rate 14 Mechanical Rate Yes PEEP 5.0 Pressure Support Vent 450 Sodium Potassium Chloride Carbon Dioxide Anion Gap BUN Creatinine Creat Clearance w eGFR POC Glucometer Random Glucose Serum Osmolality Lactic Acid Calcium Phosphorus Magnesium Total Bilirubin AST ALT Alkaline Phosphatase Creatine Kinase Creatine Kinase Index CK-MB (CK-2) Troponin I Total Protein Albumin Blood Type Antibody Screen Crossmatch 09/30/18 09/30/18 09/30/18 05:30 06:10 06:20 WBC RBC Hgb Hct MCV MCH MCHC RDW Plt Count MPV Absolute Neuts (auto) Neutrophils % Lymphocytes % Monocytes % Eosinophils % Basophils % Nucleated RBC % Puncture Site Left radial ABG pH 7.49 H ABG pCO2 at Pt Temp 35.2 ABG pO2 at Pt Temp 100.0 D ABG HCO3 26.3 H ABG O2 Sat (Measured) 98.5 ABG O2 Content 14.2 L ABG Base Excess 3.3 H Moy Test Positive O2 Delivery Device Mech vent Oxygen Flow Rate 85% Vent Mode A/c Vent Rate 14 Mechanical Rate Yes PEEP 5.0 Pressure Support Vent 400 Sodium 142 Potassium 3.5 Chloride 105 Carbon Dioxide 28 Anion Gap 8 BUN 26 H Creatinine 2.2 H Creat Clearance w eGFR 21.26 POC Glucometer Random Glucose 135 H Serum Osmolality Lactic Acid 2.0 Calcium 7.2 L Phosphorus 1.9 L Magnesium 1.7 L Total Bilirubin 1.0 AST 76 H ALT 27 Alkaline Phosphatase 122 H Creatine Kinase 213 H Creatine Kinase Index 11.6 H* CK-MB (CK-2) 24.8 H Troponin I 12.40 H* Total Protein 4.2 L Albumin 1.9 L Blood Type Antibody Screen Crossmatch 09/30/18 10:50 WBC RBC Hgb Hct MCV MCH MCHC RDW Plt Count MPV Absolute Neuts (auto) Neutrophils % Lymphocytes % Monocytes % Eosinophils % Basophils % Nucleated RBC % Puncture Site ABG pH ABG pCO2 at Pt Temp ABG pO2 at Pt Temp ABG HCO3 ABG O2 Sat (Measured) ABG O2 Content ABG Base Excess Moy Test O2 Delivery Device Oxygen Flow Rate Vent Mode Vent Rate Mechanical Rate PEEP Pressure Support Vent Sodium Potassium Chloride Carbon Dioxide Anion Gap BUN Creatinine Creat Clearance w eGFR POC Glucometer Random Glucose Serum Osmolality Lactic Acid Calcium Phosphorus Magnesium Total Bilirubin AST ALT Alkaline Phosphatase Creatine Kinase 160 Creatine Kinase Index 7.5 H* CK-MB (CK-2) 12.1 H Troponin I 12.00 H* Total Protein Albumin Blood Type Antibody Screen Crossmatch Active Medications Generic Name Dose Route Start Last Admin Trade Name Fernando PRN Reason Stop Dose Admin Acetaminophen 1,000 mg 09/30/18 14:14 Ofirmev Injection - IVPB 09/30/18 14:15 ONCE ONE Chlorhexidine Gluconate 1 applic 09/28/18 22:00 09/30/18 02:27 Hibiclens For Decolonization - TP 1 applic HS DAVID Administration Pantoprazole Sodium 80 mg/ 100 mls @ 10 mls/hr 09/27/18 23:15 09/30/18 13:17 Sodium Chloride IVPB Not Given Q10H DAVID 8 MG/HR Midazolam HCl 100 mg/ Sodium 100 mls @ 1 mls/hr 09/29/18 21:15 09/29/18 21:25 Chloride IVPB 1 mg/hr TITR DAVID 1 mls/hr Administration Protocol 1 MG/HR Norepinephrine Bitartrate 8, 500 mls @ 18.75 mls/hr 09/30/18 07:45 09/30/18 12:07 000 mcg/ Dextrose IV 18 mcg/min TITR DAVID 67.5 mls/hr Titration Protocol 5 MCG/MIN Vasopressin 50 units/ Sodium 100 mls @ 4 mls/hr 09/30/18 08:15 09/30/18 08:03 Chloride IVPB 4 units/hr ASDIR DAVID 8 mls/hr Titration Protocol 2 UNITS/HR Piperacillin Sod/Tazobactam 50 mls @ 100 mls/hr 09/30/18 10:00 09/30/18 13:20 Sod 2.25 gm/ Dextrose IVPB 100 mls/hr Q8H-IV DAVID Administration Protocol Insulin Aspart 1 vial 09/28/18 07:00 09/30/18 11:54 Novolog Vial Sliding Scale - SQ 4 units ACHS DAVID Administration Protocol Metoprolol Tartrate 25 mg 09/29/18 12:15 09/30/18 12:10 Lopressor - PO Not Given BID DAVID Mupirocin 1 applic 09/28/18 10:00 09/30/18 11:45 Bactroban Ointment (For Decolonization) - NS 10/03/18 09:59 1 applic BID DAVID Administration ASSESSMENT/PLAN: Assessment: Julissa is an 83 yo F with a sig pmh of ESRD (M/W/F - dialyzed today ), diastolic CHF dysfunction, severe CAD, HTN, and prior duodenal ulcer bleed who presented to the ICU with a low HB and had a duodenal ulcer identified by CTA as the bleeding source. She received endoscopic therapy with clips and epinephrine to stop the bleeding. Her Hb increased this morning to 8.7. Last night she experienced another bloody bowel movement, possibly from a rebleeding event. Her family states today they only want comfort care moving forward. Norepi and vasopressin for BP support Plan: GI: - CTA localized active duodenal bleed - EGD clips and epi stopped bleed - Protonix for prophylaxis - Bloody bowel movement last night. - +/- repeat EGD? Cardio: - Receiving Norepinephrine + Vasopressin for BP support - IV hydration - PRBC + platelet transfusion + DDAVP - Measure CVP to assess volume status: 8-12 - Patient received echo: Severe left concentric LVH, Significant akinesis, LVEF = 35%, LA dilatation, Severe aortic sclerosis + Aortic stenosis, mitral valve thickening. - Holding Aspirin and plavix Heme: - Anemia secondary to acute blood loss and ESRD. Will transfuse PRBC as needed to keep Hb greater than 7. Renal: - Patient received dialysis yestedray. - Patient receiving erythropoiten as per renal Derm: - Pressure ulcer: unstageable - Wound care consulted: Dr. Benson Endo: - Will monitor glucose levels and give sliding scale. Neuro: - intubated and sedated. ID: - No problems at present Prophylaxis: -Hold AC due to active GI bleeding. SCDs and MARCOS's -Protonix drip for GI F/E/N: - Will give IV hydration NS @50mls/hr, platelets, RBC, DDAVP, +/- FFP. - Will continue to replete electrolytes PRN. - NPO Code Status: - Full Code Dispo: -Patient will continue to receive ICU level care. Visit type - Emergency Visit Emergency Visit: Yes ED Registration Date: 09/28/18 Care time: The patient presented to the Emergency Department on the above date and was hospitalized for further evaluation of their emergent condition. - New Patient This patient is new to me today: No - Critical Care Critical Care patient: Yes Total Critical Care Time (in minutes): 36 Critical Care Statement: The care of this patient involved high complexity decision making to prevent further life threatening deterioration of the patient 's condition and/or to evaluate & treat vital organ system(s) failure or risk of failure.
[2018-09-30 14:37] VITALS: BMI 21.5
--- NOTE | 2018-09-30 15:36 | PN ---
Teaching Attending Note Name of Resident: Teresa Leach ATTENDING PHYSICIAN STATEMENT I saw and evaluated the patient. I reviewed the resident's note and discussed the case with the resident. I agree with the resident's findings and plan as documented. SUBJECTIVE:intubated/sedated Code 99 called for PEA. ROSC achieved after 15minutes. pt intubated and central line secured. pressors started. conversation with family and pt made DNR OBJECTIVE: Last Vital Signs Temp Pulse Resp BP Pulse Ox 101.3 F H 98 H 25 H 89/41 L 100 09/30/18 14:00 09/30/18 14:00 09/30/18 14:00 09/30/18 15:00 09/30/18 09:00 Intake & Output 09/27/18 09/28/18 09/29/18 09/30/18 23:59 23:59 23:59 23:59 Intake Total 3584 1824 1057 Output Total 200 Balance 3384 1824 1057 Weight 100 lb 112 lb 3.2 oz 118 lb General intbuated/sedated CV S1 S2 + +6/6 holosystolic murmur Lungs CTA B/L poor inspiratory effort Abdomen soft NT/ND Extremities trace edema ASSESSMENT AND PLAN: 83yo F wtih PMH ESRD on HD, PUD with previous duodenal ulcer bleeding, Severe , dementia, HTN presented to the ER wtih BRBPR and melena and continues to have active bleeding 1. Upper GI bleed- s/p EGD 09/29. bleeding duodenal ulcer with vissible vessel. s/p epinephrine and clipping. had melanotic stool after code. no BRBPR. will cont PPI ggt for 72H with MICU monitoring. if re-bleeding will need emergent repeat EGD with surgery standby, however as per surgery family unsure if they want surgery at this time. cont NPO and IVF. hold asa/plavix. 2. Cardiac arrest- PEA on the monitor. trop peaked at 12.5. not a candidate for heparin ggt or intervention due to recent bleed. medical management. Cardio on board 3. acute hypoxic respiratory failure- s/p intubation. appears pt might have aspirated. cont full vent support. not a candidate for weaning at this time. 4. RLL PNA- possible aspiration. Tm100.2. started on zosyn. cx sent. flu sent 5. Acute blood loss anemia- given an additional PRBC last night after code due to melanotic stool. repeat CBC stable. trend CBC BID. s/p 5 units PRBC, 2 units platelets this hospital stay. hematology on board 6. hypokalemia-resolved 7. Hypophopahtemia- resolved 8. Hypocalcemia- Corrected ca 8. can start supplements once diet is advanced 9. ESRD on HD- no need for emergent HD. can resume per normal schedule 10. Severe - monitor fluid status closely. 11. dementia- 12. HTN- hold oral agents. currently hypotensive 13. CAD s/p stent 2017- hold asa/plavix. cardio consulted. 14. DVT ppx- SCD 15. MICU. prognosis guarded. 16. as per sign out family is interested in pursuing comfort measures. No HCP has been designated by the patient. Patient has many children. Palliative care consulted. plan for family meeting to discuss goals of care The care of this patient involved high complexity decision making to prevent further life threatening deterioration of the patient's condition and/or to evaluate & treat vital organ system(s) failure or risk of failure. 40 mins ASSESSMENT AND PLAN:
--- NOTE | 2018-09-30 17:47 | PN ---
Progress Note, Physician History of Present Illness: ICU pt with duodenal bulb bleeding ulcer with visible vessel, s/p endoscopic injection and clipping. H/H has been stable since last transfusion. Has had black/dark BM but no further bloody ones. Was on pressor for BP support during dialysis yesterday and coded just after completion. Was intubated and ROSC obtained after ~15 mins ACLS including compressions. She is also believed to have aspirated into her right lung. She is now on pressors and intubated, sedated. Family has decided to make her DNR with comfort measures and current care only, no further aggressive interventions. - Current Medication List Current Medications: Active Medications Chlorhexidine Gluconate (Hibiclens For Decolonization -) 1 applic TP HS DAVID Last Admin: 09/30/18 02:27 Dose: 1 applic Pantoprazole Sodium 80 mg/ (Sodium Chloride) 100 mls @ 10 mls/hr IVPB Q10H DAVID Last Admin: 09/30/18 14:30 Dose: 10 mls/hr Midazolam HCl 100 mg/ Sodium (Chloride) 100 mls @ 1 mls/hr IVPB TITR [facility]; Protocol Last Admin: 09/29/18 21:25 Dose: 1 mg/hr, 1 mls/hr Norepinephrine Bitartrate 8, (000 mcg/ Dextrose) 500 mls @ 18.75 mls/hr IV TITR DAVID; Protocol Last Titration: 09/30/18 17:38 Dose: 16 mcg/min, 60 mls/hr Vasopressin 50 units/ Sodium (Chloride) 100 mls @ 4 mls/hr IVPB ASDIR DAVID; Protocol Last Titration: 09/30/18 08:03 Dose: 4 units/hr, 8 mls/hr Piperacillin Sod/Tazobactam (Sod 2.25 gm/ Dextrose) 50 mls @ 100 mls/hr IVPB Q8H-IV DAVID; Protocol Last Admin: 09/30/18 17:34 Dose: 100 mls/hr Insulin Aspart (Novolog Vial Sliding Scale -) 1 vial SQ ACHS [facility]; Protocol Last Admin: 09/30/18 17:16 Dose: Not Given Metoprolol Tartrate (Lopressor -) 25 mg PO BID DAVID Last Admin: 09/30/18 12:10 Dose: Not Given Mupirocin (Bactroban Ointment (For Decolonization) -) 1 applic NS BID DAVID Stop: 10/03/18 09:59 Last Admin: 09/30/18 11:45 Dose: 1 applic - Objective Vital Signs: Vital Signs Temperature 101.3 F H 09/30/18 14:00 Pulse Rate 108 H 09/30/18 17:38 Respiratory Rate 25 H 09/30/18 16:23 Blood Pressure 128/60 09/30/18 17:38 O2 Sat by Pulse Oximetry (%) 100 09/30/18 09:00 Vital Signs Period Temp Pulse Resp BP Sys/Bullock Pulse Ox Last 24 Hr 98.4 F-101.6 F 88-122 9-28 59-128/36-75 98-100 Constitutional: Yes: No Distress, Calm, Thin HENT: Yes: Other (intubated) Cardiovascular: Yes: Tachycardia Respiratory: Yes: Intubated, Mechanically Ventilated Gastrointestinal: Yes: Soft. No: Tenderness ...Rectal Exam: Yes: Deferred Extremities: Yes: Other (RUE AV fistula). No: Cyanosis Integumentary: Yes: Pressure Ulcer (sacral, not examined). No: Jaundice, Rash Neurological: Yes: Unresponsive. No: Alert Labs: CBC, BMP 09/30/18 05:30 09/30/18 05:30 CMP Sodium 142 mmol/L (136-145) 09/30/18 05:30 Potassium 3.5 mmol/L (3.5-5.1) 09/30/18 05:30 Chloride 105 mmol/L (98-107) 09/30/18 05:30 Carbon Dioxide 28 mmol/L (21-32) 09/30/18 05:30 Anion Gap 8 MMOL/L (8-16) 09/30/18 05:30 BUN 26 mg/dL (7-18) H 09/30/18 05:30 Creatinine 2.2 mg/dL (0.55-1.3) H 09/30/18 05:30 Creat Clearance w eGFR 21.26 (>60) 09/30/18 05:30 POC Glucometer 206.75563 UNITS (80-120) 09/30/18 11:53 Random Glucose 135 mg/dL (74-106) H 09/30/18 05:30 Hemoglobin A1c % 4.9 % (4.2-6.3) 09/29/18 05:30 Serum Osmolality 302 mosm/kg (278-305) 09/29/18 20:50 Lactic Acid 2.0 mmol/L (0.4-2.0) 09/30/18 06:20 Calcium 7.2 mg/dL (8.5-10.1) L 09/30/18 05:30 Phosphorus 1.9 mg/dL (2.5-4.9) L 09/30/18 05:30 Magnesium 1.7 mg/dL (1.8-2.4) L 09/30/18 05:30 Total Bilirubin 1.0 mg/dL (0.2-1) 09/30/18 05:30 AST 76 U/L (15-37) H 09/30/18 05:30 ALT 27 U/L (13-61) 09/30/18 05:30 Alkaline Phosphatase 122 U/L (45-117) H 09/30/18 05:30 Creatine Kinase 160 IU/L (26-192) 09/30/18 10:50 Creatine Kinase Index 7.5 % (0.0-5.0) H* 09/30/18 10:50 CK-MB (CK-2) 12.1 ng/mL (0.5-3.6) H 09/30/18 10:50 Troponin I 12.00 ng/ml (0.00-0.05) H* 09/30/18 10:50 Total Protein 4.2 g/dl (6.4-8.2) L 09/30/18 05:30 Albumin 1.9 g/dl (3.4-5.0) L 09/30/18 05:30 Microbiology 09/30/18 08:25 Gram Stain - Final Sputum - Endotrachea Suction/Ventilator 09/30/18 08:25 Influenza Types A,B Antigen - Final Nasopharyngeal Swab - Final Problem List - Problems (1) Acute duodenal ulcer with hemorrhage Assessment/Plan: UGIB in elderly female with ESRD on HD, severe aortic stenosis, CAD s/p stent on ASA/Plavix (currently held) duodenal bulb ulcer with visible vessel controlled endoscopically dark BM overnight, but nothing since suggests no ongoing active bleeding supportive ICU care agree with DNR with comfort measures per family decision discussed with ICU team members prognosis poor surgical intervention will not be offered or pursued will sign off Code(s): K26.0 - ACUTE DUODENAL ULCER WITH HEMORRHAGE (2) Acute blood loss anemia Code(s): D62 - ACUTE POSTHEMORRHAGIC ANEMIA (3) Bright red blood per rectum Code(s): K62.5 - HEMORRHAGE OF ANUS AND RECTUM (4) Aortic stenosis Code(s): Q25.3 - SUPRAVALVULAR AORTIC STENOSIS (5) CAD (coronary artery disease) Code(s): I25.10 - ATHSCL HEART DISEASE OF [place] CORONARY ARTERY W/O ANG PCTRS Qualifiers: Coronary Disease-Associated Artery/Lesion type: [place] artery [place] vs. 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 Code(s): E11.29 - TYPE 2 DIABETES MELLITUS W OTH DIABETIC KIDNEY COMPLICATION Qualifiers: Diabetes mellitus terminal block assembler insulin use: without terminal block assembler use Diabetes mellitus complication detail: with chronic kidney disease Chronic kidney disease stage: on chronic dialysis Qualified Code(s): E11.22 - Type 2 diabetes mellitus with diabetic chronic kidney disease; N18.6 - End stage renal disease; Z99.2 - Dependence on renal dialysis (7) HTN (hypertension) Code(s): I10 - ESSENTIAL (PRIMARY) HYPERTENSION Qualifiers: Hypertension type: essential hypertension Qualified Code(s): I10 - Essential (primary) hypertension Assessment/Plan This patient is critically ill. Time spent reviewing chart, examining patient, talking with providers and/or family and documentation is 35 minutes. Thank you for the opportunity to participate in the care of this patient.
[2018-09-30] MEDS ORDERED: VASOPRESSIN 20 UNITS/ML VIAL IV ONE (19:24)
[2018-09-30] MEDS ORDERED: ACETAMINOPHEN 1000 MG/100 ML VIAL (NON FORMULARY) IVPB PRN (20:33)
[2018-09-30] MEDS ORDERED: MIDAZOLAM 100 MG/100 ML MG IVPB ONE (21:09)
[2018-09-30] MEDS: MIDAZOLAM 100 MG in SODIUM CHLORIDE 100 ML IVPB SCH (22:20)
[2018-10-01] MEDS ORDERED: NOREPINEPHRINE BITARTRATE 4 MG/4 ML ML IV ONE ×4 (00:10→21:18)
[2018-10-01] MEDS: NOREPINEPHRINE BITARTRATE 8,000 MCG in DEXTROSE 5%-WATER - 492 ML IV SCH ×3 (00:14→10:21)
[2018-10-01] MEDS: PANTOPRAZOLE SODIUM 80 MG in SODIUM CHLORIDE 100 ML IVPB SCH ×3 (00:17→17:18)
[2018-10-01] MEDS ORDERED: DEXTROSE 5%-WATER - 50 ML IVPB ONE ×3 (02:00→17:03)
[2018-10-01] MEDS ORDERED: PIPERACILLIN/TAZOB 2.25 GM 2.25 GM in DEXTROSE 5%-WATER - 50 ML IVPB SCH (02:00)
[2018-10-01] MEDS ORDERED: PIPERACILLIN/TAZOBACTAM 2.25 GM VIAL IVPB ONE ×3 (02:00→17:03)
[2018-10-01] MEDS: PIPERACILLIN/TAZOB 2.25 GM 2.25 GM in DEXTROSE 5%-WATER - 50 ML IVPB SCH ×3 (02:16→17:18)
[2018-10-01 05:52] LABS: HEMATOCRIT 26.8 % (32.4-45.2); HEMOGLOBIN 8.6 GM/dL (10.7-15.3); MCH 27.7 pg (25.7-33.7); MEAN CELL VOLUME 86.5 fl (80-96); PLATELET COUNT 168 K/MM3 (134-434); RDW 16.4 % (11.6-15.6); WHITE BLOOD COUNT 16.7 K/mm3 (4.0-10.0)
[2018-10-01] MEDS ORDERED: VASOPRESSIN 20 UNITS/ML VIAL IV ONE (06:06)
[2018-10-01] MEDS: VASOPRESSIN 50 UNITS in SODIUM CHLORIDE 97.5 ML IVPB SCH ×2 (06:12→09:18)
--- NOTE | 2018-10-01 06:36 | PN ---
Progress Note (short form) - Note Progress Note: Patient seen and examined Events noted Intubated, on pressors, presumed aspiration Last Vital Signs Temp Pulse Resp BP Pulse Ox 99.0 F 91 H 23 H 129/54 L 100 10/01/18 06:00 10/01/18 06:12 10/01/18 06:00 10/01/18 06:12 09/30/18 21:00 HEENT: reactive pupils Intubated Diminished breath sounds Cor: RSR,loud systolic murmur Abd: Soft, Normal bowel sounds, No organomegaly Ext:No significant edema Skin: No rashes, Integument intact CBC, BMP 10/01/18 05:30 INR, PTT INR 1.34 (0.83-1.09) H 09/27/18 23:19 Current Medications Generic Name Dose Route Start Last Admin Trade Name Freq PRN Reason Stop Dose Admin Acetaminophen 1,000 mg 09/30/18 20:33 09/30/18 21:00 Ofirmev Injection - IVPB 1,000 mg Q6H PRN Administration FEVER Chlorhexidine Gluconate 1 applic 09/28/18 22:00 09/30/18 23:25 Hibiclens For Decolonization - TP 1 applic HS DAVID Administration Pantoprazole Sodium 80 mg/ 100 mls @ 10 mls/hr 09/27/18 23:15 10/01/18 00:17 Sodium Chloride IVPB 10 mls/hr Q10H DAVID Administration 8 MG/HR Midazolam HCl 100 mg/ Sodium 100 mls @ 1 mls/hr 09/29/18 21:15 10/01/18 03:00 Chloride IVPB 5 mg/hr TITR DAVID 5 mls/hr Titration Protocol 1 MG/HR Norepinephrine Bitartrate 8, 500 mls @ 18.75 mls/hr 09/30/18 07:45 10/01/18 05:00 000 mcg/ Dextrose IV 14 mcg/min TITR DAVID 52.5 mls/hr Titration Protocol 5 MCG/MIN Vasopressin 50 units/ Sodium 100 mls @ 4 mls/hr 09/30/18 08:15 10/01/18 06:12 Chloride IVPB 4 units/hr ASDIR DAVID 8 mls/hr Administration Protocol 2 UNITS/HR Piperacillin Sod/Tazobactam 50 mls @ 100 mls/hr 09/30/18 10:00 10/01/18 02:16 Sod 2.25 gm/ Dextrose IVPB 100 mls/hr Q8H-IV DAVID Administration Protocol Insulin Aspart 1 vial 09/28/18 07:00 09/30/18 22:05 Novolog Vial Sliding Scale - SQ Not Given ACHS COUNT INCLUDES THE [facility] Protocol Metoprolol Tartrate 25 mg 09/29/18 12:15 09/30/18 21:02 Lopressor - PO Not Given BID DAVID Mupirocin 1 applic 09/28/18 10:00 09/30/18 23:25 Bactroban Ointment (For Decolonization) - NS 10/03/18 09:59 1 applic BID DAVID Administration Impression: GI bleed - s/p endoclipping and epinephrine injection of active ulcer ESRD S/P CAC Aspiration Ventilatory failure Fall in Hb/Hct -? ongoing bleeding with component of dilution Little to add GOC per family and management per critical care team with blood products prn family wishes.
[2018-10-01 06:45] LABS: ANION GAP 12 MMOL/L (8-16); BLOOD UREA NITROGEN 31 mg/dL (7-18); CHLORIDE 101 mmol/L (98-107); CO2 24 mmol/L (21-32); GLUCOSE,RANDOM 146 mg/dL (74-106); MAGNESIUM 1.9 mg/dL (1.8-2.4); PHOSPHOROUS 3.5 mg/dL (2.5-4.9); SODIUM 137 mmol/L (136-145)
[2018-10-01] MEDS: INSULIN SLIDING SCALE (NOVOLOG) 1 VIAL SQ SCH ×4 (06:49→21:20)
[2018-10-01 06:57] LABS: CALCIUM 6.8 mg/dL (8.5-10.1)
[2018-10-01 07:06] LABS: ARTERIAL BLD GAS O2 SATURATION 97.3 % (90-98.9); ARTERIAL BLOOD GAS BASE EXCESS -0.8 meq/l (-2-2); ARTERIAL BLOOD GAS PCO2 33.9 mmHg (35-45); ARTERIAL BLOOD GAS PO2 91.5 mmHg (68-100); ARTERIAL BLOOD GAS pH 7.44 (7.35-7.45)
[2018-10-01 07:37] LABS: ALLENS TEST POSITIVE
--- NOTE | 2018-10-01 09:16 | PN ---
GI Progress Note Subjective: Non-bloody BM overnight per nursing Remains intubated on pressors - Objective Vital Signs: Vital Signs Temperature 99.0 F 10/01/18 06:00 Pulse Rate 84 10/01/18 08:00 Respiratory Rate 23 H 10/01/18 08:41 Blood Pressure 118/48 L 10/01/18 08:00 O2 Sat by Pulse Oximetry (%) 100 10/01/18 08:41 Constitutional: Calm (intubated,sedated) Cardiovascular: Yes: Regular Rate and Rhythm, Murmur Respiratory: Yes: Diminished (at bases b/l) Gastrointestinal Inspection: Yes: Scars. No: Distention ...Auscultate: Yes: Normoactive Bowel Sounds ...Palpate: Yes: Soft Labs: CBC, BMP 10/01/18 05:30 10/01/18 05:30 INR, PTT INR 1.34 (0.83-1.09) H 09/27/18 23:19 Problem List - Problems (1) GI bleeding Assessment/Plan: Duodenal ulcer bleed s/p epi/endoclip therapy No overt bleeding Continue PPI drip through today then change to 40mg IVPB daily Goals of care to be discussed with family Code(s): K92.2 - GASTROINTESTINAL HEMORRHAGE, UNSPECIFIED
[2018-10-01] MEDS: METOPROLOL TARTRATE 25 MG TABLET (FP) PO SCH ×2 (09:19→21:21)
[2018-10-01] MEDS: MUPIROCIN 2% TOPICAL OINTMENT FOR DECOLONIZATION NS SCH ×2 (09:19→21:20)
--- NOTE | 2018-10-01 09:20 | PN ---
Physical Exam: SUBJECTIVE: Patient seen and examined at bedside. Patient remains intubated and sedated on pressors. No more bloody bowel movements overnight. Patient had a fever of 102 at around 9 pm and received IV tylenol once and is now afebrile. Her MAPS remained in the 70's throughout the night- she is still on levophed, and vasopressin. OBJECTIVE: Vital Signs Period Temp Pulse Resp BP Sys/[place] Pulse Ox Last 24 Hr 99.0 F-102.2 F 84-108 9-26 89-129/41-60 100-100 GENERAL: The patient is intubated and sedated on pressors EYES:no scleral icterus. NECK: no JVD, no lymphadenopathy LUNGS coarse breath sounds B/L HEART: 6/6 holosystolic murmur, no rubs or gallops ABDOMEN: Soft, nontender, nondistended, normoactive bowel sounds, no guarding, no rebound, no hepatosplenomegaly, no masses. EXTREMITIES: 2+ pulses, warm, well-perfused, no edema. NEUROLOGICAL: PSYCH: Normal mood, normal affect. SKIN: Warm, dry, normal turgor, no rashes or lesions noted Laboratory Results - last 24 hr 09/27/18 09/29/18 09/30/18 23:19 16:00 07:24 WBC RBC Hgb Hct MCV MCH MCHC RDW Plt Count MPV Anticoagulation Therapy Puncture Site ABG pH ABG pCO2 at Pt Temp ABG pO2 at Pt Temp ABG HCO3 ABG O2 Sat (Measured) ABG O2 Content ABG Base Excess Moy Test O2 Delivery Device Oxygen Flow Rate Vent Mode Vent Rate Mechanical Rate PEEP Pressure Support Vent Sodium Potassium Chloride Carbon Dioxide Anion Gap BUN Creatinine Creat Clearance w eGFR POC Glucometer 158.61922 Random Glucose Calcium Phosphorus Magnesium Creatine Kinase Creatine Kinase Index CK-MB (CK-2) Troponin I Random Vancomycin Hep C Ab Diagnostic <0.1 Blood Type B POSITIVE Antibody Screen Negative Crossmatch See Detail 09/30/18 09/30/18 09/30/18 10:50 11:53 14:20 WBC RBC Hgb Hct MCV MCH MCHC RDW Plt Count MPV Anticoagulation Therapy Puncture Site ABG pH ABG pCO2 at Pt Temp ABG pO2 at Pt Temp ABG HCO3 ABG O2 Sat (Measured) ABG O2 Content ABG Base Excess Moy Test O2 Delivery Device Oxygen Flow Rate Vent Mode Vent Rate Mechanical Rate PEEP Pressure Support Vent Sodium Potassium Chloride Carbon Dioxide Anion Gap BUN Creatinine Creat Clearance w eGFR POC Glucometer 206.37908 Random Glucose Calcium Phosphorus Magnesium Creatine Kinase 160 Creatine Kinase Index 7.5 H* CK-MB (CK-2) 12.1 H Troponin I 12.00 H* Random Vancomycin 13.0 L Hep C Ab Diagnostic Blood Type Antibody Screen Crossmatch 09/30/18 09/30/18 10/01/18 17:15 21:45 05:05 WBC RBC Hgb Hct MCV MCH MCHC RDW Plt Count MPV Anticoagulation Therapy Puncture Site ABG pH ABG pCO2 at Pt Temp ABG pO2 at Pt Temp ABG HCO3 ABG O2 Sat (Measured) ABG O2 Content ABG Base Excess Moy Test O2 Delivery Device Oxygen Flow Rate Vent Mode Vent Rate Mechanical Rate PEEP Pressure Support Vent Sodium Potassium Chloride Carbon Dioxide Anion Gap BUN Creatinine Creat Clearance w eGFR POC Glucometer 132.12449 109.29772 191.71802 Random Glucose Calcium Phosphorus Magnesium Creatine Kinase Creatine Kinase Index CK-MB (CK-2) Troponin I Random Vancomycin Hep C Ab Diagnostic Blood Type Antibody Screen Crossmatch 10/01/18 10/01/18 10/01/18 05:30 05:30 06:30 WBC 16.7 H RBC 3.10 L Hgb 8.6 L Hct 26.8 L D MCV 86.5 MCH 27.7 MCHC 32.0 RDW 16.4 H Plt Count 168 D MPV 8.0 Anticoagulation Therapy No Result Required. Puncture Site Left radial ABG pH 7.44 ABG pCO2 at Pt Temp 33.9 L ABG pO2 at Pt Temp 91.5 ABG HCO3 22.4 ABG O2 Sat (Measured) 97.3 ABG O2 Content 15.8 ABG Base Excess -0.8 Moy Test Positive O2 Delivery Device Vent Oxygen Flow Rate 60 Vent Mode No Result Required. Vent Rate 23 Mechanical Rate No Result Required. PEEP 5.0 Pressure Support Vent 400 Sodium 137 Potassium 3.0 L Chloride 101 Carbon Dioxide 24 Anion Gap 12 BUN 31 H Creatinine 3.0 H Creat Clearance w eGFR 14.87 POC Glucometer Random Glucose 146 H Calcium 6.8 L* Phosphorus 3.5 Magnesium 1.9 Creatine Kinase Creatine Kinase Index CK-MB (CK-2) Troponin I Random Vancomycin Hep C Ab Diagnostic Blood Type Antibody Screen Crossmatch Active Medications Generic Name Dose Route Start Last Admin Trade Name Freq PRN Reason Stop Dose Admin Acetaminophen 1,000 mg 09/30/18 20:33 09/30/18 21:00 Ofirmev Injection - IVPB 1,000 mg Q6H PRN Administration FEVER Chlorhexidine Gluconate 1 applic 09/28/18 22:00 09/30/18 23:25 Hibiclens For Decolonization - TP 1 applic HS DAVID Administration Pantoprazole Sodium 80 mg/ 100 mls @ 10 mls/hr 09/27/18 23:15 10/01/18 00:17 Sodium Chloride IVPB 10 mls/hr Q10H DAVID Administration 8 MG/HR Midazolam HCl 100 mg/ Sodium 100 mls @ 1 mls/hr 09/29/18 21:15 10/01/18 03:00 Chloride IVPB 5 mg/hr TITR DAVID 5 mls/hr Titration Protocol 1 MG/HR Norepinephrine Bitartrate 8, 500 mls @ 18.75 mls/hr 09/30/18 07:45 10/01/18 05:00 000 mcg/ Dextrose IV 14 mcg/min TITR DAVID 52.5 mls/hr Titration Protocol 5 MCG/MIN Vasopressin 50 units/ Sodium 100 mls @ 4 mls/hr 09/30/18 08:15 10/01/18 06:12 Chloride IVPB 4 units/hr ASDIR DAVID 8 mls/hr Administration Protocol 2 UNITS/HR Piperacillin Sod/Tazobactam 50 mls @ 100 mls/hr 09/30/18 10:00 10/01/18 02:16 Sod 2.25 gm/ Dextrose IVPB 100 mls/hr Q8H-IV DAVID Administration Protocol Insulin Aspart 1 vial 09/28/18 07:00 10/01/18 06:49 Novolog Vial Sliding Scale - SQ 2 units ACHS DAVID Administration Protocol Metoprolol Tartrate 25 mg 09/29/18 12:15 09/30/18 21:02 Lopressor - PO Not Given BID DAVID Mupirocin 1 applic 09/28/18 10:00 09/30/18 23:25 Bactroban Ointment (For Decolonization) - NS 10/03/18 09:59 1 applic BID DAVID Administration ASSESSMENT/PLAN: 83 y.o female with PMH of CHF, CAD (s/p stents on aspirin,plavix), ESRD (m/w/f dialysis), previous GI bleed, presents to the ED after having multiple episodes of melanotic stool and episodes of cristina bright red blood per rectum, now s/p EGD . #) Acute Hypoxic Respiratory failure patient now intubated/sedated on pressors (levophed and vasopressin) s/p cardiac arrest -RLL infiltrate likely 2/2 aspiration pneumonia -started on vanc/zosyn for broad spectrum coverage -f/u pneumonia antigen labs -f/u cx -meeting with family to discuss goals of care #) GI Bleed patient has so far received 5 units of PRBCS and 2 units of platelets -on protonix drip 10mls/hr needs to be on for total 72 hours -GI on board- appreciate recs -cardio consulted- f/u recs -monitor hemodynamics and vital signs -transfuse as needed #) ESRD (m/w/f) patient had HD yesterday -nephro on board-appreciate recs -monitor electrolytes -monitor fluid status/hemodynamics #) CAD -holding patients aspirin and plavix currently -will resume once bleeding stops and GI gives OK #) HTN -holding home meds #)DM -ISS -BGMS ACHS F/E/N NS @50mls/hr replete electrolytes NPO Problem List - Problems (1) Acute duodenal ulcer with hemorrhage Code(s): K26.0 - ACUTE DUODENAL ULCER WITH HEMORRHAGE (2) Bright red blood per rectum Code(s): K62.5 - HEMORRHAGE OF ANUS AND RECTUM (3) GI bleeding Code(s): K92.2 - GASTROINTESTINAL HEMORRHAGE, UNSPECIFIED (4) Anemia Code(s): D64.9 - ANEMIA, UNSPECIFIED (5) Aortic stenosis Code(s): Q25.3 - SUPRAVALVULAR AORTIC STENOSIS Visit type - Emergency Visit Emergency Visit: Yes ED Registration Date: 09/28/18 Care time: The patient presented to the Emergency Department on the above date and was hospitalized for further evaluation of their emergent condition. - New Patient This patient is new to me today: No - Critical Care Critical Care patient: No
--- NOTE | 2018-10-01 10:22 | PN ---
Progress Note, Physician History of Present Illness: Post bradycardic/PEA arrest. Pt now intubated, sedated on levophed and vasopressin gtt. CXR with large RLL consolidation suggestive of aspiration. - Current Medication List Current Medications: Active Medications Acetaminophen (Ofirmev Injection -) 1,000 mg IVPB Q6H PRN PRN Reason: FEVER Last Admin: 09/30/18 21:00 Dose: 1,000 mg Chlorhexidine Gluconate (Hibiclens For Decolonization -) 1 applic TP HS DAVID Last Admin: 09/30/18 23:25 Dose: 1 applic Pantoprazole Sodium 80 mg/ (Sodium Chloride) 100 mls @ 10 mls/hr IVPB Q10H DAVID Last Admin: 10/01/18 00:17 Dose: 10 mls/hr Midazolam HCl 100 mg/ Sodium (Chloride) 100 mls @ 1 mls/hr IVPB TITR DAVID; Protocol Last Titration: 10/01/18 09:19 Dose: 6 mg/hr, 6 mls/hr Norepinephrine Bitartrate 8, (000 mcg/ Dextrose) 500 mls @ 18.75 mls/hr IV TITR DAVID; Protocol Last Admin: 10/01/18 09:17 Dose: 14 mcg/min, 52.5 mls/hr Vasopressin 50 units/ Sodium (Chloride) 100 mls @ 4 mls/hr IVPB ASDIR DAVID; Protocol Last Admin: 10/01/18 09:18 Dose: 4 units/hr, 8 mls/hr Piperacillin Sod/Tazobactam (Sod 2.25 gm/ Dextrose) 50 mls @ 100 mls/hr IVPB Q8H-IV DAVID; Protocol Last Admin: 10/01/18 09:19 Dose: 100 mls/hr Insulin Aspart (Novolog Vial Sliding Scale -) 1 vial SQ ACHS DAVID; Protocol Last Admin: 10/01/18 06:49 Dose: 2 units Metoprolol Tartrate (Lopressor -) 25 mg PO BID DAVID Last Admin: 10/01/18 09:19 Dose: Not Given Mupirocin (Bactroban Ointment (For Decolonization) -) 1 applic NS BID DAVID Stop: 10/03/18 09:59 Last Admin: 10/01/18 09:19 Dose: 1 applic - Objective Vital Signs: Vital Signs Temperature 99.3 F 10/01/18 10:00 Pulse Rate 87 10/01/18 10:00 Respiratory Rate 24 H 10/01/18 10:00 Blood Pressure 118/49 L 10/01/18 10:00 O2 Sat by Pulse Oximetry (%) 100 10/01/18 09:59 Constitutional: Yes: No Distress, Calm Neck: Yes: Supple Cardiovascular: Yes: Regular Rate and Rhythm, Murmur (2/6 SM) Respiratory: Yes: Intubated, Mechanically Ventilated, Rhonchi Gastrointestinal: Yes: Normal Bowel Sounds, Soft Edema: No Labs: CBC, BMP 10/01/18 05:30 10/01/18 05:30 INR, PTT INR 1.34 (0.83-1.09) H 09/27/18 23:19 - ....Imaging Chest X-ray: Report Reviewed (Improved aeration) EKG: Report Reviewed (Tele: SR) Problem List - Problems (1) Old myocardial infarction Code(s): I25.2 - OLD MYOCARDIAL INFARCTION (2) Systolic dysfunction without heart failure Code(s): I51.89 - OTHER ILL-DEFINED HEART DISEASES (3) Acute duodenal ulcer with hemorrhage Code(s): K26.0 - ACUTE DUODENAL ULCER WITH HEMORRHAGE (4) Acute blood loss anemia Code(s): D62 - ACUTE POSTHEMORRHAGIC ANEMIA (5) Aortic stenosis Code(s): Q25.3 - SUPRAVALVULAR AORTIC STENOSIS (6) CAD (coronary artery disease) Code(s): I25.10 - ATHSCL HEART DISEASE OF [place] CORONARY ARTERY W/O ANG PCTRS Qualifiers: Coronary Disease-Associated Artery/Lesion type: [place] artery [place] vs. 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 Code(s): E11.29 - TYPE 2 DIABETES MELLITUS W OTH DIABETIC KIDNEY COMPLICATION Qualifiers: Diabetes mellitus penitentiary insulin use: without intermodal owner operator truck driver use Diabetes mellitus complication detail: with chronic kidney disease Chronic kidney disease stage: on chronic dialysis Qualified Code(s): E11.22 - Type 2 diabetes mellitus with diabetic chronic kidney disease; N18.6 - End stage renal disease; Z99.2 - Dependence on renal dialysis (8) ESRD on hemodialysis Code(s): N18.6 - END STAGE RENAL DISEASE; Z99.2 - DEPENDENCE ON RENAL DIALYSIS Assessment/Plan 09/28/2018 Echo: Normal LV size with severe cLVH, distal anterior, inferior, septal and apical AK, mod decreased LVEF 35%, normal RV size and fxn, mod LAE, severe MARCIA 0.67 cm^2 MG 44 mmHg, trivial pericardial effusion 1. Acute Hypoxic Respiratory Failure s/p Bradycardic Cardiac Arrest 2. Pneumonia likely Aspiration 3. Septic Shock 4. UGI bleed secondary to ulcer with bleeding visible vessel in the duodenal bulb S/P epinephrine injection and endoclip therapy in setting of dual antiplatelet therapy since resolved 5. CAD post NV, s/p PCI/stent, angina 6. LV systolic dysfunction 7. Severe aortic valve stenosis 8. Hypercholesterolemia 9. ESRD on HD via AV fistula 10. H/o HTN PLAN: 1. PPI gtt with monitor Hgb and transfuse PRBC as needed 2. ASA and Plavix have been held until hemostasis assured 3. Wean pressors to maintain MAP >65, hold Lopressor 25 bid pending hemodynamics stability 4. Records to be obtained from her manager of organizational development in [place] ([facility]: Jimenez Monroe MD) 5. HD as per Renal service 6. Empiric abx f/u C&S, CXR, wean vent support as tolerated
--- NOTE | 2018-10-01 11:52 | PN ---
Teaching Attending Note Name of Resident: Teresa Leach ATTENDING PHYSICIAN STATEMENT I saw and evaluated the patient. I reviewed the resident's note and discussed the case with the resident. I agree with the resident's findings and plan as documented. SUBJECTIVE:intubated/sedated 3 BM overnight, greenish, no melena or BRBPR OBJECTIVE: Last Vital Signs Temp Pulse Resp BP Pulse Ox 99.3 F 87 23 H 118/49 L 100 10/01/18 10:00 10/01/18 10:00 10/01/18 11:38 10/01/18 10:00 10/01/18 09:59 Intake & Output 09/28/18 09/29/18 09/30/18 10/01/18 23:59 23:59 23:59 23:59 Intake Total 3584 1824 2667.5 778 Output Total 200 0 0 Balance 3384 1824 2667.5 778 Weight 112 lb 3.2 oz 118 lb 122 lb General intbuated/sedated CV S1 S2 + +6/6 holosystolic murmur Lungs coarse breath sounds anteriorly Abdomen soft NT/ND Extremities trace edema ASSESSMENT AND PLAN: 83yo F wtih PMH ESRD on HD, PUD with previous duodenal ulcer bleeding, Severe , dementia, HTN presented to the ER wtih BRBPR and melena and continues to have active bleeding 1. Upper GI bleed- s/p EGD 09/29. bleeding duodenal ulcer with vissible vessel. s/p epinephrine and clipping. Brown stool. no signs of active bleeding. Hgb did drop this AM. will repeat it and transfuse as necessary. cont NPO, PPI ggt (can likely switch to BID tomorrow) and IVF. GI and surgery on board. hold asa/ plavix. 2. Cardiac arrest- PEA initial rhythm. no events on monitor. trop peaked at 12.5. not a candidate for heparin ggt or intervention due to recent bleed. medical management. Cardio on board 3. acute hypoxic respiratory failure- s/p intubation. treat infection. not a candidate for weaning at this time. cont full vent support 4. septic shock due to RLL PNA- possible aspiration. Tm102.1. on zosyn day 2. on levo 18mcg and vaso 4units. titrate as needed to maintan MAP >65. Sputum cx with +organism. flu negative. f/uc cx 5. Acute blood loss anemia- s/p 5 units PRBC, 2 units platelets this hospital stay. CBC trending down. no active bleeding seen. will repeat CBC later today.hematology on board 6. hypokalemia-resolved 7. Hypophopahtemia- resolved 8. Hypocalcemia- Corrected ca 8. can start supplements once diet is advanced 9. ESRD on HD- no need for emergent HD. can resume per normal schedule 10. Severe - monitor fluid status closely. 11. dementia- 12. HTN- hold oral agents. currently hypotensive 13. CAD s/p stent 2017- hold asa/plavix. cardio consulted. 14. DVT ppx- SCD 15. MICU. prognosis guarded. 16. DNR. family meeting today to discuss goals of care The care of this patient involved high complexity decision making to prevent further life threatening deterioration of the patient's condition and/or to evaluate & treat vital organ system(s) failure or risk of failure. 38 mins
--- NOTE | 2018-10-01 12:19 | PN ---
Teaching Attending Note Name of Resident: Casimiro Cobos ATTENDING PHYSICIAN STATEMENT I saw and evaluated the patient. I reviewed the resident's note and discussed the case with the resident. I agree with the resident's findings and plan as documented. SUBJECTIVE: Patient seen and examined in the ICU. Remains intubated on AC Mode of vent, 60 % FiO2. Sedated with Versed. Hemodynamic support on 14 mcq levophed and 4mcq Vasopressin. CXR: Slight improvement in bilateral consolidations and airspace disease. OBJECTIVE: Intake & Output 09/28/18 09/29/18 09/30/18 10/01/18 23:59 23:59 23:59 23:59 Intake Total 3584 1824 2667.5 778 Output Total 200 0 0 Balance 3384 1824 2667.5 778 Weight 112 lb 3.2 oz 118 lb 122 lb Last Vital Signs Temp Pulse Resp BP Pulse Ox 99.3 F 87 23 H 118/49 L 100 10/01/18 10:00 10/01/18 10:00 10/01/18 11:38 10/01/18 10:00 10/01/18 09:59 Active Medications Acetaminophen (Ofirmev Injection -) 1,000 mg IVPB Q6H PRN PRN Reason: FEVER Last Admin: 09/30/18 21:00 Dose: 1,000 mg Chlorhexidine Gluconate (Hibiclens For Decolonization -) 1 applic TP HS DAVID Last Admin: 09/30/18 23:25 Dose: 1 applic Pantoprazole Sodium 80 mg/ (Sodium Chloride) 100 mls @ 10 mls/hr IVPB Q10H DAVID Last Admin: 10/01/18 11:00 Dose: 10 mls/hr Midazolam HCl 100 mg/ Sodium (Chloride) 100 mls @ 1 mls/hr IVPB TITR DAVID; Protocol Last Titration: 10/01/18 09:19 Dose: 6 mg/hr, 6 mls/hr Norepinephrine Bitartrate 8, (000 mcg/ Dextrose) 500 mls @ 18.75 mls/hr IV TITR DAVID; Protocol Last Admin: 10/01/18 10:21 Dose: 14 mcg/min, 52.5 mls/hr Vasopressin 50 units/ Sodium (Chloride) 100 mls @ 4 mls/hr IVPB ASDIR DAVID; Protocol Last Admin: 10/01/18 09:18 Dose: 4 units/hr, 8 mls/hr Piperacillin Sod/Tazobactam (Sod 2.25 gm/ Dextrose) 50 mls @ 100 mls/hr IVPB Q8H-IV DAVID; Protocol Last Admin: 10/01/18 09:19 Dose: 100 mls/hr Insulin Aspart (Novolog Vial Sliding Scale -) 1 vial SQ ACHS DAVID; Protocol Last Admin: 10/01/18 12:15 Dose: 2 units Metoprolol Tartrate (Lopressor -) 25 mg PO BID DAVID Last Admin: 10/01/18 09:19 Dose: Not Given Mupirocin (Bactroban Ointment (For Decolonization) -) 1 applic NS BID DAVID Stop: 10/03/18 09:59 Last Admin: 10/01/18 09:19 Dose: 1 applic Gen: intubated, sedated Heart: tachycardic, regular Lung: bilateral rhonchi Abd: soft, nontender Ext: no edema Laboratory Results - last 24 hr 09/27/18 09/29/18 09/30/18 23:19 16:00 07:24 WBC RBC Hgb Hct MCV MCH MCHC RDW Plt Count MPV Anticoagulation Therapy Puncture Site ABG pH ABG pCO2 at Pt Temp ABG pO2 at Pt Temp ABG HCO3 ABG O2 Sat (Measured) ABG O2 Content ABG Base Excess Moy Test O2 Delivery Device Oxygen Flow Rate Vent Mode Vent Rate Mechanical Rate PEEP Pressure Support Vent Sodium Potassium Chloride Carbon Dioxide Anion Gap BUN Creatinine Creat Clearance w eGFR POC Glucometer 158.23978 Random Glucose Calcium Phosphorus Magnesium Creatine Kinase Index CK-MB (CK-2) Random Vancomycin Hep C Ab Diagnostic <0.1 Blood Type B POSITIVE Antibody Screen Negative Crossmatch See Detail 09/30/18 09/30/18 09/30/18 10:50 11:53 14:20 WBC RBC Hgb Hct MCV MCH MCHC RDW Plt Count MPV Anticoagulation Therapy Puncture Site ABG pH ABG pCO2 at Pt Temp ABG pO2 at Pt Temp ABG HCO3 ABG O2 Sat (Measured) ABG O2 Content ABG Base Excess Moy Test O2 Delivery Device Oxygen Flow Rate Vent Mode Vent Rate Mechanical Rate PEEP Pressure Support Vent Sodium Potassium Chloride Carbon Dioxide Anion Gap BUN Creatinine Creat Clearance w eGFR POC Glucometer 206.75575 Random Glucose Calcium Phosphorus Magnesium Creatine Kinase Index 7.5 H* CK-MB (CK-2) 12.1 H Random Vancomycin 13.0 L Hep C Ab Diagnostic Blood Type Antibody Screen Crossmatch 09/30/18 09/30/18 10/01/18 17:15 21:45 05:05 WBC RBC Hgb Hct MCV MCH MCHC RDW Plt Count MPV Anticoagulation Therapy Puncture Site ABG pH ABG pCO2 at Pt Temp ABG pO2 at Pt Temp ABG HCO3 ABG O2 Sat (Measured) ABG O2 Content ABG Base Excess Moy Test O2 Delivery Device Oxygen Flow Rate Vent Mode Vent Rate Mechanical Rate PEEP Pressure Support Vent Sodium Potassium Chloride Carbon Dioxide Anion Gap BUN Creatinine Creat Clearance w eGFR POC Glucometer 132.26066 109.71011 191.27027 Random Glucose Calcium Phosphorus Magnesium Creatine Kinase Index CK-MB (CK-2) Random Vancomycin Hep C Ab Diagnostic Blood Type Antibody Screen Crossmatch 10/01/18 10/01/18 10/01/18 05:30 05:30 06:30 WBC 16.7 H RBC 3.10 L Hgb 8.6 L Hct 26.8 L D MCV 86.5 MCH 27.7 MCHC 32.0 RDW 16.4 H Plt Count 168 D MPV 8.0 Anticoagulation Therapy No Result Required. Puncture Site Left radial ABG pH 7.44 ABG pCO2 at Pt Temp 33.9 L ABG pO2 at Pt Temp 91.5 ABG HCO3 22.4 ABG O2 Sat (Measured) 97.3 ABG O2 Content 15.8 ABG Base Excess -0.8 Moy Test Positive O2 Delivery Device Vent Oxygen Flow Rate 60 Vent Mode No Result Required. Vent Rate 23 Mechanical Rate No Result Required. PEEP 5.0 Pressure Support Vent 400 Sodium 137 Potassium 3.0 L Chloride 101 Carbon Dioxide 24 Anion Gap 12 BUN 31 H Creatinine 3.0 H Creat Clearance w eGFR 14.87 POC Glucometer Random Glucose 146 H Calcium 6.8 L* Phosphorus 3.5 Magnesium 1.9 Creatine Kinase Index CK-MB (CK-2) Random Vancomycin Hep C Ab Diagnostic Blood Type Antibody Screen Crossmatch ASSESSMENT AND PLAN: Acute Hypoxic Respiratory Failure s/p Bradycardic Cardiac Arrest Pneumonia likely Aspiration Septic Shock GI Bleed likely upper Acute Blood Loss Anemia ESRD on HD CAD LV Diastolic Dysfunction Severe Aortic Stenosis HTN DM - continue antibiotics - titrate pressors to maintain MAP >65 - HD per renal - PPI - monitor CBC, coags - Normal transfusion thresholds - holding ASA, plavix - Replete lytes - NPO - O2 to keep SpO2 >90% - DVT prophylaxis - continue ICU monitoring - Further discussions for GOC Dr Robbins Critical care time spent in reviewing chart, evaluating patient and formulating plan 35 min
--- NOTE | 2018-10-01 13:11 | PN ---
Progress Note, Physician History of Present Illness: Pt seen and examined at bedside. She remains in the ICU. Pt remains intubated. - Current Medication List Current Medications: Active Medications Acetaminophen (Ofirmev Injection -) 1,000 mg IVPB Q6H PRN PRN Reason: FEVER Last Admin: 09/30/18 21:00 Dose: 1,000 mg Chlorhexidine Gluconate (Hibiclens For Decolonization -) 1 applic TP HS DAVID Last Admin: 09/30/18 23:25 Dose: 1 applic Pantoprazole Sodium 80 mg/ (Sodium Chloride) 100 mls @ 10 mls/hr IVPB Q10H DAVID Last Admin: 10/01/18 11:00 Dose: 10 mls/hr Midazolam HCl 100 mg/ Sodium (Chloride) 100 mls @ 1 mls/hr IVPB TITR DAVID; Protocol Last Titration: 10/01/18 09:19 Dose: 6 mg/hr, 6 mls/hr Norepinephrine Bitartrate 8, (000 mcg/ Dextrose) 500 mls @ 18.75 mls/hr IV TITR DAVID; Protocol Last Admin: 10/01/18 10:21 Dose: 14 mcg/min, 52.5 mls/hr Vasopressin 50 units/ Sodium (Chloride) 100 mls @ 4 mls/hr IVPB ASDIR DAVID; Protocol Last Titration: 10/01/18 12:10 Dose: 3 units/hr, 6 mls/hr Piperacillin Sod/Tazobactam (Sod 2.25 gm/ Dextrose) 50 mls @ 100 mls/hr IVPB Q8H-IV DAVID; Protocol Last Admin: 10/01/18 09:19 Dose: 100 mls/hr Insulin Aspart (Novolog Vial Sliding Scale -) 1 vial SQ ACHS DAVID; Protocol Last Admin: 10/01/18 12:15 Dose: 2 units Metoprolol Tartrate (Lopressor -) 25 mg PO BID DAVID Last Admin: 10/01/18 09:19 Dose: Not Given Mupirocin (Bactroban Ointment (For Decolonization) -) 1 applic NS BID DAVID Stop: 10/03/18 09:59 Last Admin: 10/01/18 09:19 Dose: 1 applic - Objective Vital Signs: Vital Signs Temperature 99.3 F 10/01/18 10:00 Pulse Rate 85 10/01/18 12:10 Respiratory Rate 14 10/01/18 12:00 Blood Pressure 128/47 L 10/01/18 12:10 O2 Sat by Pulse Oximetry (%) 100 10/01/18 09:59 Constitutional: Yes: Calm Eyes: Yes: Conjunctiva Clear Cardiovascular: Yes: S1, S2 Respiratory: Yes: Mechanically Ventilated Gastrointestinal: Yes: Soft Genitourinary: Yes: Incontinence Musculoskeletal: Yes: Muscle Weakness Edema: LLE: Trace, RLE: Trace Neurological: Yes: Lethargy Labs: CBC, BMP 10/01/18 05:30 10/01/18 05:30 INR, PTT INR 1.34 (0.83-1.09) H 09/27/18 23:19 - ....Imaging Chest X-ray: Report Reviewed Problem List - Problems (1) Cardiac arrest Code(s): I46.9 - CARDIAC ARREST, CAUSE UNSPECIFIED (2) Bright red blood per rectum Code(s): K62.5 - HEMORRHAGE OF ANUS AND RECTUM (3) GI bleeding Code(s): K92.2 - GASTROINTESTINAL HEMORRHAGE, UNSPECIFIED (4) CAD (coronary artery disease) Code(s): I25.10 - ATHSCL HEART DISEASE OF [place] CORONARY ARTERY W/O ANG PCTRS Qualifiers: Coronary Disease-Associated Artery/Lesion type: [place] artery [place] vs. transplanted heart: [place] heart Associated angina: without angina Qualified Code(s): I25.10 - Atherosclerotic heart disease of [place] coronary artery without angina pectoris (5) DM (diabetes mellitus) type II controlled with renal manifestation Code(s): E11.29 - TYPE 2 DIABETES MELLITUS W OTH DIABETIC KIDNEY COMPLICATION Qualifiers: Diabetes mellitus mcfp insulin use: without bushing and broach operator use Diabetes mellitus complication detail: with chronic kidney disease Chronic kidney disease stage: on chronic dialysis Qualified Code(s): E11.22 - Type 2 diabetes mellitus with diabetic chronic kidney disease; N18.6 - End stage renal disease; Z99.2 - Dependence on renal dialysis (6) ESRD on hemodialysis Code(s): N18.6 - END STAGE RENAL DISEASE; Z99.2 - DEPENDENCE ON RENAL DIALYSIS Assessment/Plan Current Medications Generic Name Dose Route Start Last Admin Trade Name Freq PRN Reason Stop Dose Admin Acetaminophen 1,000 mg 09/30/18 20:33 09/30/18 21:00 Ofirmev Injection - IVPB 1,000 mg Q6H PRN Administration FEVER Chlorhexidine Gluconate 1 applic 09/28/18 22:00 09/30/18 23:25 Hibiclens For Decolonization - TP 1 applic HS DAVID Administration Pantoprazole Sodium 80 mg/ 100 mls @ 10 mls/hr 09/27/18 23:15 10/01/18 11:00 Sodium Chloride IVPB 10 mls/hr Q10H DAVID Administration 8 MG/HR Midazolam HCl 100 mg/ Sodium 100 mls @ 1 mls/hr 09/29/18 21:15 10/01/18 09:19 Chloride IVPB 6 mg/hr TITR DAVID 6 mls/hr Titration Protocol 1 MG/HR Norepinephrine Bitartrate 8, 500 mls @ 18.75 mls/hr 09/30/18 07:45 10/01/18 10:21 000 mcg/ Dextrose IV 14 mcg/min TITR DAVID 52.5 mls/hr Administration Protocol 5 MCG/MIN Vasopressin 50 units/ Sodium 100 mls @ 4 mls/hr 09/30/18 08:15 10/01/18 12:10 Chloride IVPB 3 units/hr ASDIR DAVID 6 mls/hr Titration Protocol 2 UNITS/HR Piperacillin Sod/Tazobactam 50 mls @ 100 mls/hr 09/30/18 10:00 10/01/18 09:19 Sod 2.25 gm/ Dextrose IVPB 100 mls/hr Q8H-IV DAVID Administration Protocol Insulin Aspart 1 vial 09/28/18 07:00 10/01/18 12:15 Novolog Vial Sliding Scale - SQ 2 units ACHS DAVID Administration Protocol Metoprolol Tartrate 25 mg 09/29/18 12:15 10/01/18 09:19 Lopressor - PO Not Given BID DAVID Mupirocin 1 applic 09/28/18 10:00 10/01/18 09:19 Bactroban Ointment (For Decolonization) - NS 10/03/18 09:59 1 applic BID DAVID Administration Impression 1. ESRD 2. DM 3. GI bleed 4. anemia 5. HTN 6. cardiac arrest 7. resp failure requiring intubated Plan - cont pressors to a MAP of 65 - labs and cxr are stable today - will evaluate for HD tomorrow - discussed with ICU team - vent support - cardiology follow up - keep pt in ICU - monitor hg and transfuse as needed - pt goes to HD in [place] [phone] - 3 hrs, 16 gauge needs, 350 abf, no heparin, epogen 7200 units, right AVF - will follow
--- NOTE | 2018-10-01 14:15 | PN ---
Physical Exam: SUBJECTIVE: Patient seen and examined at bedside. She remains intubated and sedated. Overnight nurse said she had a green looking diaper but no cristina blood in it. She also had a mild fever overnight. No other acute events. Family meeting will happen tomorrow with health care proxy. OBJECTIVE: Vital Signs Period Temp Pulse Resp BP Sys/[place] Pulse Ox Last 24 Hr 99.0 F-102.2 F 84-108 14-25 89-132/41-60 100-100 GENERAL: The patient is Intubated and sedated. HEAD: Normal with no signs of trauma. EYES: PERRL, sclera anicteric, conjunctiva clear. ENT: Ears normal, nares patent, oropharynx clear without exudates. NECK: Trachea midline. LUNGS: Crackles on the right. Intubated breath sounds. HEART: regular rate and regular rhythm, systolic murmer. ABDOMEN: Soft, no hepatosplenomegaly, no masses. EXTREMITIES: 2+ pulses, cold, well-perfused, no edema. There is a Fistula in the Right arm. Left arm has an old fistula which is no longer working or in use. SKIN: Cold, dry, normal turgor. Laboratory Results - last 24 hr 09/27/18 09/29/18 09/30/18 23:19 16:00 07:24 WBC RBC Hgb Hct MCV MCH MCHC RDW Plt Count MPV Anticoagulation Therapy Puncture Site ABG pH ABG pCO2 at Pt Temp ABG pO2 at Pt Temp ABG HCO3 ABG O2 Sat (Measured) ABG O2 Content ABG Base Excess Moy Test O2 Delivery Device Oxygen Flow Rate Vent Mode Vent Rate Mechanical Rate PEEP Pressure Support Vent Sodium Potassium Chloride Carbon Dioxide Anion Gap BUN Creatinine Creat Clearance w eGFR POC Glucometer 158.82513 Random Glucose Calcium Phosphorus Magnesium Random Vancomycin Hep C Ab Diagnostic <0.1 Blood Type B POSITIVE Antibody Screen Negative Crossmatch See Detail 09/30/18 09/30/18 09/30/18 11:53 14:20 17:15 WBC RBC Hgb Hct MCV MCH MCHC RDW Plt Count MPV Anticoagulation Therapy Puncture Site ABG pH ABG pCO2 at Pt Temp ABG pO2 at Pt Temp ABG HCO3 ABG O2 Sat (Measured) ABG O2 Content ABG Base Excess Moy Test O2 Delivery Device Oxygen Flow Rate Vent Mode Vent Rate Mechanical Rate PEEP Pressure Support Vent Sodium Potassium Chloride Carbon Dioxide Anion Gap BUN Creatinine Creat Clearance w eGFR POC Glucometer 206.91497 132.74812 Random Glucose Calcium Phosphorus Magnesium Random Vancomycin 13.0 L Hep C Ab Diagnostic Blood Type Antibody Screen Crossmatch 09/30/18 10/01/18 10/01/18 21:45 05:05 05:30 WBC 16.7 H RBC 3.10 L Hgb 8.6 L Hct 26.8 L D MCV 86.5 MCH 27.7 MCHC 32.0 RDW 16.4 H Plt Count 168 D MPV 8.0 Anticoagulation Therapy Puncture Site ABG pH ABG pCO2 at Pt Temp ABG pO2 at Pt Temp ABG HCO3 ABG O2 Sat (Measured) ABG O2 Content ABG Base Excess Moy Test O2 Delivery Device Oxygen Flow Rate Vent Mode Vent Rate Mechanical Rate PEEP Pressure Support Vent Sodium Potassium Chloride Carbon Dioxide Anion Gap BUN Creatinine Creat Clearance w eGFR POC Glucometer 109.06630 191.39383 Random Glucose Calcium Phosphorus Magnesium Random Vancomycin Hep C Ab Diagnostic Blood Type Antibody Screen Crossmatch 10/01/18 10/01/18 05:30 06:30 WBC RBC Hgb Hct MCV MCH MCHC RDW Plt Count MPV Anticoagulation Therapy No Result Required. Puncture Site Left radial ABG pH 7.44 ABG pCO2 at Pt Temp 33.9 L ABG pO2 at Pt Temp 91.5 ABG HCO3 22.4 ABG O2 Sat (Measured) 97.3 ABG O2 Content 15.8 ABG Base Excess -0.8 Moy Test Positive O2 Delivery Device Vent Oxygen Flow Rate 60 Vent Mode No Result Required. Vent Rate 23 Mechanical Rate No Result Required. PEEP 5.0 Pressure Support Vent 400 Sodium 137 Potassium 3.0 L Chloride 101 Carbon Dioxide 24 Anion Gap 12 BUN 31 H Creatinine 3.0 H Creat Clearance w eGFR 14.87 POC Glucometer Random Glucose 146 H Calcium 6.8 L* Phosphorus 3.5 Magnesium 1.9 Random Vancomycin Hep C Ab Diagnostic Blood Type Antibody Screen Crossmatch Active Medications Generic Name Dose Route Start Last Admin Trade Name Freq PRN Reason Stop Dose Admin Acetaminophen 1,000 mg 09/30/18 20:33 09/30/18 21:00 Ofirmev Injection - IVPB 1,000 mg Q6H PRN Administration FEVER Chlorhexidine Gluconate 1 applic 09/28/18 22:00 09/30/18 23:25 Hibiclens For Decolonization - TP 1 applic HS DAVID Administration Pantoprazole Sodium 80 mg/ 100 mls @ 10 mls/hr 09/27/18 23:15 10/01/18 11:00 Sodium Chloride IVPB 10 mls/hr Q10H DAVID Administration 8 MG/HR Midazolam HCl 100 mg/ Sodium 100 mls @ 1 mls/hr 09/29/18 21:15 10/01/18 09:19 Chloride IVPB 6 mg/hr TITR DAVID 6 mls/hr Titration Protocol 1 MG/HR Norepinephrine Bitartrate 8, 500 mls @ 18.75 mls/hr 09/30/18 07:45 10/01/18 10:21 000 mcg/ Dextrose IV 14 mcg/min TITR DAVID 52.5 mls/hr Administration Protocol 5 MCG/MIN Vasopressin 50 units/ Sodium 100 mls @ 4 mls/hr 09/30/18 08:15 10/01/18 13:13 Chloride IVPB 2 units/hr ASDIR DAVID 4 mls/hr Titration Protocol 2 UNITS/HR Piperacillin Sod/Tazobactam 50 mls @ 100 mls/hr 09/30/18 10:00 10/01/18 09:19 Sod 2.25 gm/ Dextrose IVPB 100 mls/hr Q8H-IV DAVID Administration Protocol Insulin Aspart 1 vial 09/28/18 07:00 10/01/18 12:15 Novolog Vial Sliding Scale - SQ 2 units ACHS DAVID Administration Protocol Metoprolol Tartrate 25 mg 09/29/18 12:15 10/01/18 09:19 Lopressor - PO Not Given BID DAVID Mupirocin 1 applic 09/28/18 10:00 10/01/18 09:19 Bactroban Ointment (For Decolonization) - NS 10/03/18 09:59 1 applic BID DAVID Administration ASSESSMENT/PLAN: Assessment: Julissa is an 83 yo F with a sig pmh of ESRD (M/W/F - dialyzed today ), diastolic CHF dysfunction, severe CAD, HTN, and prior duodenal ulcer bleed who presented to the ICU with a low HB and had a duodenal ulcer identified by CTA as the bleeding source. She received endoscopic therapy with clips and epinephrine to stop the bleeding. Her Hb increased this morning to 8.7. Last night she experienced a green colored diaper and had a mild fever. Her family states today they only want comfort care moving forward. There will be a formal meeting tomorrow to discuss goals of care. Norepi and vasopressin for BP support Plan: GI: - CTA localized active duodenal bleed - EGD clips and epi stopped bleed - Bleeding likely continued and re-occured - Protonix for prophylaxis Cardio: - Receiving Norepinephrine + Vasopressin for BP support - IV hydration - PRBC + platelet transfusion + DDAVP - Measure CVP to assess volume status: 8-12 - Patient received echo: Severe left concentric LVH, Significant akinesis, LVEF = 35%, LA dilatation, Severe aortic sclerosis + Aortic stenosis, mitral valve thickening. - Holding Aspirin and plavix Heme: - Anemia secondary to acute blood loss and ESRD. Will transfuse PRBC as needed to keep Hb greater than 7. Renal: - Patient to receive dialysis tomorrow. - Patient receiving erythropoiten as per renal Derm: - Pressure ulcer: unstageable - Wound care consulted: Dr. Benson Endo: - Will monitor glucose levels and give sliding scale. Neuro: - intubated and sedated. ID: - No problems at present Prophylaxis: -Hold AC due to active GI bleeding. SCDs and MARCOS's -Protonix drip for GI F/E/N: - Will give IV hydration NS @50mls/hr, platelets, RBC, DDAVP, +/- FFP. - Will continue to replete electrolytes PRN. - NPO Code Status: - DNR Dispo: -Patient will continue to receive ICU level care. Visit type - Emergency Visit Emergency Visit: Yes ED Registration Date: 09/28/18 Care time: The patient presented to the Emergency Department on the above date and was hospitalized for further evaluation of their emergent condition. - New Patient This patient is new to me today: No - Critical Care Critical Care patient: Yes Total Critical Care Time (in minutes): 36 Critical Care Statement: The care of this patient involved high complexity decision making to prevent further life threatening deterioration of the patient 's condition and/or to evaluate & treat vital organ system(s) failure or risk of failure.
[2018-10-01] MEDS ORDERED: MIDAZOLAM 100 MG/100 ML MG IVPB ONE ×2 (15:38→21:18)
[2018-10-01] MEDS: MIDAZOLAM 100 MG in SODIUM CHLORIDE 100 ML IVPB SCH ×2 (15:39→21:20)
[2018-10-01 16:31] LABS: MYCOPLASMA PNEUMONIAE,IG G AB <100 U/mL (0-99); MYCOPLASMA PNEUMONIAE,IGM AB <770 U/mL (0-769)
[2018-10-01] MEDS: CHLORHEXIDINE GLUCONATE 4% CLEANSER FOR DECOLONIZATION TP SCH (21:20)
[2018-10-02 00:08] LABS: HBSAG SCREEN Negative (Negative); HEP A AB, IGM Negative (Negative); HEP B CORE AB, TOT Negative (Negative)
[2018-10-02] MEDS ORDERED: DEXTROSE 5%-WATER - 50 ML IVPB ONE ×2 (01:38→09:18)
[2018-10-02] MEDS ORDERED: PIPERACILLIN/TAZOBACTAM 2.25 GM VIAL IVPB ONE ×2 (01:38→09:18)
[2018-10-02] MEDS: PIPERACILLIN/TAZOB 2.25 GM 2.25 GM in DEXTROSE 5%-WATER - 50 ML IVPB SCH ×2 (01:54→09:20)
[2018-10-02] MEDS: INSULIN SLIDING SCALE (NOVOLOG) 1 VIAL SQ SCH (06:09)
[2018-10-02] MEDS: PANTOPRAZOLE SODIUM 80 MG in SODIUM CHLORIDE 100 ML IVPB SCH (06:10)
[2018-10-02 06:13] LABS: BASO % 0.1 % (0-2.0); EOS % 0.5 % (0-4.5); HEMATOCRIT 28.2 % (32.4-45.2); HEMOGLOBIN 9.2 GM/dL (10.7-15.3); LYMPH % 3.6 % (8-40); MCH 27.7 pg (25.7-33.7); MCHC 32.6 g/dl (32.0-36.0); MEAN CELL VOLUME 85.1 fl (80-96); MEAN PLT VOLUME 8.1 fl (7.5-11.1); MONO % 3.6 % (3.8-10.2); NEUT % 92.2 % (42.8-82.8); PLATELET COUNT 176 K/MM3 (134-434); RBC 3.31 M/mm3 (3.60-5.2); RDW 17.1 % (11.6-15.6); WHITE BLOOD COUNT 21.3 K/mm3 (4.0-10.0)
[2018-10-02 06:43] LABS: ALLENS TEST POSITIVE; ARTERIAL BLD GAS O2 SATURATION 86.4 % (90-98.9); ARTERIAL BLOOD GAS BASE EXCESS 0.4 meq/l (-2-2); ARTERIAL BLOOD GAS PCO2 34.1 mmHg (35-45); ARTERIAL BLOOD GAS PO2 51.3 mmHg (68-100); ARTERIAL BLOOD GAS pH 7.46 (7.35-7.45)
[2018-10-02 06:47] LABS: ALBUMIN 1.7 g/dl (3.4-5.0); ALK PHOS 134 U/L (45-117); ANION GAP 13 MMOL/L (8-16); BILIRUBIN,TOTAL 0.8 mg/dL (0.2-1); BLOOD UREA NITROGEN 38 mg/dL (7-18); CALCIUM 7.4 mg/dL (8.5-10.1); CHLORIDE 101 mmol/L (98-107); CO2 23 mmol/L (21-32); CREATININE 3.5 mg/dL (0.55-1.3); GLUCOSE,RANDOM 97 mg/dL (74-106); MAGNESIUM 1.9 mg/dL (1.8-2.4); SGOT/AST 20 U/L (15-37); SGPT/ALT 16 U/L (13-61); SODIUM 137 mmol/L (136-145); TOT PROT 4.1 g/dl (6.4-8.2)
[2018-10-02 06:50] LABS: POTASSIUM 2.7 mmol/L (3.5-5.1)
[2018-10-02] MEDS: METOPROLOL TARTRATE 25 MG TABLET (FP) PO SCH (09:14)
[2018-10-02] MEDS: MUPIROCIN 2% TOPICAL OINTMENT FOR DECOLONIZATION NS SCH (09:24)
--- NOTE | 2018-10-02 10:07 | PN ---
Progress Note (short form) - Note Progress Note: RENAL Pt is intubated not responsive family by bedside Last Vital Signs Temp Pulse Resp BP Pulse Ox 98.9 F 81 23 H 104/56 L 100 10/02/18 06:00 10/02/18 08:00 10/02/18 09:59 10/02/18 08:00 10/01/18 21:[address] lungs clear anteriorly, on 35 percent FIo2 cvs s1s2 rr loud aortic murmur abd soft, not tender ext no lower extremity edema, has upper extremity edema neuro not responsive CBC, BMP 10/02/18 05:30 10/02/18 05:30 Current Medications Generic Name Dose Route Start Last Admin Trade Name Freq PRN Reason Stop Dose Admin Acetaminophen 1,000 mg 09/30/18 20:33 09/30/18 21:00 Ofirmev Injection - IVPB 1,000 mg Q6H PRN Administration FEVER Chlorhexidine Gluconate 1 applic 09/28/18 22:00 10/01/18 21:20 Hibiclens For Decolonization - TP 1 applic HS DAVID Administration Fentanyl 50 mcg 10/01/18 17:32 Sublimaze Injection - IVPUSH 10/02/18 17:31 Q6H PRN PAIN LEVEL 6-10 Pantoprazole Sodium 80 mg/ 100 mls @ 10 mls/hr 09/27/18 23:15 10/02/18 06:10 Sodium Chloride IVPB 10 mls/hr Q10H DAVID Administration 8 MG/HR Midazolam HCl 100 mg/ Sodium 100 mls @ 1 mls/hr 09/29/18 21:15 10/01/18 21:20 Chloride IVPB 7 mg/hr TITR DAVID 7 mls/hr Administration Protocol 1 MG/HR Norepinephrine Bitartrate 8, 500 mls @ 18.75 mls/hr 09/30/18 07:45 10/02/18 06:09 000 mcg/ Dextrose IV 10 mcg/min TITR DAVID 37.5 mls/hr Titration Protocol 5 MCG/MIN Vasopressin 50 units/ Sodium 100 mls @ 4 mls/hr 09/30/18 08:15 10/01/18 17:19 Chloride IVPB 0 units/hr ASDIR DAVID 0 mls/hr Titration Protocol 2 UNITS/HR Piperacillin Sod/Tazobactam 50 mls @ 100 mls/hr 09/30/18 10:00 11/03/18 09:20 Sod 2.25 gm/ Dextrose IVPB 100 mls/hr Q8H-IV DAVID Administration Protocol Insulin Aspart 1 vial 09/28/18 07:00 10/02/18 06:09 Novolog Vial Sliding Scale - SQ Not Given ACHS DAVID Protocol Metoprolol Tartrate 25 mg 09/29/18 12:15 10/02/18 09:14 Lopressor - PO Not Given BID DAVID Mupirocin 1 applic 09/28/18 10:00 10/02/18 09:24 Bactroban Ointment (For Decolonization) - NS 10/03/18 09:59 1 applic BID DAVID Administration Impression 1. ESRD 2. DM 3. GI bleed 4. anemia 5. HTN 6. cardiac arrest- likely due to severe 7. resp failure requiring intubated Plan will attempt hd today must not try to remove too much fluid given small dose of epogen 3K MV
[2018-10-02] MEDS ORDERED: EPOETIN ALFA 2,000 UNIT/1 ML VIAL IVPUSH ONE (10:10)
[2018-10-02] MEDS ORDERED: SODIUM CHLORIDE 250 ML IV PRN (10:10)
[2018-10-02 11:39] VITALS: BP 115/55; PULSE 77; TEMP 99.3
[2018-10-02 11:43] LABS: ACANTHOCYTES 1+; ANISOCYTOSIS 1+; MACROCYTOSIS 0; PLATELET ESTIMATE NORMAL
--- NOTE | 2018-10-02 12:45 | PN ---
Progress Note (short form) - Note Progress Note: Today the entire family gathered at the bedside and confirmed they wish that ms Ng be removed from life sustaining measures. Daughter Quynh is HCP and agreed that this is in line with patient best interest and previously stated wishes. Pt was removed from ventilator and vasopressor support. At 12:41 pt was noted to be asystolic, to be unconscious, to have no corneal reflexes and to be apeic. She was pronounced. Family was at bedside. Supportive care was given. Organ donation, attending of record and census to be notified. Amadou Pike [facility] [id number]
--- NOTE | 2018-10-02 14:20 | PN ---
Progress Note (short form) - Note Progress Note: pt was compassionately extubated at 1200 Pronounced by ICU FREELANCE PATTERNMAKER at 1240 Visit type - Emergency Visit Emergency Visit: Yes ED Registration Date: 09/28/18 Care time: The patient presented to the Emergency Department on the above date and was hospitalized for further evaluation of their emergent condition. - New Patient This patient is new to me today: No - Critical Care Critical Care patient: No - Discharge Referral Referred to [facility] No
== END 2018-10-02 15:24 | disposition expired | DRG 377 ==
LOC: JER 22:36 → UNDOADMIN 09-28 00:35 → JERBED 09-28 00:35 → UNDOADMIN 09-28 02:14 → JERBED 09-28 08:31 → JICU 09-28 08:31
PROVIDERS: ADMIT Internal Medicine; ATTEND Internal Medicine
PROC: 3E0G8GC Introduction of Other Therapeutic Substance into Upper GI, Via Natural or Artificial Opening Endoscopic (ICD-10-PCS; 2018-09-28)
PROC: 05HN33Z Insertion of Infusion Device into Left Internal Jugular Vein, Percutaneous Approach (ICD-10-PCS; 2018-09-28)
PROC: 30233R1 Transfusion of Nonautologous Platelets into Peripheral Vein, Percutaneous Approach (ICD-10-PCS; 2018-09-28)
PROC: 30233N1 Transfusion of Nonautologous Red Blood Cells into Peripheral Vein, Percutaneous Approach (ICD-10-PCS; 2018-09-28)
PROC: 0W3P8ZZ Control Bleeding in Gastrointestinal Tract, Via Natural or Artificial Opening Endoscopic (ICD-10-PCS; principal; 2018-09-28 12:00)
PROC: 5A1945Z Respiratory Ventilation, 24-96 Consecutive Hours (ICD-10-PCS; 2018-09-29)
PROC: 0CHY7BZ Insertion of Airway into Mouth and Throat, Via Natural or Artificial Opening (ICD-10-PCS; 2018-09-29)
PROC: 5A1D70Z Performance of Urinary Filtration, Intermittent, Less than 6 Hours Per Day (ICD-10-PCS; 2018-09-29)
DX: K26.0 Acute duodenal ulcer with hemorrhage (principal); L89.154 Pressure ulcer of sacral region, stage 4; N18.6 End stage renal disease; J96.01 Acute respiratory failure with hypoxia; A41.89 Other specified sepsis; R65.21 Severe sepsis with septic shock; J69.0 Pneumonitis due to inhalation of food and vomit; I13.2 Hypertensive heart and chronic kidney disease with heart failure and with stage 5 chronic kidney disease, or end stage renal disease; I50.30 Unspecified diastolic (congestive) heart failure; D62 Acute posthemorrhagic anemia; K22.2 Esophageal obstruction; K44.9 Diaphragmatic hernia without obstruction or gangrene; E11.22 Type 2 diabetes mellitus with diabetic chronic kidney disease; Z99.2 Dependence on renal dialysis; I25.10 Atherosclerotic heart disease of native coronary artery without angina pectoris; F03.90 Unspecified dementia, unspecified severity, without behavioral disturbance, psychotic disturbance, mood disturbance, and anxiety; E87.6 Hypokalemia; E83.39 Other disorders of phosphorus metabolism; E83.51 Hypocalcemia; E78.5 Hyperlipidemia, unspecified; I35.0 Nonrheumatic aortic (valve) stenosis; I25.2 Old myocardial infarction; I46.9 Cardiac arrest, cause unspecified; R00.1 Bradycardia, unspecified; Z95.5 Presence of coronary angioplasty implant and graft; Z87.891 Personal history of nicotine dependence; Z78.0 Asymptomatic menopausal state; Z66 Do not resuscitate
CPT/HCPCS: 36415; 36430; 36511; 36600; 71045-TC-FY; 74174-TC; 80048; 80053; 82550; 82553; 82803; 82962; 83036; 83605; 83735; 83930; 84100; 84484; 85025; 85027; 85044; 85610; 85730; 86704; 86706; 86708; 86738; 86803; 86850; 86900; 86901; 86922; 87040; 87070; 87186; 87205; 87340; 87804; 93005; 93010; 93306-TC; 94002; 99284-25; G0480; J0131; J0885; J7030; P9034; P9038; P9058